=== PATIENT | female | born 1955 | race Caucasian/White ===

== ENCOUNTER 2017-01-12 16:03 | Inpatient (IN) | payer OTHER ==
[~2017-01-12] VITALS: Ht 160 cm; Wt 51.8 kg
[~2017-01-12 16:03] MED LIST: METO25 PO; OXYC1SOL5 PO
--- NOTE | 2017-01-12 16:23 | PD ---
HPI Time Seen by Provider: 16:23 PFSH Past Medical History Asthma: Yes Cancer: Yes (RIGHT BREAST) Cardiovascular Problems: Yes (PALPITATIONS) Chemotherapy: No Diminished Hearing: No Endocrine: No Genitourinary: No Hypertension: Yes Musculoskeletal: No Neurologic: No Psychiatric: No Reproductive: Yes Respiratory: Yes (asthma ) Radiation Therapy: No Menopausal: Yes Miscarriage: 1 Ectopic : Yes (x2) Past Surgical History Gynecologic Surgery: Yes Mastectomy: Yes (RIGHT 1998) Pacemaker: No Thoracic Surgery: Yes (R MASTECTOMY) Other Surgery: Yes (RIGHT MASTECTOMY) Social History Alcohol Use: Yes (OCCASIONALLY) Tobacco Use: Yes (PPD) Substance Use: No Allergies-Medications (Allergen,Severity, Reaction): Coded Allergies: No Known Allergies (Unverified , 07/31/16) Reported Meds & Prescriptions Reported Meds & Active Scripts Active Oxycodone/Acetaminophen 5 mg/325 mg 5 mg/325 mg Tab 1 Tab PO Q8HR PRN Metoprolol Tartrate 25 mg (Metoprolol Tartrate) 25 Mg Tab 12.5 Mg PO BID 30 Days Kalli Owens Jan 12, 2017 16:23
[2017-01-12 16:24] VITALS: BP 136/79; PULSE 113; RESP 16; TEMP 98.3; O2SAT 97
[2017-01-12] MEDS ORDERED: SODIUM CHLOR 0.9% 1000 ML INJ 1,000 ML IV ONE ×2 (16:45→18:15)
[2017-01-12 16:51] LABS: AUTOMATED NEUTROPHIL # 4.3 TH/MM3 (1.8-7.7); BASOPHIL % 0.2 % (0.0-2.0); EOSINOPHIL % 0.5 % (0.0-4.0); HEMATOCRIT 32.8 % (35.0-46.0); LYMPH % 9.5 % (9.0-44.0); LYMPHOCYTE # 0.5 TH/MM3 (1.0-4.8); MEAN CORPUSCULAR HEMOGLOBIN 31.5 PG (27.0-34.0); MEAN CORPUSCULAR HGB CONC 32.8 % (32.0-36.0); MONO % 6.5 % (0.0-8.0); NEUT % 83.3 % (16.0-70.0); PLATELET COUNT 82 TH/MM3 (150-450); RED BLOOD COUNT 3.41 MIL/MM3 (4.00-5.30); WHITE BLOOD COUNT 5.2 TH/MM3 (4.0-11.0)
[2017-01-12 16:55] LABS: HEMO FLAGS AUTO DIFF
[2017-01-12 16:59] LABS: INTERNATIONAL NORMALIZED RATIO 1.4 RATIO; PROTHROMBIN TIME - PATIENT 15.8 SEC (9.8-11.6)
[2017-01-12 17:29] LABS: ALKALINE PHOSPHATASE 231 U/L (45-117); ALT (GPT) 49 U/L (10-53); ANION GAP 21 MEQ/L (5-15); AST (GOT) 246 U/L (15-37); BICARBONATE 19.6 MEQ/L (21.0-32.0); BLOOD UREA NITROGEN 12 MG/DL (7-18); CHLORIDE 98 MEQ/L (98-107); CREATINE KINASE 478 U/L (26-192); GLOMERULAR FILTRATION RATE 61 ML/MIN (>89); SODIUM (NA) 139 MEQ/L (136-145); TOTAL BILIRUBIN ADULT 3.7 MG/DL (0.2-1.0)
[2017-01-12 17:32] LABS: PLATELET ESTIMATE SMEAR LOW (NORMAL); PLATELET MORPHOLOGY NORMAL (NORMAL); SCAN/DIFF AUTO DIFF CONFIRMED
[2017-01-12 17:48] LABS: AMPHETAMINE, URINE NEG (NEG); BARBITURATES, URINE NEG (NEG); COCAINE, URINE NEG (NEG)
[2017-01-12 17:50] LABS: CKMB 4.8 NG/ML (0.5-3.6)
--- NOTE | 2017-01-12 18:18 | PD ---
HPI Chief Complaint: Psychiatric Symptoms Time Seen by Provider: 16:22 Travel History International Travel<30 days: No Contact w/Intl Traveler<30days: No Traveled to known affect area: No History of Present Illness HPI This 61-year-old woman who presents to the emergency department via EMS under a roger act after she reportedly was found down on the ground for 4 days. She lives by herself. She apparently somewhat who calls and checks on her. She states she's on before for the past for 5 days. She can't really recall. States she's been scooting around on her butt. She denies pain anywhere except her butt. EMS reports a heart rate in the 140s initially, improved after IV fluids. She was placed under Roger act. No other complaints. History Past Medical History Narrative Medical Asthma Hypertension MGUS Chronic pancreatitis Menopausal: Yes Social History Alcohol Use: Yes (OCCASIONALLY) Tobacco Use: Yes (2 CIGS/DAILY) Allergies-Medications (Allergen,Severity, Reaction): Coded Allergies: No Known Allergies (Unverified , 01/12/17) Reported Meds & Prescriptions Reported Meds & Active Scripts Active No Active Prescriptions or Reported Medications Review of Systems ROS Limitations: Clinical Condition Physical Exam Narrative GENERAL: Frail 61-year-old woman, covered in feces, slow to respond to questions. SKIN: Decreased skin turgor. HEAD: Atraumatic. Normocephalic. EYES: Pupils equal and round. No scleral icterus. No injection or drainage. ENT: No nasal bleeding or discharge. Mucous membranes pink and moist. NECK: Trachea midline. No JVD. CARDIOVASCULAR: Heart rate regular but rapid. No murmurs. RESPIRATORY: No accessory muscle use. Clear to auscultation. Breath sounds equal bilaterally. GASTROINTESTINAL: Abdomen soft, non-tender, nondistended. Hepatic and splenic margins not palpable. MUSCULOSKELETAL: No obvious deformities. Decreased muscle bulk. No edema. NEUROLOGICAL: Awake and alert. No obvious cranial nerve deficits. Motor grossly within normal limits. Normal speech. Data Data Last Documented VS Vital Signs Date Time Temp Pulse Resp B/P Pulse Ox O2 Delivery O2 Flow Rate FiO2 01/12/17 16:24 98.3 113 16 136/79 97 Orders Iv Access Insert/Monitor (01/12/17 16:33) Complete Blood Count With Diff (01/12/17 16:33) Comprehensive Metabolic Panel (01/12/17 16:33) Act Partial Throm Time (Ptt) (01/12/17 16:33) Prothrombin Time / Inr (Pt) (01/12/17 16:33) Lipase (01/12/17 16:33) Creatine Kinase (Cpk) (01/12/17 16:33) Troponin I (01/12/17 16:33) Thyroid Stimulating Hormone (01/12/17 16:33) Alcohol (Ethanol) (01/12/17 16:33) Drug Screen, Random Urine (01/12/17 16:33) Sodium Chlor 0.9% 1000 Ml Inj (Ns 1000 M (01/12/17 16:45) CKMB (01/12/17 16:40) CKMB% (01/12/17 16:40) Sodium Chlor 0.9% 1000 Ml Inj (Ns 1000 M (01/12/17 18:15) Diet Regular Basic (01/12/17 Dinner) Urinalysis - C+S If Indicated (01/12/17 18:02) Admit Order (Ed Use Only) (01/12/17 ) Labs Laboratory Tests Test 01/12/17 01/12/17 16:40 17:25 White Blood Count 5.2 TH/MM3 Red Blood Count 3.41 MIL/MM3 Hemoglobin 10.8 GM/DL Hematocrit 32.8 % Mean Corpuscular Volume 96.0 FL Mean Corpuscular Hemoglobin 31.5 PG Mean Corpuscular Hemoglobin 32.8 % Concent Red Cell Distribution Width 18.0 % Platelet Count 82 TH/MM3 Mean Platelet Volume 9.3 FL Neutrophils (%) (Auto) 83.3 % Lymphocytes (%) (Auto) 9.5 % Monocytes (%) (Auto) 6.5 % Eosinophils (%) (Auto) 0.5 % Basophils (%) (Auto) 0.2 % Neutrophils # (Auto) 4.3 TH/MM3 Lymphocytes # (Auto) 0.5 TH/MM3 Monocytes # (Auto) 0.3 TH/MM3 Eosinophils # (Auto) 0.0 TH/MM3 Basophils # (Auto) 0.0 TH/MM3 CBC Comment AUTO DIFF Differential Comment AUTO DIFF CONFIRMED Platelet Estimate LOW Platelet Morphology Comment NORMAL Prothrombin Time 15.8 SEC Prothromb Time International 1.4 RATIO Ratio Activated Partial 28.0 SEC Thromboplast Time Sodium Level 139 MEQ/L Potassium Level 3.0 MEQ/L Chloride Level 98 MEQ/L Carbon Dioxide Level 19.6 MEQ/L Anion Gap 21 MEQ/L Blood Urea Nitrogen 12 MG/DL Creatinine 0.93 MG/DL Estimat Glomerular Filtration 61 ML/MIN Rate Random Glucose 35 MG/DL Calcium Level 8.4 MG/DL Total Bilirubin 3.7 MG/DL Aspartate Amino Transf 246 U/L (AST/SGOT) Alanine Aminotransferase 49 U/L (ALT/SGPT) Alkaline Phosphatase 231 U/L Total Creatine Kinase 478 U/L Creatine Kinase MB 4.8 NG/ML Creatine Kinase MB % 1.0 % Troponin I LESS THAN 0.02 NG/ML Total Protein 6.8 GM/DL Albumin 2.6 GM/DL Lipase 141 U/L Thyroid Stimulating Hormone 2.050 uIU/ML 3rd Gen Ethyl Alcohol Level LESS THAN 3 MG/DL Urine Color DARK-BROWN Urine Turbidity HAZY Urine pH 6.5 Urine Specific [place] 1.018 Urine Protein 30 mg/dL Urine Glucose (UA) NEG mg/dL Urine Ketones 40 mg/dL Urine Occult Blood MOD Urine Nitrite NEG Urine Bilirubin MOD Urine Urobilinogen GREATER THAN 12.0 MG/DL Urine Leukocyte Esterase MOD Urine RBC 1 /hpf Urine WBC 7 /hpf Urine Squamous Epithelial 4 /hpf Cells Urine Hyaline Casts 5 /lpf Urine Mucus FEW /lpf Microscopic Urinalysis Comment CULT NOT INDICATED Urine Opiates Screen NEG Urine Barbiturates Screen NEG Urine Amphetamines Screen NEG Urine Benzodiazepines Screen NEG Urine Cocaine Screen NEG Urine Cannabinoids Screen NEG MDM Medical Decision Making Medical Screen Exam Complete: Yes Emergency Medical Condition: Yes Interpretation(s) LABS: CBC remarkable for mild anemia. CMP remarkable for low glucose, 35, AST is elevated to 46, total CK is elevated at 478, alkaline phosphatase 231 Troponin negative TSH normal Lipase is normal Coags elevated 1.4 INR UA with increased urobilinogen, only minimal pyuria. Alcohol negative Drug screen negative Differential Diagnosis Depression, liver disease, cirrhosis, a lecture light abnormality, rhabdo, other Narrative Course 61-year-old woman, under a Roger crack for failure to take care of herself for high risk due to inadequate self care. She is on the floor covered in feces. She was tachycardic stress of dehydration. Liver enzymes are worsening. She recently had her gallbladder taken out. She had fatty liver that time. Emphatically denies alcohol use. All her alcohol tests have been negative. Etiology is unclear. We'll recommend admission, IV fluid hydration, repeat assessment. Diagnosis Primary Impression: Weakness Additional Impression: Liver disease Scripts No Active Prescriptions or Reported Meds Alex Blanc MD Jan 12, 2017 18:18
[2017-01-12 18:34] LABS: BLOOD, URINE MOD (NEG); COMMENT (UR) CULT NOT INDICATED; CULTURE IF INDICATED CULT NOT INDICATED; GLUCOSE,URINE NEG (NEG); HYALINE CAST, URINE 5 /lpf (RARE); KETONE, URINE 40 mg/dL (NEG); MUCUS URINE FEW /lpf (OCC); NITRITE,URINE NEG (NEG); PH, URINE 6.5 (5.0-8.5); SQUAMOUS EPITHELIAL CELL URINE 4 /hpf (0-5); URINE COLOR DARK-BROWN (YELLW/STRAW)
[2017-01-12 19:45] VITALS: BP 95/56; PULSE 99; RESP 18; O2SAT 95
[2017-01-12] MEDS ORDERED: NALOXONE HCL 0.4 MG/ML AMP IV PRN (19:45)
[2017-01-12] MEDS ORDERED: POTASSIUM CHLORIDE 10 MEQ CONTROLLED RELEASE TAB PO ONE (21:00)
[2017-01-12] MEDS: SODIUM CHLORIDE 0.9% FLUSH 5 ML FLUSH FLUSH SCH (22:06)
[2017-01-13] VITALS (7 sets, daily range): BP systolic 126–160; BP diastolic 67–76; PULSE 18–98; RESP 18–20; TEMP 96.9–98.9; O2SAT 91–97
--- NOTE | 2017-01-13 00:20 | HHI.HP ---
HPI Service [facility] Primary Care Physician No Primary Care Physician Admission Diagnosis AMS, Weakness, Liver DIsease Diagnoses: Chief Complaint: abd pain, nausea, vomiting, weakness Travel History International Travel<30 Days: No Contact w/Intl Traveler <30 Da: No Traveled to Known Affected Are: No History of Present Illness History taken from patient and ED physician. 61-year-old female with a history of asthma, hypertension (not on any medication ) and chronic pancreatitis presented to ED after being found at home on the ground by a police lieutenant precinct. Her brother from out of state was unable to reach her so he called the police. She states for the last 5 days she has been feeling week and unable to walk or eat. She has been scooting around on her butt the past 5 days because she has been unable to move her legs. She complains of weakness, abdominal pain,nausea and vomiting for the last 5 days, 5x a day, denies and red or black color to her vomit. She also is having loose stools 1-2 times a day. She denies any fever or chills. She feels her abdominal pain is the same feeling she gets when she has had pancreatitis in the past. She is also complaining of tenderness to bilateral lower extremities and pain to her mid back. Upon assessment patient has a congested cough and she states she has had this cough for the past 5 days. She states she only smokes 1-2 cigarettes a day. Review of Systems Constitutional: DENIES: Fever, Chills Respiratory: COMPLAINS OF: Cough Cardiovascular: DENIES: Chest pain, Lower Extremity Edema Gastrointestinal: COMPLAINS OF: Diarrhea, Nausea, Vomiting Musculoskeletal: DENIES: Back pain, Neck pain Integumentary: DENIES: Rash Past Family Social History Past Medical History Asthma Hypertension MGUS Chronic pancreatitis Right breast cancer Past Surgical History Cholecystectomy 2016 Mastectomy Reported Medications Reported Meds & Active Scripts Active No Active Prescriptions or Reported Medications Allergies: Coded Allergies: No Known Allergies (Unverified , 01/12/17) Active Ordered Medications Current Medications Medications (Trade) Dose Ordered Sig/Garett Route Start Time Stop Time Status Last Admin (NS Flush) 2 ml UNSCH PRN FLUSH 01/12/17 19:45 (NS Flush) 2 ml BID FLUSH 01/12/17 21:00 01/12/17 22:06 (Narcan Inj) 0.4 mg UNSCH PRN IV 01/12/17 19:45 Family History Mom: Brain cancer, [place] Dad: CAD Social History Tobacco use: 1-2 cigarettes a day Alcohol use: denies Illicit drug use: denies Patient lives alone and still drives. Physical Exam Vital Signs Vital Signs Date Time Temp Pulse Resp B/P Pulse Ox O2 Delivery O2 Flow Rate FiO2 01/12/17 19:45 99 18 95/56 95 Room Air 01/12/17 16:24 98.3 113 16 136/79 97 Physical Exam GENERAL: This is a thin frail patient, that is very weak. SKIN: No rashes, ecchymoses or lesions. Cool and dry. HEAD: Atraumatic. Normocephalic. EYES: Pupils equal round and reactive. Extraocular motions intact. ENT: Nose without bleeding, purulent drainage or septal hematoma. Airway patent. NECK: Trachea midline. No JVD CARDIOVASCULAR: Regular rate and rhythm without murmurs, gallops, or rubs. RESPIRATORY: Congested cough. Breath sounds equal bilaterally. No wheezes, rales , or rhonchi. GASTROINTESTINAL: Abdomen soft, non-tender, nondistended. No guarding. MUSCULOSKELETAL: Extremities without clubbing, cyanosis, or edema. No joint tenderness, effusion, or edema noted. No calf tenderness. NEUROLOGICAL: Awake and alert. Motor and sensory grossly within normal limits. Normal speech. Laboratory Laboratory Tests Test 01/12/17 01/12/17 16:40 17:25 White Blood Count 5.2 Red Blood Count 3.41 Hemoglobin 10.8 Hematocrit 32.8 Mean Corpuscular Volume 96.0 Mean Corpuscular Hemoglobin 31.5 Mean Corpuscular Hemoglobin 32.8 Concent Red Cell Distribution Width 18.0 Platelet Count 82 Mean Platelet Volume 9.3 Neutrophils (%) (Auto) 83.3 Lymphocytes (%) (Auto) 9.5 Monocytes (%) (Auto) 6.5 Eosinophils (%) (Auto) 0.5 Basophils (%) (Auto) 0.2 Neutrophils # (Auto) 4.3 Lymphocytes # (Auto) 0.5 Monocytes # (Auto) 0.3 Eosinophils # (Auto) 0.0 Basophils # (Auto) 0.0 CBC Comment AUTO DIFF Differential Comment AUTO DIFF CONFIRMED Platelet Estimate LOW Platelet Morphology Comment NORMAL Prothrombin Time 15.8 Prothromb Time International 1.4 Ratio Activated Partial 28.0 Thromboplast Time Sodium Level 139 Potassium Level 3.0 Chloride Level 98 Carbon Dioxide Level 19.6 Anion Gap 21 Blood Urea Nitrogen 12 Creatinine 0.93 Estimat Glomerular Filtration 61 Rate Random Glucose 35 Calcium Level 8.4 Total Bilirubin 3.7 Aspartate Amino Transf 246 (AST/SGOT) Alanine Aminotransferase 49 (ALT/SGPT) Alkaline Phosphatase 231 Total Creatine Kinase 478 Creatine Kinase MB 4.8 Creatine Kinase MB % 1.0 Troponin I LESS THAN 0.02 Total Protein 6.8 Albumin 2.6 Lipase 141 Thyroid Stimulating Hormone 2.050 3rd Gen Ethyl Alcohol Level LESS THAN 3 Urine Color DARK-BROWN Urine Turbidity HAZY Urine pH 6.5 Urine Specific [place] 1.018 Urine Protein 30 Urine Glucose (UA) NEG Urine Ketones 40 Urine Occult Blood MOD Urine Nitrite NEG Urine Bilirubin MOD Urine Urobilinogen GREATER THAN 12.0 Urine Leukocyte Esterase MOD Urine RBC 1 Urine WBC 7 Urine Squamous Epithelial 4 Cells Urine Hyaline Casts 5 Urine Mucus FEW Microscopic Urinalysis Comment CULT NOT INDICATED Urine Opiates Screen NEG Urine Barbiturates Screen NEG Urine Amphetamines Screen NEG Urine Benzodiazepines Screen NEG Urine Cocaine Screen NEG Urine Cannabinoids Screen NEG Result Diagram: 01/12/17 1640 01/12/17 1640 Imaging Assessment and Plan Problem List: (1) Weakness ICD Code: R53.1 Status: Acute (2) Rhabdomyolysis ICD Code: M62.82 Status: Acute (3) UTI (urinary tract infection) ICD Code: N39.0 Status: Acute (4) Hypokalemia ICD Code: E87.6 Status: Acute (5) Hypoglycemia ICD Code: E16.2 Status: Acute (6) Cough ICD Code: R05 Status: Acute Assessment and Plan 61-year-old female with a history of asthma, hypertension, MGUS, chronic pancreatitis presented with: Weakness/back pain Images: CT lumbar spine showed L4 to L5 focal severe canal stenosis and mild canal stenosis at L3 to 4, thoracic spine unremarkable -PT eval and treat Mild Rhabdomyolysis Labs: CPK 495, increased to extremity to -Bolus given in ED -Supportive IVF increased to 125ml/hr -Monitor telemetry Hypokalemia Labs: Potassium 3.0, increased to 3.2 -Supplement given in the ED and in a.m. -Trend BMP UTI Labs: UA moderate amount of leukocyte esterase, high WBC, high ketones and moderate acute blood -Cipro IV q12h Hypoglycemia Labs: glucose 35, resolved to 116 with orange juice and food -Accu checks -regular diet Cough Images: Chest xray unremarkable -Mucinex twice a day DVT prophylaxis: Scds Written by Elinor TURK, acting as scribe for Dr. Elliott on 01/13/17 at 0245. The documentation accurately reflects the work performed [id number] and decisions made by me and the physician Dr Elliott on 01/13/17. The documentation accurately reflects the work performed [id number] by me on at 0245 Discussed Condition With Patient and the ED physician Physician Certification 2 Midnight Certification Type: Admission for Inpatient Services Order for Inpatient Services The services are ordered in accordance with Medicare regulations or non- Medicare payer requirements, as applicable. In the case of services not specified as inpatient-only, they are appropriately provided as inpatient services in accordance with the 2-midnight benchmark. Estimated LOS (days): 3 days is the estimated time the patient will need to remain in the hospital, assuming treatment plan goals are met and no additional complications. Post-Hospital Plan: Not yet determined Elinor Massey Jan 13, 2017 00:20 Hunter Elliott MD Jan 14, 2017 08:26
[2017-01-13] MEDS: SODIUM CHLOR 0.9% 1000 ML INJ 1,000 ML IV SCH ×3 (04:13→20:31)
--- NOTE | 2017-01-13 04:13 | RADRPT ---
EXAM DATE/TIME: 01/13/2017 03:28 [facility] COMPARISON: No previous studies available for comparison. INDICATIONS : Weakness for 5 days RADIATION DOSE: 56.35 CTDIvol (mGy) MEDICAL HISTORY : Cardiovascular disease. Hypertension. Pancreatitis.Breast cancer. SURGICAL HISTORY : Mastectomy, right. Cholecystectomy. ENCOUNTER: Initial ACUITY: 4 - 6 days PAIN SCALE: 0/10 LOCATION: Bilateral cranial TECHNIQUE: Multiple contiguous axial images were obtained of the head. Using automated exposure control and adj ustment of the mA and/or kV according to patient size, radiation dose was kept as low as reasonably a chievable to obtain optimal diagnostic quality images. FINDINGS: CEREBRUM: The ventricles are normal for age. No evidence of midline shift, mass lesion, hemorrhage or acute in farction. No extra-axial fluid collections are seen. POSTERIOR FOSSA: The cerebellum and brainstem are intact. The 4th ventricle is midline. The cerebellopontine angle i s unremarkable. EXTRACRANIAL: The visualized portion of the orbits is intact. SKULL: The calvaria is intact. No evidence of skull fracture. CONCLUSION: 1. No acute intracranial abnormalities. Cortical atrophy. Dylon St MD on January 13, 2017 at 4:09 Board Certified Radiologist. This report was verified electronically.
--- NOTE | 2017-01-13 04:15 | RADRPT ---
EXAM DATE/TIME: 01/13/2017 03:32 [facility] COMPARISON: No previous studies available for comparison. INDICATIONS : Weakness for five days RADIATION DOSE: 12.64 CTDIvol (mGy) ; Combined studies - Thoracic Spine/Lumbar Spine MEDICAL HISTORY : Hypertension. Cardiovascular disease Pancreatitis.Breast cancer. SURGICAL HISTORY : Cholecystectomy. Mastectomy, right. ENCOUNTER: Initial ACUITY: 4 - 6 days PAIN SCALE: 0/10 LOCATION: Back TECHNIQUE: Volumetric scanning of the thoracic spine was performed. Multiplanar reconstructions in the sagittal , coronal and oblique axial planes were performed. Using automated exposure control and adjustment o f the mA and/or kV according to patient size, radiation dose was kept as low as reasonably achievable to obtain optimal diagnostic quality images. FINDINGS: The vertebral bodies of the thoracic spine are in normal alignment without evidence of subluxation. Vertebral body height is maintained. No fractures are seen. T1-T2: Normal. T2-T3: The thecal sac has a normal diameter. No evidence of disc bulge or protrusion. T3-T4: The thecal sac has a normal diameter. No evidence of disc bulge or protrusion. T4-T5: The thecal sac has a normal diameter. No evidence of disc bulge or protrusion. T5-T6: The thecal sac has a normal diameter. No evidence of disc bulge or protrusion. T6-T7: The thecal sac has a normal diameter. No evidence of disc bulge or protrusion. T7-T8: The thecal sac has a normal diameter. No evidence of disc bulge or protrusion. T8-T9: The thecal sac has a normal diameter. No evidence of disc bulge or protrusion. T9-T10: The thecal sac has a normal diameter. No evidence of disc bulge or protrusion. T10-T11: The thecal sac has a normal diameter. No evidence of disc bulge or protrusion. T11-T12: The thecal sac has a normal diameter. No evidence of disc bulge or protrusion. T12-L1: The thecal sac has a normal diameter. No evidence of disc bulge or protrusion. CONCLUSION: 1. No acute findings. Mild degenerative disc disease. No canal stenosis. Dylon St MD on January 13, 2017 at 4:12 Board Certified Radiologist. This report was verified electronically.
--- NOTE | 2017-01-13 04:18 | RADRPT ---
EXAM DATE/TIME: 01/13/2017 03:34 [facility] COMPARISON: No previous studies available for comparison. INDICATIONS : Weakness for five days RADIATION DOSE: 12.64 CTDIvol (mGy) ; Combined studies - Thoracic Spine/Lumbar Spine MEDICAL HISTORY : Cardiovascular disease. Hypertension. Pancreatitis.Breast cancer. SURGICAL HISTORY : Cholecystectomy. Mastectomy, right. ENCOUNTER: Initial ACUITY: 4 - 6 days PAIN SCALE: 0/10 LOCATION: Back TECHNIQUE: Volumetric scanning of the lumbar spine was performed. Multiplanar reconstructions in the sagittal, coronal and oblique axial planes were performed. Using automated exposure control and adjustment of the mA and/or kV according to patient size, radiation dose was kept as low as reasonably achievable t o obtain optimal diagnostic quality images. FINDINGS: No acute fracture. There is a grade 1 anterolisthesis of L4 and L5-1 broad-based disc protrusion and advanced facet arthropathy resulting in focal severe canal stenosis at this level. There is a mild central canal stenosis at L3-4 secondary to mild disc bulge or protrusion and facet a rthropathy. No other significant stenosis. CONCLUSION: 1. No acute fracture. 2. At L4-5 there is focal severe canal stenosis secondary to grade 1 anterolisthesis and advanced fac et arthropathy. 3. Mild canal stenosis at L3-4. Dylon St MD on January 13, 2017 at 4:14 Board Certified Radiologist. This report was verified electronically.
--- NOTE | 2017-01-13 04:28 | RADRPT ---
EXAM DATE/TIME: 01/13/2017 03:40 [facility] COMPARISON: CHEST SINGLE AP, July 31, 2016, 4:45. INDICATIONS : Pneumonia. MEDICAL HISTORY : None. SURGICAL HISTORY : None. ENCOUNTER: Initial ACUITY: 1 day PAIN SCORE: 7/10 LOCATION: Bilateral chest FINDINGS: A single view of the chest demonstrates the lungs to be symmetrically aerated without evidence of mas s, infiltrate or effusion. The cardiomediastinal contours are unremarkable. Osseous structures are intact. CONCLUSION: 1. No acute findings. Atherosclerotic aorta. Dylon St MD on January 13, 2017 at 4:26 Board Certified Radiologist. This report was verified electronically.
[2017-01-13 04:38] LABS: AUTOMATED NEUTROPHIL # 4.3 TH/MM3 (1.8-7.7); BASOPHIL % 0.5 % (0.0-2.0); EOSINOPHIL # 0.1 TH/MM3 (0-0.4); HEMATOCRIT 31.5 % (35.0-46.0); LYMPH % 20.3 % (9.0-44.0); LYMPHOCYTE # 1.2 TH/MM3 (1.0-4.8); MEAN CELL VOLUME 94.7 FL (80.0-100.0); MEAN CORPUSCULAR HEMOGLOBIN 31.9 PG (27.0-34.0); MEAN CORPUSCULAR HGB CONC 33.6 % (32.0-36.0); MONO % 5.8 % (0.0-8.0); NEUT % 72.4 % (16.0-70.0); PLATELET COUNT 79 TH/MM3 (150-450); RED BLOOD COUNT 3.33 MIL/MM3 (4.00-5.30); RED CELL DISTRIBUTION WIDTH 18.2 % (11.6-17.2); WHITE BLOOD COUNT 5.9 TH/MM3 (4.0-11.0)
[2017-01-13 04:47] LABS: HEMO FLAGS AUTO DIFF
[2017-01-13 05:14] LABS: ALKALINE PHOSPHATASE 242 U/L (45-117); ALT (GPT) 44 U/L (10-53); ANION GAP 11 MEQ/L (5-15); AST (GOT) 217 U/L (15-37); BICARBONATE 27.8 MEQ/L (21.0-32.0); BLOOD UREA NITROGEN 8 MG/DL (7-18); CHLORIDE 99 MEQ/L (98-107); CREATINE KINASE 622 U/L (26-192); GLOMERULAR FILTRATION RATE 70 ML/MIN (>89); POTASSIUM 3.2 MEQ/L (3.5-5.1); SODIUM (NA) 138 MEQ/L (136-145)
[2017-01-13 05:15] LABS: TOTAL BILIRUBIN ADULT 3.4 MG/DL (0.2-1.0)
[2017-01-13 05:32] LABS: CKMB 5.1 NG/ML (0.5-3.6)
[2017-01-13] MEDS ORDERED: POTASSIUM CHLORIDE 20 MEQ CONTROLLED RELEASE TAB PO ONE (06:45)
[2017-01-13 07:05] LABS: PLATELET ESTIMATE SMEAR LOW (NORMAL); PLATELET MORPHOLOGY NORMAL (NORMAL); SCAN/DIFF AUTO DIFF CONFIRMED
[2017-01-13] MEDS: SODIUM CHLORIDE 0.9% FLUSH 5 ML FLUSH FLUSH SCH ×2 (09:00→21:00)
[2017-01-13] MEDS ORDERED: LORazepam 2 MG/ML VIAL IM PRN ×2 (09:05→10:15)
--- NOTE | 2017-01-13 09:37 | PD.CONS ---
(Sung Winston MD) HPI Consult Requested By Primary Care Physician No Primary Care Physician (Sung Winston MD) Service Neurosurgery Consult Requested By Dr. Ramirez Reason for Consult Lower extremity weakness with loss of bowel control History of Present Illness Ms. Sigala is a 61 year old female who presents to [facility] after she was found home on the floor by law-enforcement. She reports she has been getting progressively weaker and has had progressive difficulty walking. She complain of generalized weakness all over her body. She denies paresthesias in her arms or legs. She reports of mild lumbar pain and pain in the anterior thighs. She also reports the past several weeks she has had bowel incontinence. She denies fevers or chills. A CT of the lumbar spine showed degenerative changes with focal stenosis at L4 5. Neurosurgical evaluation was requested. (Shelia Russell) Review of Systems Constitutional: COMPLAINS OF: Fatigue, DENIES: Fever, Chills Eyes: DENIES: Diplopia Ears, nose, mouth, throat: COMPLAINS OF: Hearing loss Respiratory: DENIES: Apneas, Shortness of breath Cardiovascular: DENIES: Chest pain Gastrointestinal: DENIES: Nausea, Vomiting Musculoskeletal: COMPLAINS OF: Stiffness, Back pain Neurologic: COMPLAINS OF: Abnormal gait, Localized weakness, DENIES: Paresthesias, Seizures, Speech Problems Psychiatric: DENIES: Hallucinations (Shelia Russell) Past Family Social History Allergies: Coded Allergies: No Known Allergies (Unverified , 01/12/17) Past Medical History Hypertension MGUS Asthma Chronic pancreatitis Breast cancer Past Surgical History Cholecystectomy Mastectomy Reported Medications Reviewed in EMR Active Ordered Medications Current Medications Medications (Trade) Dose Ordered Sig/Garett Route PRN Reason Start Time Stop Time Status Last Admin Dose Admin IV Flush (NS Flush) 2 ml UNSCH PRN FLUSH FLUSH AFTER USING IV ACCESS 01/12/17 19:45 IV Flush (NS Flush) 2 ml BID FLUSH 01/12/17 21:00 01/13/17 09:00 Naloxone HCl 0.4 mg 0.4 mg UNSCH PRN IV SEE LABEL COMMENTS 01/12/17 19:45 Sodium Chloride (NS 1000 ml Inj) 1,000 ml @ 125 mls/hr Q8H IV 01/13/17 03:30 01/13/17 04:13 Guaifenesin 600 mg 600 mg BID PO 01/13/17 09:00 01/13/17 10:17 Ciprofloxacin/ Dextrose (Cipro 400 Mg Premix) 200 ml @ 200 mls/hr Q12H IV 01/13/17 08:00 01/13/17 10:18 Oxycodone/ Acetaminophen (Percocet 5-325 Mg) 1 tab Q6H PRN PO PAIN SCALE 5 TO 10 01/13/17 12:00 01/13/17 14:07 Acetaminophen (Tylenol) 500 mg Q6H PRN PO PAIN 1-4, HEADACHE, FEVER 01/13/17 12:00 Family History Mother: Brain cancer, Heart Attack Father: Heart Disease Social History Tobacco use: 1-2 cigarettes a day, denies etoh or illicit drug abuse (Shelia Russell) Physical Exam Vital Signs Vital Signs Date Time Temp Pulse Resp B/P Pulse Ox O2 Delivery O2 Flow Rate FiO2 01/13/17 08:00 98.9 97 20 130/76 97 01/13/17 05:57 96.9 97 18 158/70 91 01/13/17 05:34 93 19 130/72 93 Room Air 01/13/17 01:04 95 18 126/67 96 Room Air 01/12/17 19:45 99 18 95/56 95 Room Air 01/12/17 16:24 98.3 113 16 136/79 97 Laboratory Laboratory Tests Test 01/12/17 01/12/17 01/13/17 16:40 17:25 04:03 White Blood Count 5.2 5.9 Red Blood Count 3.41 3.33 Hemoglobin 10.8 10.6 Hematocrit 32.8 31.5 Mean Corpuscular Volume 96.0 94.7 Mean Corpuscular Hemoglobin 31.5 31.9 Mean Corpuscular Hemoglobin 32.8 33.6 Concent Red Cell Distribution Width 18.0 18.2 Platelet Count 82 79 Mean Platelet Volume 9.3 9.5 Neutrophils (%) (Auto) 83.3 72.4 Lymphocytes (%) (Auto) 9.5 20.3 Monocytes (%) (Auto) 6.5 5.8 Eosinophils (%) (Auto) 0.5 1.0 Basophils (%) (Auto) 0.2 0.5 Neutrophils # (Auto) 4.3 4.3 Lymphocytes # (Auto) 0.5 1.2 Monocytes # (Auto) 0.3 0.3 Eosinophils # (Auto) 0.0 0.1 Basophils # (Auto) 0.0 0.0 CBC Comment AUTO DIFF AUTO DIFF Differential Comment AUTO DIFF AUTO DIFF CONFIRMED CONFIRMED Platelet Estimate LOW LOW Platelet Morphology Comment NORMAL NORMAL Prothrombin Time 15.8 Prothromb Time International 1.4 Ratio Activated Partial 28.0 Thromboplast Time Sodium Level 139 138 Potassium Level 3.0 3.2 Chloride Level 98 99 Carbon Dioxide Level 19.6 27.8 Anion Gap 21 11 Blood Urea Nitrogen 12 8 Creatinine 0.93 0.83 Estimat Glomerular Filtration 61 70 Rate Random Glucose 35 89 Calcium Level 8.4 7.7 Total Bilirubin 3.7 3.4 Aspartate Amino Transf 246 217 (AST/SGOT) Alanine Aminotransferase 49 44 (ALT/SGPT) Alkaline Phosphatase 231 242 Total Creatine Kinase 478 622 Creatine Kinase MB 4.8 5.1 Creatine Kinase MB % 1.0 0.8 Troponin I LESS THAN 0.02 Total Protein 6.8 6.6 Albumin 2.6 2.4 Lipase 141 Thyroid Stimulating Hormone 2.050 3rd Gen Ethyl Alcohol Level LESS THAN 3 Urine Color DARK-BROWN Urine Turbidity HAZY Urine pH 6.5 Urine Specific [place] 1.018 Urine Protein 30 Urine Glucose (UA) NEG Urine Ketones 40 Urine Occult Blood MOD Urine Nitrite NEG Urine Bilirubin MOD Urine Urobilinogen GREATER THAN 12.0 Urine Leukocyte Esterase MOD Urine RBC 1 Urine WBC 7 Urine Squamous Epithelial 4 Cells Urine Hyaline Casts 5 Urine Mucus FEW Microscopic Urinalysis Comment CULT NOT INDICATED Urine Opiates Screen NEG Urine Barbiturates Screen NEG Urine Amphetamines Screen NEG Urine Benzodiazepines Screen NEG Urine Cocaine Screen NEG Urine Cannabinoids Screen NEG (Sung Winston MD) Physical Exam Ms. Sigala is alert, awake and oriented to time, place and person. Speech is appropriate. Cranial nerve examination: pupils to be equal, round, and reactive to light. Extra-ocular movements are intact. Facial motor and sensory function are normal and symmetrical. Mild decreased hearing b/l. The uvula is midline and elevates symmetrically with the soft palate. Sternocleidomastoid and trapezius muscles have normal and symmetrical strength. Other cranial nerves are intact. Cervical spine has mild decreased range of motion with mild discomfort. Muscle testing reveals normal bulk and tone. She reports of generalized weakness. Muscle strength is 4/5 in all muscle groups of both upper extremities including deltoid, biceps, triceps, brachioradialis, wrist extension and books salesperson. In the lower extremities, strength is 3/5 in both iliopsoas , quadriceps, hamstrings, 4/5 plantar flexion, dorsiflexion, and extensor hallicus longus. Sensory examination reports intact to light touch in both the upper and lower extremities. Deep tendon reflexes are 1+ and symmetrical in the biceps, triceps, and brachioradialis, bilaterally, in the upper extremities. In the lower extremities , the patellar and Achilles are 2+, bilaterally. There is a bilateral plantar flexion response. Hoffmanns sign is negative. There is no clonus or other abnormal reflexes noted. Cerebellar examination is intact to [id number] test. (Shelia Russell) Result Diagram: 01/13/1740201/13/17402 Imaging Last Impressions Thoracic Spine CT 01/13/17 0000 Signed Impressions: Service Date/Time: Friday, January 13, 2017 03:32 - CONCLUSION: 1. No acute findings. Mild degenerative disc disease. No canal stenosis. Dylon St MD Lumbar Spine CT 01/13/17 0000 Signed Impressions: Service Date/Time: Friday, January 13, 2017 03:34 - CONCLUSION: 1. No acute fracture. 2. At L4-5 there is focal severe canal stenosis secondary to grade 1 anterolisthesis and advanced facet arthropathy. 3. Mild canal stenosis at L3- 4. Dylon St MD Head CT 01/13/17 0000 Signed Impressions: Service Date/Time: Friday, January 13, 2017 03:28 - CONCLUSION: 1. No acute intracranial abnormalities. Cortical atrophy. Dylon St MD Chest X-Ray 01/13/17 0000 Signed Impressions: Service Date/Time: Friday, January 13, 2017 03:40 - CONCLUSION: 1. No acute findings. Atherosclerotic aorta. Dylon St MD (Shelia Russell) Attending Statement Neuro. I have reviewed her clinical and radiological findings. Start neuro checks in a serial fashion. SHe has weakness of both upper and lower extremities. Her weakness does not correlate with her lumbar spinal stenosis. Recommend MRI of the cervical thoracic and lumbar spine. Recommend a neurology consultation to rule out other etiologies. We will defer further recommendations to upon completion of the workup Respiratory. pulmonary toilette, nasotracheal suction, and breathing treatments with nebulizers. PT and OT Nutrition. NPO Renal. monitor closely urine output, BUN and creatinine Endocrine. Monitor serial Acu checks and SSI as needed in detail ID monitor for signs of infection Protonix for stress ulcer prophylaxis Jose De Jesus hose and SCD's for DVT prophylaxis (Sung Winston MD) Sung Winston MD Jan 13, 2017 09:37 Shelia Russell Jan 13, 2017 14:33
[2017-01-13] MEDS: guaiFENesin E.R. 600 MG TAB PO SCH ×2 (10:17→20:27)
[2017-01-13] MEDS: CIPROFLOXACIN 400 MG PREMIX 200 ML IV SCH ×2 (10:18→20:27)
--- NOTE | 2017-01-13 11:25 | HHI.PR ---
Subjective Remarks Follow up for lower extremity weakness, L4-L5 focal severe canal stenosis. Patient was admitted overnight. Patient reports no fever or chills. She has not been able to walk in the last 2 weeks. She also reports loss of bowel control at home. Objective Vitals Vital Signs Date Time Temp Pulse Resp B/P Pulse Ox O2 Delivery O2 Flow Rate FiO2 01/13/17 08:00 98.9 97 20 130/76 97 01/13/17 05:57 96.9 97 18 158/70 91 01/13/17 05:34 93 19 130/72 93 Room Air 01/13/17 01:04 95 18 126/67 96 Room Air 01/12/17 19:45 99 18 95/56 95 Room Air 01/12/17 16:24 98.3 113 16 136/79 97 I/O 01/12/17 01/12/17 01/12/17 01/13/17 01/13/17 01/13/17 07:00 15:00 23:00 07:00 15:00 23:00 Intake Total 240 ml Balance 240 ml Intake Oral 240 ml Result Diagram: 01/13/17 0403 01/13/17 0403 Imaging Last Impressions Thoracic Spine CT 01/13/17 0000 Signed Impressions: Service Date/Time: Friday, January 13, 2017 03:32 - CONCLUSION: 1. No acute findings. Mild degenerative disc disease. No canal stenosis. Dylon St MD Lumbar Spine CT 01/13/17 0000 Signed Impressions: Service Date/Time: Friday, January 13, 2017 03:34 - CONCLUSION: 1. No acute fracture. 2. At L4-5 there is focal severe canal stenosis secondary to grade 1 anterolisthesis and advanced facet arthropathy. 3. Mild canal stenosis at L3- 4. Dylon St MD Head CT 01/13/17 0000 Signed Impressions: Service Date/Time: Friday, January 13, 2017 03:28 - CONCLUSION: 1. No acute intracranial abnormalities. Cortical atrophy. Dylon St MD Chest X-Ray 01/13/17 0000 Signed Impressions: Service Date/Time: Friday, January 13, 2017 03:40 - CONCLUSION: 1. No acute findings. Atherosclerotic aorta. Dylon St MD Objective Remarks GENERAL: Alert, NAD. SKIN: Warm and dry. HEAD: Normocephalic. EYES: No scleral icterus. No injection or drainage. NECK: Supple, trachea midline. No JVD or lymphadenopathy. CARDIOVASCULAR: Regular rate and rhythm without murmurs, gallops, or rubs. RESPIRATORY: Breath sounds equal bilaterally. No accessory muscle use. GASTROINTESTINAL: Abdomen soft, non-tender, nondistended. MUSCULOSKELETAL: No cyanosis, or edema. Symmetrically weak lower extremity strength 3+ out of 5. BACK: Nontender without obvious deformity. No CVA tenderness. Procedures None A/P Problem List: (1) Weakness ICD Code: R53.1 Status: Acute (2) Rhabdomyolysis ICD Code: M62.82 Status: Acute (3) UTI (urinary tract infection) ICD Code: N39.0 Status: Acute (4) Hypokalemia ICD Code: E87.6 Status: Acute (5) Hypoglycemia ICD Code: E16.2 Status: Acute (6) Cough ICD Code: R05 Status: Acute Assessment and Plan 61-year-old female with a history of asthma, hypertension, MGUS, chronic pancreatitis presented lower extremity weakness. She has not been able to walk for the last two weeks. No fever, chills. - L4-L5 focal severe canal stenosis - Discussed with Dr. Winston who will evaluate patient. - Will consult Neurology as well and obtain MRI studies of C, T and L spine. - Percocet for pain PRN - Urinary tract infection - Continue Cipro for now. We can likely switch to PO tomorrow. - Mild rhabdomyolysis - Hypokalemia - CPK 622 today. - Continue IV fluid. - K+ improved 3.0 --> 3.2. Full code. SCDs. Shelley Ramirez DO Jan 13, 2017 11:24 am
[2017-01-13] MEDS ORDERED: GADODIAMIDE PF 287 MG/ML 10 ML VIAL (for RAD MRI) IV ONE (13:01)
--- NOTE | 2017-01-13 13:56 | RADRPT ---
EXAM DATE/TIME: 01/13/2017 11:59 [facility] COMPARISON: No previous studies available for comparison. INDICATIONS : Back pain. CONTRAST: 9 cc Omniscan (gadodiamide) IV MEDICAL HISTORY : Carcinoma, breast. SURGICAL HISTORY : Mastectomy, bilateral. Cholecystectomy. ENCOUNTER: Initial ACUITY: 1 day PAIN SCORE: 3/10 LOCATION: Back TECHNIQUE: Multiplanar multisequence MRI of the thoracic spine was performed. FINDINGS: By MRI the marrow signal in the thoracic spine appears homogeneous and normal. Signal intensity in t he thoracic cord is normal. There is good preservation of vertebral body and disc space heights. There is no perivertebral mass identified. CONCLUSION: Negative MRI of the thoracic spine. There is no evidence for metastatic disease. Mauro Joel MD FACR on January 13, 2017 at 13:48 Board Certified Radiologist. This report was verified electronically.
[2017-01-13] MEDS: oxyCODONE/ACETAMINOPHEN 5 MG/325 MG TAB PO PRN (14:07)
--- NOTE | 2017-01-13 14:37 | RADRPT ---
EXAM DATE/TIME: 01/13/2017 11:59 [facility] COMPARISON: No previous studies available for comparison. INDICATIONS : Neck pain. CONTRAST: 9 cc Omniscan (gadodiamide) IV MEDICAL HISTORY : Carcinoma, breast. SURGICAL HISTORY : Mastectomy, bilateral. Cholecystectomy. ENCOUNTER: Initial ACUITY: 1 day PAIN SCORE: 4/10 LOCATION: Neck TECHNIQUE: Multiplanar, multisequence MRI examination of the cervical spine was performed. FINDINGS: By MRI the marrow signal in the cervical vertebral body appear homogeneous and normal. Signal intens ity in the cervical cord is normal. There is mild cervical atrophy. C2-C3: There is minimal central disc bulging present. Neural foramina are adequate. C3-C4: The thecal sac has a normal configuration. There is no evidence of disc herniation or spinal canal s tenosis. The neural foramina are patent bilaterally. C4-C5: There is mild uncinate ridging present with minimal right-sided neural foraminal encroachment. C5-C6: The thecal sac has a normal configuration. There is no evidence of disc herniation or spinal canal s tenosis. The neural foramina are patent bilaterally. C6-C7: There is mild uncinate ridging is present. Neural foramina are adequate. C7-T1: The thecal sac has a normal configuration. There is no evidence of disc herniation or spinal canal s tenosis. The neural foramina are patent bilaterally. CONCLUSION: Degenerative changes as described above. There is no abnormal contrast enhancement identified. Mauro Joel MD FACR on January 13, 2017 at 13:49 Board Certified Radiologist. This report was verified electronically.
--- NOTE | 2017-01-13 16:06 | RADRPT ---
EXAM DATE/TIME: 01/13/2017 11:59 [facility] COMPARISON: No previous studies available for comparison. INDICATIONS : Back pain. CONTRAST: 9 cc Omniscan (gadodiamide) IV MEDICAL HISTORY : Carcinoma, breast. SURGICAL HISTORY : Mastectomy, bilateral. Cholecystectomy. ENCOUNTER: Initial ACUITY: 1 day PAIN SCORE: 3/10 LOCATION: Back TECHNIQUE: Multiplanar multisequence MRI of the lumbar spine was performed with and without contrast. FINDINGS: By MRI the marrow signal in the lumbar vertebral body appears homogeneous and normal. Signal intensi ty in the conus is normal. T12-L1: The thecal sac has a normal diameter. No evidence of disc bulge or protrusion. The neural foramina are patent bilaterally. L1-L2: The thecal sac has a normal diameter. No evidence of disc bulge or protrusion. The neural foramina are patent bilaterally. L2-L3: There is very mild disc bulging present with mild facet changes. Minimal bilateral neural foraminal encroachment is evident. L3-L4: There is minimal eccentric bulging at L3-4 causing minimal encroachment on the right L3 nerve root. There are mild degenerative changes in the facets. L4-L5: There is a moderately severe spinal stenosis from ligamentous hypertrophy, degenerative changes and f acet hypertrophy. L5-S1: There is minimal eccentric bulging to the right. Neural foramina are adequate. Mild degenerative ch anges are present in the facets. SI joints are normal. There is no contrast enhancement. CONCLUSION: 1. Radiographically significant spinal stenosis at L4-L5. 2. Minimal disc bulging to the right at L3-4. Mauro Joel MD FACR on January 13, 2017 at 13:50 Board Certified Radiologist. This report was verified electronically.
--- NOTE | 2017-01-13 18:13 | PD.CONS ---
History of Present Illness Service Neurology Consult Requested By medical Reason for Consult weakness Primary Care Physician No Primary Care Physician History of Present Illness 61-year-old female with a history of asthma, hypertension (not on any medication ) and chronic pancreatitis presented to ED after being found at home on the ground by a chief of police. Her brother from [place] was unable to reach her so he called the police. she states she has been getting weak for the past 6 months. states she lives alone. denies any headache. states her legs will tremor sometimes and low back pain but denies true radicular symptoms. not the best historian. inattentive and slow to speak/answer. states she does not require any assistive device to walk with. she was found to have a glucose of 35, elevated ast, alk phos, low plt count and raised ck level. albumin 2.6. denies etoh use. had mri's of her entire spine performed and no spinal cord lesion found. she has been seen by neurosurgery. denies any fever/sick contacts. was seen by heme in the past for low plts and also has MGUS. Review of Systems as above and admit hp Past Family Social History Past Medical History Asthma Hypertension MGUS Chronic pancreatitis Right breast cancer Past Surgical History Cholecystectomy 2016 Mastectomy Reported Medications Reported Meds & Active Scripts Active No Active Prescriptions or Reported Medications Allergies: Coded Allergies: No Known Allergies (Unverified , 01/12/17) Family History Mom: Brain cancer, [place] Dad: CAD Social History Tobacco use: 1-2 cigarettes a day Alcohol use: denies Illicit drug use: denies Patient lives alone and still drives. Review of Systems All other ROS: ROS reviewed as documented in chart Past Family Social History Allergies: Coded Allergies: No Known Allergies (Unverified , 01/12/17) Active Ordered Medications Current Medications Medications (Trade) Dose Ordered Sig/Garett Route Start Time Stop Time Status Last Admin (NS Flush) 2 ml UNSCH PRN FLUSH 01/12/17 19:45 (NS Flush) 2 ml BID FLUSH 01/12/17 21:00 01/13/17 09:00 Naloxone HCl 0.4 mg 0.4 mg UNSCH PRN IV 01/12/17 19:45 (NS 1000 ml Inj) 1,000 ml @ 125 mls/hr Q8H IV 01/13/17 03:30 01/13/17 04:13 Guaifenesin 600 mg 600 mg BID PO 01/13/17 09:00 01/13/17 10:17 (Cipro 400 Mg Premix) 200 ml @ 200 mls/hr Q12H IV 01/13/17 08:00 01/13/17 10:18 (Percocet 5-325 Mg) 1 tab Q6H PRN PO 01/13/17 12:00 01/13/17 14:07 (Tylenol) 500 mg Q6H PRN PO 01/13/17 12:00 Exam I&O / VS 01/12/17 01/12/17 01/13/17 15:00 23:00 07:00 Intake Total 240 ml Balance 240 ml Intake Oral 240 ml Vital Signs Date Time Temp Pulse Resp B/P Pulse Ox O2 Delivery O2 Flow Rate FiO2 01/13/17 11:30 98.8 98 20 129/70 93 01/13/17 08:00 98.9 97 20 130/76 97 01/13/17 05:57 96.9 97 18 158/70 91 01/13/17 05:34 93 19 130/72 93 Room Air 01/13/17 01:04 95 18 126/67 96 Room Air 01/12/17 19:45 99 18 95/56 95 Room Air Exam Comments somewhat disheveled appearance, alert, ox 3. slow speech, follows, slow to respond. eomi but slow saccades. no ptosis. face sym, ou 3-2mm, generalized weakness le>ue. able to raise arms off bed, legs are difficult with strength of 2-3/5 proximally, distal feet 4/5, nicolas le atrophy, no fasciculations, slight increased tone in rt ue; msr 1+, no clonus, planterflexor, bruises on knees, and elbows Review/Management Diagnosis/Plan: (1) Weakness Plan: appears chronic (several months?) based on exam. has atrophy in le and multiple healed bruises. may be related to poor nutritional status. other causes would include spray technician lesions/ MGUS causing lymphoma? and axonal neuropathy i don't think the lumbar stenosis accounts for all her physical and lab findings recs nutritional support heme-onc eval mri brain check csf follow exam probably needs long-term placement d/w pt (2) MGUS (monoclonal gammopathy of unknown significance) (3) Thrombocytopenia Garewal,Jeremy MD Jan 13, 2017 18:13
[2017-01-14 04:03] VITALS: BP 168/88; PULSE 106; RESP 18; TEMP 99.2; O2SAT 92
[2017-01-14] MEDS: oxyCODONE/ACETAMINOPHEN 5 MG/325 MG TAB PO PRN ×2 (05:40→18:44)
[2017-01-14] MEDS: SODIUM CHLOR 0.9% 1000 ML INJ 1,000 ML IV SCH ×3 (05:41→20:31)
[2017-01-14 07:17] VITALS: BP 172/105; PULSE 97; RESP 18; TEMP 98.7; O2SAT 92
[2017-01-14] MEDS: guaiFENesin E.R. 600 MG TAB PO SCH ×2 (09:00→20:50)
[2017-01-14] MEDS: SODIUM CHLORIDE 0.9% FLUSH 5 ML FLUSH FLUSH SCH ×2 (09:00→20:50)
[2017-01-14] MEDS ORDERED: LORazepam 2 MG/ML VIAL ONE (09:19)
--- NOTE | 2017-01-14 09:47 | PD.RAD ---
Post Procedure Progress Note Pre Procedure Diagnosis: (1) MGUS (monoclonal gammopathy of unknown significance) Post Procedure Diagnosis: (1) MGUS (monoclonal gammopathy of unknown significance) Procedure Date: Jan 14, 2017 Supervising Radiologist: Louis Metz Proceduralist/Assist: Teresa Sandra, RT(R)(CV), Kenia Young RT(R) Anesthesia: Local Plan of Activity Patient to Unit: Nursing Unit Patient Condition: Fair See PACS Report for procedural detail/treatment Spinal Procedure Lumbar Puncture L3-L4 Fluid Removal (CCs): 6 Fluid Description: Louis Hardin MD Jan 14, 2017 09:47
[2017-01-14] MEDS ORDERED: GADODIAMIDE PF 287 MG/ML 10 ML VIAL (for RAD MRI) IV ONE (10:23)
[2017-01-14] MEDS ORDERED: LORazepam 2 MG/ML VIAL IV PUSH ONE (11:00)
--- NOTE | 2017-01-14 11:02 | RADRPT ---
EXAM DATE/TIME: 01/14/2017 10:04 [facility] COMPARISON: CT BRAIN W/O CONTRAST, January 13, 2017, 3:28. INDICATIONS : Metastatic disease. CONTRAST: 10 cc Omniscan (gadodiamide) IV MEDICAL HISTORY : Carcinoma, breast. SURGICAL HISTORY : Cholecystectomy. Mastectomy, bilateral. ENCOUNTER: Subsequent ACUITY: 2 day PAIN SCORE: 0/10 LOCATION: cranial TECHNIQUE: Multiplanar, multisequence MRI of the brain was performed both prior to and following the administrat ion of paramagnetic contrast. FINDINGS: CEREBRUM: The ventricles are normal for age. No evidence of midline shift, mass lesion, hemorrhage or acute in farction. No extraaxial fluid collections are seen. The pituitary gland and suprasellar cistern are normal in configuration. WHITE MATTER: Scattered T2 bright signal abnormalities are seen in the white matter. POSTERIOR FOSSA: The cerebellum is intact. Prominent chronic ischemic changes involving the brainstem. The 4th ventric le is midline. The cerebellopontine angle is unremarkable. The cerebellar tonsils are normal in posi tion. DIFFUSION IMAGING: No focal areas of restricted diffusion are seen. No evidence of acute infarction. EXTRACRANIAL: The visualized portions of the orbits and paranasal sinuses are unremarkable. POST-CONTRAST: No abnormal areas of parenchymal or dural enhancement. No evidence of blood-brain barrier breakdown. CONCLUSION: 1. Chronic ischemic small vessel vasculopathy. 2. No acute infarction. 3. No enhancing metastatic lesions are seen. Frank Johnson MD on January 14, 2017 at 10:54 Board Certified Radiologist. This report was verified electronically.
[2017-01-14] MEDS: CIPROFLOXACIN 400 MG PREMIX 200 ML IV SCH (11:05)
[2017-01-14 11:18] LABS: GROSS BLOOD TUBE #1 1+ (0); SUPERNATE COLOR TUBE #1 CLEAR (CLEAR); VOLUME TUBE # 1 1.6 ML
[2017-01-14 11:21] LABS: GROSS BLOOD TUBE #2 1+ (0); SUPERNATE COLOR TUBE #2 CLEAR (CLEAR); VOLUME TUBE # 2 1.9 ML; VOLUME TUBE # 3 2.1 ML
[2017-01-14 11:36] LABS: WBC TUBE #3 25 /MM3 (0-10)
[2017-01-14 11:40] LABS: CSF LYMPHOCYTES 33 %; CSF NEUTROPHILS 67 %
--- NOTE | 2017-01-14 11:41 | RADRPT ---
EXAM DATE/TIME: 01/14/2017 09:33 [facility] COMPARISON: No previous studies available for comparison. INDICATIONS : Patient with neuritis in need of lumbar puncture. MEDICAL HISTORY : HTN, Asthma, MGUS, Chronic pancreatitis, Right breast cancer SURGICAL HISTORY : Cholecystectomy, Mastectomy ENCOUNTER: Initial ACUITY: 4 -6 days PAIN SCORE: 0/10 LUMBAR PUNCTURE TIME: 0950 hours FLUORO TIME: 1.4 minutes IMAGE SERIES: 0 SEDATION TIME: 15 minutes ACCESS LEVEL: L2-3 FLUID: 6 cc of clear CSF was collected and sent to the laboratory for analysis. SEDATION: 1.) 2 mg lorazepam (Ativan) IV PROCEDURE : 1. Fluoroscopic guided lumbar puncture. The risks, benefits and alternatives to the procedure were explained and verbal and written consent w as obtained. The site was prepped in sterile fashion. Full sterile technique was used, including ca p, mask, sterile gloves and gown and a large sterile sheet. Hand hygiene and 2% chlorhexidine and/or betadine/alcohol prep was utilized per protocol for cutaneous antisepsis. The skin and subcutaneous tissues were infiltrated with local anesthetic solution. With fluoroscopic guidance the lumbar thecal sac was punctured at the level above. The fluid describ ed above was removed without difficulty. The patient tolerated the procedure well and there were no complications. CONCLUSION: Uncomplicated fluoroscopically guided lumbar puncture. Louis Metz MD on January 14, 2017 at 11:39 Board Certified Radiologist. This report was verified electronically.
[2017-01-14 12:39] LABS: GROSS BLOOD TUBE #3 1+ (0); SUPERNATE COLOR TUBE #3 CLEAR (CLEAR)
[2017-01-14 12:57] VITALS: BP 109/69; PULSE 84; RESP 18; O2SAT 93
--- NOTE | 2017-01-14 13:11 | HHI.NSPN ---
(Shelia Russell) Note Status Status: Progress Note (Shelia Russell) Interval History Interval History Ms. Sigala is a 61 year old female who presents to [place] after she was found home on the floor by law-enforcement. She reports she has been getting progressively weaker and has had progressive difficulty walking. She complain of generalized weakness all over her body. She denies paresthesias in her arms or legs. She reports of mild lumbar pain and pain in the anterior thighs. She also reports the past several weeks she has had bowel incontinence. She denies fevers or chills. A CT of the lumbar spine showed degenerative changes with focal stenosis at L4 5. Neurosurgical evaluation was requested. 01/14: MRI C, T, L spine completed, showed focal stenosis at L4-5 otherwise negative. returned from , [place], reports she still feels weak all over. ( Shelia Russell) Labs, Micro, & Vital Signs Results Date Time Temp Pulse Resp B/P Pulse Ox O2 Delivery O2 Flow Rate FiO2 01/14/17 12:57 84 18 109/69 93 01/14/17 07:17 98.7 97 18 172/105 92 01/14/17 04:03 99.2 106 18 168/88 92 01/13/17 23:54 98.3 93 18 160/74 94 01/13/17 20:45 98.2 18 18 140/76 93 01/13/17 15:07 20 Last Impressions Lumbar Puncture Fluoroscopy 01/14/17 0000 Signed Impressions: Service Date/Time: January 09:33 - CONCLUSION: Uncomplicated fluoroscopically guided lumbar puncture. Louis Metz MD Brain MRI 01/14/17 0000 Signed Impressions: Service Date/Time: January 10:04 - CONCLUSION: 1. Chronic ischemic small vessel vasculopathy. 2. No acute infarction. 3. No enhancing metastatic lesions are seen. Frank Johnson MD Thoracic Spine MRI 01/13/17 0000 Signed Impressions: Service Date/Time: Friday, January 13, 2017 11:59 - CONCLUSION: Negative MRI of the thoracic spine. There is no evidence for metastatic disease. Mauro Joel MD FACR Thoracic Spine CT 01/13/17 0000 Signed Impressions: Service Date/Time: Friday, January 13, 2017 03:32 - CONCLUSION: 1. No acute findings. Mild degenerative disc disease. No canal stenosis. Dylon St MD Lumbar Spine MRI 01/13/17 0000 Signed Impressions: Service Date/Time: Friday, January 13, 2017 11:59 - CONCLUSION: 1. Radiographically significant spinal stenosis at L4-L5. 2. Minimal disc bulging to the right at L3-4. Mauro Joel MD FACR Lumbar Spine CT 01/13/17 0000 Signed Impressions: Service Date/Time: Friday, January 13, 2017 03:34 - CONCLUSION: 1. No acute fracture. 2. At L4-5 there is focal severe canal stenosis secondary to grade 1 anterolisthesis and advanced facet arthropathy. 3. Mild canal stenosis at L3- 4. Dylon St MD Head CT 01/13/17 0000 Signed Impressions: Service Date/Time: Friday, January 13, 2017 03:28 - CONCLUSION: 1. No acute intracranial abnormalities. Cortical atrophy. Dylon St MD Chest X-Ray 01/13/17 0000 Signed Impressions: Service Date/Time: Friday, January 13, 2017 03:40 - CONCLUSION: 1. No acute findings. Atherosclerotic aorta. Dylon St MD Cervical Spine MRI 01/13/17 0000 Signed Impressions: Service Date/Time: Friday, January 13, 2017 11:59 - CONCLUSION: Degenerative changes as described above. There is no abnormal contrast enhancement identified. Mauro Joel MD FACR Constitutional Vital Signs Date Time Temp Pulse Resp B/P Pulse Ox O2 Delivery O2 Flow Rate FiO2 01/14/17 12:57 84 18 109/69 93 01/14/17 07:17 98.7 97 18 172/105 92 01/14/17 04:03 99.2 106 18 168/88 92 01/13/17 23:54 98.3 93 18 160/74 94 01/13/17 20:45 98.2 18 18 140/76 93 01/13/17 15:07 20 (Shelia Russell) Review of Systems/Exam Exam Ms. Sigala is groggy following sedation for LP, oriented name and place. Cranial nerve examination: pupils equal, round, and reactive to light. Facial motor are symmetrical. Cervical spine has mild decreased range of motion with mild discomfort. Motor: exam limited due to sedation, moved all four extremities against gravity , weaker in lower extremities Sensory examination reports intact to light touch in both the upper and lower extremities. There is a bilateral plantar flexion response. Hoffmanns sign is negative. Cerebellar: exam limited today due to sedation (Shelia Russell) Medications Current Medications Current Medications Medications (Trade) Dose Ordered Sig/Garett Route PRN Reason Start Time Stop Time Status Last Admin Dose Admin IV Flush (NS Flush) 2 ml UNSCH PRN FLUSH FLUSH AFTER USING IV ACCESS 01/12/17 19:45 IV Flush (NS Flush) 2 ml BID FLUSH 01/12/17 21:00 01/14/17 09:00 Naloxone HCl 0.4 mg 0.4 mg UNSCH PRN IV SEE LABEL COMMENTS 01/12/17 19:45 Sodium Chloride (NS 1000 ml Inj) 1,000 ml @ 125 mls/hr Q8H IV 01/13/17 03:30 01/14/17 05:41 Guaifenesin 600 mg 600 mg BID PO 01/13/17 09:00 01/13/17 20:27 Ciprofloxacin/ Dextrose (Cipro 400 Mg Premix) 200 ml @ 200 mls/hr Q12H IV 01/13/17 08:00 01/14/17 11:05 Oxycodone/ Acetaminophen (Percocet 5-325 Mg) 1 tab Q6H PRN PO PAIN SCALE 5 TO 10 01/13/17 12:00 01/14/17 05:40 Acetaminophen (Tylenol) 500 mg Q6H PRN PO PAIN 1-4, HEADACHE, FEVER 01/13/17 12:00 (Shelia Russell) Medical Decision Making MDM Remarks 61 y/o female complains of progressive generalized weakness and difficulty ambulating, fecal incontinence MRI L spine shows degenerative changes causing focal stenosis at L4-5, MRI C spine shows degenerative changes without significant stenosis, MRI T spine negative (Shelia Russell) Plan Plan Remarks dw pt regarding MRI spine findings, focal stenosis at L4-5 does not explain all her symptoms, recommend nonsurgical management at this time, Neurology following, CSF studies pending will defer further management to Neurology, recommend physical, occupational therapy (Shelia Russell) Attending Statement The exam, history, and the medical decision-making described in the above note were completed with the assistance of the mid-level provider. I reviewed and agree with the findings presented. I attest that I had a [id number] encounter with the patient on the same day, and personally performed and documented my assessment and findings in the medical record. (Sung Winston MD) Shelia Russell Jan 14, 2017 13:11 Sung Winston MD Jan 15, 2017 08:45
--- NOTE | 2017-01-14 16:07 | HHI.PR ---
Subjective Remarks Follow up for lower extremity weakness, L4-L5 focal severe canal stenosis. Patient is lying in bed resting well. Denies any acute concerns. She still cannot get up and walk. She likely needs long-term care. Objective Vitals Vital Signs Date Time Temp Pulse Resp B/P Pulse Ox O2 Delivery O2 Flow Rate FiO2 01/14/17 12:57 84 18 109/69 93 01/14/17 07:17 98.7 97 18 172/105 92 01/14/17 04:03 99.2 106 18 168/88 92 01/13/17 23:54 98.3 93 18 160/74 94 01/13/17 20:45 98.2 18 18 140/76 93 Result Diagram: 01/13/17 0403 01/13/17402 Imaging Last Impressions Lumbar Puncture Fluoroscopy 01/14/17 0000 Signed Impressions: Service Date/Time: January 09:33 - CONCLUSION: Uncomplicated fluoroscopically guided lumbar puncture. Louis Metz MD Brain MRI 01/14/17 0000 Signed Impressions: Service Date/Time: January 10:04 - CONCLUSION: 1. Chronic ischemic small vessel vasculopathy. 2. No acute infarction. 3. No enhancing metastatic lesions are seen. Frank Johnson MD Thoracic Spine MRI 01/13/17 0000 Signed Impressions: Service Date/Time: Friday, January 13, 2017 11:59 - CONCLUSION: Negative MRI of the thoracic spine. There is no evidence for metastatic disease. Mauro Joel MD FACR Thoracic Spine CT 01/13/17 0000 Signed Impressions: Service Date/Time: Friday, January 13, 2017 03:32 - CONCLUSION: 1. No acute findings. Mild degenerative disc disease. No canal stenosis. Dylon St MD Lumbar Spine MRI 01/13/17 0000 Signed Impressions: Service Date/Time: Friday, January 13, 2017 11:59 - CONCLUSION: 1. Radiographically significant spinal stenosis at L4-L5. 2. Minimal disc bulging to the right at L3-4. Mauro Joel MD FACR Lumbar Spine CT 01/13/17 0000 Signed Impressions: Service Date/Time: Friday, January 13, 2017 03:34 - CONCLUSION: 1. No acute fracture. 2. At L4-5 there is focal severe canal stenosis secondary to grade 1 anterolisthesis and advanced facet arthropathy. 3. Mild canal stenosis at L3- 4. Dylon St MD Head CT 01/13/17 0000 Signed Impressions: Service Date/Time: Friday, January 13, 2017 03:28 - CONCLUSION: 1. No acute intracranial abnormalities. Cortical atrophy. Dylon St MD Chest X-Ray 01/13/17 Signed Impressions: Service Date/Time: Friday, January 13, 2017 03:40 - CONCLUSION: 1. No acute findings. Atherosclerotic aorta. Dylon St MD Cervical Spine MRI 01/13/17 Signed Impressions: Service Date/Time: Friday, January 13, 2017 11:59 - CONCLUSION: Degenerative changes as described above. There is no abnormal contrast enhancement identified. Mauro Joel MD FACR Objective Remarks GENERAL: Alert, NAD. SKIN: Warm and dry. HEAD: Normocephalic. EYES: No scleral icterus. No injection or drainage. NECK: Supple, trachea midline. No JVD or lymphadenopathy. CARDIOVASCULAR: Regular rate and rhythm without murmurs, gallops, or rubs. RESPIRATORY: Breath sounds equal bilaterally. No accessory muscle use. GASTROINTESTINAL: Abdomen soft, non-tender, nondistended. MUSCULOSKELETAL: No cyanosis, or edema. Symmetrically weak lower extremity strength 3+ out of 5. BACK: Nontender without obvious deformity. No CVA tenderness. Procedures Lumbar puncture 01/14/2017 A/P Problem List: (1) Weakness ICD Code: R53.1 Status: Acute (2) Rhabdomyolysis ICD Code: M62.82 Status: Acute (3) UTI (urinary tract infection) ICD Code: N39.0 Status: Acute (4) Hypokalemia ICD Code: E87.6 Status: Acute (5) Hypoglycemia ICD Code: E16.2 Status: Acute (6) Cough ICD Code: R05 Status: Acute Assessment and Plan 61-year-old female with a history of asthma, hypertension, MGUS, chronic pancreatitis presented lower extremity weakness. She has not been able to walk for the last two weeks. No fever, chills. - Generalized lower extremity weakness - L4-L5 focal severe canal stenosis - Appreciate Neurology and Neurosurgery input. - No immediate surgical intervention anticipated. - Continue PT. Discussed with CM - Patient does not have any insurance. - Urinary tract infection - Continue Cipro 250mg PO Q12hrs X 3 days. - Mild rhabdomyolysis - Hypokalemia - CPK 622 - Continue IV fluid. - K+ improved 3.0 --> 3.2. - BMP, CBC in the AM. - Hyperammonemia - ammonia level 76. - Will start on Lactulose. Full code. SCDs. Shelley Ramirez DO Jan 14, 2017 4:07 pm
[2017-01-14 16:35] VITALS: BP 128/77; PULSE 104; RESP 17; O2SAT 95
[2017-01-14] MEDS: LACTULOSE SYRUP 20 GM/30 ML CUP PO SCH ×2 (18:48→20:50)
[2017-01-14 19:31] VITALS: BP 148/89; PULSE 98; RESP 18; O2SAT 97
[2017-01-14] MEDS: CIPROFLOXACIN 250 MG TAB PO SCH (21:38)
[2017-01-15 03:42] VITALS: BP 119/86; PULSE 78; RESP 18; O2SAT 97
[2017-01-15] MEDS: SODIUM CHLOR 0.9% 1000 ML INJ 1,000 ML IV SCH ×3 (04:31→20:13)
[2017-01-15 07:44] LABS: AUTOMATED NEUTROPHIL # 3.1 TH/MM3 (1.8-7.7); BASOPHIL % 0.6 % (0.0-2.0); EOSINOPHIL # 0.1 TH/MM3 (0-0.4); EOSINOPHIL % 2.3 % (0.0-4.0); HEMATOCRIT 34.3 % (35.0-46.0); LYMPH % 20.1 % (9.0-44.0); LYMPHOCYTE # 0.9 TH/MM3 (1.0-4.8); MEAN CORPUSCULAR HEMOGLOBIN 31.8 PG (27.0-34.0); MEAN CORPUSCULAR HGB CONC 32.8 % (32.0-36.0); PLATELET COUNT 78 TH/MM3 (150-450); RED BLOOD COUNT 3.54 MIL/MM3 (4.00-5.30); RED CELL DISTRIBUTION WIDTH 18.9 % (11.6-17.2); WHITE BLOOD COUNT 4.7 TH/MM3 (4.0-11.0)
[2017-01-15 07:46] VITALS: BP 156/98; PULSE 97; RESP 17; O2SAT 95
[2017-01-15 07:51] LABS: HEMO FLAGS AUTO DIFF
[2017-01-15 08:15] LABS: BICARBONATE 25.1 MEQ/L (21.0-32.0)
--- NOTE | 2017-01-15 08:20 | HHI.PR ---
Review/Management Diagnosis/Plan: (1) Weakness Plan: appears chronic (several months?) based on exam. has atrophy in le and multiple healed bruises. may be related to poor nutritional status. 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 and axonal neuropathy i don't think the lumbar stenosis accounts for all her physical and lab findings csf- nml protein; mild elevation of wbc but rbc also elevated; cx'd negative mild parkinsonism on exam recs trial of sinemet; s/b d/w pt probably needs long-term placement rehab-pending heme eval-pending d/w pt will her back on wednesday; call me if ? (2) MGUS (monoclonal gammopathy of unknown significance) (3) Thrombocytopenia Subjective Subjective Comments No acute events reported +tremors and stiffness on awakening No headache No chest pain No dyspnea Active Medications Current Medications Medications (Trade) Dose Ordered Sig/Garett Route Start Time Stop Time Status Last Admin (NS Flush) 2 ml UNSCH PRN FLUSH 01/12/17 19:45 (NS Flush) 2 ml BID FLUSH 01/12/17 21:00 01/14/17 09:00 Naloxone HCl 0.4 mg 0.4 mg UNSCH PRN IV 01/12/17 19:45 (NS 1000 ml Inj) 1,000 ml @ 125 mls/hr Q8H IV 01/13/17 03:30 01/14/17 18:49 (Mucinex Er) 600 mg BID PO 01/13/17 09:00 01/14/17 20:50 (Percocet 5-325 Mg) 1 tab Q6H PRN PO 01/13/17 12:00 01/14/17 18:44 (Tylenol) 500 mg Q6H PRN PO 01/13/17 12:00 (Cipro) 250 mg Q12HR PO 01/14/17 21:00 01/17/17 20:59 01/14/17 21:38 (Lactulose Liq) 30 ml QID PO 01/14/17 18:00 01/14/17 20:50 Allergies Allergies Coded Allergies No Known Allergies (Unverified01/12/17) Review of Systems All other ROS: ROS reviewed as documented in chart Exam I&O / VS 01/14/17 01/14/17 01/15/17 15:00 23:00 07:00 Intake Total 1100 ml Balance 1100 ml Intake Oral 600 ml IV Total 500 ml # Voids 4 # Bowel Movements 0 Vital Signs Date Time Temp Pulse Resp B/P Pulse Ox O2 Delivery O2 Flow Rate FiO2 01/15/17 07:46 97 17 156/98 95 01/15/17 03:42 78 18 119/86 97 01/14/17 19:44 12 01/14/17 19:31 98 18 148/89 97 01/14/17 16:35 104 17 128/77 95 01/14/17 12:57 84 18 109/69 93 Exam Comments alert, ox 3. slow speech, follows, slow to respond. facial hypomimia, eomi but slow saccades. no ptosis. face sym, ou 3-2mm, generalized weakness le>ue. able to raise arms off bed, legs are difficult with strength of 3+/5 proximally, distal feet 4/5, nicolas le atrophy, no fasciculations, slight increased tone in rt ue; msr 1+, no clonus, planterflexor, bruises on knees, and elbows Objective Micro and Labs Laboratory Tests Test 01/14/17 01/15/17 09:40 06:32 CSF Volume (Tube 1) 1.6 CSF Supernatant Color (tube 1) CLEAR CSF Gross Blood (Tube 1) 1+ CSF Volume (Tube 2) 1.9 CSF Supernatant Color (tube 2) CLEAR CSF Gross Blood (Tube 2) 1+ CSF Volume (Tube 3) 2.1 CSF Supernatant Color (tube 3) CLEAR CSF Gross Blood (Tube 3) 1+ CSF WBC (Tube 3) 25 CSF RBC (Tube 3) 1036 CSF Neutrophils 67 CSF Lymphocytes 33 CSF Glucose 50 CSF Total Protein 40.5 White Blood Count 4.7 Red Blood Count 3.54 Hemoglobin 11.2 Hematocrit 34.3 Mean Corpuscular Volume 97.0 Mean Corpuscular Hemoglobin 31.8 Mean Corpuscular Hemoglobin 32.8 Concent Red Cell Distribution Width 18.9 Platelet Count 78 Mean Platelet Volume 10.1 Neutrophils (%) (Auto) 67.0 Lymphocytes (%) (Auto) 20.1 Monocytes (%) (Auto) 10.0 Eosinophils (%) (Auto) 2.3 Basophils (%) (Auto) 0.6 Neutrophils # (Auto) 3.1 Lymphocytes # (Auto) 0.9 Monocytes # (Auto) 0.5 Eosinophils # (Auto) 0.1 Basophils # (Auto) 0.0 CBC Comment AUTO DIFF Date/Time Procedure Status Source Growth 01/14/17 09:40 Gram Stain - Final Resulted Cerebral Spinal Fluid Lumbar Puncture 01/14/17 09:40 CSF Culture Resulted Cerebral Spinal Fluid Lumbar Puncture Pending Jeremy Holliday MD Jan 15, 2017 08:20
[2017-01-15 08:36] LABS: PLATELET ESTIMATE SMEAR LOW (NORMAL); PLATELET MORPHOLOGY NORMAL (NORMAL); SCAN/DIFF AUTO DIFF CONFIRMED
[2017-01-15] MEDS: SODIUM CHLORIDE 0.9% FLUSH 5 ML FLUSH FLUSH SCH ×2 (09:00→20:14)
[2017-01-15] MEDS: CIPROFLOXACIN 250 MG TAB PO SCH ×2 (09:36→20:27)
[2017-01-15] MEDS: CARBIDOPA/LEVODOPA 10 MG/100 MG TAB PO SCH ×2 (09:36→17:42)
[2017-01-15] MEDS: guaiFENesin E.R. 600 MG TAB PO SCH ×2 (09:37→20:14)
[2017-01-15] MEDS: LACTULOSE SYRUP 20 GM/30 ML CUP PO SCH ×4 (09:37→20:14)
--- NOTE | 2017-01-15 10:09 | HHI.PR ---
Subjective Remarks Follow up for lower extremity weakness, L4-L5 focal severe canal stenosis. Mr. Sigala is currently doing little bit better. She reports eating better. Still feels very weak. Denies any fever or chills. Objective Vitals Vital Signs Date Time Temp Pulse Resp B/P Pulse Ox O2 Delivery O2 Flow Rate FiO2 01/15/17 07:46 97 17 156/98 95 01/15/17 03:42 78 18 119/86 97 01/14/17 19:44 12 01/14/17 19:31 98 18 148/89 97 01/14/17 16:35 104 17 128/77 95 01/14/17 12:57 84 18 109/69 93 I/O 01/14/17 01/14/17 01/14/17 01/15/17 01/15/17 01/15/17 07:00 15:00 23:00 07:00 15:00 23:00 Intake Total 1100 ml Balance 1100 ml Intake Oral 600 ml IV Total 500 ml # Voids 4 # Bowel Movements 0 Result Diagram: 01/15/17 0632 01/15/17 0632 Imaging Last Impressions Lumbar Puncture Fluoroscopy 01/14/17 0000 Signed Impressions: Service Date/Time: January 09:33 - CONCLUSION: Uncomplicated fluoroscopically guided lumbar puncture. Louis Metz MD Brain MRI 01/14/17 0000 Signed Impressions: Service Date/Time: January 10:04 - CONCLUSION: 1. Chronic ischemic small vessel vasculopathy. 2. No acute infarction. 3. No enhancing metastatic lesions are seen. Frank Johnson MD Thoracic Spine MRI 01/13/17 0000 Signed Impressions: Service Date/Time: Friday, January 13, 2017 11:59 - CONCLUSION: Negative MRI of the thoracic spine. There is no evidence for metastatic disease. Mauro Joel MD FACR Thoracic Spine CT 01/13/17 0000 Signed Impressions: Service Date/Time: Friday, January 13, 2017 03:32 - CONCLUSION: 1. No acute findings. Mild degenerative disc disease. No canal stenosis. Dylon St MD Lumbar Spine MRI 01/13/17 0000 Signed Impressions: Service Date/Time: Friday, January 13, 2017 11:59 - CONCLUSION: 1. Radiographically significant spinal stenosis at L4-L5. 2. Minimal disc bulging to the right at L3-4. Mauro Joel MD FACR Lumbar Spine CT 01/13/17 0000 Signed Impressions: Service Date/Time: Friday, January 13, 2017 03:34 - CONCLUSION: 1. No acute fracture. 2. At L4-5 there is focal severe canal stenosis secondary to grade 1 anterolisthesis and advanced facet arthropathy. 3. Mild canal stenosis at L3- 4. Dylon St MD Head CT 01/13/17 0000 Signed Impressions: Service Date/Time: Friday, January 13, 2017 03:28 - CONCLUSION: 1. No acute intracranial abnormalities. Cortical atrophy. Dylon St MD Chest X-Ray 01/13/17 0000 Signed Impressions: Service Date/Time: Friday, January 13, 2017 03:40 - CONCLUSION: 1. No acute findings. Atherosclerotic aorta. Dylon St MD Cervical Spine MRI 01/13/17 0000 Signed Impressions: Service Date/Time: Friday, January 13, 2017 11:59 - CONCLUSION: Degenerative changes as described above. There is no abnormal contrast enhancement identified. Mauro Joel MD FACR Objective Remarks GENERAL: Alert, NAD. SKIN: Warm and dry. HEAD: Normocephalic. EYES: No scleral icterus. No injection or drainage. NECK: Supple, trachea midline. No JVD or lymphadenopathy. CARDIOVASCULAR: Regular rate and rhythm without murmurs, gallops, or rubs. RESPIRATORY: Breath sounds equal bilaterally. No accessory muscle use. GASTROINTESTINAL: Abdomen soft, non-tender, nondistended. MUSCULOSKELETAL: No cyanosis, or edema. Symmetrically weak lower extremity strength 3+ out of 5. BACK: Nontender without obvious deformity. No CVA tenderness. Procedures Lumbar puncture 01/14/2017 A/P Problem List: (1) Weakness ICD Code: R53.1 Status: Acute (2) Rhabdomyolysis ICD Code: M62.82 Status: Acute (3) UTI (urinary tract infection) ICD Code: N39.0 Status: Acute (4) Hypokalemia ICD Code: E87.6 Status: Acute (5) Hypoglycemia ICD Code: E16.2 Status: Acute (6) Cough ICD Code: R05 Status: Acute Assessment and Plan 61-year-old female with a history of asthma, hypertension, MGUS, chronic pancreatitis presented lower extremity weakness. She has not been able to walk for the last two weeks. No fever, chills. - Generalized lower extremity weakness - L4-L5 focal severe canal stenosis - Appreciate Neurology and Neurosurgery input. - No immediate surgical intervention anticipated. - Continue PT. Discussed with CM - Patient does not have any insurance. - Thrombocytopenia - platelet 78K. - MGUS - Hematology was consulted by neurology. Discussed with test engine mechanic Dr. Suero who recommended outpatient follow-up. - Urinary tract infection - Continue Cipro 250mg PO Q12hrs X 3 days. - Mild rhabdomyolysis - Hypokalemia - Severe hypomagnesemia magnesium 0.7. - We'll aggressively replace magnesium intravenously. Replace with 6 g of magnesium sulfate divided in 3 doses. - CPK 622 on admission - Continue IV fluid. - K+ 3.0 today. Continue by mouth potassium supplement. Patient received 40 mEq of potassium chloride intravenously this morning. - BMP in the AM. - Hyperammonemia - ammonia level 76. - Continue Lactulose. Full code. SCDs. Shelley Ramirez DO Jan 15, 2017 10:09 am
[2017-01-15] MEDS: oxyCODONE/ACETAMINOPHEN 5 MG/325 MG TAB PO PRN (10:19)
[2017-01-15] MEDS: POTASSIUM CHLOR 20 MEQ PREMIX 100 ML IV SCH ×2 (11:48→13:56)
[2017-01-15 11:49] VITALS: BP 125/66; PULSE 99; RESP 18; O2SAT 95
[2017-01-15 16:32] VITALS: BP 128/75; PULSE 91; RESP 17; O2SAT 94
[2017-01-15] MEDS ORDERED: POTASSIUM CHLOR 20 MEQ PREMIX 100 ML IV SCH (16:45)
[2017-01-15] MEDS: MAGNESIUM SULFATE 1 GM PREMIX 100 ML IV SCH ×4 (17:42→23:15)
[2017-01-15] MEDS: POTASSIUM CHLORIDE 20 MEQ CONTROLLED RELEASE TAB PO SCH (20:14)
[2017-01-15 20:30] VITALS: BP 139/83; PULSE 88; RESP 17; TEMP 97.8; O2SAT 97
--- NOTE | 2017-01-16 00:16 | PD.ONC.PN ---
Subjective Subjective Remarks 61-year-old female with a past medical history of hypertension, Liver disease, chronic thrombocytopenia and MGUS. Patient known to me from previous admission. From hematological standpoint no intervention at this time. Discussed with Dr. Ramirez. Patient needs to have outpatient f/u with Hematology. Objective Data Date Time Temp Pulse Resp B/P Pulse Ox O2 Delivery O2 Flow Rate FiO2 01/15/17 20:30 97.8 88 17 139/83 97 01/15/17 16:32 91 17 128/75 94 01/15/17 11:49 99 18 125/66 95 01/15/17 07:46 97 17 156/98 95 01/15/17 03:42 78 18 119/86 97 Result Diagram: 01/15/17 0632 01/15/17 0632 Laboratory Results Laboratory Tests Test 01/15/17 06:32 White Blood Count 4.7 TH/MM3 Red Blood Count 3.54 MIL/MM3 Hemoglobin 11.2 GM/DL Hematocrit 34.3 % Mean Corpuscular Volume 97.0 FL Mean Corpuscular Hemoglobin 31.8 PG Mean Corpuscular Hemoglobin 32.8 % Concent Red Cell Distribution Width 18.9 % Platelet Count 78 TH/MM3 Mean Platelet Volume 10.1 FL Neutrophils (%) (Auto) 67.0 % Lymphocytes (%) (Auto) 20.1 % Monocytes (%) (Auto) 10.0 % Eosinophils (%) (Auto) 2.3 % Basophils (%) (Auto) 0.6 % Neutrophils # (Auto) 3.1 TH/MM3 Lymphocytes # (Auto) 0.9 TH/MM3 Monocytes # (Auto) 0.5 TH/MM3 Eosinophils # (Auto) 0.1 TH/MM3 Basophils # (Auto) 0.0 TH/MM3 CBC Comment AUTO DIFF Differential Comment AUTO DIFF CONFIRMED Platelet Estimate LOW Platelet Morphology Comment NORMAL Sodium Level 137 MEQ/L Potassium Level 3.0 MEQ/L Chloride Level 100 MEQ/L Carbon Dioxide Level 25.1 MEQ/L Anion Gap 12 MEQ/L Blood Urea Nitrogen 4 MG/DL Creatinine 0.51 MG/DL Estimat Glomerular Filtration 123 ML/MIN Rate Random Glucose 74 MG/DL Calcium Level 7.8 MG/DL Magnesium Level 0.7 MG/DL Culture Results Microbiology Date/Time Procedure Status Source Growth 01/14/17 09:40 Gram Stain - Final Resulted Cerebral Spinal Fluid Lumbar Puncture 01/14/17 09:40 CSF Culture - Preliminary Resulted Cerebral Spinal Fluid Lumbar Puncture NO GROWTH IN 24 HOURS. Administered Medications Medications (Trade) Dose Ordered Sig/Garett Route PRN Reason Start Time Stop Time Status Last Admin Dose Admin IV Flush 2 ml 2 ml BID FLUSH 01/12/17 21:00 01/15/17 20:14 Sodium Chloride (NS 1000 ml Inj) 1,000 ml @ 125 mls/hr Q8H IV 01/13/17 03:30 01/15/17 20:13 Guaifenesin (Mucinex Er) 600 mg BID PO 01/13/17 09:00 01/15/17 20:14 Oxycodone/ Acetaminophen (Percocet 5-325 Mg) 1 tab Q6H PRN PO PAIN SCALE 5 TO 10 01/13/17 12:00 01/15/17 10:19 Ciprofloxacin (Cipro) 250 mg Q12HR PO 01/14/17 21:00 01/17/17 20:59 01/15/17 20:27 Lactulose (Lactulose Liq) 30 ml QID PO 01/14/17 18:00 01/15/17 20:14 Carbidopa/Levodopa (Sinemet 10-100 Mg) 1 tab Q8H PO 01/15/17 09:00 01/15/17 17:42 Potassium Chloride (KCl) 20 meq Q12HR PO 01/15/17 21:00 01/20/17 20:59 01/15/17 20:14 Objective Remarks GENERAL: drowsy SKIN: Warm and dry. NECK: Supple, trachea midline. No JVD or lymphadenopathy. LYMPHATIC: No adenopathy. CARDIOVASCULAR: Regular rate and rhythm without murmurs. RESPIRATORY: Breath sounds equal bilaterally. No accessory muscle use. GASTROINTESTINAL: Abdomen soft, non-tender, nondistended. EXTREMITIES: No cyanosis, or edema. Assessment/Plan Problem List: (1) Leukopenia Status: Acute (2) Normocytic anemia Status: Acute (3) Liver disease Status: Chronic (4) Thrombocytopenia Status: Acute (5) MGUS (monoclonal gammopathy of unknown significance) Status: Acute Shai Suero MD Jan 16, 2017 00:16
[2017-01-16 00:24] VITALS: BP 118/67; PULSE 85; RESP 17; TEMP 98.6; O2SAT 97
[2017-01-16] MEDS: CARBIDOPA/LEVODOPA 10 MG/100 MG TAB PO SCH ×3 (02:08→17:50)
[2017-01-16] MEDS: SODIUM CHLOR 0.9% 1000 ML INJ 1,000 ML IV SCH ×3 (02:10→19:55)
[2017-01-16] MEDS: oxyCODONE/ACETAMINOPHEN 5 MG/325 MG TAB PO PRN ×2 (05:15→12:45)
[2017-01-16 08:00] VITALS: BP 114/77; PULSE 87; RESP 18; TEMP 99; O2SAT 95
[2017-01-16] MEDS: CIPROFLOXACIN 250 MG TAB PO SCH ×2 (09:37→19:55)
[2017-01-16] MEDS: guaiFENesin E.R. 600 MG TAB PO SCH ×2 (09:37→19:55)
[2017-01-16] MEDS: POTASSIUM CHLORIDE 20 MEQ CONTROLLED RELEASE TAB PO SCH (09:37)
[2017-01-16] MEDS: LACTULOSE SYRUP 20 GM/30 ML CUP PO SCH ×4 (09:38→19:55)
[2017-01-16] MEDS: MAGNESIUM SULFATE 1 GM PREMIX 100 ML IV SCH ×2 (09:39→10:31)
[2017-01-16] MEDS: SODIUM CHLORIDE 0.9% FLUSH 5 ML FLUSH FLUSH SCH ×2 (09:39→19:55)
--- NOTE | 2017-01-16 10:25 | HHI.PR ---
Subjective Remarks Follow up for lower extremity weakness, electrolyte abnormalities. Patient is doing well. Eating breakfast. Later in the day, she had nausea, vomiting. No fever, chills. Still feels very weak. Objective Vitals Vital Signs Date Time Temp Pulse Resp B/P Pulse Ox O2 Delivery O2 Flow Rate FiO2 01/16/17 08:00 99.0 87 18 114/77 95 01/16/17 00:24 98.6 85 17 118/67 97 01/15/17 20:30 97.8 88 17 139/83 97 01/15/17 16:32 91 17 128/75 94 01/15/17 11:49 99 18 125/66 95 I/O 01/15/17 01/15/17 01/15/17 01/16/17 01/16/17 01/16/17 07:00 15:00 23:00 07:00 15:00 23:00 Intake Total 1477 ml 1305 ml Output Total 50 ml Balance 1427 ml 1305 ml Intake Oral 360 ml 240 ml IV Total 1117 ml 1065 ml Output Emesis 50 ml # Voids 5 2 # Bowel Movements 0 0 Result Diagram: 01/15/17 0632 01/15/17 0632 Imaging Last Impressions Lumbar Puncture Fluoroscopy 01/14/17 0000 Signed Impressions: Service Date/Time: January 09:33 - CONCLUSION: Uncomplicated fluoroscopically guided lumbar puncture. oLuis Metz MD Brain MRI 01/14/17 0000 Signed Impressions: Service Date/Time: January 10:04 - CONCLUSION: 1. Chronic ischemic small vessel vasculopathy. 2. No acute infarction. 3. No enhancing metastatic lesions are seen. Frank Johnson MD Thoracic Spine MRI 01/13/17 0000 Signed Impressions: Service Date/Time: Friday, January 13, 2017 11:59 - CONCLUSION: Negative MRI of the thoracic spine. There is no evidence for metastatic disease. Mauro Joel MD FACR Thoracic Spine CT 01/13/17 0000 Signed Impressions: Service Date/Time: Friday, January 13, 2017 03:32 - CONCLUSION: 1. No acute findings. Mild degenerative disc disease. No canal stenosis. Dylon St MD Lumbar Spine MRI 01/13/17 Signed Impressions: Service Date/Time: Friday, January 13, 2017 11:59 - CONCLUSION: 1. Radiographically significant spinal stenosis at L4-L5. 2. Minimal disc bulging to the right at L3-4. Mauro Joel MD FACR Lumbar Spine CT 01/13/17 0000 Signed Impressions: Service Date/Time: Friday, January 13, 2017 03:34 - CONCLUSION: 1. No acute fracture. 2. At L4-5 there is focal severe canal stenosis secondary to grade 1 anterolisthesis and advanced facet arthropathy. 3. Mild canal stenosis at L3- 4. Dylon St MD Head CT 01/13/17 0000 Signed Impressions: Service Date/Time: Friday, January 13, 2017 03:28 - CONCLUSION: 1. No acute intracranial abnormalities. Cortical atrophy. Dylon St MD Chest X-Ray 01/13/17 0000 Signed Impressions: Service Date/Time: Friday, January 13, 2017 03:40 - CONCLUSION: 1. No acute findings. Atherosclerotic aorta. Dylon St MD Cervical Spine MRI 01/13/17 0000 Signed Impressions: Service Date/Time: Friday, January 13, 2017 11:59 - CONCLUSION: Degenerative changes as described above. There is no abnormal contrast enhancement identified. Mauro Joel MD FACR Objective Remarks GENERAL: Alert, NAD. SKIN: Warm and dry. HEAD: Normocephalic. EYES: No scleral icterus. No injection or drainage. NECK: Supple, trachea midline. No JVD or lymphadenopathy. CARDIOVASCULAR: Regular rate and rhythm without murmurs, gallops, or rubs. RESPIRATORY: Breath sounds equal bilaterally. No accessory muscle use. GASTROINTESTINAL: Abdomen soft, non-tender, nondistended. MUSCULOSKELETAL: No cyanosis, or edema. Symmetrically weak lower extremity strength 3+ out of 5. BACK: Nontender without obvious deformity. No CVA tenderness. Procedures Lumbar puncture 01/14/2017 A/P Problem List: (1) Weakness ICD Code: R53.1 Status: Acute (2) Rhabdomyolysis ICD Code: M62.82 Status: Acute (3) UTI (urinary tract infection) ICD Code: N39.0 Status: Acute (4) Hypokalemia ICD Code: E87.6 Status: Acute Assessment and Plan 61-year-old female with a history of asthma, hypertension, MGUS, chronic pancreatitis presented lower extremity weakness. She has not been able to walk for the last two weeks. No fever, chills. - Generalized lower extremity weakness - L4-L5 focal severe canal stenosis - Appreciate Neurology and Neurosurgery input. - No immediate surgical intervention anticipated. - Continue PT. Discussed with CM - Patient does not have any insurance. Will continue placement efforts. - Thrombocytopenia - platelet 78K. - MGUS - Hematology was consulted by neurology. Discussed with bridge ironworker helper Dr. Suero who recommended outpatient follow-up. - Urinary tract infection - Cipro 250mg PO Q12hrs X 3 days. - Mild rhabdomyolysis - Hypokalemia - Severe hypomagnesemia magnesium 0.7. - Replaced with 6 g of magnesium sulfate divided in 3 doses. Mg today 2.2. - CPK 622 on admission - Continue IV fluid. - K+ 3.0 today again. Continue by mouth potassium supplement. Will give IV and PO KCL. - BMP in the AM. - Hyperammonemia - ammonia level 76. - Continue Lactulose to achieve 2-3 loose BM. - Nausea/vomiting - Zofran, Compazine PRN. Full code. Lovenox. Shelley Ramirez DO Jan 16, 2017 10:25 Full code. Lovenox. Shelley aRmirez DO Jan 16, 2017 10:25
[2017-01-16 11:31] LABS: BICARBONATE 26.4 MEQ/L (21.0-32.0); MAGNESIUM 2.2 MG/DL (1.5-2.5)
[2017-01-16 12:00] VITALS: BP 115/69; PULSE 85; RESP 18; TEMP 99.4; O2SAT 98
[2017-01-16] MEDS: POTASSIUM CHLOR 20 MEQ PREMIX 100 ML IV SCH ×2 (14:26→17:51)
[2017-01-16] MEDS ORDERED: MAGNESIUM HYDROXIDE SUSP 30 ML CUP PO PRN (15:00)
[2017-01-16] MEDS ORDERED: BISACODYL 10 MG SUPP PR PRN (15:00)
[2017-01-16] MEDS ORDERED: ENOXAPARIN SODIUM 40 MG/0.4 ML SYRINGE SQ SCH (15:15)
[2017-01-16 16:08] VITALS: BP 143/79; PULSE 84; RESP 18; TEMP 98.5; O2SAT 96
[2017-01-16] MEDS: ONDANSETRON HCL 4 MG/2 ML VIAL IVP PRN (17:56)
[2017-01-16] MEDS: PROCHLORPERAZINE 25 MG SUPP PR PRN (19:55)
[2017-01-16 20:00] VITALS: BP 125/67; PULSE 81; RESP 18; TEMP 98.9; O2SAT 96
[2017-01-16] MEDS: POTASSIUM CHLORIDE 10 MEQ CONTROLLED RELEASE TAB PO SCH (20:48)
[2017-01-17] VITALS: BP 139/69; PULSE 93; RESP 16; TEMP 98.7; O2SAT 93
[2017-01-17] MEDS: CARBIDOPA/LEVODOPA 10 MG/100 MG TAB PO SCH ×4 (00:03→23:51)
[2017-01-17] MEDS: ONDANSETRON HCL 4 MG/2 ML VIAL IVP PRN ×2 (00:03→05:55)
[2017-01-17] MEDS: oxyCODONE/ACETAMINOPHEN 5 MG/325 MG TAB PO PRN ×4 (00:03→20:25)
[2017-01-17] MEDS: SODIUM CHLOR 0.9% 1000 ML INJ 1,000 ML IV SCH ×3 (05:56→20:18)
[2017-01-17] MEDS: POTASSIUM CHLORIDE 10 MEQ CONTROLLED RELEASE TAB PO SCH (05:56)
[2017-01-17 07:27] LABS: BICARBONATE 22.7 MEQ/L (21.0-32.0); POTASSIUM 3.8 MEQ/L (3.5-5.1)
[2017-01-17 08:00] VITALS: BP 111/63; PULSE 82; RESP 16; TEMP 99.3; O2SAT 94
[2017-01-17] MEDS: SODIUM CHLORIDE 0.9% FLUSH 5 ML FLUSH FLUSH SCH ×2 (09:00→20:18)
[2017-01-17 10:09] LABS: CSF CRYPTOCOCCUS AG CONF ND (NOT DETECTD)
[2017-01-17] MEDS: guaiFENesin E.R. 600 MG TAB PO SCH ×2 (10:10→20:19)
[2017-01-17] MEDS: CIPROFLOXACIN 250 MG TAB PO SCH (10:10)
[2017-01-17] MEDS: LACTULOSE SYRUP 20 GM/30 ML CUP PO SCH ×4 (10:11→20:18)
[2017-01-17 12:00] VITALS: BP 125/73; PULSE 89; RESP 17; TEMP 89.9; O2SAT 94
--- NOTE | 2017-01-17 12:59 | HHI.PR ---
Subjective Remarks No acute events overnight. AVSS. Patient's nausea is well controlled with IV medications. She reports a mild increase in appetite although is still only eating 12 meals per day. Stooling well. Objective Vitals Vital Signs Date Time Temp Pulse Resp B/P Pulse Ox O2 Delivery O2 Flow Rate FiO2 01/17/17 12:00 89.9 89 17 125/73 94 01/17/17 08:00 99.3 82 16 111/63 94 01/17/17 00:00 98.7 93 16 139/69 93 01/16/17 20:00 98.9 81 18 125/67 96 01/16/17 16:08 98.5 84 18 143/79 96 I/O 01/16/17 01/16/17 01/16/17 01/17/17 01/17/17 01/17/17 07:00 15:00 23:00 07:00 15:00 23:00 Intake Total 1305 ml 1535 ml 595 ml 1095 ml Balance 1305 ml 1535 ml 595 ml 1095 ml Intake Oral 240 ml 480 ml 120 ml 120 ml IV Total 1065 ml 1055 ml 475 ml 975 ml # Voids 2 3 2 5 # Bowel Movements 0 0 2 3 Result Diagram: 01/15/17 0632 01/17/17 0625 Objective Remarks Gen.: No acute distress Head: Normocephalic. Atraumatic. EENT: Pupils equal round and reactive to light. Nose without drainage. Airway intact. Throat without injection. Cardiovascular: Regular rate and rhythm. No murmurs, rubs or gallops. Respiratory: Lungs clear to auscultation bilaterally. No wheezes or rhonchi. Abdomen: Soft, nontender, nondistended. No peritoneal signs. Musculoskeletal: No gross deformities. No edema. Skin: No obvious rashes or erythema. Neuro: Sensory and motor grossly intact. Cranial nerves II through XII grossly intact. Procedures Lumbar puncture 01/14/2017 A/P Problem List: (1) Weakness ICD Code: R53.1 Status: Acute (2) Rhabdomyolysis ICD Code: M62.82 Status: Acute (3) UTI (urinary tract infection) ICD Code: N39.0 Status: Acute (4) Hypokalemia ICD Code: E87.6 Status: Acute Assessment and Plan 61-year-old female with a history of asthma, hypertension, MGUS, chronic pancreatitis presented lower extremity weakness. She has not been able to walk for the last two weeks. No fever, chills. - Generalized lower extremity weakness - L4-L5 focal severe canal stenosis - Appreciate Neurology and Neurosurgery input, patient's symptoms not secondary to her spinal stenosis. - No immediate surgical intervention anticipated. - Continue PT. Discussed with CM - Patient does not have any insurance. Will continue placement efforts. - Thrombocytopenia - platelet 78K. - MGUS - Hematology was consulted by neurology. Discussed with commercial real estate associate Dr. Suero who recommended outpatient follow-up. - Urinary tract infection - Cipro 250mg PO Q12hrs X 3 days. - Mild rhabdomyolysis - Hypokalemia - Severe hypomagnesemia magnesium 0.7. Continue by mouth supplementation of magnesium and potassium - Hyperammonemia - ammonia level 76. - Continue Lactulose to achieve 2-3 loose BM. - Recheck ammonia - Nausea/vomiting - Zofran, Compazine PRN. Full code. SCDs, no pharmacologic anticoagulation given thrombocytopenia. Laurie Arizmendi MD R3 Jan 17, 2017 12:59
[2017-01-17 16:00] VITALS: BP 138/72; PULSE 80; RESP 16; TEMP 98.6; O2SAT 95
[2017-01-17 20:00] VITALS: BP 161/82; PULSE 94; RESP 16; TEMP 96.7; O2SAT 96
[2017-01-18] VITALS: BP 117/69; PULSE 83; RESP 16; TEMP 99.5; O2SAT 96
[2017-01-18] MEDS: SODIUM CHLOR 0.9% 1000 ML INJ 1,000 ML IV SCH ×3 (02:43→20:37)
[2017-01-18] MEDS: oxyCODONE/ACETAMINOPHEN 5 MG/325 MG TAB PO PRN ×4 (02:43→20:37)
[2017-01-18 05:33] LABS: AUTOMATED NEUTROPHIL # 2.2 TH/MM3 (1.8-7.7); BASOPHIL % 1.1 % (0.0-2.0); EOSINOPHIL # 0.1 TH/MM3 (0-0.4); EOSINOPHIL % 3.8 % (0.0-4.0); HEMATOCRIT 32.1 % (35.0-46.0); HEMO FLAGS DIFF FINAL; LYMPH % 18.5 % (9.0-44.0); LYMPHOCYTE # 0.7 TH/MM3 (1.0-4.8); MEAN CELL VOLUME 96.2 FL (80.0-100.0); MEAN CORPUSCULAR HEMOGLOBIN 32.2 PG (27.0-34.0); MEAN CORPUSCULAR HGB CONC 33.4 % (32.0-36.0); MONO % 16.9 % (0.0-8.0); NEUT % 59.7 % (16.0-70.0); PLATELET COUNT 112 TH/MM3 (150-450); RED BLOOD COUNT 3.34 MIL/MM3 (4.00-5.30); RED CELL DISTRIBUTION WIDTH 19.1 % (11.6-17.2); WHITE BLOOD COUNT 3.6 TH/MM3 (4.0-11.0)
[2017-01-18 06:11] LABS: BICARBONATE 23.6 MEQ/L (21.0-32.0); MAGNESIUM 0.9 MG/DL (1.5-2.5); POTASSIUM 3.1 MEQ/L (3.5-5.1)
--- NOTE | 2017-01-18 08:11 | HHI.PR ---
Review/Management Diagnosis/Plan: (1) Weakness Plan: appears chronic (several months?) based on exam. has atrophy in le and multiple healed bruises. may be related to poor nutritional status. other causes would include metalizing supervisor lesions/ MGUS causing lymphoma? and axonal neuropathy i don't think the lumbar stenosis accounts for all her physical and lab findings csf- nml protein; mild elevation of wbc but rbc also elevated; cx'd negative mild parkinsonism on exam recs improved; on sinemet rehab-pending sign off; outpatient f/u (2) Parkinsonism Plan: neuro exam improved; no tremors, less rigidity continue sinemet outpatient f/u in 2-3 weeks (3) MGUS (monoclonal gammopathy of unknown significance) (4) Thrombocytopenia Subjective Subjective Comments No acute events reported; tremors improved, feels stronger No headache No chest pain No dyspnea Active Medications Current Medications Medications (Trade) Dose Ordered Sig/Garett Route Start Time Stop Time Status Last Admin (NS Flush) 2 ml UNSCH PRN FLUSH 01/12/17 19:45 (NS Flush) 2 ml BID FLUSH 01/12/17 21:00 01/17/17 20:18 Naloxone HCl 0.4 mg 0.4 mg UNSCH PRN IV 01/12/17 19:45 (NS 1000 ml Inj) 1,000 ml @ 125 mls/hr Q8H IV 01/13/17 03:30 01/18/17 02:43 (Mucinex Er) 600 mg BID PO 01/13/17 09:00 01/17/17 20:19 (Percocet 5-325 Mg) 1 tab Q6H PRN PO 01/13/17 12:00 01/18/17 02:43 (Tylenol) 500 mg Q6H PRN PO 01/13/17 12:00 (Lactulose Liq) 30 ml QID PO 01/14/17 18:00 01/17/17 13:01 (Sinemet 10-100 Mg) 1 tab Q8H PO 01/15/17 09:00 01/17/17 23:51 (Zofran Inj) 4 mg Q6H PRN IVP 01/16/17 15:00 01/17/17 05:55 (Compazine Supp) 25 mg Q12H PRN NE 01/16/17 15:00 01/16/17 19:55 (Dulcolax Supp) 10 mg DAILY PRN NE 01/16/17 15:00 (Milk Of Magnesia Liq) 30 ml Q12H PRN PO 01/16/17 15:00 (KCl 40 Meq/30 ml Liq) 40 meq DAILY NG 01/18/17 09:00 Allergies Allergies Coded Allergies No Known Allergies (Unverified01/12/17) Review of Systems All other ROS: ROS reviewed as documented in chart Exam I&O / VS 01/17/17 01/17/17 01/18/17 15:00 23:00 07:00 Intake Total 1524 ml 965 ml 1377 ml Output Total 900 ml Balance 1524 ml 965 ml 477 ml Intake Oral 480 ml 240 ml 240 ml IV Total 1044 ml 725 ml 1137 ml Output Urine Total 900 ml # Voids 6 2 # Bowel Movements 3 1 1 Vital Signs Date Time Temp Pulse Resp B/P Pulse Ox O2 Delivery O2 Flow Rate FiO2 01/18/17 00:00 99.5 83 16 117/69 96 01/17/17 20:00 96.7 94 16 161/82 96 01/17/17 16:00 98.6 80 16 138/72 95 01/17/17 12:00 89.9 89 17 125/73 94 Exam Comments alert, ox 3. more interactive and better fluency, improved facial hypomimia, eomi but slow saccades. no ptosis. face sym, ou 3-2mm, generalized weakness le> ue. able to raise arms off bed, legs with strength of 3-4/5 proximally, distal feet 4/5, nicolas le atrophy, no fasciculations, slight increased tone in rt ue; msr 1+, no clonus, planterflexor, Objective Micro and Labs Laboratory Tests Test 01/18/17 05:14 White Blood Count 3.6 Red Blood Count 3.34 Hemoglobin 10.7 Hematocrit 32.1 Mean Corpuscular Volume 96.2 Mean Corpuscular Hemoglobin 32.2 Mean Corpuscular Hemoglobin 33.4 Concent Red Cell Distribution Width 19.1 Platelet Count 112 Mean Platelet Volume 9.1 Neutrophils (%) (Auto) 59.7 Lymphocytes (%) (Auto) 18.5 Monocytes (%) (Auto) 16.9 Eosinophils (%) (Auto) 3.8 Basophils (%) (Auto) 1.1 Neutrophils # (Auto) 2.2 Lymphocytes # (Auto) 0.7 Monocytes # (Auto) 0.6 Eosinophils # (Auto) 0.1 Basophils # (Auto) 0.0 CBC Comment DIFF FINAL Differential Comment Sodium Level 137 Potassium Level 3.1 Chloride Level 104 Carbon Dioxide Level 23.6 Anion Gap 9 Blood Urea Nitrogen 2 Creatinine 0.50 Estimat Glomerular Filtration 125 Rate Random Glucose 79 Calcium Level 7.8 Magnesium Level 0.9 Ammonia 16 Total Creatine Kinase 119 Date/Time Procedure Status Source Growth 01/14/17 09:40 Gram Stain - Final Complete Cerebral Spinal Fluid Lumbar Puncture 01/14/17 09:40 CSF Culture - Final Complete Cerebral Spinal Fluid Lumbar Puncture NO GROWTH IN 72 HOURS Problem Qualifiers (1) Parkinsonism: Qualified Code: G20 - Parkinsonism, unspecified Parkinsonism type Jeremy Holliday MD Jan 18, 2017 08:11
[2017-01-18 08:22] VITALS: BP 177/86; PULSE 70; RESP 16; TEMP 99.2; O2SAT 94
[2017-01-18] MEDS: guaiFENesin E.R. 600 MG TAB PO SCH ×2 (08:33→20:37)
[2017-01-18] MEDS: POTASSIUM CL 40 MEQ/30 ML LIQ UDC NG SCH (08:34)
[2017-01-18] MEDS: CARBIDOPA/LEVODOPA 10 MG/100 MG TAB PO SCH ×3 (08:34→23:40)
[2017-01-18] MEDS: LACTULOSE SYRUP 20 GM/30 ML CUP PO SCH ×5 (08:34→20:37)
[2017-01-18] MEDS: SODIUM CHLORIDE 0.9% FLUSH 5 ML FLUSH FLUSH SCH ×2 (08:36→20:37)
[2017-01-18 12:04] VITALS: BP 169/82; PULSE 91; RESP 17; TEMP 98.8; O2SAT 96
[2017-01-18] MEDS ORDERED: POTASSIUM CHLORIDE 10 MEQ CONTROLLED RELEASE TAB PO ONE (13:15)
[2017-01-18] MEDS: MAGNESIUM SULFATE 1 GM PREMIX 100 ML IV SCH ×2 (13:19→14:48)
[2017-01-18] MEDS: ONDANSETRON HCL 4 MG/2 ML VIAL IVP PRN ×2 (13:30→20:37)
--- NOTE | 2017-01-18 13:57 | PD.ONC.PN ---
Subjective Subjective Remarks drowsy and somewhat confused LE weakness no fevers/no n/v no bleeding Objective Data Date Time Temp Pulse Resp B/P Pulse Ox O2 Delivery O2 Flow Rate FiO2 01/18/17 12:04 98.8 91 17 169/82 96 01/18/17 09:34 18 01/18/17 08:22 99.2 70 16 177/86 94 01/18/17 00:00 99.5 83 16 117/69 96 01/17/17 20:00 96.7 94 16 161/82 96 01/17/17 16:00 98.6 80 16 138/72 95 01/18/17 01/18/17 01/18/17 07:00 15:00 23:00 Intake Total 1377 ml Output Total 900 ml Balance 477 ml Result Diagram: 01/18/17 0514 01/18/17 0514 Laboratory Results Laboratory Tests Test 01/18/17 05:14 White Blood Count 3.6 TH/MM3 Red Blood Count 3.34 MIL/MM3 Hemoglobin 10.7 GM/DL Hematocrit 32.1 % Mean Corpuscular Volume 96.2 FL Mean Corpuscular Hemoglobin 32.2 PG Mean Corpuscular Hemoglobin 33.4 % Concent Red Cell Distribution Width 19.1 % Platelet Count 112 TH/MM3 Mean Platelet Volume 9.1 FL Neutrophils (%) (Auto) 59.7 % Lymphocytes (%) (Auto) 18.5 % Monocytes (%) (Auto) 16.9 % Eosinophils (%) (Auto) 3.8 % Basophils (%) (Auto) 1.1 % Neutrophils # (Auto) 2.2 TH/MM3 Lymphocytes # (Auto) 0.7 TH/MM3 Monocytes # (Auto) 0.6 TH/MM3 Eosinophils # (Auto) 0.1 TH/MM3 Basophils # (Auto) 0.0 TH/MM3 CBC Comment DIFF FINAL Differential Comment Sodium Level 137 MEQ/L Potassium Level 3.1 MEQ/L Chloride Level 104 MEQ/L Carbon Dioxide Level 23.6 MEQ/L Anion Gap 9 MEQ/L Blood Urea Nitrogen 2 MG/DL Creatinine 0.50 MG/DL Estimat Glomerular Filtration 125 ML/MIN Rate Random Glucose 79 MG/DL Calcium Level 7.8 MG/DL Phosphorus Level 2.8 MG/DL Magnesium Level 0.9 MG/DL Ammonia 16 MCMOL/L Total Creatine Kinase 119 U/L Administered Medications Medications (Trade) Dose Ordered Sig/Garett Route PRN Reason Start Time Stop Time Status Last Admin Dose Admin IV Flush 2 ml 2 ml BID FLUSH 01/12/17 21:00 01/17/17 20:18 Sodium Chloride (NS 1000 ml Inj) 1,000 ml @ 125 mls/hr Q8H IV 01/13/17 03:30 01/18/17 12:31 Guaifenesin (Mucinex Er) 600 mg BID PO 01/13/17 09:00 01/18/17 08:33 Oxycodone/ Acetaminophen (Percocet 5-325 Mg) 1 tab Q6H PRN PO PAIN SCALE 5 TO 10 01/13/17 12:00 01/18/17 08:34 Lactulose (Lactulose Liq) 30 ml QID PO 01/14/17 18:00 01/18/17 13:18 Carbidopa/Levodopa (Sinemet 10-100 Mg) 1 tab Q8H PO 01/15/17 09:00 01/18/17 08:34 Ondansetron HCl (Zofran Inj) 4 mg Q6H PRN IVP NAUSEA OR VOMITING 01/16/17 15:00 01/17/17 05:55 Prochlorperazine (Compazine Supp) 25 mg Q12H PRN MD NAUSEA OR VOMITING 01/16/17 15:00 01/16/17 19:55 Potassium Chloride 40 meq 40 meq DAILY NG 01/18/17 09:00 01/18/17 08:34 Magnesium Sulfate/ Dextrose (Magnesium Sulfate 1 Gm Premix) 100 ml @ 100 mls/hr Q1H IV 01/18/17 14:00 01/18/17 15:59 01/18/17 13:19 Objective Remarks GENERAL: nad SKIN: Warm and dry. NECK: Supple, trachea midline. No JVD or lymphadenopathy. LYMPHATIC: No adenopathy. CARDIOVASCULAR: Regular rate and rhythm without murmurs. RESPIRATORY: Breath sounds equal bilaterally. No accessory muscle use. GASTROINTESTINAL: Abdomen soft, non-tender, nondistended. EXTREMITIES: No cyanosis, or edema. Assessment/Plan Problem List: (1) Leukopenia Status: Chronic (2) Normocytic anemia Status: Chronic (3) Liver disease Status: Chronic (4) Thrombocytopenia Status: Chronic (5) MGUS (monoclonal gammopathy of unknown significance) Status: Acute Assessment 1. MGUS - complete paraproteinemia w/u ordered - Will plan for bone marrow biopsy to r/o plasma cell dyscrasia based on the results above 2. Anemia - anemia studies - hemolysis labs 3. Thrombocytopenia: - as above - check Hepatitis panel and HIV panel 4. Weakness: - Being seen by neurology Shai Suero MD Jan 18, 2017 13:57
[2017-01-18 14:24] LABS: ANA SCREEN POS (NEG)
[2017-01-18 15:30] LABS: TOTAL PROTEIN SPE 6.7 GM/DL (6.0-7.6)
[2017-01-18] MEDS: PROCHLORPERAZINE 25 MG SUPP PR PRN (16:20)
[2017-01-18 16:22] VITALS: BP 169/82; PULSE 91; RESP 17; TEMP 98.8; O2SAT 96
[2017-01-18 20:00] VITALS: BP 133/79; PULSE 83; RESP 18; TEMP 98.6; O2SAT 95
[2017-01-18] MEDS: SODIUM CHLORIDE 0.9% FLUSH 5 ML FLUSH FLUSH PRN (20:37)
[2017-01-18 22:34] LABS: ALBUMIN SPE 3.04 GM/DL (3.50-5.00); ALPHA 1 GLOBULIN 0.31 GM/DL (0.11-0.29); ALPHA 2 GLOBULIN 0.53 GM/DL (0.22-1.00)
--- NOTE | 2017-01-18 23:47 | HHI.PR ---
Subjective Remarks Patient seen this morning. Says she is feeling well. She says she is not eating much. Nursing reports she is eating about 2 meals a day. Will add Ensure. Objective Vital Signs Date Time Temp Pulse Resp B/P Pulse Ox O2 Delivery O2 Flow Rate FiO2 01/18/17 21:52 16 01/18/17 20:00 98.6 83 18 133/79 95 01/18/17 16:22 98.8 91 17 169/82 96 01/18/17 12:04 98.8 91 17 169/82 96 01/18/17 08:22 99.2 70 16 177/86 94 01/18/17 00:00 99.5 83 16 117/69 96 I/O 01/17/17 01/17/17 01/17/17 01/18/17 01/18/17 01/18/17 07:00 15:00 23:00 07:00 15:00 23:00 Intake Total 1095 ml 1524 ml 965 ml 1377 ml 1458 ml 240 ml Output Total 900 ml 850 ml 300 ml Balance 1095 ml 1524 ml 965 ml 477 ml 608 ml -60 ml Intake Oral 120 ml 480 ml 240 ml 240 ml 360 ml 240 ml IV Total 975 ml 1044 ml 725 ml 1137 ml 1098 ml Output Urine Total 900 ml 850 ml 300 ml # Voids 5 6 2 # Bowel Movements 3 3 1 1 0 1 Result Diagram: 01/18/17 0514 01/18/17 0514 A/P Assessment and Plan 61-year-old female with a history of asthma, hypertension, MGUS, chronic pancreatitis presented lower extremity weakness. She has not been able to walk for the last two weeks. No fever, chills. //Generalized lower extremity weakness //L4-L5 focal severe canal stenosis - Appreciate Neurology and Neurosurgery input. - No immediate surgical intervention anticipated. - Continue PT. - Patient does not have any insurance. Will continue placement efforts. //MGUS - Hematology was consulted by neurology. -Immunologic workup pending -SPEP pending. -Hematology plans for bone marrow biopsy depending on results from SPEP. //Mild rhabdomyolysis . CK in the 600s on admission. //Hypokalemia. Worsened by hypomagnesemia. Replace as necessary. //Severe hypomagnesemia. Replace as necessary. //Hyperammonemia //Possible hepatic encephalopathy. - ammonia level 76==> 16. - Continue Lactulose to achieve 2-3 loose BM. //Nausea/vomiting - Zofran, Compazine PRN. -Continue IV fluids. //Thrombocytopenia - platelet low of 78K. secondary to chronic liver disease. -Continues improving. No bleeding. Continue to Monitor. //Urinary tract infection. Resolved. - Ua 01/12 7 WBCs - s/p Cipro 01/14-01/17 Full code. Lovenox. Aleksey Guadalupe MD Jan 18, 2017 23:47
[2017-01-19 00:28] VITALS: BP 142/62; PULSE 79; RESP 16; TEMP 98.5; O2SAT 96
[2017-01-19] MEDS: SODIUM CHLOR 0.9% 1000 ML INJ 1,000 ML IV SCH ×3 (04:20→20:53)
[2017-01-19] MEDS: SODIUM CHLORIDE 0.9% FLUSH 5 ML FLUSH FLUSH PRN ×2 (04:20→17:18)
[2017-01-19] MEDS: oxyCODONE/ACETAMINOPHEN 5 MG/325 MG TAB PO PRN ×4 (04:21→23:30)
[2017-01-19 04:29] VITALS: BP 135/64; PULSE 68; RESP 16; TEMP 98.8; O2SAT 96
[2017-01-19 06:11] LABS: AUTOMATED NEUTROPHIL # 2.3 TH/MM3 (1.8-7.7); BASOPHIL % 1.2 % (0.0-2.0); EOSINOPHIL # 0.1 TH/MM3 (0-0.4); EOSINOPHIL % 2.9 % (0.0-4.0); HEMATOCRIT 32.2 % (35.0-46.0); HEMO FLAGS DIFF FINAL; LYMPH % 17.4 % (9.0-44.0); LYMPHOCYTE # 0.6 TH/MM3 (1.0-4.8); MEAN CELL VOLUME 97.1 FL (80.0-100.0); MEAN CORPUSCULAR HEMOGLOBIN 32.4 PG (27.0-34.0); MEAN CORPUSCULAR HGB CONC 33.3 % (32.0-36.0); MONO % 17.5 % (0.0-8.0); PLATELET COUNT 132 TH/MM3 (150-450); RED BLOOD COUNT 3.32 MIL/MM3 (4.00-5.30); RED CELL DISTRIBUTION WIDTH 19.6 % (11.6-17.2); WHITE BLOOD COUNT 3.7 TH/MM3 (4.0-11.0)
[2017-01-19 06:52] LABS: BICARBONATE 24.4 MEQ/L (21.0-32.0); MAGNESIUM 1.1 MG/DL (1.5-2.5); POTASSIUM 3.9 MEQ/L (3.5-5.1)
[2017-01-19 08:00] VITALS: BP 162/76; PULSE 92; RESP 18; TEMP 98.6; O2SAT 95
[2017-01-19] MEDS: CARBIDOPA/LEVODOPA 10 MG/100 MG TAB PO SCH ×3 (08:56→23:30)
[2017-01-19] MEDS: SODIUM CHLORIDE 0.9% FLUSH 5 ML FLUSH FLUSH SCH ×2 (08:56→20:56)
[2017-01-19] MEDS: guaiFENesin E.R. 600 MG TAB PO SCH ×2 (08:56→20:53)
[2017-01-19] MEDS: POTASSIUM CL 40 MEQ/30 ML LIQ UDC NG SCH (08:57)
[2017-01-19] MEDS: LACTULOSE SYRUP 20 GM/30 ML CUP PO SCH ×5 (08:57→20:59)
[2017-01-19] MEDS: MAGNESIUM SULFATE 1 GM PREMIX 100 ML IV SCH ×2 (11:31→13:32)
[2017-01-19 12:00] VITALS: BP 154/76; PULSE 88; RESP 17; TEMP 96; O2SAT 98
[2017-01-19 16:00] VITALS: BP 154/81; PULSE 84; RESP 17; TEMP 98.8; O2SAT 98
[2017-01-19 16:01] LABS: TOTAL PROTEIN 24 HOUR URINE 120 MG/24HR (0-150); URINE TOTAL PROTEIN TIMED LESS THAN 5.0 MG/DL
[2017-01-19] MEDS: ONDANSETRON HCL 4 MG/2 ML VIAL IVP PRN (17:17)
[2017-01-19] MEDS ORDERED: PANTOPRAZOLE SOD 40 MG DELAYED RELEASE TAB PO ONE (19:45)
[2017-01-19 20:00] VITALS: BP 139/72; PULSE 79; RESP 18; TEMP 99.1; O2SAT 96
--- NOTE | 2017-01-19 22:51 | HHI.PR ---
Subjective Remarks patient seen this afternoon around 2 PM.denies any chest pain or shortness of breath. Has had some nausea since waking up from a nap today. Discussed with nurse. Had some nausea yesterday after waking up from nap. Denies any abdominal pain. Recent bowel movement. Objective Vital Signs Date Time Temp Pulse Resp B/P Pulse Ox O2 Delivery O2 Flow Rate FiO2 01/19/17 20:00 99.1 79 18 139/72 96 01/19/17 18:22 18 01/19/17 16:00 98.8 84 17 154/81 98 01/19/17 12:00 96.0 88 17 154/76 98 01/19/17 08:00 98.6 92 18 162/76 95 01/19/17 04:29 98.8 68 16 135/64 96 01/19/17 00:28 98.5 79 16 142/62 96 I/O 01/18/17 01/18/17 01/18/17 01/19/17 01/19/17 01/19/17 07:00 15:00 23:00 07:00 15:00 23:00 Intake Total 1377 ml 1458 ml 240 ml 360 ml 4065 ml 480 ml Output Total 900 ml 850 ml 300 ml 500 ml 1000 ml 1200 ml Balance 477 ml 608 ml -60 ml -140 ml 3065 ml -720 ml Intake Oral 240 ml 360 ml 240 ml 360 ml 1200 ml 480 ml IV Total 1137 ml 1098 ml 2865 ml Output Urine Total 900 ml 850 ml 300 ml 500 ml 1000 ml 1200 ml # Bowel Movements 1 0 1 3 0 2 Result Diagram: 01/19/17 0530 01/19/17 0530 Objective Remarks GENERAL: patient sitting up in bed. Appears comfortable. Alert. SKIN: Warm and dry. HEAD: Normocephalic. EYES: No scleral icterus. No injection or drainage. NECK: Supple, trachea midline. No JVD. CARDIOVASCULAR: Regular rate and rhythm without murmurs, gallops, or rubs. RESPIRATORY: Breath sounds equal bilaterally. No accessory muscle use. GASTROINTESTINAL: Abdomen soft, non-tender, nondistended. MUSCULOSKELETAL: No cyanosis, or edema. BACK: Nontender without obvious deformity. No CVA tenderness. A/P Assessment and Plan 01/19/17. Nausea. Improved with antiemetic. Will add PPI 61-year-old female with a history of asthma, hypertension, MGUS, chronic pancreatitis presented lower extremity weakness. She has not been able to walk for the last two weeks. No fever, chills. //Generalized lower extremity weakness //L4-L5 focal severe canal stenosis - Appreciate Neurology and Neurosurgery input. - No immediate surgical intervention anticipated. - Continue PT. - Patient does not have any insurance. Will continue placement efforts. //MGUS - Hematology was consulted by neurology. -Immunologic workup pending -SPEP pending. -Hematology plans for bone marrow biopsy depending on results from SPEP. //Mild rhabdomyolysis . CK in the 600s on admission. //Hypokalemia. Worsened by hypomagnesemia. Replace as necessary. //Severe hypomagnesemia. Replace as necessary. //Hyperammonemia //Possible hepatic encephalopathy. - ammonia level 76==> 16. - Continue Lactulose to achieve 2-3 loose BM. //Nausea/vomiting - Zofran, Compazine PRN. -Continue IV fluids. -Added PPI daily 01/19. //Thrombocytopenia - platelet low of 78K. secondary to chronic liver disease. -Continues improving. No bleeding. Continue to Monitor. //Urinary tract infection. Resolved. - Ua 01/12 7 WBCs - s/p Cipro 01/14-01/17 Full code. Lovenox. Aleksey Guadalupe MD Jan 19, 2017 22:51
[2017-01-20] VITALS: BP 144/73; PULSE 79; RESP 18; TEMP 97.8; O2SAT 96
[2017-01-20] MEDS: SODIUM CHLOR 0.9% 1000 ML INJ 1,000 ML IV SCH ×3 (04:28→21:20)
[2017-01-20] MEDS: oxyCODONE/ACETAMINOPHEN 5 MG/325 MG TAB PO PRN ×4 (05:54→23:49)
[2017-01-20 06:25] LABS: ANION GAP 12 MEQ/L (5-15); BICARBONATE 22.2 MEQ/L (21.0-32.0); BLOOD UREA NITROGEN LESS THAN 1 MG/DL (7-18); CHLORIDE 105 MEQ/L (98-107); GLOMERULAR FILTRATION RATE 117 ML/MIN (>89); MAGNESIUM 1.1 MG/DL (1.5-2.5); POTASSIUM 3.6 MEQ/L (3.5-5.1); SODIUM (NA) 139 MEQ/L (136-145)
[2017-01-20] MEDS: LACTULOSE SYRUP 20 GM/30 ML CUP PO SCH ×4 (07:28→21:20)
[2017-01-20] MEDS: POTASSIUM CL 40 MEQ/30 ML LIQ UDC NG SCH ×2 (07:28→07:32)
[2017-01-20] MEDS: guaiFENesin E.R. 600 MG TAB PO SCH ×2 (07:28→21:20)
[2017-01-20] MEDS: PANTOPRAZOLE SOD 40 MG DELAYED RELEASE TAB PO SCH (07:29)
[2017-01-20] MEDS: CARBIDOPA/LEVODOPA 10 MG/100 MG TAB PO SCH ×3 (07:29→23:49)
[2017-01-20] MEDS: SODIUM CHLORIDE 0.9% FLUSH 5 ML FLUSH FLUSH SCH ×2 (07:31→21:00)
[2017-01-20 08:00] VITALS: BP 157/73; PULSE 78; RESP 17; TEMP 98.9; O2SAT 96
[2017-01-20 09:08] LABS: AUTOMATED NEUTROPHIL # 2.7 TH/MM3 (1.8-7.7); BASOPHIL # 0.1 TH/MM3 (0-0.2); BASOPHIL % 1.3 % (0.0-2.0); EOSINOPHIL # 0.1 TH/MM3 (0-0.4); EOSINOPHIL % 2.5 % (0.0-4.0); HEMO FLAGS DIFF FINAL; LYMPH % 17.3 % (9.0-44.0); LYMPHOCYTE # 0.7 TH/MM3 (1.0-4.8); MEAN CELL VOLUME 96.2 FL (80.0-100.0); MEAN CORPUSCULAR HEMOGLOBIN 31.9 PG (27.0-34.0); MEAN CORPUSCULAR HGB CONC 33.2 % (32.0-36.0); MONO % 13.9 % (0.0-8.0); PLATELET COUNT 157 TH/MM3 (150-450); RED BLOOD COUNT 3.33 MIL/MM3 (4.00-5.30); RED CELL DISTRIBUTION WIDTH 19.4 % (11.6-17.2); WHITE BLOOD COUNT 4.1 TH/MM3 (4.0-11.0)
[2017-01-20 11:39] VITALS: BP 143/80; PULSE 88; RESP 17; TEMP 99.1; O2SAT 97
[2017-01-20] MEDS: ONDANSETRON HCL 4 MG/2 ML VIAL IVP PRN (11:44)
[2017-01-20 17:38] LABS: ANA TITER QUANT 1:40 (NEG)
[2017-01-20 20:00] VITALS: BP 166/81; PULSE 82; RESP 17; TEMP 99; O2SAT 95
[2017-01-20 23:53] LABS: KAPPA/LAMBDA FREE 0.66 (0.26-1.65)
[2017-01-21] VITALS (7 sets, daily range): BP systolic 120–174; BP diastolic 58–79; PULSE 77–88; RESP 17–18; TEMP 97.2–99; O2SAT 95–97
--- NOTE | 2017-01-21 00:07 | HHI.PR ---
Subjective Remarks late entry. Patient seen 01/20 around 1 PM. She says she is feeling all right. Denies any chest pain or shortness of breath. Denies any abdominal pain. Objective Vital Signs Date Time Temp Pulse Resp B/P Pulse Ox O2 Delivery O2 Flow Rate FiO2 01/20/17 20:00 99.0 82 17 166/81 95 01/20/17 12:48 18 01/20/17 11:39 99.1 88 17 143/80 97 01/20/17 08:00 98.9 78 17 157/73 96 I/O 01/20/17 01/20/17 01/20/17 01/21/17 01/21/17 01/21/17 07:00 15:00 23:00 07:00 15:00 23:00 Intake Total 2280 ml 1224 ml Output Total 1650 ml 650 ml Balance 630 ml 574 ml Intake Oral 480 ml 80 ml IV Total 1800 ml 1144 ml Output Urine Total 1650 ml 650 ml # Bowel Movements 1 0 Result Diagram: 01/20/17 0808 01/20/17 0545 Objective Remarks GENERAL: patient sitting up in bed. Appears comfortable. Alert.no acute changes. SKIN: Warm and dry. HEAD: Normocephalic. EYES: No scleral icterus. No injection or drainage. NECK: Supple, trachea midline. No JVD. CARDIOVASCULAR: Regular rate and rhythm without murmurs, gallops, or rubs. RESPIRATORY: Breath sounds equal bilaterally. No accessory muscle use. GASTROINTESTINAL: Abdomen soft, non-tender, nondistended. MUSCULOSKELETAL: No cyanosis, or edema. BACK: Nontender without obvious deformity. No CVA tenderness. A/P Assessment and Plan 01/20/17. Nausea improved. continue PPI. 61-year-old female with a history of asthma, hypertension, MGUS, chronic pancreatitis presented lower extremity weakness. She has not been able to walk for the last two weeks. No fever, chills. //Generalized lower extremity weakness //L4-L5 focal severe canal stenosis - Appreciate Neurology and Neurosurgery input. - No immediate surgical intervention anticipated. - Continue PT. - Patient does not have any insurance. Will continue placement efforts. //MGUS - Hematology was consulted by neurology. -Immunologic workup pending -SPEP pending. -Hematology plans for bone marrow biopsy depending on results from SPEP. //Mild rhabdomyolysis . CK in the 600s on admission. //Hypokalemia. Worsened by hypomagnesemia. Replace as necessary. //Severe hypomagnesemia. Replace as necessary. -01/21. Add magnesium oxide 400 mg daily. Continue to monitor and replace as necessary. //Hyperammonemia //Possible hepatic encephalopathy. - ammonia level 76==> 16. - Continue Lactulose to achieve 2-3 loose BM. //Nausea/vomiting - Zofran, Compazine PRN. -Continue IV fluids. -Added PPI daily 01/19. //Thrombocytopenia - platelet low of 78K. secondary to chronic liver disease. -Continues improving. No bleeding. Continue to Monitor. //Urinary tract infection. Resolved. - Ua 01/12 7 WBCs - s/p Cipro 01/14-01/17 Full code. Lovenox. Hold as needed for procedures. Aleksey Guadalupe MD Jan 21, 2017 00:07
[2017-01-21] MEDS: MAGNESIUM SULFATE 1 GM PREMIX 100 ML IV SCH ×2 (02:33→02:35)
[2017-01-21] MEDS: SODIUM CHLOR 0.9% 1000 ML INJ 1,000 ML IV SCH ×3 (04:44→21:01)
[2017-01-21 05:52] LABS: ALT (GPT) 19 U/L (10-53); ANION GAP 12 MEQ/L (5-15); AST (GOT) 86 U/L (15-37); BICARBONATE 25.5 MEQ/L (21.0-32.0); BLOOD UREA NITROGEN LESS THAN 1 MG/DL (7-18); CHLORIDE 100 MEQ/L (98-107); GLOMERULAR FILTRATION RATE 106 ML/MIN (>89); SODIUM (NA) 137 MEQ/L (136-145)
[2017-01-21 05:55] LABS: ALKALINE PHOSPHATASE 205 U/L (45-117); TOTAL BILIRUBIN ADULT 1.8 MG/DL (0.2-1.0)
[2017-01-21] MEDS: oxyCODONE/ACETAMINOPHEN 5 MG/325 MG TAB PO PRN ×4 (06:04→23:49)
[2017-01-21 08:33] LABS: AUTOMATED NEUTROPHIL # 3.3 TH/MM3 (1.8-7.7); BASOPHIL # 0.1 TH/MM3 (0-0.2); BASOPHIL % 1.5 % (0.0-2.0); EOSINOPHIL # 0.1 TH/MM3 (0-0.4); EOSINOPHIL % 1.8 % (0.0-4.0); HEMATOCRIT 30.4 % (35.0-46.0); HEMO FLAGS DIFF FINAL; LYMPH % 15.8 % (9.0-44.0); LYMPHOCYTE # 0.8 TH/MM3 (1.0-4.8); MEAN CELL VOLUME 95.6 FL (80.0-100.0); MEAN CORPUSCULAR HEMOGLOBIN 31.9 PG (27.0-34.0); MEAN CORPUSCULAR HGB CONC 33.4 % (32.0-36.0); NEUT % 67.9 % (16.0-70.0); PLATELET COUNT 168 TH/MM3 (150-450); RED BLOOD COUNT 3.18 MIL/MM3 (4.00-5.30); RED CELL DISTRIBUTION WIDTH 19.6 % (11.6-17.2); WHITE BLOOD COUNT 4.8 TH/MM3 (4.0-11.0)
[2017-01-21] MEDS ORDERED: POTASSIUM CHLORIDE 20 MEQ CONTROLLED RELEASE TAB PO ONE (09:30)
[2017-01-21] MEDS: guaiFENesin E.R. 600 MG TAB PO SCH ×2 (10:59→21:01)
[2017-01-21] MEDS: PANTOPRAZOLE SOD 40 MG DELAYED RELEASE TAB PO SCH (10:59)
[2017-01-21] MEDS: MAGNESIUM OXIDE 400 MG TAB PO SCH (11:00)
[2017-01-21] MEDS: CARBIDOPA/LEVODOPA 10 MG/100 MG TAB PO SCH ×3 (11:00→23:48)
[2017-01-21] MEDS: LACTULOSE SYRUP 20 GM/30 ML CUP PO SCH ×4 (11:00→21:01)
[2017-01-21] MEDS: ONDANSETRON HCL 4 MG/2 ML VIAL IVP PRN (11:19)
[2017-01-21] MEDS: SODIUM CHLORIDE 0.9% FLUSH 5 ML FLUSH FLUSH SCH ×2 (13:14→21:00)
--- NOTE | 2017-01-21 22:44 | HHI.PR ---
Subjective Remarks patient seen today around noon. Patient says she is feeling well. Denies any chest pain or shortness of breath. Eating lunch. Discussed with Dr. Suero with hematology. Hematology will plan for bone marrow biopsy within the next few days. Objective Vital Signs Date Time Temp Pulse Resp B/P Pulse Ox O2 Delivery O2 Flow Rate FiO2 01/21/17 20:00 98.3 88 17 132/71 96 01/21/17 16:00 97.7 88 18 135/68 97 01/21/17 12:00 99.0 84 17 130/58 97 01/21/17 08:00 98.1 84 17 137/71 95 01/21/17 04:00 98.6 77 18 133/71 95 01/21/17 01:58 18 01/21/17 00:00 98.0 79 17 174/79 96 I/O 01/20/17 01/20/17 01/20/17 01/21/17 01/21/17 01/21/17 07:00 15:00 23:00 07:00 15:00 23:00 Intake Total 2280 ml 1224 ml 1169 ml 1269 ml 240 ml Output Total 1650 ml 650 ml 1800 ml 600 ml 700 ml Balance 630 ml 574 ml -631 ml 669 ml -460 ml Intake Oral 480 ml 80 ml 240 ml 240 ml 240 ml IV Total 1800 ml 1144 ml 929 ml 1029 ml Output Urine Total 1650 ml 650 ml 1800 ml 600 ml 700 ml # Bowel Movements 1 0 0 Result Diagram: 01/21/17 0816 01/21/17 0510 Objective Remarks GENERAL: patient sitting up in bed. Appears comfortable. Alert.no changes on exam. SKIN: Warm and dry. HEAD: Normocephalic. EYES: No scleral icterus. No injection or drainage. NECK: Supple, trachea midline. No JVD. CARDIOVASCULAR: Regular rate and rhythm without murmurs, gallops, or rubs. RESPIRATORY: Breath sounds equal bilaterally. No accessory muscle use. GASTROINTESTINAL: Abdomen soft, non-tender, nondistended. MUSCULOSKELETAL: No cyanosis, or edema. BACK: Nontender without obvious deformity. No CVA tenderness. A/P Assessment and Plan 01/21/17. patient feeling well. Vital stable.Discussed with Dr. Suero with hematology. Hematology will plan for bone marrow biopsy within the next few days. 61-year-old female with a history of asthma, hypertension, MGUS, chronic pancreatitis presented lower extremity weakness. She has not been able to walk for the last two weeks. No fever, chills. //Generalized lower extremity weakness //L4-L5 focal severe canal stenosis - Appreciate Neurology and Neurosurgery input. - No immediate surgical intervention anticipated. - Continue PT. - Patient does not have any insurance. Will continue placement efforts. //MGUS - Hematology was consulted by neurology. -Immunologic workup pending -SPEP resulted and reviewed. -Hematology plans for bone marrow biopsy. //Hypokalemia. Worsened by hypomagnesemia. Replace as necessary. //Severe hypomagnesemia. Replace as necessary. -01/21. Add magnesium oxide 400 mg daily. Continue to monitor and replace as necessary. //Hyperammonemia //Possible hepatic encephalopathy. - ammonia level 76==> 16. - Continue Lactulose to achieve 2-3 loose BM. //Nausea/vomiting - Zofran, Compazine PRN. -Continue IV fluids. -Added PPI daily 01/19. //Mild rhabdomyolysis . CK in the 600s on admission. -Resolved. Down to 100s subsequently. //Thrombocytopenia - platelet low of 78K. secondary to chronic liver disease. -Continues improving. No bleeding. Continue to Monitor. //Urinary tract infection. Resolved. - Ua 01/12 7 WBCs - s/p Cipro 01/14-01/17 Full code. Lovenox. Hold as needed for procedures. Discharge Planning -Will need SNF. -Will need follow-up with oncology as outpatient. -difficult discharge. Patient without insurance and is out of [facility]. Aleksey Guadalupe MD Jan 21, 2017 22:44
--- NOTE | 2017-01-21 23:34 | PD.ONC.PN ---
Subjective Subjective Remarks awake and alert f/u for MGUS remains weak. anticipating d/c to SNF d/w Dr. Guadalupe Objective Data Date Time Temp Pulse Resp B/P Pulse Ox O2 Delivery O2 Flow Rate FiO2 01/21/17 20:00 98.3 88 17 132/71 96 01/21/17 16:00 97.7 88 18 135/68 97 01/21/17 12:00 99.0 84 17 130/58 97 01/21/17 08:00 98.1 84 17 137/71 95 01/21/17 04:00 98.6 77 18 133/71 95 01/21/17 01:58 18 01/21/17 00:00 98.0 79 17 174/79 96 01/21/17 01/21/17 01/21/17 07:00 15:00 23:00 Intake Total 1269 ml 240 ml 240 ml Output Total 600 ml 700 ml 900 ml Balance 669 ml -460 ml -660 ml Result Diagram: 01/21/17 0816 01/21/17 0510 Laboratory Results Laboratory Tests Test 01/21/17 01/21/17 05:10 08:16 Sodium Level 137 MEQ/L Potassium Level 3.0 MEQ/L Chloride Level 100 MEQ/L Carbon Dioxide Level 25.5 MEQ/L Anion Gap 12 MEQ/L Blood Urea Nitrogen LESS THAN 1 MG/DL Creatinine 0.58 MG/DL Estimat Glomerular Filtration 106 ML/MIN Rate Random Glucose 131 MG/DL Calcium Level 7.9 MG/DL Total Bilirubin 1.8 MG/DL Aspartate Amino Transf 86 U/L (AST/SGOT) Alanine Aminotransferase 19 U/L (ALT/SGPT) Alkaline Phosphatase 205 U/L Ammonia 35 MCMOL/L Total Protein 6.2 GM/DL Albumin 2.2 GM/DL White Blood Count 4.8 TH/MM3 Red Blood Count 3.18 MIL/MM3 Hemoglobin 10.2 GM/DL Hematocrit 30.4 % Mean Corpuscular Volume 95.6 FL Mean Corpuscular Hemoglobin 31.9 PG Mean Corpuscular Hemoglobin 33.4 % Concent Red Cell Distribution Width 19.6 % Platelet Count 168 TH/MM3 Mean Platelet Volume 8.9 FL Neutrophils (%) (Auto) 67.9 % Lymphocytes (%) (Auto) 15.8 % Monocytes (%) (Auto) 13.0 % Eosinophils (%) (Auto) 1.8 % Basophils (%) (Auto) 1.5 % Neutrophils # (Auto) 3.3 TH/MM3 Lymphocytes # (Auto) 0.8 TH/MM3 Monocytes # (Auto) 0.6 TH/MM3 Eosinophils # (Auto) 0.1 TH/MM3 Basophils # (Auto) 0.1 TH/MM3 CBC Comment DIFF FINAL Differential Comment Administered Medications Medications (Trade) Dose Ordered Sig/Garett Route PRN Reason Start Time Stop Time Status Last Admin Dose Admin IV Flush (NS Flush) 2 ml UNSCH PRN FLUSH FLUSH AFTER USING IV ACCESS 01/12/17 19:45 01/19/17 17:18 IV Flush 2 ml 2 ml BID FLUSH 01/12/17 21:00 01/21/17 13:14 Sodium Chloride (NS 1000 ml Inj) 1,000 ml @ 125 mls/hr Q8H IV 01/13/17 03:30 01/21/17 21:01 Guaifenesin (Mucinex Er) 600 mg BID PO 01/13/17 09:00 01/21/17 21:01 Oxycodone/ Acetaminophen (Percocet 5-325 Mg) 1 tab Q6H PRN PO PAIN SCALE 5 TO 10 01/13/17 12:00 01/21/17 17:49 Lactulose (Lactulose Liq) 30 ml QID PO 01/14/17 18:00 01/21/17 21:01 Carbidopa/Levodopa (Sinemet 10-100 Mg) 1 tab Q8H PO 01/15/17 09:00 01/21/17 17:49 Ondansetron HCl (Zofran Inj) 4 mg Q6H PRN IVP NAUSEA OR VOMITING 01/16/17 15:00 01/21/17 11:19 Prochlorperazine (Compazine Supp) 25 mg Q12H PRN MI NAUSEA OR VOMITING 01/16/17 15:00 01/18/17 16:20 Pantoprazole Sodium (Protonix) 40 mg DAILY PO 01/20/17 09:00 01/21/17 10:59 Magnesium Oxide (Mag-Ox) 400 mg DAILY PO 01/21/17 09:00 01/21/17 11:00 Objective Remarks GENERAL: nad SKIN: Warm and dry. NECK: Supple, trachea midline. No JVD or lymphadenopathy. LYMPHATIC: No adenopathy. CARDIOVASCULAR: Regular rate and rhythm without murmurs. RESPIRATORY: Breath sounds equal bilaterally. No accessory muscle use. GASTROINTESTINAL: Abdomen soft, non-tender, nondistended. EXTREMITIES: No cyanosis, or edema. Assessment/Plan Problem List: (1) Leukopenia Status: Chronic (2) Normocytic anemia Status: Chronic (3) Liver disease Status: Chronic (4) Thrombocytopenia Status: Chronic (5) MGUS (monoclonal gammopathy of unknown significance) Status: Acute Assessment 1. MGUS-- with weakness - very minute monoclonal bands. Beta 2 microglobulin normal. serum kappa/lambda ratio is normal. No abnormal proteins in Urine. IgM and IgA levels abnormal - no hypercalcemia/no renal dysfunction - bone marrow biopsy to r/o plasma cell dyscrasia. 2. Anemia - anemia studies pending 3. Thrombocytopenia: resolved - no bleeding - as above - check Hepatitis panel and HIV panel 4. Weakness: - Being seen by neurology Shai Suero MD Jan 21, 2017 23:34
[2017-01-22] VITALS (8 sets, daily range): BP systolic 116–153; BP diastolic 57–80; PULSE 73–94; RESP 16–20; TEMP 96.5–99.7; O2SAT 95–98
[2017-01-22] MEDS: oxyCODONE/ACETAMINOPHEN 5 MG/325 MG TAB PO PRN ×4 (05:10→20:56)
[2017-01-22] MEDS: SODIUM CHLOR 0.9% 1000 ML INJ 1,000 ML IV SCH ×3 (05:11→21:00)
[2017-01-22 05:46] LABS: AUTOMATED NEUTROPHIL # 4.4 TH/MM3 (1.8-7.7); BASOPHIL # 0.1 TH/MM3 (0-0.2); BASOPHIL % 1.1 % (0.0-2.0); EOSINOPHIL # 0.2 TH/MM3 (0-0.4); EOSINOPHIL % 2.5 % (0.0-4.0); HEMATOCRIT 35.1 % (35.0-46.0); HEMO FLAGS DIFF FINAL; LYMPH % 17.9 % (9.0-44.0); LYMPHOCYTE # 1.1 TH/MM3 (1.0-4.8); MEAN CELL VOLUME 96.9 FL (80.0-100.0); MEAN CORPUSCULAR HEMOGLOBIN 32.4 PG (27.0-34.0); MEAN CORPUSCULAR HGB CONC 33.4 % (32.0-36.0); MONO % 8.7 % (0.0-8.0); NEUT % 69.8 % (16.0-70.0); PLATELET COUNT 203 TH/MM3 (150-450); RED BLOOD COUNT 3.62 MIL/MM3 (4.00-5.30); RED CELL DISTRIBUTION WIDTH 19.4 % (11.6-17.2); WHITE BLOOD COUNT 6.3 TH/MM3 (4.0-11.0)
[2017-01-22 06:03] LABS: TRANSFERRIN IRON PROFILE 186 MG/DL (200-360)
[2017-01-22] MEDS: SODIUM CHLORIDE 0.9% FLUSH 5 ML FLUSH FLUSH SCH ×2 (08:35→21:00)
[2017-01-22] MEDS: LACTULOSE SYRUP 20 GM/30 ML CUP PO SCH ×4 (08:36→21:00)
[2017-01-22] MEDS: PANTOPRAZOLE SOD 40 MG DELAYED RELEASE TAB PO SCH (08:36)
[2017-01-22] MEDS: MAGNESIUM OXIDE 400 MG TAB PO SCH (08:37)
[2017-01-22] MEDS: POTASSIUM CHLORIDE 20 MEQ CONTROLLED RELEASE TAB PO SCH (08:37)
[2017-01-22] MEDS: CARBIDOPA/LEVODOPA 10 MG/100 MG TAB PO SCH ×2 (08:37→15:57)
[2017-01-22] MEDS: guaiFENesin E.R. 600 MG TAB PO SCH ×2 (08:44→20:56)
[2017-01-22] MEDS ORDERED: LIDOCAINE 1%/EPINEPHrine 1:100,000 SOLN 20 ML VIAL ONE (09:36)
[2017-01-22] MEDS ORDERED: MIDAZOLAM HCL 5 MG/5 ML VIAL ONE (10:00)
[2017-01-22] MEDS ORDERED: fentaNYL CITRATE 250 MCG/5 ML AMP ONE (10:00)
[2017-01-22 11:28] LABS: BONE MARROW PROCESSING COMPLETE; IRON STAIN DONE; JENNER GIEMSA STAIN DONE
[2017-01-22 14:50] LABS: BICARBONATE 22.9 MEQ/L (21.0-32.0); MAGNESIUM 1.2 MG/DL (1.5-2.5); POTASSIUM 3.7 MEQ/L (3.5-5.1)
--- NOTE | 2017-01-22 15:30 | RADRPT ---
EXAM DATE/TIME: 01/22/2017 10:16 [place] COMPARISON: No previous studies available for comparison. INDICATIONS : Evaluate for plasma cell dyscrasia. SEDATION TIME: 30 minutes BIOPSY SITE: Left iliac MEDICATION(S): 1.) 2 mg midazolam (Versed) IV 2.) 150 mcg fentanyl (Sublimaze) IV DEVICE(S): 1.) 11 gauge Bone marrow biopsy needle MEDICAL HISTORY : Pancreatitis. Hypertension. Carcinoma, breast. Anemia SURGICAL HISTORY : Mastectomy, right. ENCOUNTER: Initial ACUITY: 1 day PAIN SCORE: 0/10 LOCATION: Left pelvis A total of one core specimen(s) were obtained and sent to the laboratory for pathologic evaluation. PROCEDURE: 1. CT guided bone marrow biopsy. 2. Conscious sedation with continuous EKG and oximetry monitoring. Prior to the procedure informed consent was obtained. Any appropriate prior imaging studies were rev iewed. Using automated exposure control and adjustment of the mA and/or kV according to patient size , radiation dose was kept as low as reasonably achievable to obtain optimal diagnostic quality images . The site was prepped in a sterile fashion. Full sterile technique was used, including cap, mask, aleena rile gloves and gown and a large sterile sheet. Hand hygiene and 2% chlorhexidine and/or betadine/al cohol prep was utilized per protocol for cutaneous antisepsis. The skin and subcutaneous tissues wer e infiltrated with local anesthetic solution. With CT guidance the previously identified target was localized. Biopsy was performed using the presc ribed needle as above. Following biopsy marrow aspiration was performed with repeat puncture. Adequa te hemostasis was obtained with compression at the puncture site. Conscious sedation was performed with the prescribed dosages and duration as above in the presence of an independent trained radiology nurse to assist in the monitoring of the patient. EKG and oximetry remained stable throughout the procedure. The patient tolerated the procedure well and there were no complications. The patient was sent to Radiology Outpatient Unit in stable condition. CONCLUSION: 1. Uncomplicated CT guided bone marrow aspirate. 2. Uncomplicated CT guided bone marrow biopsy. Trae Dorantes MD on January 22, 2017 at 15:26 Board Certified Radiologist. This report was verified electronically.
[2017-01-22] MEDS ORDERED: diphenhydrAMINE HCL 50 MG CAP PO ONE (23:30)
--- NOTE | 2017-01-22 23:39 | HHI.PR ---
Subjective Remarks patient seen today after bone marrow biopsy. Says she feels well. Denies any chest pain or shortness of breath. Objective Vital Signs Date Time Temp Pulse Resp B/P Pulse Ox O2 Delivery O2 Flow Rate FiO2 01/22/17 20:00 99.7 82 20 129/76 95 01/22/17 16:00 99.4 94 20 116/57 97 01/22/17 12:53 98.6 80 18 128/64 97 01/22/17 11:40 81 18 134/75 96 01/22/17 11:10 81 16 134/80 95 01/22/17 10:55 98.3 92 18 129/64 97 01/22/17 08:00 98.5 73 16 138/71 96 01/22/17 06:11 18 01/22/17 04:00 96.5 92 18 153/76 98 01/21/17 23:55 97.2 79 17 120/67 96 I/O 01/21/17 01/21/17 01/21/17 01/22/17 01/22/17 01/22/17 07:00 15:00 23:00 07:00 15:00 23:00 Intake Total 1269 ml 240 ml 2072 ml 1010 ml 480 ml 240 ml Output Total 600 ml 700 ml 900 ml 650 ml 1050 ml 550 ml Balance 669 ml -460 ml 1172 ml 360 ml -570 ml -310 ml Intake Oral 240 ml 240 ml 240 ml 240 ml 480 ml 240 ml IV Total 1029 ml 1832 ml 770 ml Output Urine Total 600 ml 700 ml 900 ml 650 ml 1050 ml 550 ml # Voids 1 # Bowel Movements 0 3 1 0 0 Result Diagram: 01/22/1742101/22/172 Objective Remarks GENERAL: patient sitting up in bed. Appears comfortable. Alert.patient observed transferring from stretcher to bed. SKIN: Warm and dry. HEAD: Normocephalic. EYES: No scleral icterus. No injection or drainage. NECK: Supple, trachea midline. No JVD. CARDIOVASCULAR: Regular rate and rhythm without murmurs, gallops, or rubs. RESPIRATORY: Breath sounds equal bilaterally. No accessory muscle use. GASTROINTESTINAL: Abdomen soft, non-tender, nondistended. MUSCULOSKELETAL: No cyanosis, or edema. BACK: Nontender without obvious deformity. No CVA tenderness. A/P Assessment and Plan 01/22/17. patient feeling well. status post bone marrow biopsy. 61-year-old female with a history of asthma, hypertension, MGUS, chronic pancreatitis presented lower extremity weakness. She has not been able to walk for the last two weeks. No fever, chills. //Generalized lower extremity weakness //L4-L5 focal severe canal stenosis - Appreciate Neurology and Neurosurgery input. - No immediate surgical intervention anticipated. - Continue PT. - Patient does not have any insurance. Will continue placement efforts. //MGUS - Hematology was consulted by neurology. -Immunologic workup pending -SPEP resulted and reviewed. -Bone marrow biopsy by hematology 01/22. Results pending. //Hypokalemia. Worsened by hypomagnesemia. Replace as necessary. //Severe hypomagnesemia. Replace as necessary. -01/21. Add magnesium oxide 400 mg daily. -01/22. Magnesium low 1.2 but relatively stable. Continue magnesium oxide daily and monitor. Continue to monitor and replace as necessary. //Hyperammonemia //Possible hepatic encephalopathy. - ammonia level 76==> 16==>35. - Continue Lactulose to achieve 2-3 loose BM. //Nausea/vomiting - Zofran, Compazine PRN. -Continue IV fluids. -Added PPI daily 01/19. //Mild rhabdomyolysis . CK in the 600s on admission. -Resolved. Down to 100s subsequently. //Thrombocytopenia - platelet low of 78K. secondary to chronic liver disease. -Continues improving. No bleeding. Continue to Monitor. //Urinary tract infection. Resolved. - Ua 01/12 7 WBCs - s/p Cipro 01/14-01/17 Full code. Lovenox. Hold as needed for procedures. Discharge Planning -Will need SNF. -Will need follow-up with oncology as outpatient. -difficult discharge. Patient without insurance and is out of [facility]. Aleksey Guadalupe MD Jan 22, 2017 23:39
[2017-01-23] VITALS: BP 141/70; PULSE 79; RESP 20; TEMP 97.3; O2SAT 95
[2017-01-23] MEDS: CARBIDOPA/LEVODOPA 10 MG/100 MG TAB PO SCH ×3 (00:24→16:01)
[2017-01-23] MEDS: SODIUM CHLOR 0.9% 1000 ML INJ 1,000 ML IV SCH ×3 (05:27→21:14)
[2017-01-23 06:45] LABS: AUTOMATED NEUTROPHIL # 3.6 TH/MM3 (1.8-7.7); BASOPHIL # 0.1 TH/MM3 (0-0.2); BASOPHIL % 1.8 % (0.0-2.0); EOSINOPHIL # 0.1 TH/MM3 (0-0.4); EOSINOPHIL % 2.4 % (0.0-4.0); HEMATOCRIT 29.9 % (35.0-46.0); HEMO FLAGS DIFF FINAL; LYMPH % 19.8 % (9.0-44.0); LYMPHOCYTE # 1.1 TH/MM3 (1.0-4.8); MEAN CORPUSCULAR HEMOGLOBIN 31.7 PG (27.0-34.0); MEAN CORPUSCULAR HGB CONC 33.1 % (32.0-36.0); MONO % 10.1 % (0.0-8.0); NEUT % 65.9 % (16.0-70.0); PLATELET COUNT 163 TH/MM3 (150-450); RED BLOOD COUNT 3.11 MIL/MM3 (4.00-5.30); RED CELL DISTRIBUTION WIDTH 19.2 % (11.6-17.2); WHITE BLOOD COUNT 5.5 TH/MM3 (4.0-11.0)
[2017-01-23 07:01] LABS: MAGNESIUM 0.9 MG/DL (1.5-2.5)
[2017-01-23 08:00] VITALS: BP 131/80; PULSE 86; RESP 20; TEMP 97.2; O2SAT 95
[2017-01-23] MEDS: POTASSIUM CHLORIDE 20 MEQ CONTROLLED RELEASE TAB PO SCH (08:29)
[2017-01-23] MEDS: SODIUM CHLORIDE 0.9% FLUSH 5 ML FLUSH FLUSH SCH ×2 (08:29→21:15)
[2017-01-23] MEDS: guaiFENesin E.R. 600 MG TAB PO SCH ×2 (08:29→21:13)
[2017-01-23] MEDS: LACTULOSE SYRUP 20 GM/30 ML CUP PO SCH ×5 (08:29→21:15)
[2017-01-23] MEDS: MAGNESIUM OXIDE 400 MG TAB PO SCH (08:29)
[2017-01-23] MEDS: PANTOPRAZOLE SOD 40 MG DELAYED RELEASE TAB PO SCH (08:29)
--- NOTE | 2017-01-23 08:46 | HHI.PR ---
Subjective Remarks Patient seen and examined this morning. She is afebrile, there were no overnight events. Patient reports some itching overnight. She state it was after her test yesterday. State she had some benadryl last night and this helped. She would like some more. She states she is ambulatory to bedside commode. She worked with PT yesterday with her walker. She states she was able to walk down the entire hallway. She feels her appetite is good. PT continues to recommend SNF. Patient refuses to go to a SNF. (Debby Tyson MD R3) Objective Vital Signs Date Time Temp Pulse Resp B/P Pulse Ox O2 Delivery O2 Flow Rate FiO2 01/23/17 00:21 18 01/23/17 00:00 97.3 79 20 141/70 95 01/22/17 20:00 99.7 82 20 129/76 95 01/22/17 16:00 99.4 94 20 116/57 97 01/22/17 12:53 98.6 80 18 128/64 97 01/22/17 11:40 81 18 134/75 96 01/22/17 11:10 81 16 134/80 95 01/22/17 10:55 98.3 92 18 129/64 97 I/O 01/22/17 01/22/17 01/22/17 01/23/17 01/23/17 01/23/17 07:00 15:00 23:00 07:00 15:00 23:00 Intake Total 1010 ml 480 ml 240 ml 1186 ml Output Total 650 ml 1050 ml 550 ml 1600 ml Balance 360 ml -570 ml -310 ml -414 ml Intake Oral 240 ml 480 ml 240 ml 480 ml IV Total 770 ml 0 ml 706 ml Output Urine Total 650 ml 1050 ml 550 ml 1600 ml # Voids 1 # Bowel Movements 1 0 0 0 (Debby Tyson MD R3) Result Diagram: 01/23/17 0608 01/23/17 0608 Imaging Last Impressions Bone Biopsy CT 01/22/17 0600 Signed Impressions: Service Date/Time: Sunday, January 22, 2017 10:16 - CONCLUSION: 1. Uncomplicated CT guided bone marrow aspirate. 2. Uncomplicated CT guided bone marrow biopsy. Trae Dorantes MD Lumbar Puncture Fluoroscopy 01/14/17 0000 Signed Impressions: Service Date/Time: January 09:33 - CONCLUSION: Uncomplicated fluoroscopically guided lumbar puncture. Louis Metz MD Brain MRI 01/14/17 Signed Impressions: Service Date/Time: January 10:04 - CONCLUSION: 1. Chronic ischemic small vessel vasculopathy. 2. No acute infarction. 3. No enhancing metastatic lesions are seen. Frank Johnson MD Thoracic Spine MRI 01/13/17 Signed Impressions: Service Date/Time: Friday, January 13, 2017 11:59 - CONCLUSION: Negative MRI of the thoracic spine. There is no evidence for metastatic disease. Mauro Joel MD FACR Thoracic Spine CT 01/13/17 Signed Impressions: Service Date/Time: Friday, January 13, 2017 03:32 - CONCLUSION: 1. No acute findings. Mild degenerative disc disease. No canal stenosis. Dylon St MD Lumbar Spine MRI 01/13/17 Signed Impressions: Service Date/Time: Friday, January 13, 2017 11:59 - CONCLUSION: 1. Radiographically significant spinal stenosis at L4-L5. 2. Minimal disc bulging to the right at L3-4. Mauro Joel MD FACR Lumbar Spine CT 01/13/17 Signed Impressions: Service Date/Time: Friday, January 13, 2017 03:34 - CONCLUSION: 1. No acute fracture. 2. At L4-5 there is focal severe canal stenosis secondary to grade 1 anterolisthesis and advanced facet arthropathy. 3. Mild canal stenosis at L3- 4. Dylon St MD Head CT 01/13/17 Signed Impressions: Service Date/Time: Friday, January 13, 2017 03:28 - CONCLUSION: 1. No acute intracranial abnormalities. Cortical atrophy. Dylon St MD Chest X-Ray 01/13/17 Signed Impressions: Service Date/Time: Friday, January 13, 2017 03:40 - CONCLUSION: 1. No acute findings. Atherosclerotic aorta. Dylon St MD Cervical Spine MRI 01/13/17 Signed Impressions: Service Date/Time: Friday, January 13, 2017 11:59 - CONCLUSION: Degenerative changes as described above. There is no abnormal contrast enhancement identified. Mauro Joel MD FACR Other Results GENERAL: patient sitting up in bed. Appears comfortable. SKIN: Warm and dry. Multiple abrasions of difference stages of healing HEAD: Normocephalic. EYES: No scleral icterus. No injection or drainage. NECK: Supple, trachea midline. No JVD. CARDIOVASCULAR: Regular rate and rhythm without murmurs, gallops, or rubs. RESPIRATORY: Breath sounds equal bilaterally. No accessory muscle use. GASTROINTESTINAL: Abdomen soft, non-tender, nondistended. MUSCULOSKELETAL: No cyanosis, or edema. BACK: Nontender without obvious deformity. (Debby Tyson MD R3) A/P Problem List: (1) MGUS (monoclonal gammopathy of unknown significance) ICD Code: D47.2 (2) Parkinsonism ICD Code: G20 (3) Weakness ICD Code: R53.1 (4) Thrombocytopenia ICD Code: D69.6 (5) UTI (urinary tract infection) ICD Code: N39.0 (6) Rhabdomyolysis ICD Code: M62.82 (7) HTN (hypertension) ICD Code: I10 (8) Hypokalemia ICD Code: E87.6 Assessment and Plan 61-year-old female with a medical history significant for asthma, hypertension, MGUS, chronic pancreatitis presented to [place] with progressive lower extremity weakness. Plan as below: 1. Generalized weakness: See imaging above, L4 to L5 focal severe canal stenosis. Per neuro, appears to be chronic, has atrophy lower extremity and multiple healed bruises. Could be related to poor nutritional status. Other differentials include SHELLFISH GROWER lesion, MGUS causing lymphoma, and axonal neuropathy. Mild parkinsonism was noted on exam. Neuro has signed off and and states that they will follow-up in 2-3 weeks as an outpatient. No surgical intervention at this time. PT recommends SNF. Neuro started the patient on Sinemet. 2. MGUS: Being followed by hematology. Bone marrow biopsy performed 01/22, results pending. 3. Hypokalemia: Resolved. We'll decrease potassium replacement to 20 ME daily. 4. Hypo-magnesium: Mag-Ox 400 milligrams daily. 5. Hyper ammonium: Lactulose 6. Nausea vomiting: Controlled with Zofran 7. Rhabdomyolysis: Resolved 8. Thrombocytopenia and anemia. Stable. Likely secondary to chronic liver disease. No signs of bleeding. Hepatitis panel negative. Has continued to improve since admission. 9. UTI: Resolved, Cipro 3/2-3/5 FEN Fluids: Normal saline 125 cc/h--> she is tolerating PO. will HLIV Electrolytes: Currently within normal limits Nutrition: Regular diet DVT prophylaxis: Lovenox Discharge planning. Patient likely would benefit from SNF, but due to lack of insurance and financial status and patient refusing this may not be an option. Patient wishes to be discharged home once. So D/C plan at this time is for PT to work with the patient as an inpatient and to optimize her medical management , once clear to go home per PT recommendations will proceed with this. Will see if home health is an option for the patient. (Debby Tyson MD R3) Problem Qualifiers (1) Parkinsonism: Qualified Code: G20 - Parkinsonism, unspecified Parkinsonism type Debby Tyson MD R3 Jan 23, 2017 08:46 Yumi Dowling MD Jan 23, 2017 15:55
[2017-01-23] MEDS: oxyCODONE/ACETAMINOPHEN 5 MG/325 MG TAB PO PRN ×4 (09:16→21:13)
[2017-01-23] MEDS: diphenhydrAMINE HCL 25 MG CAP PO PRN ×3 (10:30→21:13)
[2017-01-23 12:00] VITALS: BP 132/68; PULSE 93; RESP 20; TEMP 97.5; O2SAT 95
--- NOTE | 2017-01-23 14:31 | MB ---
cc: CHEPE ROSADO DATE OF CONSULTATION: 01/23/2017 REASON FOR CONSULTATION: Psychiatric consultation because the patient was admitted under Roger act. HISTORY OF PRESENT ILLNESS: This is a 61-year-old white female with a history of asthma, hypertension, not on any medication, chronic pancreatitis present to do the emergency room after [place] The patient's brother or Aunt was trying to reach the patient and unable to reach on the phone so they called the police. The patient claimed that he she has been feeling weak and unable to walk on her feet and she was scooting on her butt for the last five days prior to coming to the hospital with complaints of feeling weak, some abdominal pain, nausea, vomiting and now she feels sad and depressed because they cannot find anything wrong with her and that bothers her. But other than that she claimed that she has been doing okay. She denied any suicidal ideation, intentions or plan. Denied any auditory or visual hallucinations. She has never seen any psychiatrist nor has she taken any antidepressant or nerve medication. She denies any alcohol or drug use and/or abuse. BACKGROUND HISTORY: The patient was born in [place]. She has one brother. The patient is the youngest in the family. She was close to both of her parents who . The patient denied any physical, verbal or sexual abuse growing up. She finished high school and college for 2 years and started to work in the [employer] company she was at the age of 19 that marriage lasted for 8 years. No children. The patient denied any alcohol or drug abuse. Denied any legal difficulty. The patient denied any inpatient psychiatric hospitalization Family history is negative for any emotional difficulty nervous breakdown or suicide attempt. MENTAL STATUS EXAM This is a 61-year-old white female who looks about the same as her stated age. He was alert, oriented x3, cooperative, casually dressed. Her speech was clear, spontaneous without any evidence of loose associations or flight of ideas or pressured speech. Her mood was described as feeling somewhat concerned and sad because they do not know what she wrong with her but she could be reassured. She denied any suicidal ideation, intentions or plans. Denied any auditory or visual hallucinations. There was no evidence of any formed paranoid delusion. She seems to be of average intelligence with fairly good memory. Her insight is fair and her judgment seems to be okay on hypothetical situation. IMPRESSION Adjustment disorder with depressed mood, at the present time the patient does not meet the Roger ACT criteria in my opinion so I will lift the Roger act. She can be followed up as an outpatient if she has problem with her depression, but at the present time I would not recommend anything other than medically what ever you think it is appropriate to make her feel better so she can walk and I thank you very much for allowing me to participate in the care of this patient. Chepe Walter /12:25 PM /2:27 PM
[2017-01-23 16:00] VITALS: BP 145/70; PULSE 79; RESP 18; TEMP 95.7; O2SAT 98
[2017-01-23 20:00] VITALS: BP 141/76; PULSE 91; RESP 21; TEMP 96.8; O2SAT 94
[2017-01-23] MEDS: ENOXAPARIN SODIUM 40 MG/0.4 ML SYRINGE SQ SCH (21:15)
[2017-01-24 00:03] VITALS: BP 129/69; PULSE 96; RESP 20; TEMP 97.3; O2SAT 98
[2017-01-24] MEDS: diphenhydrAMINE HCL 25 MG CAP PO PRN ×5 (01:04→21:13)
[2017-01-24] MEDS: CARBIDOPA/LEVODOPA 10 MG/100 MG TAB PO SCH ×3 (01:05→16:56)
[2017-01-24] MEDS: oxyCODONE/ACETAMINOPHEN 5 MG/325 MG TAB PO PRN ×5 (01:05→21:13)
--- NOTE | 2017-01-24 07:12 | HHI.PR ---
Subjective Remarks Patient seen and examined this morning. She is afebrile, there were no overnight events. She was seated evaluated by psych yesterday because of being admitted under Roger act. Roger acted since been lifted. She feels well this am. She is tolerating her diet. Wants to work with PT. (Debby Tyson MD R3) Objective Vital Signs Date Time Temp Pulse Resp B/P Pulse Ox O2 Delivery O2 Flow Rate FiO2 01/24/17 00:03 97.3 96 20 129/69 98 01/23/17 20:00 96.8 91 21 141/76 94 01/23/17 16:00 95.7 79 18 145/70 98 01/23/17 12:00 97.5 93 20 132/68 95 01/23/17 08:00 97.2 86 20 131/80 95 I/O 01/23/17 01/23/17 01/23/17 01/24/17 01/24/17 01/24/17 07:00 15:00 23:00 07:00 15:00 23:00 Intake Total 1186 ml 1838 ml 1440 ml 240 ml Output Total 1600 ml 1000 ml 1100 ml 1200 ml Balance -414 ml 838 ml 340 ml -960 ml Intake Oral 480 ml 800 ml 240 ml 240 ml IV Total 706 ml 1038 ml 1200 ml Output Urine Total 1600 ml 1000 ml 1100 ml 1200 ml # Bowel Movements 0 0 0 0 (Debby Tyson MD R3) Result Diagram: 01/23/17 0608 01/23/17 0608 Objective Remarks GENERAL: patient sitting up in bed. Appears comfortable. Scratching throughout exam. SKIN: Warm and dry. Multiple abrasions of difference stages of healing of her upper extremities. HEAD: Normocephalic. EYES: No scleral icterus. No injection or drainage. NECK: Supple, trachea midline. No JVD. CARDIOVASCULAR: Regular rate and rhythm without murmurs, gallops, or rubs. RESPIRATORY: Breath sounds equal bilaterally. No accessory muscle use. GASTROINTESTINAL: Abdomen soft, non-tender, nondistended. MUSCULOSKELETAL: No cyanosis, or edema. BACK: Nontender without obvious deformity. (Debby Tyson MD R3) A/P Problem List: (1) MGUS (monoclonal gammopathy of unknown significance) ICD Code: D47.2 (2) Parkinsonism ICD Code: G20 (3) Weakness ICD Code: R53.1 (4) Thrombocytopenia ICD Code: D69.6 (5) UTI (urinary tract infection) ICD Code: N39.0 (6) Rhabdomyolysis ICD Code: M62.82 (7) HTN (hypertension) ICD Code: I10 (8) Hypokalemia ICD Code: E87.6 Assessment and Plan 61-year-old female with a medical history significant for asthma, hypertension, MGUS, chronic pancreatitis presented to [facility] with progressive lower extremity weakness. Plan as below: 1. Generalized weakness: See imaging above, L4 to L5 focal severe canal stenosis. Spinal tap was traumatic, negative for cryptococcus. Per neuro, appears to be chronic, has atrophy lower extremity and multiple healed bruises. Could be related to poor nutritional status. Other differentials include HYDRAULIC STRAINER OPERATOR lesion, MGUS causing lymphoma, and axonal neuropathy. Mild parkinsonism was noted on exam, the patient was started on Sinemet. Neuro has signed off and and states that they will follow-up in 2-3 weeks as an outpatient. Neurosurgery has evaluated the patient, no surgical intervention at this time. PT recommends SNF. 2. MGUS: Being followed by hematology. Bone marrow biopsy performed 01/22, results pending. 3. Hypokalemia: Resolved. potassium replacement to 20 ME daily. 4. Hypo-magnesium: Mag-Ox 400 milligrams daily. 5. Hyper ammonium: Lactulose 6. Nausea vomiting: Controlled with Zofran 7. Rhabdomyolysis: Resolved 8. Thrombocytopenia and anemia. Stable. Likely secondary to chronic liver disease. No signs of bleeding. Hepatitis panel negative. Has continued to improve since admission. 9. UTI: Resolved, Cipro 3/2-3/5 FEN Fluids: Tolerating by mouth, HLIV Electrolytes: Currently within normal limits Nutrition: Regular diet DVT prophylaxis: Lovenox Discharge planning. Patient likely would benefit from SNF, but due to lack of insurance and financial status and patient refusing, this may not be an option. Patient wishes to be discharged home once medically cleared. So D/C plan at this time is for PT to work with the patient as an inpatient and to optimize her medical management, once clear to go home per PT recommendations will proceed with this. Will see if home health is an option for the patient. Discharge Planning Patient does not seem agreeable to status. Desires to go home. PT continues to recommend SNIF placement. Anticipate challenging discharge. discussed with patient nurse. (Debby Tyson MD R3) Problem Qualifiers (1) Parkinsonism: Qualified Code: G20 - Parkinsonism, unspecified Parkinsonism type Debby Tyson MD R3 Jan 24, 2017 07:12 Yumi Dowling MD Jan 24, 2017 15:55
[2017-01-24] MEDS: guaiFENesin E.R. 600 MG TAB PO SCH ×2 (07:41→21:13)
[2017-01-24] MEDS: POTASSIUM CHLORIDE 20 MEQ CONTROLLED RELEASE TAB PO SCH (07:41)
[2017-01-24] MEDS: PANTOPRAZOLE SOD 40 MG DELAYED RELEASE TAB PO SCH (07:41)
[2017-01-24] MEDS: MAGNESIUM OXIDE 400 MG TAB PO SCH (07:41)
[2017-01-24] MEDS: LACTULOSE SYRUP 20 GM/30 ML CUP PO SCH ×4 (07:42→21:13)
[2017-01-24] MEDS: SODIUM CHLORIDE 0.9% FLUSH 5 ML FLUSH FLUSH SCH ×2 (07:42→21:13)
[2017-01-24 08:00] VITALS: BP 136/68; PULSE 86; RESP 18; TEMP 97; O2SAT 96
[2017-01-24] MEDS: ONDANSETRON HCL 4 MG/2 ML VIAL IVP PRN (10:11)
[2017-01-24 12:00] VITALS: BP 152/80; PULSE 95; RESP 20; TEMP 98.1; O2SAT 95
[2017-01-24 16:00] VITALS: BP 148/70; PULSE 82; RESP 18; TEMP 98.8; O2SAT 95
[2017-01-24 20:00] VITALS: BP 143/72; PULSE 93; RESP 20; TEMP 99.3; O2SAT 95
[2017-01-24] MEDS: ENOXAPARIN SODIUM 40 MG/0.4 ML SYRINGE SQ SCH (21:13)
[2017-01-24 23:33] VITALS: BP 126/64; PULSE 89; RESP 21; TEMP 99.2; O2SAT 95
[2017-01-25] MEDS: CARBIDOPA/LEVODOPA 10 MG/100 MG TAB PO SCH ×4 (01:22→23:42)
[2017-01-25] MEDS: oxyCODONE/ACETAMINOPHEN 5 MG/325 MG TAB PO PRN ×4 (05:18→22:16)
[2017-01-25] MEDS: diphenhydrAMINE HCL 25 MG CAP PO PRN ×3 (05:18→22:16)
[2017-01-25 08:00] VITALS: BP 156/74; PULSE 87; RESP 16; TEMP 96.3; O2SAT 95
[2017-01-25] MEDS: SODIUM CHLORIDE 0.9% FLUSH 5 ML FLUSH FLUSH SCH ×2 (09:00→22:17)
[2017-01-25] MEDS: POTASSIUM CHLORIDE 20 MEQ CONTROLLED RELEASE TAB PO SCH (09:20)
[2017-01-25] MEDS: MAGNESIUM OXIDE 400 MG TAB PO SCH (09:20)
[2017-01-25] MEDS: LACTULOSE SYRUP 20 GM/30 ML CUP PO SCH ×4 (09:20→22:16)
[2017-01-25] MEDS: guaiFENesin E.R. 600 MG TAB PO SCH ×2 (09:20→22:16)
[2017-01-25] MEDS: PANTOPRAZOLE SOD 40 MG DELAYED RELEASE TAB PO SCH (09:21)
[2017-01-25 12:00] VITALS: BP 119/64; PULSE 92; RESP 16; TEMP 98.9; O2SAT 95
--- NOTE | 2017-01-25 15:11 | HHI.PR ---
Subjective Remarks Patient reports that she feels better. She is working with physical therapy. Still mild confusion regarding her current medical situation. Objective Vitals Vital Signs Date Time Temp Pulse Resp B/P Pulse Ox O2 Delivery O2 Flow Rate FiO2 01/25/17 08:00 96.3 87 16 156/74 95 01/24/17 23:33 99.2 89 21 126/64 95 01/24/17 20:00 99.3 93 20 143/72 95 01/24/17 16:00 98.8 82 18 148/70 95 I/O 01/24/17 01/24/17 01/24/17 01/25/17 01/25/17 01/25/17 07:00 15:00 23:00 07:00 15:00 23:00 Intake Total 240 ml 800 ml 240 ml 240 ml Output Total 1200 ml 1200 ml 1100 ml 700 ml Balance -960 ml -400 ml -860 ml -460 ml Intake Oral 240 ml 800 ml 240 ml 240 ml IV Total 0 ml Output Urine Total 1200 ml 1200 ml 1100 ml 700 ml # Voids 1 1 # Bowel Movements 0 1 1 0 Result Diagram: 01/23/17 0608 01/23/17 0608 Objective Remarks GENERAL: Frail-appearing female. Appears older than stated age CARDIOVASCULAR: Normal rate and regular rhythm without murmurs, gallops, or rubs. RESPIRATORY: Good respiratory efforts. Breath sounds equal and clear to auscultation bilaterally. GASTROINTESTINAL: Abdomen soft, non-tender, non-distended. Normal active bowel sounds MUSCULOSKELETAL: Extremities without cyanosis, or edema. NEURO: Alert & Oriented x4 to person, place, time, situation. Moves all ext x4 but generally weak. PSYCH: Appropriate mood and affect. Procedures Lumbar puncture 01/14/2017 A/P Problem List: (1) Weakness ICD Code: R53.1 Status: Acute (2) Rhabdomyolysis ICD Code: M62.82 Status: Acute (3) UTI (urinary tract infection) ICD Code: N39.0 Status: Acute (4) Hypokalemia ICD Code: E87.6 Status: Acute Assessment and Plan 61-year-old female with a medical history significant for asthma, hypertension, MGUS, chronic pancreatitis presented to [facility] with progressive lower extremity weakness. Plan as below: 1. Generalized weakness: Likely secondary to L4 to L5 focal severe canal stenosis. Spinal tap was traumatic, negative for cryptococcus. Per neuro, appears to be chronic, has atrophy lower extremity and multiple healed bruises. Could be related to poor nutritional status. Other differentials include ASSISTANT TEACHING PROFESSOR lesion, MGUS causing lymphoma, and axonal neuropathy. Mild parkinsonism was noted on exam, the patient was started on Sinemet. Neuro has signed off and and states that they will follow-up in 2-3 weeks as an outpatient. Neurosurgery has evaluated the patient, no surgical intervention at this time. PT recommends SNF however the patient does not have SNF benefits. 2. MGUS: Being followed by hematology. Bone marrow biopsy performed 01/22, results pending. 3. Hypokalemia: Resolved. potassium replacement to 20 ME daily. 4. Hypo-magnesium: Mag-Ox 400 milligrams daily. 5. Hyper ammonium: Lactulose 6. Nausea vomiting: Controlled with Zofran 7. Rhabdomyolysis: Resolved 8. Thrombocytopenia and anemia. Stable. Likely secondary to chronic liver disease. No signs of bleeding. Hepatitis panel negative. Has continued to improve since admission. 9. UTI: Resolved, Cipro 3/-01/17 DVT prophylaxis: Lovenox Discharge planning. Patient needs SNF but she has no benefit. Continue physical therapy in-house until she is strong enough to go home. Lizbet Woods MD Jan 25, 2017 15:11
[2017-01-25 16:00] VITALS: BP 131/81; PULSE 100; RESP 18; TEMP 98.1; O2SAT 97
[2017-01-25 20:00] VITALS: BP 126/78; PULSE 92; RESP 20; TEMP 98; O2SAT 97
[2017-01-25] MEDS: ENOXAPARIN SODIUM 40 MG/0.4 ML SYRINGE SQ SCH (22:16)
[2017-01-26] VITALS: BP 130/74; PULSE 90; RESP 20; TEMP 97.6; O2SAT 98
[2017-01-26] MEDS: oxyCODONE/ACETAMINOPHEN 5 MG/325 MG TAB PO PRN ×4 (05:05→21:16)
[2017-01-26] MEDS: diphenhydrAMINE HCL 25 MG CAP PO PRN ×4 (05:09→21:15)
[2017-01-26 08:00] VITALS: BP 117/64; PULSE 86; RESP 17; TEMP 98.6; O2SAT 93
[2017-01-26] MEDS: guaiFENesin E.R. 600 MG TAB PO SCH ×2 (09:09→21:10)
[2017-01-26] MEDS: CARBIDOPA/LEVODOPA 10 MG/100 MG TAB PO SCH ×2 (09:09→17:04)
[2017-01-26] MEDS: LACTULOSE SYRUP 20 GM/30 ML CUP PO SCH ×4 (09:09→21:10)
[2017-01-26] MEDS: POTASSIUM CHLORIDE 20 MEQ CONTROLLED RELEASE TAB PO SCH (09:10)
[2017-01-26] MEDS: PANTOPRAZOLE SOD 40 MG DELAYED RELEASE TAB PO SCH (09:10)
[2017-01-26] MEDS: MAGNESIUM OXIDE 400 MG TAB PO SCH (09:10)
[2017-01-26] MEDS: SODIUM CHLORIDE 0.9% FLUSH 5 ML FLUSH FLUSH SCH ×2 (09:11→21:10)
[2017-01-26 10:58] VITALS: O2SAT 99
[2017-01-26 12:00] VITALS: BP 133/64; PULSE 104; RESP 18; TEMP 97.9; O2SAT 98
--- NOTE | 2017-01-26 13:04 | HHI.PR ---
Subjective Remarks Patient fell this morning when she attempted to walk without assistance. She states she is trying to get stronger. She denies any significant injuries. Small abrasion on the right forearm. Objective Vitals Vital Signs Date Time Temp Pulse Resp B/P Pulse Ox O2 Delivery O2 Flow Rate FiO2 01/26/17 12:00 97.9 104 18 133/64 98 01/26/17 10:58 99 21 01/26/17 08:00 98.6 86 17 117/64 93 01/26/17 00:00 97.6 90 20 130/74 98 01/25/17 23:16 18 01/25/17 20:00 98.0 92 20 126/78 97 01/25/17 16:00 98.1 100 18 131/81 97 I/O 01/25/17 01/25/17 01/25/17 01/26/17 01/26/17 01/26/17 07:00 15:00 23:00 07:00 15:00 23:00 Intake Total 240 ml 600 ml 320 ml 720 ml Output Total 700 ml 600 ml 700 ml Balance -460 ml 600 ml -280 ml 20 ml Intake Oral 240 ml 600 ml 320 ml 720 ml Output Urine Total 700 ml 600 ml 700 ml # Voids 1 6 # Bowel Movements 0 3 0 0 Result Diagram: 01/23/17 0608 01/23/17 0608 Objective Remarks GENERAL: Frail-appearing female. Appears older than stated age SKIN: 1 cm abrasion on the right forearm. CARDIOVASCULAR: Normal rate and regular rhythm without murmurs, gallops, or rubs. RESPIRATORY: Good respiratory efforts. Breath sounds equal and clear to auscultation bilaterally. GASTROINTESTINAL: Abdomen soft, non-tender, non-distended. Normal active bowel sounds MUSCULOSKELETAL: Extremities without cyanosis, or edema. NEURO: Alert & Oriented x4 to person, place, time, situation. Moves all ext x4 but generally weak. PSYCH: Appropriate mood and affect. Procedures Lumbar puncture 01/14/2017 A/P Problem List: (1) Weakness ICD Code: R53.1 Status: Acute (2) Rhabdomyolysis ICD Code: M62.82 Status: Acute (3) UTI (urinary tract infection) ICD Code: N39.0 Status: Acute (4) Hypokalemia ICD Code: E87.6 Status: Acute Assessment and Plan 61-year-old female with a medical history significant for asthma, hypertension, MGUS, chronic pancreatitis presented to [facility] with progressive lower extremity weakness. Plan as below: 1. Generalized weakness: Likely secondary to L4 to L5 focal severe canal stenosis. Spinal tap was traumatic, negative for cryptococcus. Per neuro, appears to be chronic, has atrophy lower extremity and multiple healed bruises. Could be related to poor nutritional status. Other differentials include CORE COMPOSER FEEDER lesion, MGUS causing lymphoma, and axonal neuropathy. Mild parkinsonism was noted on exam, the patient was started on Sinemet. Neuro has signed off and and states that they will follow-up in 2-3 weeks as an outpatient. Neurosurgery has evaluated the patient, no surgical intervention at this time. PT recommends SNF however the patient does not have SNF benefits. - Patient is a fall risk. She was counseled extensively on the need to use assistance. 2. MGUS: Being followed by hematology. Bone marrow biopsy performed 01/22, results pending. 3. Hypokalemia: Resolved. potassium replacement to 20 ME daily. 4. Hypo-magnesium: Mag-Ox 400 milligrams daily. 5. Hyper ammonium: Lactulose 6. Nausea vomiting: Controlled with Zofran 7. Rhabdomyolysis: Resolved 8. Thrombocytopenia and anemia. Stable. Likely secondary to chronic liver disease. No signs of bleeding. Hepatitis panel negative. Has continued to improve since admission. 9. UTI: Resolved, Cipro 3/2-3/5 DVT prophylaxis: Lovenox Discharge planning. Patient needs SNF but she has no benefit. Continue physical therapy in-house until she is strong enough to go home. Lizbet Woods MD Jan 26, 2017 13:04
[2017-01-26 20:00] VITALS: BP 124/82; PULSE 90; RESP 20; TEMP 98.4; O2SAT 96
[2017-01-26] MEDS: ENOXAPARIN SODIUM 40 MG/0.4 ML SYRINGE SQ SCH (21:10)
[2017-01-27] VITALS: BP 118/96; PULSE 80; RESP 20; TEMP 97.8; O2SAT 94
[2017-01-27] MEDS: CARBIDOPA/LEVODOPA 10 MG/100 MG TAB PO SCH ×3 (00:21→17:02)
[2017-01-27] MEDS: diphenhydrAMINE HCL 25 MG CAP PO PRN ×4 (02:01→21:36)
[2017-01-27] MEDS: oxyCODONE/ACETAMINOPHEN 5 MG/325 MG TAB PO PRN ×5 (02:01→21:37)
[2017-01-27 04:00] VITALS: BP 120/78; PULSE 78; RESP 20; TEMP 97.4; O2SAT 96
[2017-01-27 08:00] VITALS: BP 130/71; PULSE 84; RESP 16; TEMP 97.9; O2SAT 96
[2017-01-27] MEDS: LACTULOSE SYRUP 20 GM/30 ML CUP PO SCH ×4 (08:17→20:58)
[2017-01-27] MEDS: guaiFENesin E.R. 600 MG TAB PO SCH ×2 (08:18→20:58)
[2017-01-27] MEDS: PANTOPRAZOLE SOD 40 MG DELAYED RELEASE TAB PO SCH (08:18)
[2017-01-27] MEDS: MAGNESIUM OXIDE 400 MG TAB PO SCH (08:18)
[2017-01-27] MEDS: POTASSIUM CHLORIDE 20 MEQ CONTROLLED RELEASE TAB PO SCH (08:18)
[2017-01-27] MEDS: SODIUM CHLORIDE 0.9% FLUSH 5 ML FLUSH FLUSH SCH ×2 (08:19→21:10)
--- NOTE | 2017-01-27 11:19 | HHI.PR ---
Subjective Remarks Patient reports that she is feeling okay. She denies any pain. We had a long discussion about her fall risk. Unfortunately she does not have insight into her condition. She even indicated she was fine at home until a family member called the police. Objective Vitals Vital Signs Date Time Temp Pulse Resp B/P Pulse Ox O2 Delivery O2 Flow Rate FiO2 01/27/17 08:00 97.9 84 16 130/71 96 01/27/17 07:22 18 01/27/17 04:00 97.4 78 20 120/78 96 01/27/17 00:00 97.8 80 20 118/96 94 01/26/17 20:00 98.4 90 20 124/82 96 01/26/17 12:00 97.9 104 18 133/64 98 I/O 01/26/17 01/26/17 01/26/17 01/27/17 01/27/17 01/27/17 07:00 15:00 23:00 07:00 15:00 23:00 Intake Total 720 ml 240 ml 480 ml 480 ml Output Total 700 ml 900 ml 600 ml 600 ml 450 ml Balance 20 ml -660 ml -120 ml -120 ml -450 ml Intake Oral 720 ml 240 ml 480 ml 480 ml IV Total 0 ml Output Urine Total 700 ml 900 ml 600 ml 600 ml 300 ml Stool Total 150 ml # Voids 2 # Bowel Movements 0 0 1 1 2 Result Diagram: 01/23/17 0608 01/23/17 0608 Objective Remarks GENERAL: Frail-appearing female. Appears older than stated age SKIN: 1 cm abrasion on the right forearm. CARDIOVASCULAR: Normal rate and regular rhythm without murmurs, gallops, or rubs. RESPIRATORY: Good respiratory efforts. Breath sounds equal and clear to auscultation bilaterally. GASTROINTESTINAL: Abdomen soft, non-tender, non-distended. Normal active bowel sounds MUSCULOSKELETAL: Extremities without cyanosis, or edema. NEURO: Alert & Oriented x4 to person, place, time, situation. Moves all ext x4 but generally weak. PSYCH: Poor insight Procedures Lumbar puncture 01/14/2017 A/P Problem List: (1) Weakness ICD Code: R53.1 Status: Acute (2) Rhabdomyolysis ICD Code: M62.82 Status: Acute (3) UTI (urinary tract infection) ICD Code: N39.0 Status: Acute (4) Hypokalemia ICD Code: E87.6 Status: Acute Assessment and Plan 61-year-old female with a medical history significant for asthma, hypertension, MGUS, chronic pancreatitis presented to [place] with progressive lower extremity weakness. Plan as below: 1. Generalized weakness: Likely secondary to L4 to L5 focal severe canal stenosis. Spinal tap was traumatic, negative for cryptococcus. Per neuro, appears to be chronic, has atrophy lower extremity and multiple healed bruises. Could be related to poor nutritional status. Other differentials include METEOROLOGICAL OBSERVER lesion, MGUS causing lymphoma, and axonal neuropathy. Mild parkinsonism was noted on exam, the patient was started on Sinemet. Neuro has signed off and and states that they will follow-up in 2-3 weeks as an outpatient. Neurosurgery has evaluated the patient, no surgical intervention at this time. PT recommends SNF however the patient does not have SNF benefits. - Patient is a high fall risk. She has poor insight into her condition. Her goal is to just returned home and go back to living in her previous condition. She said she has a rolling chair at home she can use. The patient is definitely not a safe discharge home. Continue physical therapy daily. 2. MGUS: Being followed by hematology. Bone marrow biopsy performed 01/22, results pending. 3. Hypokalemia: Resolved. potassium replacement to 20 ME daily. 4. Hypo-magnesium: Mag-Ox 400 milligrams daily. 5. Hyper ammonium: Lactulose 6. Nausea vomiting: Controlled with Zofran 7. Rhabdomyolysis: Resolved 8. Thrombocytopenia and anemia. Stable. Likely secondary to chronic liver disease. No signs of bleeding. Hepatitis panel negative. Has continued to improve since admission. 9. UTI: Resolved, Cipro 3/2-3/5 DVT prophylaxis: Lovenox Discharge planning. Patient needs SNF but she has no benefit. Continue physical therapy in-house until she is strong enough to go home. Lizbet Woods MD Jan 27, 2017 11:19
[2017-01-27 12:00] VITALS: BP 113/63; PULSE 97; RESP 16; TEMP 97; O2SAT 98
[2017-01-27 16:00] VITALS: BP 113/63; PULSE 84; RESP 20; TEMP 99.5; O2SAT 96
[2017-01-27 20:00] VITALS: BP 150/78; PULSE 101; RESP 19; TEMP 98.1; O2SAT 96
[2017-01-27] MEDS: ENOXAPARIN SODIUM 40 MG/0.4 ML SYRINGE SQ SCH (20:58)
[2017-01-28] VITALS: BP_SYST 103; BP_SYST 114; BP_DIAS 59; BP_DIAS 60; PULSE 71; PULSE 94; RESP 19; RESP 20; TEMP 96; TEMP 98.4; O2SAT 95; O2SAT 97
[2017-01-28] MEDS: CARBIDOPA/LEVODOPA 10 MG/100 MG TAB PO SCH ×3 (00:01→16:42)
[2017-01-28] MEDS: diphenhydrAMINE HCL 25 MG CAP PO PRN ×5 (03:48→22:08)
[2017-01-28] MEDS: oxyCODONE/ACETAMINOPHEN 5 MG/325 MG TAB PO PRN ×5 (03:48→22:08)
[2017-01-28 08:00] VITALS: BP 103/62; PULSE 89; RESP 17; TEMP 98.1; O2SAT 96
[2017-01-28] MEDS: LACTULOSE SYRUP 20 GM/30 ML CUP PO SCH ×4 (08:44→20:47)
[2017-01-28] MEDS: SODIUM CHLORIDE 0.9% FLUSH 5 ML FLUSH FLUSH SCH ×2 (08:44→20:47)
[2017-01-28] MEDS: guaiFENesin E.R. 600 MG TAB PO SCH ×2 (08:44→20:47)
[2017-01-28] MEDS: PANTOPRAZOLE SOD 40 MG DELAYED RELEASE TAB PO SCH (08:44)
[2017-01-28] MEDS: POTASSIUM CHLORIDE 20 MEQ CONTROLLED RELEASE TAB PO SCH (08:44)
[2017-01-28] MEDS: MAGNESIUM OXIDE 400 MG TAB PO SCH (08:44)
[2017-01-28 12:00] VITALS: BP 106/62; PULSE 91; RESP 19; TEMP 97.9; O2SAT 94
--- NOTE | 2017-01-28 15:03 | HHI.PR ---
Subjective Remarks Patient reports feeling somewhat tired today. She did work with physical therapy today. Still having some issues with balance. Objective Vitals Vital Signs Date Time Temp Pulse Resp B/P Pulse Ox O2 Delivery O2 Flow Rate FiO2 01/28/17 12:00 97.9 91 19 106/62 94 01/28/17 08:00 98.1 89 17 103/62 96 01/28/17 00:00 98.4 94 20 103/60 95 01/27/17 20:00 98.1 101 19 150/78 96 01/27/17 17:57 18 01/27/17 16:00 99.5 84 20 113/63 96 I/O 01/27/17 01/27/17 01/27/17 01/28/17 01/28/17 01/28/17 07:00 15:00 23:00 07:00 15:00 23:00 Intake Total 480 ml 500 ml 600 ml 640 ml Output Total 600 ml 450 ml 700 ml Balance -120 ml 50 ml -100 ml 640 ml Intake Oral 480 ml 500 ml 600 ml 640 ml Output Urine Total 600 ml 300 ml 700 ml Stool Total 150 ml # Voids 5 2 4 # Bowel Movements 1 4 0 0 Objective Remarks GENERAL: Frail-appearing female. Appears older than stated age SKIN: 1 cm abrasion on the right forearm. CARDIOVASCULAR: Normal rate and regular rhythm without murmurs, gallops, or rubs. RESPIRATORY: Good respiratory efforts. Breath sounds equal and clear to auscultation bilaterally. GASTROINTESTINAL: Abdomen soft, non-tender, non-distended. Normal active bowel sounds MUSCULOSKELETAL: Extremities without cyanosis, or edema. NEURO: Alert & Oriented x4 to person, place, time, situation. Moves all ext x4 but generally weak. PSYCH: Poor insight Procedures Lumbar puncture 01/14/2017 A/P Problem List: (1) Weakness ICD Code: R53.1 Status: Acute (2) Rhabdomyolysis ICD Code: M62.82 Status: Acute (3) UTI (urinary tract infection) ICD Code: N39.0 Status: Acute (4) Hypokalemia ICD Code: E87.6 Status: Acute Assessment and Plan 61-year-old female with a medical history significant for asthma, hypertension, MGUS, chronic pancreatitis presented to [facility] with progressive lower extremity weakness. Plan as below: 1. Generalized weakness: Likely secondary to L4 to L5 focal severe canal stenosis. Spinal tap was traumatic, negative for cryptococcus. Per neuro, appears to be chronic, has atrophy lower extremity and multiple healed bruises. Could be related to poor nutritional status. Other differentials include WET COTTON FEEDER lesion, MGUS causing lymphoma, and axonal neuropathy. Mild parkinsonism was noted on exam, the patient was started on Sinemet. Neuro has signed off and and states that they will follow-up in 2-3 weeks as an outpatient. Neurosurgery has evaluated the patient, no surgical intervention at this time. PT recommends SNF however the patient does not have SNF benefits. - Patient is a high fall risk. She has poor insight into her condition. Her goal is to just returned home and go back to living in her previous condition. She needs [facility] but has no insurance benefit. Continue daily PT. 2. MGUS: Being followed by hematology. Bone marrow biopsy performed 01/22, results pending. 3. Hypokalemia: Resolved. potassium replacement to 20 ME daily. 4. Hypo-magnesium: Mag-Ox 400 milligrams daily. 5. Hyper ammonium: Lactulose 6. Nausea vomiting: Controlled with Zofran 7. Rhabdomyolysis: Resolved 8. Thrombocytopenia and anemia. Stable. Likely secondary to chronic liver disease. No signs of bleeding. Hepatitis panel negative. Has continued to improve since admission. 9. UTI: Resolved, Cipro 3/2-3/5 DVT prophylaxis: Lovenox Discharge planning. Patient needs SNF but she has no benefit. Continue physical therapy in-house until she is strong enough to go home. Lizbet Woods MD Jan 28, 2017 15:03
[2017-01-28 16:00] VITALS: BP 122/66; PULSE 87; RESP 18; TEMP 98.2; O2SAT 96
[2017-01-28 20:00] VITALS: BP 125/70; PULSE 80; RESP 21; TEMP 98.3; O2SAT 95
[2017-01-28] MEDS: ENOXAPARIN SODIUM 40 MG/0.4 ML SYRINGE SQ SCH (20:47)
[2017-01-28 23:31] VITALS: BP 101/56; PULSE 88; RESP 20; TEMP 98.1; O2SAT 96
[2017-01-29] MEDS: CARBIDOPA/LEVODOPA 10 MG/100 MG TAB PO SCH ×3 (00:13→16:51)
[2017-01-29] MEDS: diphenhydrAMINE HCL 25 MG CAP PO PRN ×5 (02:27→21:23)
[2017-01-29] MEDS: oxyCODONE/ACETAMINOPHEN 5 MG/325 MG TAB PO PRN ×5 (02:27→21:24)
[2017-01-29 04:00] VITALS: BP 107/60; PULSE 89; RESP 20; TEMP 98.4; O2SAT 96
[2017-01-29] MEDS: LACTULOSE SYRUP 20 GM/30 ML CUP PO SCH ×4 (07:14→21:24)
[2017-01-29] MEDS: guaiFENesin E.R. 600 MG TAB PO SCH ×2 (07:14→21:23)
[2017-01-29] MEDS: POTASSIUM CHLORIDE 20 MEQ CONTROLLED RELEASE TAB PO SCH (07:14)
[2017-01-29] MEDS: MAGNESIUM OXIDE 400 MG TAB PO SCH (07:14)
[2017-01-29] MEDS: PANTOPRAZOLE SOD 40 MG DELAYED RELEASE TAB PO SCH (07:14)
[2017-01-29] MEDS: SODIUM CHLORIDE 0.9% FLUSH 5 ML FLUSH FLUSH SCH ×2 (07:14→21:24)
[2017-01-29 08:00] VITALS: BP 90/59; PULSE 114; RESP 14; TEMP 99.1; O2SAT 94
[2017-01-29] MEDS: ONDANSETRON HCL 4 MG/2 ML VIAL IVP PRN (09:12)
[2017-01-29 12:00] VITALS: BP 113/63; PULSE 110; RESP 14; TEMP 98.5; O2SAT 96
--- NOTE | 2017-01-29 13:31 | HHI.PR ---
Subjective Remarks Still having some periods of confusion. She requested to go home. Objective Vitals Vital Signs Date Time Temp Pulse Resp B/P Pulse Ox O2 Delivery O2 Flow Rate FiO2 01/29/17 08:00 99.1 114 14 90/59 94 01/29/17 04:00 98.4 89 20 107/60 96 01/29/17 03:06 14 01/28/17 23:31 98.1 88 20 101/56 96 01/28/17 20:00 98.3 80 21 125/70 95 01/28/17 16:00 98.2 87 18 122/66 96 I/O 01/28/17 01/28/17 01/28/17 01/29/17 01/29/17 01/29/17 07:00 15:00 23:00 07:00 15:00 23:00 Intake Total 600 ml 640 ml 240 ml 480 ml Output Total 700 ml 300 ml Balance -100 ml 640 ml -60 ml 480 ml Intake Oral 600 ml 640 ml 240 ml 480 ml Output Urine Total 700 ml 300 ml # Voids 2 4 1 2 # Bowel Movements 0 0 0 0 Objective Remarks GENERAL: Frail-appearing female. Appears older than stated age SKIN: 1 cm abrasion on the right forearm. CARDIOVASCULAR: Normal rate and regular rhythm without murmurs, gallops, or rubs. RESPIRATORY: Good respiratory efforts. Breath sounds equal and clear to auscultation bilaterally. GASTROINTESTINAL: Abdomen soft, non-tender, non-distended. Normal active bowel sounds MUSCULOSKELETAL: Extremities without cyanosis, or edema. NEURO: Alert & Oriented x4 to person, place, time, situation. Moves all ext x4 but generally weak. PSYCH: Poor insight Procedures Lumbar puncture 01/14/2017 A/P Problem List: (1) Weakness ICD Code: R53.1 Status: Acute (2) Rhabdomyolysis ICD Code: M62.82 Status: Acute (3) UTI (urinary tract infection) ICD Code: N39.0 Status: Acute (4) Hypokalemia ICD Code: E87.6 Status: Acute Assessment and Plan 61-year-old female with a medical history significant for asthma, hypertension, MGUS, chronic pancreatitis presented to [place] with progressive lower extremity weakness. Plan as below: 1. Generalized weakness: Likely secondary to L4 to L5 focal severe canal stenosis. Spinal tap was traumatic, negative for cryptococcus. Per neuro, appears to be chronic, has atrophy lower extremity and multiple healed bruises. Could be related to poor nutritional status. Other differentials include SQUARING SHEAR OPERATOR lesion, MGUS causing lymphoma, and axonal neuropathy. Mild parkinsonism was noted on exam, the patient was started on Sinemet. Neuro has signed off and and states that they will follow-up in 2-3 weeks as an outpatient. Neurosurgery has evaluated the patient, no surgical intervention at this time. PT recommends SNF however the patient does not have SNF benefits. - Patient is a high fall risk. She has poor insight into her condition. She is still requesting to go home not understanding that it is not safe for her. She is agreeable to continue to work with physical therapy. Her goal is to just returned home and go back to living in her previous condition. She needs senior care facility but has no insurance benefit. Continue daily PT. 2. MGUS: Being followed by hematology. Bone marrow biopsy performed 01/22, results pending. 3. Hypokalemia: Resolved. potassium replacement to 20 ME daily. 4. Hypo-magnesium: Mag-Ox 400 milligrams daily. 5. Hyper ammonium: Lactulose 6. Nausea vomiting: Controlled with Zofran 7. Rhabdomyolysis: Resolved 8. Thrombocytopenia and anemia. Stable. Likely secondary to chronic liver disease. No signs of bleeding. Hepatitis panel negative. Has continued to improve since admission. 9. UTI: Resolved, Cipro 3/2-3/5 DVT prophylaxis: Lovenox Discharge planning. Patient needs SNF but she has no benefit. Continue physical therapy in-house until she is strong enough to go home. Lizbet Woods MD Jan 29, 2017 13:31
[2017-01-29 16:00] VITALS: BP 110/68; PULSE 104; RESP 16; TEMP 99.4; O2SAT 96
[2017-01-29 20:00] VITALS: BP 122/78; PULSE 80; RESP 20; TEMP 97.6; O2SAT 97
[2017-01-29] MEDS: ENOXAPARIN SODIUM 40 MG/0.4 ML SYRINGE SQ SCH (21:24)
[2017-01-30] VITALS: BP 126/74; PULSE 76; RESP 22; TEMP 98; O2SAT 99
[2017-01-30] MEDS: CARBIDOPA/LEVODOPA 10 MG/100 MG TAB PO SCH ×3 (01:25→17:42)
[2017-01-30] MEDS: oxyCODONE/ACETAMINOPHEN 5 MG/325 MG TAB PO PRN ×2 (01:26→12:34)
[2017-01-30 08:00] VITALS: BP 103/58; PULSE 106; RESP 16; TEMP 97.3; O2SAT 93
[2017-01-30] MEDS: POTASSIUM CHLORIDE 20 MEQ CONTROLLED RELEASE TAB PO SCH (08:47)
[2017-01-30] MEDS: PANTOPRAZOLE SOD 40 MG DELAYED RELEASE TAB PO SCH (08:47)
[2017-01-30] MEDS: SODIUM CHLORIDE 0.9% FLUSH 5 ML FLUSH FLUSH SCH (08:47)
[2017-01-30] MEDS: MAGNESIUM OXIDE 400 MG TAB PO SCH (08:47)
[2017-01-30] MEDS: LACTULOSE SYRUP 20 GM/30 ML CUP PO SCH ×3 (08:47→17:42)
[2017-01-30] MEDS: guaiFENesin E.R. 600 MG TAB PO SCH (08:47)
--- NOTE | 2017-01-30 11:03 | HHI.PR ---
Subjective Remarks Patient is hallucinating. She reports there was a dog under her bed this morning crying. She again requested to go home not understanding her physical limitations. Objective Vitals Vital Signs Date Time Temp Pulse Resp B/P Pulse Ox O2 Delivery O2 Flow Rate FiO2 01/30/17 08:00 97.3 106 16 103/58 93 01/30/17 00:00 98.0 76 22 126/74 99 01/29/17 20:00 97.6 80 20 122/78 97 01/29/17 17:51 17 01/29/17 16:00 99.4 104 16 110/68 96 01/29/17 12:00 98.5 110 14 113/63 96 I/O 01/29/17 01/29/17 01/29/17 01/30/17 01/30/17 01/30/17 07:00 15:00 23:00 07:00 15:00 23:00 Intake Total 480 ml 300 ml 720 ml 720 ml Output Total 600 ml 1200 ml Balance 480 ml 300 ml 120 ml -480 ml Intake Oral 480 ml 300 ml 720 ml 720 ml IV Total 0 ml Output Urine Total 600 ml 1200 ml # Voids 2 3 # Bowel Movements 0 1 1 3 Objective Remarks GENERAL: Frail-appearing female. Appears older than stated age SKIN: 1 cm abrasion on the right forearm. CARDIOVASCULAR: Normal rate and regular rhythm without murmurs, gallops, or rubs. RESPIRATORY: Good respiratory efforts. Breath sounds equal and clear to auscultation bilaterally. GASTROINTESTINAL: Abdomen soft, non-tender, non-distended. Normal active bowel sounds MUSCULOSKELETAL: Extremities without cyanosis, or edema. NEURO: Alert & Oriented x4 to person, place, time, situation. Moves all ext x4 but generally weak. PSYCH: Poor insight Procedures Lumbar puncture 01/14/2017 A/P Problem List: (1) Weakness ICD Code: R53.1 Status: Acute (2) Rhabdomyolysis ICD Code: M62.82 Status: Acute (3) UTI (urinary tract infection) ICD Code: N39.0 Status: Acute (4) Hypokalemia ICD Code: E87.6 Status: Acute Assessment and Plan 61-year-old female with a medical history significant for asthma, hypertension, MGUS, chronic pancreatitis presented to [place] with progressive lower extremity weakness. Plan as below: 1. Generalized weakness: Patient was seen by neurology. L4 to L5 focal severe canal stenosis. Spinal tap was traumatic, negative for cryptococcus. Per neuro , appears to be chronic, has atrophy lower extremity and multiple healed bruises. Could be related to poor nutritional status. Other differentials include FILLING HAND lesion, MGUS causing lymphoma, and axonal neuropathy. Mild parkinsonism was noted on exam, the patient was started on Sinemet. Neurosurgery has evaluated the patient, no surgical intervention at this time. PT recommends SNF however the patient does not have SNF benefits. - Patient is a high fall risk. She has poor insight into her condition. She is still requesting to go home not understanding that it is not safe for her. She is agreeable to continue to work with physical therapy. Her goal is to just returned home and go back to living in her previous condition. She needs detention facility but has no insurance benefit. Continue daily PT. - Patient is also hallucinating and at times confused. Will reconsult psychiatry. Apparently the patient was brought in as a Roger act. She is still insisting there was no reason for her to come to the hospital. 2. MGUS: Being followed by hematology. Bone marrow biopsy performed 01/22, results pending. 3. Hypokalemia: Resolved. potassium replacement to 20 ME daily. 4. Hypo-magnesium: Mag-Ox 400 milligrams daily. 5. Hyper ammonium: Lactulose 6. Nausea vomiting: Controlled with Zofran 7. Rhabdomyolysis: Resolved 8. Thrombocytopenia and anemia. Stable. Likely secondary to chronic liver disease. No signs of bleeding. Hepatitis panel negative. Has continued to improve since admission. 9. UTI: Resolved, Cipro 3/2-3/5 DVT prophylaxis: Lovenox Discharge planning. Patient needs SNF but she has no benefit. Continue physical therapy in-house until she is strong enough to go home. Lizbet Woods MD Jan 30, 2017 11:03
[2017-01-30 12:00] VITALS: BP 107/63; PULSE 99; RESP 17; TEMP 96.8; O2SAT 94
[2017-01-30] MEDS: diphenhydrAMINE HCL 25 MG CAP PO PRN ×2 (12:36→18:29)
[2017-01-30 20:00] VITALS: BP 107/71; PULSE 91; RESP 16; TEMP 98.6; O2SAT 94
[2017-01-31] VITALS: BP 112/59; PULSE 59; RESP 16; TEMP 98.6; O2SAT 95
[2017-01-31] MEDS: guaiFENesin E.R. 600 MG TAB PO SCH ×3 (00:12→21:32)
[2017-01-31] MEDS: ENOXAPARIN SODIUM 40 MG/0.4 ML SYRINGE SQ SCH ×2 (00:12→21:31)
[2017-01-31] MEDS: SODIUM CHLORIDE 0.9% FLUSH 5 ML FLUSH FLUSH SCH ×3 (00:13→21:32)
[2017-01-31] MEDS: oxyCODONE/ACETAMINOPHEN 5 MG/325 MG TAB PO PRN ×5 (00:17→21:32)
[2017-01-31] MEDS: LACTULOSE SYRUP 20 GM/30 ML CUP PO SCH ×5 (00:18→21:32)
[2017-01-31] MEDS: CARBIDOPA/LEVODOPA 10 MG/100 MG TAB PO SCH ×3 (00:22→16:00)
[2017-01-31] MEDS: diphenhydrAMINE HCL 25 MG CAP PO PRN ×4 (03:15→21:32)
[2017-01-31 05:33] LABS: BLOOD, URINE NEG (NEG); COMMENT (UR) CULT NOT INDICATED; CULTURE IF INDICATED CULT NOT INDICATED; GLUCOSE,URINE NEG (NEG); KETONE, URINE NEG (NEG); MUCUS URINE FEW /lpf (OCC); NITRITE,URINE NEG (NEG); PH, URINE 7.5 (5.0-8.5); SQUAMOUS EPITHELIAL CELL URINE 8 /hpf (0-5); URINE COLOR YELLOW (YELLW/STRAW)
[2017-01-31 08:00] VITALS: BP 112/61; PULSE 84; RESP 17; TEMP 97.9; O2SAT 95
--- NOTE | 2017-01-31 08:51 | HHI.PR ---
Subjective Remarks No hallucinations this morning. Patient still requesting to go home. Still very weak and impulsive. Objective Vitals Vital Signs Date Time Temp Pulse Resp B/P Pulse Ox O2 Delivery O2 Flow Rate FiO2 01/31/17 08:00 97.9 84 17 112/61 95 01/31/17 06:22 18 01/31/17 00:00 98.6 59 16 112/59 95 01/30/17 20:00 98.6 91 16 107/71 94 01/30/17 12:00 96.8 99 17 107/63 94 I/O 01/30/17 01/30/17 01/30/17 01/31/17 01/31/17 01/31/17 07:00 15:00 23:00 07:00 15:00 23:00 Intake Total 720 ml 360 ml 240 ml Output Total 1200 ml 550 ml 300 ml Balance -480 ml -190 ml -60 ml Intake Oral 720 ml 360 ml 240 ml Output Urine Total 1200 ml 550 ml 300 ml # Bowel Movements 3 0 0 Imaging Last Impressions Bone Biopsy CT 01/22/17 0600 Signed Impressions: Service Date/Time: Sunday, January 22, 2017 10:16 - CONCLUSION: 1. Uncomplicated CT guided bone marrow aspirate. 2. Uncomplicated CT guided bone marrow biopsy. Trae Dorantes MD Lumbar Puncture Fluoroscopy 01/14/17 0000 Signed Impressions: Service Date/Time: January 09:33 - CONCLUSION: Uncomplicated fluoroscopically guided lumbar puncture. Louis Metz MD Brain MRI 01/14/17 0000 Signed Impressions: Service Date/Time: January 10:04 - CONCLUSION: 1. Chronic ischemic small vessel vasculopathy. 2. No acute infarction. 3. No enhancing metastatic lesions are seen. Frank Johnson MD Thoracic Spine MRI 01/13/17 0000 Signed Impressions: Service Date/Time: Friday, January 13, 2017 11:59 - CONCLUSION: Negative MRI of the thoracic spine. There is no evidence for metastatic disease. Mauro Joel MD FACR Thoracic Spine CT 01/13/17 0000 Signed Impressions: Service Date/Time: Friday, January 13, 2017 03:32 - CONCLUSION: 1. No acute findings. Mild degenerative disc disease. No canal stenosis. Dylon St MD Lumbar Spine MRI 01/13/17 0000 Signed Impressions: Service Date/Time: Friday, January 13, 2017 11:59 - CONCLUSION: 1. Radiographically significant spinal stenosis at L4-L5. 2. Minimal disc bulging to the right at L3-4. Mauro Joel MD FACR Lumbar Spine CT 01/13/17 0000 Signed Impressions: Service Date/Time: Friday, January 13, 2017 03:34 - CONCLUSION: 1. No acute fracture. 2. At L4-5 there is focal severe canal stenosis secondary to grade 1 anterolisthesis and advanced facet arthropathy. 3. Mild canal stenosis at L3- 4. Dylon St MD Head CT 01/13/17 0000 Signed Impressions: Service Date/Time: Friday, January 13, 2017 03:28 - CONCLUSION: 1. No acute intracranial abnormalities. Cortical atrophy. Dylon St MD Chest X-Ray 01/13/17 0000 Signed Impressions: Service Date/Time: Friday, January 13, 2017 03:40 - CONCLUSION: 1. No acute findings. Atherosclerotic aorta. Dylon St MD Cervical Spine MRI 01/13/17 0000 Signed Impressions: Service Date/Time: Friday, January 13, 2017 11:59 - CONCLUSION: Degenerative changes as described above. There is no abnormal contrast enhancement identified. Mauro Joel MD FACR Objective Remarks GENERAL: Frail-appearing female. Appears older than stated age SKIN: 1 cm abrasion on the right forearm. CARDIOVASCULAR: Normal rate and regular rhythm without murmurs, gallops, or rubs. RESPIRATORY: Good respiratory efforts. Breath sounds equal and clear to auscultation bilaterally. GASTROINTESTINAL: Abdomen soft, non-tender, non-distended. Normal active bowel sounds MUSCULOSKELETAL: Extremities without cyanosis, or edema. NEURO: Alert & Oriented x4 to person, place, time, situation. Moves all ext x4 but generally weak. PSYCH: Poor insight, impulsive Procedures Lumbar puncture 01/14/2017 A/P Problem List: (1) Weakness ICD Code: R53.1 Status: Acute (2) Rhabdomyolysis ICD Code: M62.82 Status: Acute (3) UTI (urinary tract infection) ICD Code: N39.0 Status: Acute (4) Hypokalemia ICD Code: E87.6 Status: Acute Assessment and Plan 61-year-old female with a medical history significant for asthma, hypertension, MGUS, chronic pancreatitis presented to [place] with progressive lower extremity weakness. Plan as below: 1. Generalized weakness: Patient was seen by neurology. L4 to L5 focal severe canal stenosis. Spinal tap was traumatic, negative for cryptococcus. Per neuro , appears to be chronic, has atrophy lower extremity and multiple healed bruises. Could be related to poor nutritional status. Other differentials include RADIOLOGIST CHIEF OF BREAST IMAGING lesion, MGUS causing lymphoma, and axonal neuropathy. Mild parkinsonism was noted on exam, the patient was started on Sinemet. Neurosurgery has evaluated the patient, no surgical intervention at this time. PT recommends SNF however the patient does not have SNF benefits. Rehab medicine consulted for EMG/NCV. Neurology following. - Patient is a high fall risk. She has poor insight into her condition. She is still requesting to go home not understanding that it is not safe for her. She is agreeable to continue to work with physical therapy. Her goal is to just returned home and go back to living in her previous condition. She has had issues with hallucinating and at times confused. Psychiatry reconsulted. I do not believe she has capacity to make decisions regarding discharge.. Apparently the patient was brought in as a Roger act. She is still insisting there was no reason for her to come to the hospital. 2. MGUS: Followed by hematology. Bone marrow biopsy performed 01/22. 3. Hypokalemia: Resolved. potassium replacement to 20 ME daily. 4. Hypo-magnesium: Mag-Ox 400 milligrams daily. 5. Hyperammonemia: Resolved with Lactulose 6. Nausea vomiting: Controlled with Zofran 7. Rhabdomyolysis: Resolved 8. Thrombocytopenia and anemia. Stable. Likely secondary to chronic liver disease. No signs of bleeding. Hepatitis panel negative. Has continued to improve since admission. 9. UTI: Resolved, Cipro /-01/17 DVT prophylaxis: Lovenox Discharge planning. Patient needs SNF but she has no benefit. Continue physical therapy in-house until she is strong enough to go home. Psych and Neuro to follow. Lizbet Woods MD Jan 31, 2017 08:51
[2017-01-31] MEDS: PANTOPRAZOLE SOD 40 MG DELAYED RELEASE TAB PO SCH (09:27)
[2017-01-31] MEDS: MAGNESIUM OXIDE 400 MG TAB PO SCH (09:28)
[2017-01-31] MEDS: POTASSIUM CHLORIDE 20 MEQ CONTROLLED RELEASE TAB PO SCH (09:28)
[2017-01-31 12:00] VITALS: BP 117/60; PULSE 94; RESP 16; TEMP 97.9; O2SAT 94
--- NOTE | 2017-01-31 14:43 | HHI.PYPN ---
Subjective Remarks Initial consult by Dr. Mcintosh approximately one week ago. This physician saw patient in follow up and determined patient does have delusional thinking. She reportedly saw a dog under the bed in the past and is currently stating there was a cat under her bed this morning. No amount of discussion, argument or reasoning can check patient's belief that she is not crazy and there was a cat under the bed this morning. Therefore, this physician does not feel the patient is competent to make decisions regarding leaving the hospital AGAINST MEDICAL ADVICE. Review of Systems ROS Limitations: Clinical Condition Except as stated in HPI: all other systems reviewed are Neg Objective Alert: Yes [place]: Person, Place, Date, Situation Mood: Anxious Affect: Euthymic Memory Intact: Immediate, Recent, Remote Hallucinations: Auditory, Visual Delusions: Yes Delusion Type: Other Suicidal: Ideation Homicidal: Ideation Insight/Judgement Impaired. Labs Test 01/31/17 04:42 Urine Color YELLOW Urine Turbidity HAZY Urine pH 7.5 Urine Specific [place] 1.020 Urine Protein NEG mg/dL Urine Glucose (UA) NEG mg/dL Urine Ketones NEG mg/dL Urine Occult Blood NEG Urine Nitrite NEG Urine Bilirubin NEG Urine Urobilinogen 4.0 MG/DL Urine Leukocyte Esterase TRACE Urine RBC 5 /hpf Urine WBC 4 /hpf Urine Squamous Epithelial 8 /hpf Cells Urine Mucus FEW /lpf Urine Yeast (Budding) RARE Microscopic Urinalysis Comment CULT NOT INDICATED Vitals/IOs Vital Signs Date Time Temp Pulse Resp B/P Pulse Ox O2 Delivery O2 Flow Rate FiO2 01/31/17 12:00 97.9 94 16 117/60 94 Intake and Output 01/30/17 01/30/17 01/31/17 08:00 16:00 00:00 Intake Total 720 ml 360 ml Output Total 1200 ml 550 ml Balance -480 ml -190 ml Assessment & Plan Problem List: (1) Psychotic disorder ICD Code: F29 Assessment & Plan Estimated LOS: days this physician does not feel the patient is competent to leave the hospital AGAINST MEDICAL ADVICE. Justification for Cont. Inpt. Unable to care for herself. Aries Winters MD Jan 31, 2017 14:43
[2017-01-31 16:00] VITALS: BP 116/64; PULSE 82; RESP 17; TEMP 98.1; O2SAT 95
[2017-01-31 20:00] VITALS: BP 119/68; PULSE 110; RESP 16; TEMP 96.9; O2SAT 95
[2017-02-01] VITALS: BP 115/70; PULSE 110; RESP 18; TEMP 98.4; O2SAT 97
[2017-02-01] MEDS: CARBIDOPA/LEVODOPA 10 MG/100 MG TAB PO SCH ×4 (01:20→23:37)
[2017-02-01] MEDS: diphenhydrAMINE HCL 25 MG CAP PO PRN ×5 (02:17→22:19)
[2017-02-01] MEDS: oxyCODONE/ACETAMINOPHEN 5 MG/325 MG TAB PO PRN ×5 (02:17→22:19)
[2017-02-01] MEDS: POTASSIUM CHLORIDE 20 MEQ CONTROLLED RELEASE TAB PO SCH (07:46)
[2017-02-01] MEDS: LACTULOSE SYRUP 20 GM/30 ML CUP PO SCH ×4 (07:46→22:20)
[2017-02-01] MEDS: guaiFENesin E.R. 600 MG TAB PO SCH ×2 (07:46→22:19)
[2017-02-01] MEDS: MAGNESIUM OXIDE 400 MG TAB PO SCH (07:46)
[2017-02-01] MEDS: PANTOPRAZOLE SOD 40 MG DELAYED RELEASE TAB PO SCH (07:46)
[2017-02-01] MEDS: SODIUM CHLORIDE 0.9% FLUSH 5 ML FLUSH FLUSH SCH ×2 (07:47→22:20)
[2017-02-01 08:00] VITALS: BP 112/73; PULSE 108; RESP 18; TEMP 97.6; O2SAT 97
--- NOTE | 2017-02-01 09:59 | HHI.PR ---
Subjective Remarks patient awake and alert denies any pain but irritable, states she slept good she hears cats critters under her bed she is sitting on the chair- po 100%, her legs crossed Objective Vitals Vital Signs Date Time Temp Pulse Resp B/P Pulse Ox O2 Delivery O2 Flow Rate FiO2 02/01/17 08:46 16 02/01/17 08:00 97.6 108 18 112/73 97 02/01/17 00:00 98.4 110 18 115/70 97 01/31/17 20:00 96.9 110 16 119/68 95 01/31/17 16:00 98.1 82 17 116/64 95 01/31/17 12:00 97.9 94 16 117/60 94 I/O 01/31/17 01/31/17 01/31/17 02/01/17 02/01/17 02/01/17 07:00 15:00 23:00 07:00 15:00 23:00 Intake Total 240 ml 240 ml 240 ml 242 ml Output Total 300 ml 550 ml 350 ml Balance -60 ml -310 ml -110 ml 242 ml Intake Oral 240 ml 240 ml 240 ml 242 ml Output Urine Total 300 ml 550 ml 350 ml # Voids 4 # Bowel Movements 0 0 0 0 Imaging Last Impressions Bone Biopsy CT 01/22/17 0600 Signed Impressions: Service Date/Time: Sunday, January 22, 2017 10:16 - CONCLUSION: 1. Uncomplicated CT guided bone marrow aspirate. 2. Uncomplicated CT guided bone marrow biopsy. Trae Dorantes MD Lumbar Puncture Fluoroscopy 01/14/17 0000 Signed Impressions: Service Date/Time: January 09:33 - CONCLUSION: Uncomplicated fluoroscopically guided lumbar puncture. Louis Metz MD Brain MRI 01/14/17 0000 Signed Impressions: Service Date/Time: January 10:04 - CONCLUSION: 1. Chronic ischemic small vessel vasculopathy. 2. No acute infarction. 3. No enhancing metastatic lesions are seen. Frank Johnson MD Thoracic Spine MRI 01/13/17 0000 Signed Impressions: Service Date/Time: Friday, January 13, 2017 11:59 - CONCLUSION: Negative MRI of the thoracic spine. There is no evidence for metastatic disease. Mauro Joel MD FACR Thoracic Spine CT 01/13/17 0000 Signed Impressions: Service Date/Time: Friday, January 13, 2017 03:32 - CONCLUSION: 1. No acute findings. Mild degenerative disc disease. No canal stenosis. Dylon St MD Lumbar Spine MRI 01/13/17 0000 Signed Impressions: Service Date/Time: Friday, January 13, 2017 11:59 - CONCLUSION: 1. Radiographically significant spinal stenosis at L4-L5. 2. Minimal disc bulging to the right at L3-4. Mauro Joel MD FACR Lumbar Spine CT 01/13/17 0000 Signed Impressions: Service Date/Time: Friday, January 13, 2017 03:34 - CONCLUSION: 1. No acute fracture. 2. At L4-5 there is focal severe canal stenosis secondary to grade 1 anterolisthesis and advanced facet arthropathy. 3. Mild canal stenosis at L3- 4. Dylon St MD Head CT 01/13/17 0000 Signed Impressions: Service Date/Time: Friday, January 13, 2017 03:28 - CONCLUSION: 1. No acute intracranial abnormalities. Cortical atrophy. Dylon St MD Chest X-Ray 01/13/17 0000 Signed Impressions: Service Date/Time: Friday, January 13, 2017 03:40 - CONCLUSION: 1. No acute findings. Atherosclerotic aorta. Dylon St MD Cervical Spine MRI 01/13/17 0000 Signed Impressions: Service Date/Time: Friday, January 13, 2017 11:59 - CONCLUSION: Degenerative changes as described above. There is no abnormal contrast enhancement identified. Mauro Joel MD FACR Objective Remarks awake and alert, oriented to person and place, irritable anicteric lungs no rales or wheezes regular rhythm abdomen soft, moves all extremiteis spontaenously, no leg swelling or calf tenderness Procedures Lumbar puncture 01/14/2017 A/P Problem List: (1) Weakness ICD Code: R53.1 Status: Acute (2) Rhabdomyolysis ICD Code: M62.82 Status: Acute (3) UTI (urinary tract infection) ICD Code: N39.0 Status: Acute (4) Hypokalemia ICD Code: E87.6 Status: Acute Assessment and Plan 61-year-old female with a medical history significant for asthma, hypertension, MGUS, chronic pancreatitis presented to [place] with progressive lower extremity weakness. Plan as below: 1. Generalized weakness: Patient was seen by neurology. L4 to L5 focal severe canal stenosis. Spinal tap was traumatic, negative for cryptococcus. Per neuro , appears to be chronic, has atrophy lower extremity and multiple healed bruises. Could be related to poor nutritional status. Other differentials include LONG WINDER TENDER lesion, MGUS causing lymphoma, and axonal neuropathy. Mild parkinsonism was noted on exam, the patient was started on Sinemet. Neurosurgery has evaluated the patient, no surgical intervention at this time. PT recommends SNF however the patient does not have SNF benefits. Rehab medicine consulted for EMG/NCV. Neurology following. Patient is a high fall risk. She has poor insight into her condition. She is still requesting to go home not understanding that it is not safe for her. She is agreeable to continue to work with physical therapy. Her goal is to just returned home and go back to living in her previous condition. She has had issues with hallucinating and at times confused. Psychiatry reconsulted.- evaluation- does not have capacity 2. MGUS: Followed by hematology. Bone marrow biopsy performed 01/22. 3. Hypokalemia: Resolved. potassium replacement to 20 ME daily. 4. Hypo-magnesium: Mag-Ox 400 milligrams daily. 5. Hyperammonemia: Resolved with Lactulose 6. Nausea vomiting: Controlled with Zofran 7. Rhabdomyolysis: Resolved 8. Thrombocytopenia and anemia. Stable. Likely secondary to chronic liver disease. No signs of bleeding. Hepatitis panel negative. Has continued to improve since admission. 9. UTI: Resolved, Cipro 3/2-3/5 DVT prophylaxis: Lovenox Discharge planning. Patient needs SNF but she has no benefit. Continue physical therapy in-house . Psychiatry evaluated patient- no capacity for decision making Marifer Carreon MD Feb 01, 2017 09:59
[2017-02-01 12:00] VITALS: BP 90/50; PULSE 105; RESP 17; TEMP 97.4; O2SAT 95
[2017-02-01 16:00] VITALS: BP 102/64; PULSE 115; RESP 18; TEMP 97; O2SAT 97
[2017-02-01 20:00] VITALS: BP 104/67; PULSE 104; RESP 20; TEMP 97.6; O2SAT 97
[2017-02-01] MEDS: ENOXAPARIN SODIUM 40 MG/0.4 ML SYRINGE SQ SCH (22:19)
[2017-02-02] VITALS: BP 137/78; PULSE 101; RESP 19; TEMP 99.1; O2SAT 95
[2017-02-02] MEDS: oxyCODONE/ACETAMINOPHEN 5 MG/325 MG TAB PO PRN ×5 (04:13→20:38)
[2017-02-02] MEDS: diphenhydrAMINE HCL 25 MG CAP PO PRN ×4 (04:13→20:34)
[2017-02-02 08:00] VITALS: BP 124/69; PULSE 95; RESP 18; TEMP 98.3; O2SAT 96
[2017-02-02] MEDS: POTASSIUM CHLORIDE 20 MEQ CONTROLLED RELEASE TAB PO SCH (08:10)
[2017-02-02] MEDS: PANTOPRAZOLE SOD 40 MG DELAYED RELEASE TAB PO SCH (08:10)
[2017-02-02] MEDS: guaiFENesin E.R. 600 MG TAB PO SCH ×2 (08:10→20:34)
[2017-02-02] MEDS: CARBIDOPA/LEVODOPA 10 MG/100 MG TAB PO SCH ×2 (08:10→16:26)
[2017-02-02] MEDS: LACTULOSE SYRUP 20 GM/30 ML CUP PO SCH ×4 (08:10→20:34)
[2017-02-02] MEDS: MAGNESIUM OXIDE 400 MG TAB PO SCH (08:10)
[2017-02-02] MEDS: SODIUM CHLORIDE 0.9% FLUSH 5 ML FLUSH FLUSH SCH ×2 (08:11→20:39)
--- NOTE | 2017-02-02 09:42 | HHI.PR ---
Subjective Remarks patient is very pleasant and interactive this am no complains- ate 100%- asking for extra Chinese Muffin ambulated slow pace yesterday- wiling to do more today Objective Vitals Vital Signs Date Time Temp Pulse Resp B/P Pulse Ox O2 Delivery O2 Flow Rate FiO2 02/02/17 09:11 19 02/02/17 08:00 98.3 95 18 124/69 96 02/02/17 00:00 99.1 101 19 137/78 95 02/01/17 20:00 97.6 104 20 104/67 97 02/01/17 16:00 97.0 115 18 102/64 97 02/01/17 12:00 97.4 105 17 90/50 95 I/O 02/01/17 02/01/17 02/01/17 02/02/17 02/02/17 02/02/17 06:59 14:59 22:59 06:59 14:59 22:59 Intake Total 242 ml 575 ml 240 ml 360 ml Balance 242 ml 575 ml 240 ml 360 ml Intake Oral 242 ml 575 ml 240 ml 360 ml IV Total 0 ml 0 ml 0 ml # Voids 4 3 2 3 # Bowel Movements 0 1 0 2 Imaging Last Impressions Bone Biopsy CT 01/22/17 0600 Signed Impressions: Service Date/Time: Sunday, January 22, 2017 10:16 - CONCLUSION: 1. Uncomplicated CT guided bone marrow aspirate. 2. Uncomplicated CT guided bone marrow biopsy. Trae Dorantes MD Lumbar Puncture Fluoroscopy 01/14/17 0000 Signed Impressions: Service Date/Time: January 09:33 - CONCLUSION: Uncomplicated fluoroscopically guided lumbar puncture. Louis Metz MD Brain MRI 01/14/17 0000 Signed Impressions: Service Date/Time: January 10:04 - CONCLUSION: 1. Chronic ischemic small vessel vasculopathy. 2. No acute infarction. 3. No enhancing metastatic lesions are seen. Frank Johnson MD Thoracic Spine MRI 01/13/17 0000 Signed Impressions: Service Date/Time: Friday, January 13, 2017 11:59 - CONCLUSION: Negative MRI of the thoracic spine. There is no evidence for metastatic disease. Mauro Joel MD FACR Thoracic Spine CT 01/13/17 0000 Signed Impressions: Service Date/Time: Friday, January 13, 2017 03:32 - CONCLUSION: 1. No acute findings. Mild degenerative disc disease. No canal stenosis. Dylon St MD Lumbar Spine MRI 01/13/17 0000 Signed Impressions: Service Date/Time: Friday, January 13, 2017 11:59 - CONCLUSION: 1. Radiographically significant spinal stenosis at L4-L5. 2. Minimal disc bulging to the right at L3-4. Mauro Joel MD FACR Lumbar Spine CT 01/13/17 0000 Signed Impressions: Service Date/Time: Friday, January 13, 2017 03:34 - CONCLUSION: 1. No acute fracture. 2. At L4-5 there is focal severe canal stenosis secondary to grade 1 anterolisthesis and advanced facet arthropathy. 3. Mild canal stenosis at L3- 4. Dylon St MD Head CT 01/13/17 0000 Signed Impressions: Service Date/Time: Friday, January 13, 2017 03:28 - CONCLUSION: 1. No acute intracranial abnormalities. Cortical atrophy. Dylon St MD Chest X-Ray 01/13/17 0000 Signed Impressions: Service Date/Time: Friday, January 13, 2017 03:40 - CONCLUSION: 1. No acute findings. Atherosclerotic aorta. Dylon St MD Cervical Spine MRI 01/13/17 0000 Signed Impressions: Service Date/Time: Friday, January 13, 2017 11:59 - CONCLUSION: Degenerative changes as described above. There is no abnormal contrast enhancement identified. Mauro Joel MD FACR Objective Remarks awake and alert, oriented to person and place, pleasna t and cooperative lungs no rales or wheezes regular rhythm abdomen soft moves all extremities spontaneously Procedures Lumbar puncture 01/14/2017 A/P Problem List: (1) Weakness ICD Code: R53.1 Status: Acute (2) Rhabdomyolysis ICD Code: M62.82 Status: Acute (3) UTI (urinary tract infection) ICD Code: N39.0 Status: Acute (4) Hypokalemia ICD Code: E87.6 Status: Acute Assessment and Plan 61-year-old female with a medical history significant for asthma, hypertension, MGUS, chronic pancreatitis presented to [place] with progressive lower extremity weakness. Plan as below: 1. Generalized weakness: Patient was seen by neurology. L4 to L5 focal severe canal stenosis. Spinal tap was traumatic, negative for cryptococcus. Per neuro , appears to be chronic, has atrophy lower extremity and multiple healed bruises. Could be related to poor nutritional status. Other differentials include BALL ASSEMBLER lesion, MGUS causing lymphoma, and axonal neuropathy. Mild parkinsonism was noted on exam, the patient was started on Sinemet. Neurosurgery has evaluated the patient, no surgical intervention at this time. PT recommends SNF however the patient does not have SNF benefits. Rehab medicine consulted for EMG/NCV. Neurology following. Patient is a high fall risk. She has poor insight into her condition. She is still requesting to go home not understanding that it is not safe for her. Continue PT efforts Her goal is to just returned home and go back to living in her previous condition. - poor insight Psychiatry reconsulted.- evaluation- does not have capacity We will get a cognitive evaluation 2. MGUS: Followed by hematology. Bone marrow biopsy performed 01/22. 3. Hypokalemia: Resolved. potassium replacement to 20 ME daily. 4. Hypo-magnesium: Mag-Ox 400 milligrams daily. 5. Hyperammonemia: Resolved with Lactulose 6. Nausea vomiting: Controlled with Zofran 7. Rhabdomyolysis: Resolved 8. Thrombocytopenia and anemia. Stable. Likely secondary to chronic liver disease. No signs of bleeding. Hepatitis panel negative. Has continued to improve since admission. 9. UTI: Resolved, Cipro 3/-01/17 DVT prophylaxis: Lovenox Psychiatry evaluated patient- no capacity for decision making CM ff- needs financial disclosure- Patient unable to care for self and needs full supervision and placement for custodial.for more than a year Marifer Lynn MD Feb 02, 2017 09:42
[2017-02-02 12:00] VITALS: BP 100/63; PULSE 81; RESP 16; TEMP 97.7; O2SAT 97
[2017-02-02 16:00] VITALS: BP 117/72; PULSE 106; RESP 17; TEMP 96.1; O2SAT 100
[2017-02-02] MEDS: hydrOXYzine HCL 25 MG TAB PO PRN (16:25)
[2017-02-02 20:00] VITALS: BP 123/75; PULSE 84; RESP 20; TEMP 98; O2SAT 97
[2017-02-02] MEDS: ENOXAPARIN SODIUM 40 MG/0.4 ML SYRINGE SQ SCH (20:34)
[2017-02-03] VITALS: BP 113/70; PULSE 107; RESP 19; TEMP 99.1; O2SAT 94
[2017-02-03] MEDS: hydrOXYzine HCL 25 MG TAB PO PRN ×2 (00:32→17:23)
[2017-02-03] MEDS: oxyCODONE/ACETAMINOPHEN 5 MG/325 MG TAB PO PRN ×4 (00:32→21:13)
[2017-02-03] MEDS: CARBIDOPA/LEVODOPA 10 MG/100 MG TAB PO SCH ×3 (00:32→17:19)
[2017-02-03] MEDS: diphenhydrAMINE HCL 25 MG CAP PO PRN (06:12)
[2017-02-03 08:00] VITALS: BP 110/61; PULSE 99; RESP 16; TEMP 97.9; O2SAT 95
[2017-02-03] MEDS: SODIUM CHLORIDE 0.9% FLUSH 5 ML FLUSH FLUSH SCH ×2 (09:01→21:17)
[2017-02-03] MEDS: POTASSIUM CHLORIDE 20 MEQ CONTROLLED RELEASE TAB PO SCH (09:01)
[2017-02-03] MEDS: PANTOPRAZOLE SOD 40 MG DELAYED RELEASE TAB PO SCH (09:01)
[2017-02-03] MEDS: MAGNESIUM OXIDE 400 MG TAB PO SCH (09:02)
[2017-02-03] MEDS: guaiFENesin E.R. 600 MG TAB PO SCH ×2 (09:02→21:12)
[2017-02-03] MEDS: LACTULOSE SYRUP 20 GM/30 ML CUP PO SCH ×4 (09:12→21:12)
[2017-02-03 12:00] VITALS: BP 104/62; PULSE 90; RESP 10; TEMP 98.5; O2SAT 96
--- NOTE | 2017-02-03 14:17 | HHI.PR ---
Subjective Remarks continues to improve- very interactive and pleasant, oriented x 3 continent of urine Objective Vitals Vital Signs Date Time Temp Pulse Resp B/P Pulse Ox O2 Delivery O2 Flow Rate FiO2 02/03/17 12:00 98.5 90 10 104/62 96 02/03/17 08:00 97.9 99 16 110/61 95 02/03/17 00:00 99.1 107 19 113/70 94 02/02/17 20:00 98.0 84 20 123/75 97 02/02/17 17:25 18 02/02/17 16:00 96.1 106 17 117/72 100 I/O 02/02/17 02/02/17 02/02/17 02/03/17 02/03/17 02/03/17 07:00 15:00 23:00 07:00 15:00 23:00 Intake Total 360 ml 400 ml 360 ml 360 ml Balance 360 ml 400 ml 360 ml 360 ml Intake Oral 360 ml 400 ml 360 ml 360 ml IV Total 0 ml 0 ml 0 ml 0 ml # Voids 3 3 1 3 # Bowel Movements 2 1 0 1 Imaging Last Impressions Bone Biopsy CT 01/22/17 0600 Signed Impressions: Service Date/Time: Sunday, January 22, 2017 10:16 - CONCLUSION: 1. Uncomplicated CT guided bone marrow aspirate. 2. Uncomplicated CT guided bone marrow biopsy. Trae Dorantes MD Lumbar Puncture Fluoroscopy 01/14/17 0000 Signed Impressions: Service Date/Time: January 09:33 - CONCLUSION: Uncomplicated fluoroscopically guided lumbar puncture. Louis Metz MD Brain MRI 01/14/17 0000 Signed Impressions: Service Date/Time: January 10:04 - CONCLUSION: 1. Chronic ischemic small vessel vasculopathy. 2. No acute infarction. 3. No enhancing metastatic lesions are seen. Frank Johnson MD Thoracic Spine MRI 01/13/17 0000 Signed Impressions: Service Date/Time: Friday, January 13, 2017 11:59 - CONCLUSION: Negative MRI of the thoracic spine. There is no evidence for metastatic disease. Mauro Joel MD FACR Thoracic Spine CT 01/13/17 0000 Signed Impressions: Service Date/Time: Friday, January 13, 2017 03:32 - CONCLUSION: 1. No acute findings. Mild degenerative disc disease. No canal stenosis. Dylon St MD Lumbar Spine MRI 01/13/17 0000 Signed Impressions: Service Date/Time: Friday, January 13, 2017 11:59 - CONCLUSION: 1. Radiographically significant spinal stenosis at L4-L5. 2. Minimal disc bulging to the right at L3-4. Mauro Joel MD FACR Lumbar Spine CT 01/13/17 0000 Signed Impressions: Service Date/Time: Friday, January 13, 2017 03:34 - CONCLUSION: 1. No acute fracture. 2. At L4-5 there is focal severe canal stenosis secondary to grade 1 anterolisthesis and advanced facet arthropathy. 3. Mild canal stenosis at L3- 4. Dylon St MD Head CT 01/13/17 0000 Signed Impressions: Service Date/Time: Friday, January 13, 2017 03:28 - CONCLUSION: 1. No acute intracranial abnormalities. Cortical atrophy. Dylon St MD Chest X-Ray 01/13/17 0000 Signed Impressions: Service Date/Time: Friday, January 13, 2017 03:40 - CONCLUSION: 1. No acute findings. Atherosclerotic aorta. Dylon St MD Cervical Spine MRI 01/13/17 0000 Signed Impressions: Service Date/Time: Friday, January 13, 2017 11:59 - CONCLUSION: Degenerative changes as described above. There is no abnormal contrast enhancement identified. Mauro Joel MD FACR Objective Remarks awake and alert, oriented to person and place and cooperative lungs no rales or wheezes regular rhythm abdomen soft moves all extremities spontaneously, no edema strength 5/5 Procedures Lumbar puncture 01/14/2017 A/P Problem List: (1) Weakness ICD Code: R53.1 Status: Acute (2) Rhabdomyolysis ICD Code: M62.82 Status: Acute (3) UTI (urinary tract infection) ICD Code: N39.0 Status: Acute (4) Hypokalemia ICD Code: E87.6 Status: Acute Assessment and Plan 61-year-old female with a medical history significant for asthma, hypertension, MGUS, chronic pancreatitis presented to [place] with progressive lower extremity weakness. Plan as below: 1. Generalized weakness: Patient was seen by neurology. L4 to L5 focal severe canal stenosis. Spinal tap was traumatic, negative for cryptococcus. Per neuro , appears to be chronic, has atrophy lower extremity and multiple healed bruises. Could be related to poor nutritional status. Other differentials include SOLDERING INSPECTOR lesion, MGUS causing lymphoma, and axonal neuropathy. Mild parkinsonism was noted on exam, the patient was started on Sinemet. Neurosurgery has evaluated the patient, no surgical intervention at this time. PT recommends SNF however the patient does not have SNF benefits. Rehab medicine consulted for EMG/NCV- done today 02/03. . Neurology following. Patient is a high fall risk. She has poor insight into her condition. Continue PT efforts Her goal is to just returned home and go back to living in her previous condition. - poor insight Psychiatry .- evaluation- does not have capacity We will get a cognitive evaluation 2. MGUS: Followed by hematology. Bone marrow biopsy performed 01/22. 3. Hypokalemia: Resolved. potassium replacement to 20 ME daily. 4. Hypo-magnesium: Mag-Ox 400 milligrams daily. 5. Hyperammonemia: Resolved with Lactulose 6. Nausea vomiting: Controlled with Zofran 7. Rhabdomyolysis: Resolved 8. Thrombocytopenia and anemia. Stable. Likely secondary to chronic liver disease. No signs of bleeding. Hepatitis panel negative. Has continued to improve since admission. 9. UTI: Resolved, Cipro 01/14-01/17 DVT prophylaxis: Lovenox Psychiatry evaluated patient- no capacity for decision making CM ff- needs financial disclosure- Patient unable to care for self and needs full supervision and placement for longterm.for more than a year Marifer Lynn MD Feb 03, 2017 14:17
[2017-02-03 16:00] VITALS: BP 99/66; PULSE 106; RESP 16; TEMP 99.1; O2SAT 96
[2017-02-03 20:00] VITALS: BP 114/71; PULSE 113; RESP 18; TEMP 98.4; O2SAT 97
[2017-02-03] MEDS: ENOXAPARIN SODIUM 40 MG/0.4 ML SYRINGE SQ SCH (21:12)
[2017-02-04] VITALS: BP 108/64; PULSE 85; RESP 16; TEMP 98; O2SAT 94
[2017-02-04] MEDS: CARBIDOPA/LEVODOPA 10 MG/100 MG TAB PO SCH ×4 (00:52→23:28)
[2017-02-04] MEDS: oxyCODONE/ACETAMINOPHEN 5 MG/325 MG TAB PO PRN ×4 (00:52→20:39)
[2017-02-04] MEDS: hydrOXYzine HCL 25 MG TAB PO PRN ×2 (00:52→20:39)
[2017-02-04 08:00] VITALS: BP 107/67; PULSE 110; RESP 19; TEMP 99; O2SAT 94
[2017-02-04] MEDS: PANTOPRAZOLE SOD 40 MG DELAYED RELEASE TAB PO SCH (08:15)
[2017-02-04] MEDS: POTASSIUM CHLORIDE 20 MEQ CONTROLLED RELEASE TAB PO SCH (08:15)
[2017-02-04] MEDS: LACTULOSE SYRUP 20 GM/30 ML CUP PO SCH ×4 (08:15→20:39)
[2017-02-04] MEDS: guaiFENesin E.R. 600 MG TAB PO SCH ×2 (08:15→20:39)
[2017-02-04] MEDS: MAGNESIUM OXIDE 400 MG TAB PO SCH (08:15)
[2017-02-04] MEDS: SODIUM CHLORIDE 0.9% FLUSH 5 ML FLUSH FLUSH SCH ×2 (08:15→20:39)
[2017-02-04 12:00] VITALS: BP 111/72; PULSE 110; RESP 19; TEMP 98; O2SAT 95
--- NOTE | 2017-02-04 13:27 | HHI.PR ---
Subjective Remarks getting stronger, mentally alert and appropriate just gets a little impatient easily Objective Vitals Vital Signs Date Time Temp Pulse Resp B/P Pulse Ox O2 Delivery O2 Flow Rate FiO2 02/04/17 08:00 99.0 110 19 107/67 94 02/04/17 00:00 98.0 85 16 108/64 94 02/03/17 20:00 98.4 113 18 114/71 97 02/03/17 16:00 99.1 106 16 99/66 96 I/O 02/03/17 02/03/17 02/03/17 02/04/17 02/04/17 02/04/17 07:00 15:00 23:00 07:00 15:00 23:00 Intake Total 360 ml 560 ml 3600 ml 120 ml Balance 360 ml 560 ml 3600 ml 120 ml Intake Oral 360 ml 560 ml 3600 ml 120 ml IV Total 0 ml # Voids 3 5 2 3 # Bowel Movements 1 0 0 0 Imaging Last Impressions Bone Biopsy CT 01/22/17 0600 Signed Impressions: Service Date/Time: Sunday, January 22, 2017 10:16 - CONCLUSION: 1. Uncomplicated CT guided bone marrow aspirate. 2. Uncomplicated CT guided bone marrow biopsy. Trae Dorantes MD Lumbar Puncture Fluoroscopy 01/14/17 0000 Signed Impressions: Service Date/Time: January 09:33 - CONCLUSION: Uncomplicated fluoroscopically guided lumbar puncture. Louis Metz MD Brain MRI 01/14/17 0000 Signed Impressions: Service Date/Time: January 10:04 - CONCLUSION: 1. Chronic ischemic small vessel vasculopathy. 2. No acute infarction. 3. No enhancing metastatic lesions are seen. Frank Johnson MD Thoracic Spine MRI 01/13/17 0000 Signed Impressions: Service Date/Time: Friday, January 13, 2017 11:59 - CONCLUSION: Negative MRI of the thoracic spine. There is no evidence for metastatic disease. Mauro Joel MD FACR Thoracic Spine CT 01/13/17 0000 Signed Impressions: Service Date/Time: Friday, January 13, 2017 03:32 - CONCLUSION: 1. No acute findings. Mild degenerative disc disease. No canal stenosis. Dylon St MD Lumbar Spine MRI 01/13/17 0000 Signed Impressions: Service Date/Time: Friday, January 13, 2017 11:59 - CONCLUSION: 1. Radiographically significant spinal stenosis at L4-L5. 2. Minimal disc bulging to the right at L3-4. Mauro Joel MD FACR Lumbar Spine CT 01/13/17 0000 Signed Impressions: Service Date/Time: Friday, January 13, 2017 03:34 - CONCLUSION: 1. No acute fracture. 2. At L4-5 there is focal severe canal stenosis secondary to grade 1 anterolisthesis and advanced facet arthropathy. 3. Mild canal stenosis at L3- 4. Dylon St MD Head CT 01/13/17 0000 Signed Impressions: Service Date/Time: Friday, January 13, 2017 03:28 - CONCLUSION: 1. No acute intracranial abnormalities. Cortical atrophy. Dylon St MD Chest X-Ray 01/13/17 0000 Signed Impressions: Service Date/Time: Friday, January 13, 2017 03:40 - CONCLUSION: 1. No acute findings. Atherosclerotic aorta. Dylon St MD Cervical Spine MRI 01/13/17 0000 Signed Impressions: Service Date/Time: Friday, January 13, 2017 11:59 - CONCLUSION: Degenerative changes as described above. There is no abnormal contrast enhancement identified. Mauro Joel MD FACR Objective Remarks awake and alert, oriented to person and place and cooperative lungs no rales or wheezes regular rhythm abdomen soft moves all extremities spontaneously, no edema strength 5/5 Procedures Lumbar puncture 01/14/2017 A/P Problem List: (1) Weakness ICD Code: R53.1 Status: Acute (2) Rhabdomyolysis ICD Code: M62.82 Status: Acute (3) UTI (urinary tract infection) ICD Code: N39.0 Status: Acute (4) Hypokalemia ICD Code: E87.6 Status: Acute Assessment and Plan 61-year-old female with a medical history significant for asthma, hypertension, MGUS, chronic pancreatitis presented to [place] with progressive lower extremity weakness. Plan as below: 1. Generalized weakness: Patient was seen by neurology. L4 to L5 focal severe canal stenosis. Spinal tap was traumatic, negative for cryptococcus. Per neuro , appears to be chronic, has atrophy lower extremity and multiple healed bruises. Could be related to poor nutritional status. Other differentials include PHOTOGRAPHIC EQUIPMENT TECHNICIAN lesion, MGUS causing lymphoma, and axonal neuropathy. Mild parkinsonism was noted on exam, the patient was started on Sinemet. Neurosurgery has evaluated the patient, no surgical intervention at this time. PT recommends SNF however the patient does not have SNF benefits. Rehab medicine consulted for EMG/NCV- done today 02/03. . Neurology following. Patient is a high fall risk. She has poor insight into her condition. Continue PT efforts Her goal is to just returned home and go back to living in her previous condition. - poor insight S/P Psychiatry .- evaluation- does not have capacity get a cognitive evaluation 2. MGUS: Followed by hematology. Bone marrow biopsy performed 01/22. 3. Hypokalemia: Resolved. potassium replacement to 20 ME daily. 4. Hypo-magnesium: Mag-Ox 400 milligrams daily. 5. Hyperammonemia: Resolved with Lactulose 6. Nausea vomiting: Improved. Controlled with Zofran 7. Rhabdomyolysis: Resolved 8. Thrombocytopenia and anemia. Stable. Likely secondary to chronic liver disease. No signs of bleeding. Hepatitis panel negative. Has continued to improve since admission. 9. UTI: Resolved, Cipro 3/-01/17 DVT prophylaxis: Lovenox Psychiatry evaluated patient- no capacity for decision making CM ff- needs financial disclosure- Patient unable to care for self and needs full supervision and placement for nursing home.for more than a year Marifer Lynn MD Feb 04, 2017 13:27
[2017-02-04 16:00] VITALS: BP 104/62; PULSE 91; RESP 18; TEMP 98.4; O2SAT 97
[2017-02-04 20:00] VITALS: BP 108/61; PULSE 102; RESP 16; TEMP 98.1; O2SAT 96
[2017-02-04] MEDS: ENOXAPARIN SODIUM 40 MG/0.4 ML SYRINGE SQ SCH (20:39)
[2017-02-05] VITALS: BP 107/67; PULSE 92; RESP 18; TEMP 98.5; O2SAT 98
[2017-02-05] MEDS: oxyCODONE/ACETAMINOPHEN 5 MG/325 MG TAB PO PRN ×4 (01:55→20:24)
[2017-02-05 08:00] VITALS: BP 101/61; PULSE 95; RESP 14; TEMP 98; O2SAT 92
[2017-02-05] MEDS: SODIUM CHLORIDE 0.9% FLUSH 5 ML FLUSH FLUSH SCH ×2 (08:03→20:29)
[2017-02-05] MEDS: PANTOPRAZOLE SOD 40 MG DELAYED RELEASE TAB PO SCH (08:04)
[2017-02-05] MEDS: POTASSIUM CHLORIDE 20 MEQ CONTROLLED RELEASE TAB PO SCH (08:04)
[2017-02-05] MEDS: CARBIDOPA/LEVODOPA 10 MG/100 MG TAB PO SCH ×3 (08:04→23:56)
[2017-02-05] MEDS: MAGNESIUM OXIDE 400 MG TAB PO SCH (08:04)
[2017-02-05] MEDS: LACTULOSE SYRUP 20 GM/30 ML CUP PO SCH ×3 (08:04→20:27)
[2017-02-05] MEDS: guaiFENesin E.R. 600 MG TAB PO SCH ×2 (08:04→20:24)
[2017-02-05] MEDS: hydrOXYzine HCL 25 MG TAB PO PRN ×2 (11:52→20:24)
--- NOTE | 2017-02-05 13:51 | HHI.PR ---
Subjective Remarks patientis very pleasant and cooperative good po denies any nausea or vomiting Objective Vitals Vital Signs Date Time Temp Pulse Resp B/P Pulse Ox O2 Delivery O2 Flow Rate FiO2 02/05/17 08:00 98.0 95 14 101/61 92 02/05/17 02:55 18 02/05/17 00:00 98.5 92 18 107/67 98 02/04/17 20:00 98.1 102 16 108/61 96 02/04/17 16:00 98.4 91 18 104/62 97 I/O 02/04/17 02/04/17 02/04/17 02/05/17 02/05/17 02/05/17 07:00 15:00 23:00 07:00 15:00 23:00 Intake Total 120 ml 500 ml 240 ml 240 ml Balance 120 ml 500 ml 240 ml 240 ml Intake Oral 120 ml 500 ml 240 ml 240 ml # Voids 3 3 2 2 # Bowel Movements 0 2 2 0 Imaging Last Impressions Bone Biopsy CT 01/22/17 0600 Signed Impressions: Service Date/Time: Sunday, January 22, 2017 10:16 - CONCLUSION: 1. Uncomplicated CT guided bone marrow aspirate. 2. Uncomplicated CT guided bone marrow biopsy. Trae Dorantes MD Lumbar Puncture Fluoroscopy 01/14/17 0000 Signed Impressions: Service Date/Time: January 09:33 - CONCLUSION: Uncomplicated fluoroscopically guided lumbar puncture. Louis Metz MD Brain MRI 01/14/17 0000 Signed Impressions: Service Date/Time: January 10:04 - CONCLUSION: 1. Chronic ischemic small vessel vasculopathy. 2. No acute infarction. 3. No enhancing metastatic lesions are seen. Frank Johnson MD Thoracic Spine MRI 01/13/17 0000 Signed Impressions: Service Date/Time: Friday, January 13, 2017 11:59 - CONCLUSION: Negative MRI of the thoracic spine. There is no evidence for metastatic disease. Mauro Joel MD FACR Thoracic Spine CT 01/13/17 0000 Signed Impressions: Service Date/Time: Friday, January 13, 2017 03:32 - CONCLUSION: 1. No acute findings. Mild degenerative disc disease. No canal stenosis. Dylon St MD Lumbar Spine MRI 01/13/17 0000 Signed Impressions: Service Date/Time: Friday, January 13, 2017 11:59 - CONCLUSION: 1. Radiographically significant spinal stenosis at L4-L5. 2. Minimal disc bulging to the right at L3-4. Mauro Joel MD FACR Lumbar Spine CT 01/13/17 0000 Signed Impressions: Service Date/Time: Friday, January 13, 2017 03:34 - CONCLUSION: 1. No acute fracture. 2. At L4-5 there is focal severe canal stenosis secondary to grade 1 anterolisthesis and advanced facet arthropathy. 3. Mild canal stenosis at L3- 4. Dylon St MD Head CT 01/13/17 0000 Signed Impressions: Service Date/Time: Friday, January 13, 2017 03:28 - CONCLUSION: 1. No acute intracranial abnormalities. Cortical atrophy. Dylon St MD Chest X-Ray 01/13/17 0000 Signed Impressions: Service Date/Time: Friday, January 13, 2017 03:40 - CONCLUSION: 1. No acute findings. Atherosclerotic aorta. Dylon St MD Cervical Spine MRI 01/13/17 0000 Signed Impressions: Service Date/Time: Friday, January 13, 2017 11:59 - CONCLUSION: Degenerative changes as described above. There is no abnormal contrast enhancement identified. Mauro Joel MD FACR Objective Remarks awake and alert, oriented to person and place and cooperative and year lungs no rales or wheezes regular rhythm abdomen soft moves all extremities spontaneously, no edema strength 5/5 Procedures Lumbar puncture 01/14/2017 A/P Problem List: (1) Weakness ICD Code: R53.1 Status: Acute (2) Rhabdomyolysis ICD Code: M62.82 Status: Acute (3) UTI (urinary tract infection) ICD Code: N39.0 Status: Acute (4) Hypokalemia ICD Code: E87.6 Status: Acute Assessment and Plan 61-year-old female with a medical history significant for asthma, hypertension, MGUS, chronic pancreatitis presented to [place] with progressive lower extremity weakness. Plan as below: Generalized weakness: Patient was seen by neurology. L4 to L5 focal severe canal stenosis. Spinal tap was traumatic, negative for cryptococcus. Per neuro , appears to be chronic, has atrophy lower extremity and multiple healed bruises. Could be related to poor nutritional status. Other differentials include FRAME CHANGER lesion, MGUS causing lymphoma, and axonal neuropathy. Mild parkinsonism was noted on exam, the patient was started on Sinemet. Neurosurgery has evaluated the patient, no surgical intervention at this time. PT recommends SNF however the patient does not have SNF benefits. Rehab medicine consulted for EMG/NCV- done 02/03. . Neurology following. Patient is a high fall risk. She has poor insight into her condition. Continue PT efforts Her goal is to just returned home and go back to living in her previous condition. 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 Bone marrow biopsy performed 01/22. Hypokalemia: Resolved. potassium replacement to 20 ME daily. FF BMP Hypo-magnesium: Mag-Ox 400 milligrams daily.. check Mg in am Nausea vomiting: Resolved. Controlled with Zofran Rhabdomyolysis: Resolved Thrombocytopenia and anemia. Stable. Likely secondary to chronic liver disease. No signs of bleeding. Hepatitis panel negative. Has continued to improve since admission. UTI: Resolved, Cipro 01/14-01/17 DVT prophylaxis: Lovenox Psychiatry evaluated patient- no capacity for decision making CM ff- needs financial disclosure-- working on SNF- placement- d/w [facility] 02/05 - patient states she has a ? bf- CM in contact with her sister Patient unable to care for self and needs full supervision and [facility] for [facility]for more than a year Marifer Lynn MD Feb 05, 2017 13:51
[2017-02-05] MEDS: ONDANSETRON HCL 4 MG/2 ML VIAL IVP PRN ×2 (15:14→22:31)
[2017-02-05 16:00] VITALS: BP 96/58; PULSE 90; RESP 12; TEMP 99.1; O2SAT 97
[2017-02-05 20:00] VITALS: BP 113/75; PULSE 87; RESP 20; TEMP 98.7; O2SAT 98
[2017-02-05] MEDS: ENOXAPARIN SODIUM 40 MG/0.4 ML SYRINGE SQ SCH (20:24)
[2017-02-06] VITALS: BP 101/67; PULSE 107; RESP 20; TEMP 98.4; O2SAT 96
[2017-02-06] MEDS: hydrOXYzine HCL 25 MG TAB PO PRN (00:23)
[2017-02-06] MEDS: oxyCODONE/ACETAMINOPHEN 5 MG/325 MG TAB PO PRN ×3 (00:23→20:27)
[2017-02-06 05:12] LABS: BICARBONATE 27.6 MEQ/L (21.0-32.0); MAGNESIUM 1.4 MG/DL (1.5-2.5)
[2017-02-06 08:00] VITALS: BP 16/95; PULSE 96; RESP 16; TEMP 97.4; O2SAT 95
[2017-02-06] MEDS: PANTOPRAZOLE SOD 40 MG DELAYED RELEASE TAB PO SCH (08:03)
[2017-02-06] MEDS: SODIUM CHLORIDE 0.9% FLUSH 5 ML FLUSH FLUSH SCH ×2 (08:03→20:27)
[2017-02-06] MEDS: guaiFENesin E.R. 600 MG TAB PO SCH ×2 (08:03→20:26)
[2017-02-06] MEDS: MAGNESIUM OXIDE 400 MG TAB PO SCH (08:03)
[2017-02-06] MEDS: CARBIDOPA/LEVODOPA 10 MG/100 MG TAB PO SCH ×2 (08:03→16:28)
[2017-02-06] MEDS: LACTULOSE SYRUP 20 GM/30 ML CUP PO SCH ×2 (08:03→20:26)
[2017-02-06] MEDS: POTASSIUM CHLORIDE 20 MEQ CONTROLLED RELEASE TAB PO SCH (08:03)
--- NOTE | 2017-02-06 09:01 | HHI.PR ---
Subjective Remarks f/u; generalized weakness resting comfortably with no distress. denies pain. d/w the RN and no acute issues over night. Objective Vitals Vital Signs Date Time Temp Pulse Resp B/P Pulse Ox O2 Delivery O2 Flow Rate FiO2 02/06/17 01:23 18 02/06/17 00:00 98.4 107 20 101/67 96 02/05/17 20:00 98.7 87 20 113/75 98 02/05/17 16:00 99.1 90 12 96/58 97 I/O 02/05/17 02/05/17 02/05/17 02/06/17 02/06/17 02/06/17 07:00 15:00 23:00 07:00 15:00 23:00 Intake Total 240 ml 350 ml 240 ml 0 ml Balance 240 ml 350 ml 240 ml 0 ml Intake Oral 240 ml 350 ml 240 ml 0 ml # Voids 2 6 1 3 # Bowel Movements 0 1 1 Result Diagram: 02/06/17 0311 Imaging Last Impressions Bone Biopsy CT 01/22/17 0600 Signed Impressions: Service Date/Time: Sunday, January 22, 2017 10:16 - CONCLUSION: 1. Uncomplicated CT guided bone marrow aspirate. 2. Uncomplicated CT guided bone marrow biopsy. Trae Dorantes MD Lumbar Puncture Fluoroscopy 01/14/17 0000 Signed Impressions: Service Date/Time: January 09:33 - CONCLUSION: Uncomplicated fluoroscopically guided lumbar puncture. Louis Metz MD Brain MRI 01/14/17 0000 Signed Impressions: Service Date/Time: January 10:04 - CONCLUSION: 1. Chronic ischemic small vessel vasculopathy. 2. No acute infarction. 3. No enhancing metastatic lesions are seen. Frank Johnson MD Thoracic Spine MRI 01/13/17 0000 Signed Impressions: Service Date/Time: Friday, January 13, 2017 11:59 - CONCLUSION: Negative MRI of the thoracic spine. There is no evidence for metastatic disease. Mauro Joel MD FACR Thoracic Spine CT 01/13/17 0000 Signed Impressions: Service Date/Time: Friday, January 13, 2017 03:32 - CONCLUSION: 1. No acute findings. Mild degenerative disc disease. No canal stenosis. Dylon St MD Lumbar Spine MRI 01/13/17 0000 Signed Impressions: Service Date/Time: Friday, January 13, 2017 11:59 - CONCLUSION: 1. Radiographically significant spinal stenosis at L4-L5. 2. Minimal disc bulging to the right at L3-4. Mauro Joel MD FACR Lumbar Spine CT 01/13/17 0000 Signed Impressions: Service Date/Time: Friday, January 13, 2017 03:34 - CONCLUSION: 1. No acute fracture. 2. At L4-5 there is focal severe canal stenosis secondary to grade 1 anterolisthesis and advanced facet arthropathy. 3. Mild canal stenosis at L3- 4. Dylon St MD Head CT 01/13/17 0000 Signed Impressions: Service Date/Time: Friday, January 13, 2017 03:28 - CONCLUSION: 1. No acute intracranial abnormalities. Cortical atrophy. Dylon St MD Chest X-Ray 01/13/17 0000 Signed Impressions: Service Date/Time: Friday, January 13, 2017 03:40 - CONCLUSION: 1. No acute findings. Atherosclerotic aorta. Dylon St MD Cervical Spine MRI 01/13/17 0000 Signed Impressions: Service Date/Time: Friday, January 13, 2017 11:59 - CONCLUSION: Degenerative changes as described above. There is no abnormal contrast enhancement identified. Mauro Joel MD FACR Objective Remarks GENERAL: This is a well-nourished, well-developed patient, in no apparent distress. CARDIOVASCULAR: Regular rate and regular rhythm without murmurs, gallops, or rubs. RESPIRATORY: Clear to auscultation. Breath sounds equal bilaterally. No wheezes , rales, or rhonchi. GASTROINTESTINAL: Abdomen soft, non-tender, nondistended. Normal, active bowel sounds MUSCULOSKELETAL: Extremities without clubbing, cyanosis, or edema. NEURO: Alert & Oriented x4 to person, place, time, situation. Moves all ext x4 Procedures Lumbar puncture bone marrow biopsy Medications and IVs Current Medications Sodium Chloride 1,000 ml @ 2,000 mls/hr Q30M ONCE IV Last administered on 01/12t 16:44; Start 01/12/17 at 16:45; Stop 01/12/17 at 17:14; Status DC Sodium Chloride (NS 1000 ml Inj) 1,000 ml @ 2,000 mls/hr Q30M ONCE IV Last administered on 01/12/17 18:43; Start 01/12/17 at 18:15; Stop 01/12/17 at 18:44 ; Status DC IV Flush (NS Flush) 2 ml UNSCH PRN FLUSH FLUSH AFTER USING IV ACCESS Last administered on 01/19/17 17:18; Start 01/12/17 at 19:45 IV Flush (NS Flush) 2 ml BID FLUSH Last administered on 02/06/17 08:03; Start 01/12/17 at 21:00 Naloxone HCl (Narcan Inj) 0.4 mg UNSCH PRN IV SEE LABEL COMMENTS; Start at 19:45 Potassium Chloride 40 meq 40 meq ONCE ONCE PO Last administered on 01/12/17 21:23; Start 01/12/17 at 21:00; Stop 01/12/17 at 21:01; Status DC Sodium Chloride (NS 1000 ml Inj) 1,000 ml @ 125 mls/hr Q8H IV Last administered on 01/23/17 21:14; Start 01/13/17 at 03:30; Stop 01/24/17 at 07:11 ; Status DC Guaifenesin (Mucinex Er) 600 mg BID PO Last administered on 02/06/17 08:03; Start 01/13/17 at 09:00 Potassium Chloride 40 meq 40 meq ONCE ONCE PO Last administered on 01/13/17 10 :18; Start 01/13/17 at 06:45; Stop 01/13/17 at 06:46; Status DC Ciprofloxacin/ Dextrose (Cipro 400 Mg Premix) 200 ml @ 200 mls/hr Q12H IV Last administered on 01/14/17 11:05; Start 01/13/17 at 08:00; Stop 01/14/17 at 16: 05; Status DC Lorazepam (Ativan Inj) 0.5 mg ONCE PRN IM ANXIETY; Start 01/13/17 at 09:05; Stop 01/13/17 at 09:06; Status DC Lorazepam (Ativan Inj) 0.5 mg ONCE PRN IM ANXIETY; Start 01/13/17 at 10:15; Stop 01/13/17 at 12:00; Status DC Oxycodone/ Acetaminophen (Percocet 5-325 Mg) 1 tab Q6H PRN PO PAIN SCALE 5 TO 10 Last administered on 01/22/17 09:02; Start 01/13/17 at 12:00; Stop 01/22/17 at 11:26; Status DC Acetaminophen (Tylenol) 500 mg Q6H PRN PO PAIN 1-4, HEADACHE, FEVER; Start 01/13 at 12:00 Gadodiamide (Omniscan Pf Inj) 9 ml STK-MED ONCE IV Last administered on 13:01; Start 01/13/17 at 13:01; Stop 01/13/17 at 13:02; Status DC Lorazepam (Ativan Inj) 2 mg STK-MED ONCE .ROUTE ; Start 01/14/17 at 09:19; Stop 01/14/17 at 09:20; Status DC Lorazepam (Ativan Inj) 0.5 mg ONCE ONCE IV PUSH ; Start 01/14/17 at 11:00; Stop 01/14/17 at 11:01; Status DC Gadodiamide (Omniscan Pf Inj) 10 ml STK-MED ONCE IV Last administered on 10:23; Start 01/14/17 at 10:23; Stop 01/14/17 at 10:24; Status DC Ciprofloxacin (Cipro) 250 mg Q12HR PO Last administered on 01/17/17 10:10; Start 01/14/17 at 21:00; Stop 01/17/17 at 20:59; Status DC Lactulose (Lactulose Liq) 30 ml QID PO Last administered on 02/05/17 11:52; Start 01/14/17 at 18:00; Stop 02/05/17 at 13:52; Status DC Carbidopa/Levodopa (Sinemet 10-100 Mg) 1 tab Q8H PO Last administered on 08:03; Start 01/15/17 at 09:00 Potassium Chloride 20 meq 20 meq Q12HR PO Last administered on 01/16/17 09:37; Start 01/15/17 at 21:00; Stop 01/16/17 at 15:11; Status DC Potassium Chloride 100 ml @ 50 mls/hr Q2H IV Last administered on 01/15/17 13: 56; Start 01/15/17 at 11:00; Stop 01/15/17 at 15:00; Status DC Magnesium Sulfate/ Dextrose 100 ml @ 100 mls/hr Q1H IV Last administered on 20:13; Start 01/15/17 at 16:45; Stop 01/15/17 at 18:44; Status DC Magnesium Sulfate/ Dextrose 100 ml @ 100 mls/hr Q1H IV Last administered on 23:15; Start 01/15/17 at 21:00; Stop 01/15/17 at 22:59; Status DC Magnesium Sulfate/ Dextrose 100 ml @ 100 mls/hr Q1H IV Last administered on 10:31; Start 01/16/17 at 09:00; Stop 01/16/17 at 10:59; Status DC Potassium Chloride 100 ml @ 50 mls/hr Q2H IV ; Start 01/15/17 at 16:45; Stop 01/15/17 at 16:48; Status DC Potassium Chloride (KCl 20 Meq Premix Inj) 100 ml @ 50 mls/hr Q2H IV Last administered on 01/16/17 17:51; Start 01/16/17 at 14:00; Stop 01/16/17 at 17:59; Status DC Ondansetron HCl (Zofran Inj) 4 mg Q6H PRN IVP NAUSEA OR VOMITING Last administered on 02/05/17 22:31; Start 01/16/17 at 15:00 Prochlorperazine (Compazine Supp) 25 mg Q12H PRN [place] NAUSEA OR VOMITING Last administered on 01/18/17 16:20; Start 01/16/17 at 15:00 Bisacodyl (Dulcolax Supp) 10 mg DAILY PRN [place] CONSTIPATION; Start 01/16/17 at 15: 00 Magnesium Hydroxide (Milk Of Magnesia Liq) 30 ml Q12H PRN PO CONSTIPATION; Start 01/16/17 at 15:00 Potassium Chloride (KCl) 10 meq Q8HR PO Last administered on 01/17/17 05:56; Start 01/16/17 at 22:00; Stop 01/17/17 at 12:58; Status DC Enoxaparin Sodium (Lovenox Inj) 40 mg Q24H SQ ; Start 01/16/17 at 15:15; Stop 01/16/17 at 15:16; Status DC Potassium Chloride (KCl 40 Meq/30 ml Liq) 40 meq DAILY NG Last administered on 01/19/17 08:57; Start 01/18/17 at 09:00; Stop 01/21/17 at 09:12; Status DC Potassium Chloride 30 meq 30 meq ONCE ONCE PO Last administered on 01/18/17 13 :18; Start 01/18/17 at 13:15; Stop 01/18/17 at 13:16; Status DC Magnesium Sulfate/ Dextrose 100 ml @ 100 mls/hr Q1H IV Last administered on 14:48; Start 01/18/17 at 14:00; Stop 01/18/17 at 15:59; Status DC Magnesium Sulfate/ Dextrose (Magnesium Sulfate 1 Gm Premix) 100 ml @ 100 mls/ hr Q1H IV Last administered on 01/19/17 13:32; Start 01/19/17 at 11:15; Stop 01/19/17 at 13:14; Status DC Pantoprazole Sodium (Protonix) 40 mg DAILY PO Last administered on 02/06/17 08 :03; Start 01/20/17 at 09:00 Pantoprazole Sodium 40 mg 40 mg ONCE ONCE PO Last administered on 01/19/17 20: 55; Start 01/19/17 at 19:45; Stop 01/19/17 at 19:46; Status DC Magnesium Sulfate/ Dextrose (Magnesium Sulfate 1 Gm Premix) 100 ml @ 100 mls/ hr Q1H IV Last administered on 01/21/17 02:35; Start 01/21/17 at 00:15; Stop 01/21/17 at 02:14; Status DC Magnesium Oxide (Mag-Ox) 400 mg DAILY PO Last administered on 02/06/17 08:03; Start 01/21/17 at 09:00 Potassium Chloride (KCl) 40 meq DAILY PO Last administered on 01/23/17 08:29; Start 01/22/17 at 09:00; Stop 01/23/17 at 08:45; Status DC Potassium Chloride (KCl) 60 meq ONCE ONCE PO Last administered on 01/21/17 11: 00; Start 01/21/17 at 09:30; Stop 01/21/17 at 09:31; Status DC Lidocaine/ Epinephrine (Xylocaine-Epi 1%-1:100,000 Inj) 20 ml STK-MED ONCE .ROUTE Last administered on 01/22/17 09:36; Start 01/22/17 at 09:36; Stop 08/31 at 09:37; Status DC Midazolam HCl (Versed Inj) 5 mg STK-MED ONCE .ROUTE Last administered on 10:00; Start 01/22/17 at 10:00; Stop 01/22/17 at 10:01; Status DC Fentanyl Citrate (fentaNYL INJ) 250 mcg STK-MED ONCE .ROUTE Last administered on 01/22/17 10:00; Start 01/22/17 at 10:00; Stop 01/22/17 at 10:01; Status DC Oxycodone/ Acetaminophen (Percocet 5-325 Mg) 1 tab Q4H PRN PO PAIN SCALE 1 TO 10 Last administered on 02/06/17 00:23; Start 01/22/17 at 11:30 Diphenhydramine HCl (Benadryl) 50 mg ONCE ONCE PO Last administered on 00:24; Start 01/22/17 at 23:30; Stop 01/22/17 at 23:31; Status DC Enoxaparin Sodium (Lovenox Inj) 40 mg Q24H SQ Last administered on 02/05/17 20 :24; Start 01/23/17 at 21:00 Potassium Chloride (KCl) 20 meq DAILY PO Last administered on 02/06/17 08:03; Start 01/24/17 at 09:00 Diphenhydramine HCl (Benadryl) 25 mg Q4H PRN PO itching Last administered on 06:12; Start 01/23/17 at 10:00; Stop 02/05/17 at 13:52; Status DC Hydroxyzine HCl (Atarax) 25 mg Q8H PRN PO ITCHING Last administered on 00:23; Start 02/02/17 at 12:00 Diphenhydramine HCl (Benadryl) 25 mg Q8HR PRN PO itching; Start 02/05/17 at 14: 00 Lactulose (Lactulose Liq) 30 ml BID PO Last administered on 02/06/17 08:03; Start 02/05/17 at 21:00 A/P Assessment and Plan A/P Generalized weakness: Patient was seen by neurology. L4 to L5 focal severe canal stenosis. Spinal tap was traumatic, negative for cryptococcus. Per neuro , appears to be chronic, has atrophy lower extremity and multiple healed bruises. Mild parkinsonism was noted on exam, the patient was started on Sinemet. Neurosurgery has evaluated the patient, no surgical intervention at this time. PT recommends SNF however the patient does not have SNF benefits. Rehab medicine consulted for EMG/NCV- done 02/03. . neurology signed off. Patient is a high fall risk. She has poor insight into her condition. Continue PT efforts Her goal is to just returned home and go back to living in her previous condition. 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 Bone marrow biopsy performed . pathology with normocellular bone marrow. Hypokalemia: Resolved. potassium replacement to 20 ME daily. Hypo-magnesium: Mag-Ox 400 milligrams daily. Nausea vomiting: Resolved. Controlled with Zofran Rhabdomyolysis: Resolved Thrombocytopenia and anemia. Stable. Likely secondary to chronic liver disease. No signs of bleeding. Hepatitis panel negative. Has continued to improve since admission. UTI: Resolved, Cipro 3/2-3/5 DVT prophylaxis: Lovenox Psychiatry evaluated patient- no capacity for decision making ff- needs financial disclosure-- working on SNF- placement- Discharge Planning needs SNF placement. dc planning in progress. Yosef Ayon MD Feb 06, 2017 09:01
[2017-02-06] MEDS: diphenhydrAMINE HCL 25 MG CAP PO PRN ×2 (09:10→20:27)
[2017-02-06 12:00] VITALS: BP 92/59; PULSE 88; RESP 16; TEMP 98.5; O2SAT 96
[2017-02-06 16:00] VITALS: BP 97/48; PULSE 98; RESP 16; TEMP 97.9; O2SAT 97
[2017-02-06 20:00] VITALS: BP 129/77; PULSE 103; RESP 20; TEMP 98.9; O2SAT 97
[2017-02-06] MEDS: ENOXAPARIN SODIUM 40 MG/0.4 ML SYRINGE SQ SCH (20:26)
[2017-02-07] VITALS: BP 113/74; PULSE 94; RESP 20; TEMP 98.7; O2SAT 96
[2017-02-07] MEDS: CARBIDOPA/LEVODOPA 10 MG/100 MG TAB PO SCH ×3 (00:31→16:37)
[2017-02-07] MEDS: oxyCODONE/ACETAMINOPHEN 5 MG/325 MG TAB PO PRN ×3 (05:31→21:40)
[2017-02-07] MEDS: diphenhydrAMINE HCL 25 MG CAP PO PRN ×2 (05:31→16:44)
[2017-02-07 08:00] VITALS: BP 116/67; PULSE 95; RESP 17; TEMP 98.2; O2SAT 95
[2017-02-07] MEDS: POTASSIUM CHLORIDE 20 MEQ CONTROLLED RELEASE TAB PO SCH (08:02)
[2017-02-07] MEDS: LACTULOSE SYRUP 20 GM/30 ML CUP PO SCH ×2 (08:02→21:32)
[2017-02-07] MEDS: PANTOPRAZOLE SOD 40 MG DELAYED RELEASE TAB PO SCH (08:02)
[2017-02-07] MEDS: SODIUM CHLORIDE 0.9% FLUSH 5 ML FLUSH FLUSH SCH ×2 (08:03→21:32)
[2017-02-07] MEDS: guaiFENesin E.R. 600 MG TAB PO SCH ×2 (08:03→21:32)
[2017-02-07] MEDS: MAGNESIUM OXIDE 400 MG TAB PO SCH (08:03)
--- NOTE | 2017-02-07 10:49 | HHI.PR ---
Subjective Remarks resting comfortably with no distress. denies pain. no new complaints. Objective Vitals Vital Signs Date Time Temp Pulse Resp B/P Pulse Ox O2 Delivery O2 Flow Rate FiO2 02/07/17 08:00 98.2 95 17 116/67 95 02/07/17 00:00 98.7 94 20 113/74 96 02/06/17 20:00 98.9 103 20 129/77 97 02/06/17 16:00 97.9 98 16 97/48 97 02/06/17 12:00 98.5 88 16 92/59 96 I/O 02/06/17 02/06/17 02/06/17 02/07/17 02/07/17 02/07/17 07:00 15:00 23:00 07:00 15:00 23:00 Intake Total 0 ml 240 ml 480 ml 240 ml Balance 0 ml 240 ml 480 ml 240 ml Intake Oral 0 ml 240 ml 480 ml 240 ml IV Total 0 ml 0 ml # Voids 3 2 4 1 # Bowel Movements 1 1 Result Diagram: 02/06/17 0311 Imaging Last Impressions Bone Biopsy CT 01/22/17 0600 Signed Impressions: Service Date/Time: Sunday, January 22, 2017 10:16 - CONCLUSION: 1. Uncomplicated CT guided bone marrow aspirate. 2. Uncomplicated CT guided bone marrow biopsy. Trae Dorantes MD Lumbar Puncture Fluoroscopy 01/14/17 0000 Signed Impressions: Service Date/Time: January 09:33 - CONCLUSION: Uncomplicated fluoroscopically guided lumbar puncture. Louis Metz MD Brain MRI 01/14/17 0000 Signed Impressions: Service Date/Time: January 10:04 - CONCLUSION: 1. Chronic ischemic small vessel vasculopathy. 2. No acute infarction. 3. No enhancing metastatic lesions are seen. Frank Johnson MD Thoracic Spine MRI 01/13/17 0000 Signed Impressions: Service Date/Time: Friday, January 13, 2017 11:59 - CONCLUSION: Negative MRI of the thoracic spine. There is no evidence for metastatic disease. Mauro Joel MD FACR Thoracic Spine CT 01/13/17 0000 Signed Impressions: Service Date/Time: Friday, January 13, 2017 03:32 - CONCLUSION: 1. No acute findings. Mild degenerative disc disease. No canal stenosis. Dylon St MD Lumbar Spine MRI 01/13/17 0000 Signed Impressions: Service Date/Time: Friday, January 13, 2017 11:59 - CONCLUSION: 1. Radiographically significant spinal stenosis at L4-L5. 2. Minimal disc bulging to the right at L3-4. Mauro Joel MD FACR Lumbar Spine CT 01/13/17 0000 Signed Impressions: Service Date/Time: Friday, January 13, 2017 03:34 - CONCLUSION: 1. No acute fracture. 2. At L4-5 there is focal severe canal stenosis secondary to grade 1 anterolisthesis and advanced facet arthropathy. 3. Mild canal stenosis at L3- 4. Dylon St MD Head CT 01/13/17 0000 Signed Impressions: Service Date/Time: Friday, January 13, 2017 03:28 - CONCLUSION: 1. No acute intracranial abnormalities. Cortical atrophy. Dylon St MD Chest X-Ray 01/13/17 0000 Signed Impressions: Service Date/Time: Friday, January 13, 2017 03:40 - CONCLUSION: 1. No acute findings. Atherosclerotic aorta. Dylon St MD Cervical Spine MRI 01/13/17 0000 Signed Impressions: Service Date/Time: Friday, January 13, 2017 11:59 - CONCLUSION: Degenerative changes as described above. There is no abnormal contrast enhancement identified. Mauro Joel MD FACR Objective Remarks GENERAL: This is a well-nourished, well-developed patient, in no apparent distress. CARDIOVASCULAR: Regular rate and regular rhythm without murmurs, gallops, or rubs. RESPIRATORY: Clear to auscultation. Breath sounds equal bilaterally. No wheezes , rales, or rhonchi. GASTROINTESTINAL: Abdomen soft, non-tender, nondistended. Normal, active bowel sounds MUSCULOSKELETAL: Extremities without clubbing, cyanosis, or edema. NEURO: Alert & Oriented x4 to person, place, time, situation. Moves all ext x4 Procedures Lumbar puncture bone marrow biopsy Medications and IVs Current Medications Sodium Chloride 1,000 ml @ 2,000 mls/hr Q30M ONCE IV Last administered on 01/12t 16:44; Start 01/12/17 at 16:45; Stop 01/12/17 at 17:14; Status DC Sodium Chloride (NS 1000 ml Inj) 1,000 ml @ 2,000 mls/hr Q30M ONCE IV Last administered on 01/12/17 18:43; Start 01/12/17 at 18:15; Stop 01/12/17 at 18:44 ; Status DC IV Flush (NS Flush) 2 ml UNSCH PRN FLUSH FLUSH AFTER USING IV ACCESS Last administered on 01/19/17 17:18; Start 01/12/17 at 19:45 IV Flush (NS Flush) 2 ml BID FLUSH Last administered on 02/07/17 08:03; Start 01/12/17 at 21:00 Naloxone HCl (Narcan Inj) 0.4 mg UNSCH PRN IV SEE LABEL COMMENTS; Start at 19:45 Potassium Chloride 40 meq 40 meq ONCE ONCE PO Last administered on 01/12/17 21:23; Start 01/12/17 at 21:00; Stop 01/12/17 at 21:01; Status DC Sodium Chloride (NS 1000 ml Inj) 1,000 ml @ 125 mls/hr Q8H IV Last administered on 01/23/17 21:14; Start 01/13/17 at 03:30; Stop 01/24/17 at 07:11 ; Status DC Guaifenesin (Mucinex Er) 600 mg BID PO Last administered on 02/07/17 08:03; Start 01/13/17 at 09:00 Potassium Chloride 40 meq 40 meq ONCE ONCE PO Last administered on 01/13/17 10 :18; Start 01/13/17 at 06:45; Stop 01/13/17 at 06:46; Status DC Ciprofloxacin/ Dextrose (Cipro 400 Mg Premix) 200 ml @ 200 mls/hr Q12H IV Last administered on 01/14/17 11:05; Start 01/13/17 at 08:00; Stop 01/14/17 at 16: 05; Status DC Lorazepam (Ativan Inj) 0.5 mg ONCE PRN IM ANXIETY; Start 01/13/17 at 09:05; Stop 01/13/17 at 09:06; Status DC Lorazepam (Ativan Inj) 0.5 mg ONCE PRN IM ANXIETY; Start 01/13/17 at 10:15; Stop 01/13/17 at 12:00; Status DC Oxycodone/ Acetaminophen (Percocet 5-325 Mg) 1 tab Q6H PRN PO PAIN SCALE 5 TO 10 Last administered on 01/22/17 09:02; Start 01/13/17 at 12:00; Stop 01/22/17 at 11:26; Status DC Acetaminophen (Tylenol) 500 mg Q6H PRN PO PAIN 1-4, HEADACHE, FEVER; Start 01/13 at 12:00 Gadodiamide (Omniscan Pf Inj) 9 ml STK-MED ONCE IV Last administered on 13:01; Start 01/13/17 at 13:01; Stop 01/13/17 at 13:02; Status DC Lorazepam (Ativan Inj) 2 mg STK-MED ONCE .ROUTE ; Start 01/14/17 at 09:19; Stop 01/14/17 at 09:20; Status DC Lorazepam (Ativan Inj) 0.5 mg ONCE ONCE IV PUSH ; Start 01/14/17 at 11:00; Stop 01/14/17 at 11:01; Status DC Gadodiamide (Omniscan Pf Inj) 10 ml STK-MED ONCE IV Last administered on 10:23; Start 01/14/17 at 10:23; Stop 01/14/17 at 10:24; Status DC Ciprofloxacin (Cipro) 250 mg Q12HR PO Last administered on 01/17/17 10:10; Start 01/14/17 at 21:00; Stop 01/17/17 at 20:59; Status DC Lactulose (Lactulose Liq) 30 ml QID PO Last administered on 02/05/17 11:52; Start 01/14/17 at 18:00; Stop 02/05/17 at 13:52; Status DC Carbidopa/Levodopa (Sinemet 10-100 Mg) 1 tab Q8H PO Last administered on 08:03; Start 01/15/17 at 09:00 Potassium Chloride 20 meq 20 meq Q12HR PO Last administered on 01/16/17 09:37; Start 01/15/17 at 21:00; Stop 01/16/17 at 15:11; Status DC Potassium Chloride 100 ml @ 50 mls/hr Q2H IV Last administered on 01/15/17 13: 56; Start 01/15/17 at 11:00; Stop 01/15/17 at 15:00; Status DC Magnesium Sulfate/ Dextrose 100 ml @ 100 mls/hr Q1H IV Last administered on 20:13; Start 01/15/17 at 16:45; Stop 01/15/17 at 18:44; Status DC Magnesium Sulfate/ Dextrose 100 ml @ 100 mls/hr Q1H IV Last administered on 23:15; Start 01/15/17 at 21:00; Stop 01/15/17 at 22:59; Status DC Magnesium Sulfate/ Dextrose 100 ml @ 100 mls/hr Q1H IV Last administered on 10:31; Start 01/16/17 at 09:00; Stop 01/16/17 at 10:59; Status DC Potassium Chloride 100 ml @ 50 mls/hr Q2H IV ; Start 01/15/17 at 16:45; Stop 01/15/17 at 16:48; Status DC Potassium Chloride (KCl 20 Meq Premix Inj) 100 ml @ 50 mls/hr Q2H IV Last administered on 01/16/17 17:51; Start 01/16/17 at 14:00; Stop 01/16/17 at 17:59; Status DC Ondansetron HCl (Zofran Inj) 4 mg Q6H PRN IVP NAUSEA OR VOMITING Last administered on 02/05/17 22:31; Start 01/16/17 at 15:00 Prochlorperazine (Compazine Supp) 25 mg Q12H PRN AL NAUSEA OR VOMITING Last administered on 01/18/17 16:20; Start 01/16/17 at 15:00 Bisacodyl (Dulcolax Supp) 10 mg DAILY PRN AL CONSTIPATION; Start 01/16/17 at 15: 00 Magnesium Hydroxide (Milk Of Magnesia Liq) 30 ml Q12H PRN PO CONSTIPATION; Start 01/16/17 at 15:00 Potassium Chloride (KCl) 10 meq Q8HR PO Last administered on 01/17/17 05:56; Start 01/16/17 at 22:00; Stop 01/17/17 at 12:58; Status DC Enoxaparin Sodium (Lovenox Inj) 40 mg Q24H SQ ; Start 01/16/17 at 15:15; Stop 01/16/17 at 15:16; Status DC Potassium Chloride (KCl 40 Meq/30 ml Liq) 40 meq DAILY NG Last administered on 01/19/17 08:57; Start 01/18/17 at 09:00; Stop 01/21/17 at 09:12; Status DC Potassium Chloride 30 meq 30 meq ONCE ONCE PO Last administered on 01/18/17 13 :18; Start 01/18/17 at 13:15; Stop 01/18/17 at 13:16; Status DC Magnesium Sulfate/ Dextrose 100 ml @ 100 mls/hr Q1H IV Last administered on 14:48; Start 01/18/17 at 14:00; Stop 01/18/17 at 15:59; Status DC Magnesium Sulfate/ Dextrose (Magnesium Sulfate 1 Gm Premix) 100 ml @ 100 mls/ hr Q1H IV Last administered on 01/19/17 13:32; Start 01/19/17 at 11:15; Stop 01/19/17 at 13:14; Status DC Pantoprazole Sodium (Protonix) 40 mg DAILY PO Last administered on 02/07/17 08 :02; Start 01/20/17 at 09:00 Pantoprazole Sodium 40 mg 40 mg ONCE ONCE PO Last administered on 01/19/17 20: 55; Start 01/19/17 at 19:45; Stop 01/19/17 at 19:46; Status DC Magnesium Sulfate/ Dextrose (Magnesium Sulfate 1 Gm Premix) 100 ml @ 100 mls/ hr Q1H IV Last administered on 01/21/17 02:35; Start 01/21/17 at 00:15; Stop 01/21/17 at 02:14; Status DC Magnesium Oxide (Mag-Ox) 400 mg DAILY PO Last administered on 02/07/17 08:03; Start 01/21/17 at 09:00 Potassium Chloride (KCl) 40 meq DAILY PO Last administered on 01/23/17 08:29; Start 01/22/17 at 09:00; Stop 01/23/17 at 08:45; Status DC Potassium Chloride (KCl) 60 meq ONCE ONCE PO Last administered on 01/21/17 11: 00; Start 01/21/17 at 09:30; Stop 01/21/17 at 09:31; Status DC Lidocaine/ Epinephrine (Xylocaine-Epi 1%-1:100,000 Inj) 20 ml STK-MED ONCE .ROUTE Last administered on 01/22/17 09:36; Start 01/22/17 at 09:36; Stop 08/31 at 09:37; Status DC Midazolam HCl (Versed Inj) 5 mg STK-MED ONCE .ROUTE Last administered on 10:00; Start 01/22/17 at 10:00; Stop 01/22/17 at 10:01; Status DC Fentanyl Citrate (fentaNYL INJ) 250 mcg STK-MED ONCE .ROUTE Last administered on 01/22/17 10:00; Start 01/22/17 at 10:00; Stop 01/22/17 at 10:01; Status DC Oxycodone/ Acetaminophen (Percocet 5-325 Mg) 1 tab Q4H PRN PO PAIN SCALE 1 TO 10 Last administered on 02/07/17 05:31; Start 01/22/17 at 11:30 Diphenhydramine HCl (Benadryl) 50 mg ONCE ONCE PO Last administered on 00:24; Start 01/22/17 at 23:30; Stop 01/22/17 at 23:31; Status DC Enoxaparin Sodium (Lovenox Inj) 40 mg Q24H SQ Last administered on 02/06/17 20 :26; Start 01/23/17 at 21:00 Potassium Chloride (KCl) 20 meq DAILY PO Last administered on 02/07/17 08:02; Start 01/24/17 at 09:00 Diphenhydramine HCl (Benadryl) 25 mg Q4H PRN PO itching Last administered on 06:12; Start 01/23/17 at 10:00; Stop 02/05/17 at 13:52; Status DC Hydroxyzine HCl (Atarax) 25 mg Q8H PRN PO ITCHING Last administered on 00:23; Start 02/02/17 at 12:00; Stop 02/06/17 at 09:05; Status DC Diphenhydramine HCl (Benadryl) 25 mg Q8HR PRN PO itching Last administered on 05:31; Start 02/05/17 at 14:00 Lactulose (Lactulose Liq) 30 ml BID PO Last administered on 02/07/17t 08:02; Start 02/05/17 at 21:00 A/P Assessment and Plan A/P Generalized weakness: Patient was seen by neurology. L4 to L5 focal severe canal stenosis. Spinal tap was traumatic, negative for cryptococcus. Per neuro , appears to be chronic, has atrophy lower extremity and multiple healed bruises. Mild parkinsonism was noted on exam, the patient was started on Sinemet. Neurosurgery has evaluated the patient, no surgical intervention at this time. PT recommends SNF however the patient does not have SNF benefits. Rehab medicine consulted for EMG/NCV- done 02/03. . neurology signed off. Patient is a high fall risk. She has poor insight into her condition. Continue PT efforts Her goal is to just returned home and go back to living in her previous condition. 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 Bone marrow biopsy performed . pathology with normocellular bone marrow. Hypokalemia: Resolved. potassium replacement to 20 ME daily. Hypo-magnesium: Mag-Ox 400 milligrams daily. Nausea vomiting: Resolved. Controlled with Zofran Rhabdomyolysis: Resolved Thrombocytopenia and anemia. Stable. Likely secondary to chronic liver disease. No signs of bleeding. Hepatitis panel negative. Has continued to improve since admission. UTI: Resolved, Cipro 3/2-3/5 DVT prophylaxis: Lovenox Psychiatry evaluated patient- no capacity for decision making ff- needs financial disclosure-- working on SNF- placement- Discharge Planning needs SNF placement. dc planning in progress. Yosef Ayon MD Feb 07, 2017 10:49
[2017-02-07 12:00] VITALS: BP 120/65; PULSE 92; RESP 16; TEMP 97.7; O2SAT 97
[2017-02-07 16:00] VITALS: BP 117/68; PULSE 84; RESP 16; TEMP 97.6; O2SAT 97
[2017-02-07 20:00] VITALS: BP 128/94; PULSE 96; RESP 20; TEMP 97.8; O2SAT 98
[2017-02-07] MEDS: ENOXAPARIN SODIUM 40 MG/0.4 ML SYRINGE SQ SCH (21:32)
[2017-02-08] VITALS: BP 118/88; PULSE 96; RESP 20; TEMP 98; O2SAT 97
[2017-02-08] MEDS: oxyCODONE/ACETAMINOPHEN 5 MG/325 MG TAB PO PRN ×5 (01:57→21:25)
[2017-02-08] MEDS: CARBIDOPA/LEVODOPA 10 MG/100 MG TAB PO SCH ×3 (01:57→15:45)
[2017-02-08] MEDS: diphenhydrAMINE HCL 25 MG CAP PO PRN ×3 (01:57→21:24)
[2017-02-08 08:00] VITALS: BP 113/67; PULSE 88; RESP 16; TEMP 96.6; O2SAT 99
[2017-02-08] MEDS: PANTOPRAZOLE SOD 40 MG DELAYED RELEASE TAB PO SCH (08:37)
[2017-02-08] MEDS: LACTULOSE SYRUP 20 GM/30 ML CUP PO SCH ×2 (08:38→20:42)
[2017-02-08] MEDS: guaiFENesin E.R. 600 MG TAB PO SCH ×2 (08:38→20:42)
[2017-02-08] MEDS: POTASSIUM CHLORIDE 20 MEQ CONTROLLED RELEASE TAB PO SCH (08:38)
[2017-02-08] MEDS: MAGNESIUM OXIDE 400 MG TAB PO SCH (08:38)
[2017-02-08] MEDS: SODIUM CHLORIDE 0.9% FLUSH 5 ML FLUSH FLUSH SCH ×2 (08:39→20:43)
[2017-02-08] MEDS: ONDANSETRON HCL 4 MG/2 ML VIAL IVP PRN (09:31)
--- NOTE | 2017-02-08 11:08 | HHI.PR ---
Subjective Remarks resting comfortably with no distress. no sob or pain. no new complaints. says that had a good sleep last night. Objective Vitals Vital Signs Date Time Temp Pulse Resp B/P Pulse Ox O2 Delivery O2 Flow Rate FiO2 02/08/17 08:00 96.6 88 16 113/67 99 02/08/17 00:00 98.0 96 20 118/88 97 02/07/17 20:00 97.8 96 20 128/94 98 02/07/17 16:00 97.6 84 16 117/68 97 02/07/17 12:00 97.7 92 16 120/65 97 I/O 02/07/17 02/07/17 02/07/17 02/08/17 02/08/17 02/08/17 07:00 15:00 23:00 07:00 15:00 23:00 Intake Total 240 ml 240 ml 480 ml 640 ml Output Total 600 ml 700 ml Balance 240 ml 240 ml -120 ml -60 ml Intake Oral 240 ml 240 ml 480 ml 640 ml IV Total 0 ml 0 ml 0 ml Output Urine Total 600 ml 700 ml # Voids 1 3 # Bowel Movements 0 0 0 Result Diagram: 02/06/17 0311 Imaging Last Impressions Bone Biopsy CT 01/22/17 0600 Signed Impressions: Service Date/Time: Sunday, January 22, 2017 10:16 - CONCLUSION: 1. Uncomplicated CT guided bone marrow aspirate. 2. Uncomplicated CT guided bone marrow biopsy. Trae Dorantes MD Lumbar Puncture Fluoroscopy 01/14/17 0000 Signed Impressions: Service Date/Time: January 09:33 - CONCLUSION: Uncomplicated fluoroscopically guided lumbar puncture. Louis Metz MD Brain MRI 01/14/17 0000 Signed Impressions: Service Date/Time: January 10:04 - CONCLUSION: 1. Chronic ischemic small vessel vasculopathy. 2. No acute infarction. 3. No enhancing metastatic lesions are seen. Frank Johnson MD Thoracic Spine MRI 01/13/17 0000 Signed Impressions: Service Date/Time: Friday, January 13, 2017 11:59 - CONCLUSION: Negative MRI of the thoracic spine. There is no evidence for metastatic disease. Mauro Joel MD FACR Thoracic Spine CT 01/13/17 0000 Signed Impressions: Service Date/Time: Friday, January 13, 2017 03:32 - CONCLUSION: 1. No acute findings. Mild degenerative disc disease. No canal stenosis. Dylon St MD Lumbar Spine MRI 01/13/17 Signed Impressions: Service Date/Time: Friday, January 13, 2017 11:59 - CONCLUSION: 1. Radiographically significant spinal stenosis at L4-L5. 2. Minimal disc bulging to the right at L3-4. Mauro Joel MD FACR Lumbar Spine CT 01/13/17 Signed Impressions: Service Date/Time: Friday, January 13, 2017 03:34 - CONCLUSION: 1. No acute fracture. 2. At L4-5 there is focal severe canal stenosis secondary to grade 1 anterolisthesis and advanced facet arthropathy. 3. Mild canal stenosis at L3- 4. Dylon St MD Head CT 01/13/17 Signed Impressions: Service Date/Time: Friday, January 13, 2017 03:28 - CONCLUSION: 1. No acute intracranial abnormalities. Cortical atrophy. Dylon St MD Chest X-Ray 01/13/17 Signed Impressions: Service Date/Time: Friday, January 13, 2017 03:40 - CONCLUSION: 1. No acute findings. Atherosclerotic aorta. Dylon St MD Cervical Spine MRI 01/13/17 Signed Impressions: Service Date/Time: Friday, January 13, 2017 11:59 - CONCLUSION: Degenerative changes as described above. There is no abnormal contrast enhancement identified. Mauro Joel MD FACR Objective Remarks GENERAL: This is a well-nourished, well-developed patient, in no apparent distress. CARDIOVASCULAR: Regular rate and regular rhythm without murmurs, gallops, or rubs. RESPIRATORY: Clear to auscultation. Breath sounds equal bilaterally. No wheezes , rales, or rhonchi. GASTROINTESTINAL: Abdomen soft, non-tender, nondistended. Normal, active bowel sounds MUSCULOSKELETAL: Extremities without clubbing, cyanosis, or edema. NEURO: Alert & Oriented x4 to person, place, time, situation. Moves all ext x4 Procedures Lumbar puncture bone marrow biopsy Medications and IVs Current Medications Sodium Chloride 1,000 ml @ 2,000 mls/hr Q30M ONCE IV Last administered on 01/12t 16:44; Start 01/12/17 at 16:45; Stop 01/12/17 at 17:14; Status DC Sodium Chloride (NS 1000 ml Inj) 1,000 ml @ 2,000 mls/hr Q30M ONCE IV Last administered on 01/12/17 18:43; Start 01/12/17 at 18:15; Stop 01/12/17 at 18:44 ; Status DC IV Flush (NS Flush) 2 ml UNSCH PRN FLUSH FLUSH AFTER USING IV ACCESS Last administered on 01/19/17 17:18; Start 01/12/17 at 19:45 IV Flush (NS Flush) 2 ml BID FLUSH Last administered on 02/08/17 08:39; Start 01/12/17 at 21:00 Naloxone HCl (Narcan Inj) 0.4 mg UNSCH PRN IV SEE LABEL COMMENTS; Start at 19:45 Potassium Chloride 40 meq 40 meq ONCE ONCE PO Last administered on 01/12/17 21:23; Start 01/12/17 at 21:00; Stop 01/12/17 at 21:01; Status DC Sodium Chloride (NS 1000 ml Inj) 1,000 ml @ 125 mls/hr Q8H IV Last administered on 01/23/17 21:14; Start 01/13/17 at 03:30; Stop 01/24/17 at 07:11 ; Status DC Guaifenesin (Mucinex Er) 600 mg BID PO Last administered on 02/08/17 08:38; Start 01/13/17 at 09:00 Potassium Chloride 40 meq 40 meq ONCE ONCE PO Last administered on 01/13/17 10 :18; Start 01/13/17 at 06:45; Stop 01/13/17 at 06:46; Status DC Ciprofloxacin/ Dextrose (Cipro 400 Mg Premix) 200 ml @ 200 mls/hr Q12H IV Last administered on 01/14/17 11:05; Start 01/13/17 at 08:00; Stop 01/14/17 at 16: 05; Status DC Lorazepam (Ativan Inj) 0.5 mg ONCE PRN IM ANXIETY; Start 01/13/17 at 09:05; Stop 01/13/17 at 09:06; Status DC Lorazepam (Ativan Inj) 0.5 mg ONCE PRN IM ANXIETY; Start 01/13/17 at 10:15; Stop 01/13/17 at 12:00; Status DC Oxycodone/ Acetaminophen (Percocet 5-325 Mg) 1 tab Q6H PRN PO PAIN SCALE 5 TO 10 Last administered on 01/22/17 09:02; Start 01/13/17 at 12:00; Stop 01/22/17 at 11:26; Status DC Acetaminophen (Tylenol) 500 mg Q6H PRN PO PAIN 1-4, HEADACHE, FEVER; Start 01/13 at 12:00 Gadodiamide (Omniscan Pf Inj) 9 ml STK-MED ONCE IV Last administered on 13:01; Start 01/13/17 at 13:01; Stop 01/13/17 at 13:02; Status DC Lorazepam (Ativan Inj) 2 mg STK-MED ONCE .ROUTE ; Start 01/14/17 at 09:19; Stop 01/14/17 at 09:20; Status DC Lorazepam (Ativan Inj) 0.5 mg ONCE ONCE IV PUSH ; Start 01/14/17 at 11:00; Stop 01/14/17 at 11:01; Status DC Gadodiamide (Omniscan Pf Inj) 10 ml STK-MED ONCE IV Last administered on 10:23; Start 01/14/17 at 10:23; Stop 01/14/17 at 10:24; Status DC Ciprofloxacin (Cipro) 250 mg Q12HR PO Last administered on 01/17/17 10:10; Start 01/14/17 at 21:00; Stop 01/17/17 at 20:59; Status DC Lactulose (Lactulose Liq) 30 ml QID PO Last administered on 02/05/17 11:52; Start 01/14/17 at 18:00; Stop 02/05/17 at 13:52; Status DC Carbidopa/Levodopa (Sinemet 10-100 Mg) 1 tab Q8H PO Last administered on 08:38; Start 01/15/17 at 09:00 Potassium Chloride 20 meq 20 meq Q12HR PO Last administered on 01/16/17 09:37; Start 01/15/17 at 21:00; Stop 01/16/17 at 15:11; Status DC Potassium Chloride 100 ml @ 50 mls/hr Q2H IV Last administered on 01/15/17 13: 56; Start 01/15/17 at 11:00; Stop 01/15/17 at 15:00; Status DC Magnesium Sulfate/ Dextrose 100 ml @ 100 mls/hr Q1H IV Last administered on 20:13; Start 01/15/17 at 16:45; Stop 01/15/17 at 18:44; Status DC Magnesium Sulfate/ Dextrose 100 ml @ 100 mls/hr Q1H IV Last administered on 23:15; Start 01/15/17 at 21:00; Stop 01/15/17 at 22:59; Status DC Magnesium Sulfate/ Dextrose 100 ml @ 100 mls/hr Q1H IV Last administered on 10:31; Start 01/16/17 at 09:00; Stop 01/16/17 at 10:59; Status DC Potassium Chloride 100 ml @ 50 mls/hr Q2H IV ; Start 01/15/17 at 16:45; Stop 01/15/17 at 16:48; Status DC Potassium Chloride (KCl 20 Meq Premix Inj) 100 ml @ 50 mls/hr Q2H IV Last administered on 01/16/17 17:51; Start 01/16/17 at 14:00; Stop 01/16/17 at 17:59; Status DC Ondansetron HCl (Zofran Inj) 4 mg Q6H PRN IVP NAUSEA OR VOMITING Last administered on 02/08/17 09:31; Start 01/16/17 at 15:00 Prochlorperazine (Compazine Supp) 25 mg Q12H PRN [place] NAUSEA OR VOMITING Last administered on 01/18/17 16:20; Start 01/16/17 at 15:00 Bisacodyl (Dulcolax Supp) 10 mg DAILY PRN [place] CONSTIPATION; Start 01/16/17 at 15: 00 Magnesium Hydroxide (Milk Of Magnesia Liq) 30 ml Q12H PRN PO CONSTIPATION; Start 01/16/17 at 15:00 Potassium Chloride (KCl) 10 meq Q8HR PO Last administered on 01/17/17 05:56; Start 01/16/17 at 22:00; Stop 01/17/17 at 12:58; Status DC Enoxaparin Sodium (Lovenox Inj) 40 mg Q24H SQ ; Start 01/16/17 at 15:15; Stop 01/16/17 at 15:16; Status DC Potassium Chloride (KCl 40 Meq/30 ml Liq) 40 meq DAILY NG Last administered on 01/19/17 08:57; Start 01/18/17 at 09:00; Stop 01/21/17 at 09:12; Status DC Potassium Chloride 30 meq 30 meq ONCE ONCE PO Last administered on 01/18/17 13 :18; Start 01/18/17 at 13:15; Stop 01/18/17 at 13:16; Status DC Magnesium Sulfate/ Dextrose 100 ml @ 100 mls/hr Q1H IV Last administered on 14:48; Start 01/18/17 at 14:00; Stop 01/18/17 at 15:59; Status DC Magnesium Sulfate/ Dextrose (Magnesium Sulfate 1 Gm Premix) 100 ml @ 100 mls/ hr Q1H IV Last administered on 01/19/17 13:32; Start 01/19/17 at 11:15; Stop 01/19/17 at 13:14; Status DC Pantoprazole Sodium (Protonix) 40 mg DAILY PO Last administered on 02/08/17 08 :37; Start 01/20/17 at 09:00 Pantoprazole Sodium 40 mg 40 mg ONCE ONCE PO Last administered on 01/19/17 20: 55; Start 01/19/17 at 19:45; Stop 01/19/17 at 19:46; Status DC Magnesium Sulfate/ Dextrose (Magnesium Sulfate 1 Gm Premix) 100 ml @ 100 mls/ hr Q1H IV Last administered on 01/21/17 02:35; Start 01/21/17 at 00:15; Stop 01/21/17 at 02:14; Status DC Magnesium Oxide (Mag-Ox) 400 mg DAILY PO Last administered on 02/08/17 08:38; Start 01/21/17 at 09:00 Potassium Chloride (KCl) 40 meq DAILY PO Last administered on 01/23/17 08:29; Start 01/22/17 at 09:00; Stop 01/23/17 at 08:45; Status DC Potassium Chloride (KCl) 60 meq ONCE ONCE PO Last administered on 01/21/17 11: 00; Start 01/21/17 at 09:30; Stop 01/21/17 at 09:31; Status DC Lidocaine/ Epinephrine (Xylocaine-Epi 1%-1:100,000 Inj) 20 ml STK-MED ONCE .ROUTE Last administered on 01/22/17 09:36; Start 01/22/17 at 09:36; Stop 08/31 at 09:37; Status DC Midazolam HCl (Versed Inj) 5 mg STK-MED ONCE .ROUTE Last administered on 10:00; Start 01/22/17 at 10:00; Stop 01/22/17 at 10:01; Status DC Fentanyl Citrate (fentaNYL INJ) 250 mcg STK-MED ONCE .ROUTE Last administered on 01/22/17 10:00; Start 01/22/17 at 10:00; Stop 01/22/17 at 10:01; Status DC Oxycodone/ Acetaminophen (Percocet 5-325 Mg) 1 tab Q4H PRN PO PAIN SCALE 1 TO 10 Last administered on 02/08/17 08:38; Start 01/22/17 at 11:30 Diphenhydramine HCl (Benadryl) 50 mg ONCE ONCE PO Last administered on 00:24; Start 01/22/17 at 23:30; Stop 01/22/17 at 23:31; Status DC Enoxaparin Sodium (Lovenox Inj) 40 mg Q24H SQ Last administered on 02/07/17 21 :32; Start 01/23/17 at 21:00 Potassium Chloride (KCl) 20 meq DAILY PO Last administered on 02/08/17 08:38; Start 01/24/17 at 09:00 Diphenhydramine HCl (Benadryl) 25 mg Q4H PRN PO itching Last administered on 06:12; Start 01/23/17 at 10:00; Stop 02/05/17 at 13:52; Status DC Hydroxyzine HCl (Atarax) 25 mg Q8H PRN PO ITCHING Last administered on 00:23; Start 02/02/17 at 12:00; Stop 02/06/17 at 09:05; Status DC Diphenhydramine HCl (Benadryl) 25 mg Q8HR PRN PO itching Last administered on 01:57; Start 02/05/17 at 14:00 Lactulose (Lactulose Liq) 30 ml BID PO Last administered on 02/08/17 08:38; Start 02/05/17 at 21:00 A/P Assessment and Plan A/P Generalized weakness: Patient was seen by neurology. L4 to L5 focal severe canal stenosis. Spinal tap was traumatic, negative for cryptococcus. Per neuro, appears to be chronic , has atrophy lower extremity and multiple healed bruises. Mild parkinsonism was noted on exam, the patient was started on Sinemet. Neurosurgery has evaluated the patient, no surgical intervention at this time. PT recommends SNF however the patient does not have SNF benefits. Rehab medicine consulted for EMG/NCV- done 02/03. . neurology signed off. Patient is a high fall risk. She has poor insight into her condition. Continue PT efforts Her goal is to just returned home and go back to living in her previous condition. - poor insight Psychotic disorder Encephalopathy- improving Hyperammonemia: Resolved with Lactulose- changed to bid S/P Psychiatry evaluation- does not have capacity ff along with us- working on SNF MGUS: evaluated by hematology. Bone marrow biopsy performed . pathology with normocellular bone marrow. Hypokalemia: Resolved. potassium replacement to 20 ME daily. Hypo-magnesium: Mag-Ox 400 milligrams daily. Nausea vomiting: Resolved. Controlled with Zofran Rhabdomyolysis: Resolved Thrombocytopenia and anemia. Stable. Likely secondary to chronic liver disease. No signs of bleeding. Hepatitis panel negative. Has continued to improve since admission. UTI: Resolved, Cipro 3/2-3/5 DVT prophylaxis: Lovenox Psychiatry evaluated patient- no capacity for decision making ff- needs financial disclosure-- working on SNF- placement- Discharge Planning needs SNF placement. dc planning in progress. Yosef Ayon MD Feb 08, 2017 11:08
[2017-02-08 12:00] VITALS: BP 105/70; PULSE 87; RESP 16; TEMP 97.9; O2SAT 98
[2017-02-08 16:00] VITALS: BP 107/62; PULSE 115; RESP 18; TEMP 98.5; O2SAT 97
[2017-02-08 20:00] VITALS: BP 102/79; PULSE 111; RESP 20; TEMP 98.1; O2SAT 99
[2017-02-08] MEDS: ENOXAPARIN SODIUM 40 MG/0.4 ML SYRINGE SQ SCH (20:42)
[2017-02-09] MEDS: CARBIDOPA/LEVODOPA 10 MG/100 MG TAB PO SCH ×3 (01:56→17:24)
[2017-02-09] MEDS: oxyCODONE/ACETAMINOPHEN 5 MG/325 MG TAB PO PRN ×3 (02:00→14:39)
[2017-02-09 08:00] VITALS: BP 97/67; PULSE 97; RESP 18; TEMP 99.2; O2SAT 96
[2017-02-09] MEDS: LACTULOSE SYRUP 20 GM/30 ML CUP PO SCH ×2 (09:06→20:40)
[2017-02-09] MEDS: MAGNESIUM OXIDE 400 MG TAB PO SCH (09:06)
[2017-02-09] MEDS: PANTOPRAZOLE SOD 40 MG DELAYED RELEASE TAB PO SCH (09:06)
[2017-02-09] MEDS: POTASSIUM CHLORIDE 20 MEQ CONTROLLED RELEASE TAB PO SCH (09:07)
[2017-02-09] MEDS: guaiFENesin E.R. 600 MG TAB PO SCH (09:07)
[2017-02-09] MEDS: SODIUM CHLORIDE 0.9% FLUSH 5 ML FLUSH FLUSH SCH (09:11)
--- NOTE | 2017-02-09 16:37 | HHI.PR ---
Subjective Remarks Patient seen and examined today. Patient denies any new complaints. Patient states that she is getting stronger daily basis and wants to know when she can go home. Objective Vitals Vital Signs Date Time Temp Pulse Resp B/P Pulse Ox O2 Delivery O2 Flow Rate FiO2 02/09/17 15:49 16 02/09/17 08:00 99.2 97 18 97/67 96 02/08/17 20:00 98.1 111 20 102/79 99 I/O 02/08/17 02/08/17 02/08/17 02/09/17 02/09/17 02/09/17 07:00 15:00 23:00 07:00 15:00 23:00 Intake Total 640 ml 600 ml 240 ml 480 ml Output Total 700 ml Balance -60 ml 600 ml 240 ml 480 ml Intake Oral 640 ml 600 ml 240 ml 480 ml IV Total 0 ml Output Urine Total 700 ml # Voids 4 1 1 # Bowel Movements 0 0 0 0 Result Diagram: 02/06/17310 Objective Remarks GENERAL: Well-developed, well-nourished, in no acute distress. alert and orientated HEENT: Head is normocephalic without any lesions or masses noted. Facial features are symmetric. Eyes: Extraocular muscles are intact. Conjunctivae were clear. NECK: Supple without any masses. Trachea midline no deviation. CARDIAC: Regular rhythm, regular rate. S1/S2 are heard. No murmurs gallops or rubs. LUNGS: Clear to auscultation bilaterally. No wheeze, rhonchi or rales. No use of accessory muscles on inspiration or expiration. ABDOMEN: Soft, nontender. Nondistended. Bowel sounds heard in all 4 quadrants. No organomegaly or masses. Negative rebound, negative guarding EXTREMITIES: No edema, pulses are equal bilaterally. No cyanosis or clubbing NEUROLOGY: Mood and affect appear appropriate. Cranial nerves II through XII grossly intact. Moving all extremities, speech is clear Procedures Lumbar puncture bone marrow biopsy Urinary Catheter: No Vascular Central Line Catheter: No A/P Assessment and Plan Generalized weakness: Patient did undergo MRI studies which does show L4 to L5 focal severe canal stenosis. Neurosurgery evaluated patient and indicates no surgical intervention at this time. Spinal tap was traumatic, negative for cryptococcus. Continue PT/OT evaluations. Physical therapy still recommending patient is required to go to [facility] for further management Rehab medicine consulted for EMG/NCV- done 02/03. Patient is a high fall risk. She has poor insight into her condition. Mild parkinsonism was noted on exam, Neurology following the patient Patient continued on Sinemet Psychotic disorder with Encephalopathy- improving Psychiatry has evaluated the patient indicates that she does not have the capacity make her own decisions. Hyperammonemia: Resolved Continue lactulose twice daily. Continue monitor mental status MGUS: evaluated by hematology. Bone marrow biopsy performed . pathology with normocellular bone marrow. Hypokalemia, Hypo-magnesium: Resolved. potassium replacement to 20 ME daily. Continue monitor Mag-Ox 400 milligrams daily. Rhabdomyolysis: Resolved Thrombocytopenia and anemia. Stable. Likely secondary to chronic liver disease. No signs of bleeding. Hepatitis panel negative. DVT prophylaxis: Lovenox Attending Statement Patient seen. Agree with above. Jacek Marquez Feb 09, 2017 16:37 Jacek Curtis MD Feb 09, 2017 18:36
[2017-02-09 20:00] VITALS: BP 101/74; PULSE 96; RESP 16; TEMP 98.2; O2SAT 95
[2017-02-09] MEDS: ENOXAPARIN SODIUM 40 MG/0.4 ML SYRINGE SQ SCH (20:41)
[2017-02-09] MEDS ORDERED: KETOROLAC TROMETHAMINE 30 MG/ML (IVP) VIAL IV PUSH ONE (22:30)
[2017-02-10] MEDS: CARBIDOPA/LEVODOPA 10 MG/100 MG TAB PO SCH ×3 (01:31→16:18)
[2017-02-10 08:00] VITALS: BP 121/85; PULSE 79; RESP 18; TEMP 98; O2SAT 97
[2017-02-10 08:10] VITALS: BP 160/98; PULSE 64; RESP 20; TEMP 97.7; O2SAT 97
[2017-02-10] MEDS: LACTULOSE SYRUP 20 GM/30 ML CUP PO SCH ×2 (08:21→20:39)
[2017-02-10] MEDS: PANTOPRAZOLE SOD 40 MG DELAYED RELEASE TAB PO SCH (08:22)
[2017-02-10] MEDS: POTASSIUM CHLORIDE 20 MEQ CONTROLLED RELEASE TAB PO SCH (08:22)
[2017-02-10] MEDS: MAGNESIUM OXIDE 400 MG TAB PO SCH (08:22)
[2017-02-10 08:38] LABS: AUTOMATED NEUTROPHIL # 3.3 TH/MM3 (1.8-7.7); BASOPHIL % 0.4 % (0.0-2.0); EOSINOPHIL # 0.2 TH/MM3 (0-0.4); EOSINOPHIL % 4.4 % (0.0-4.0); HEMATOCRIT 29.7 % (35.0-46.0); HEMO FLAGS DIFF FINAL; LYMPH % 24.9 % (9.0-44.0); LYMPHOCYTE # 1.3 TH/MM3 (1.0-4.8); MEAN CELL VOLUME 92.1 FL (80.0-100.0); MEAN CORPUSCULAR HEMOGLOBIN 31.4 PG (27.0-34.0); MEAN CORPUSCULAR HGB CONC 34.2 % (32.0-36.0); MONO % 10.3 % (0.0-8.0); PLATELET COUNT 190 TH/MM3 (150-450); RED BLOOD COUNT 3.23 MIL/MM3 (4.00-5.30); WHITE BLOOD COUNT 5.3 TH/MM3 (4.0-11.0)
[2017-02-10 08:51] LABS: POTASSIUM 4.2 MEQ/L (3.5-5.1)
[2017-02-10 08:55] LABS: BICARBONATE 26.4 MEQ/L (21.0-32.0); MAGNESIUM 1.6 MG/DL (1.5-2.5)
[2017-02-10] MEDS ORDERED: traMADol HCL 50 MG TAB PO PRN (09:30)
--- NOTE | 2017-02-10 16:22 | HHI.PR ---
Subjective Remarks Patient seen and examined today. Patient denies any new complaints. Denies any pain. Patient states that she feels as if she is getting stronger. Objective Vitals Vital Signs Date Time Temp Pulse Resp B/P Pulse Ox O2 Delivery O2 Flow Rate FiO2 02/10/17 08:10 97.7 64 20 160/98 97 02/10/17 08:00 98.0 79 18 121/85 97 02/09/17 23:30 16 02/09/17 20:00 98.2 96 16 101/74 95 I/O 02/09/17 02/09/17 02/09/17 02/10/17 02/10/17 02/10/17 07:00 15:00 23:00 07:00 15:00 23:00 Intake Total 1455 ml 480 ml 660 ml Balance 1455 ml 480 ml 660 ml Intake Oral 1455 ml 480 ml 660 ml # Voids 6 2 2 3 # Bowel Movements 2 0 0 Result Diagram: 02/10/17 0800 02/10/17 0800 Objective Remarks GENERAL: Well-developed, well-nourished, in no acute distress. alert and orientated HEENT: Head is normocephalic without any lesions or masses noted. Facial features are symmetric. Eyes: Extraocular muscles are intact. Conjunctivae were clear. NECK: Supple without any masses. Trachea midline no deviation. CARDIAC: Regular rhythm, regular rate. S1/S2 are heard. No murmurs gallops or rubs. LUNGS: Clear to auscultation bilaterally. No wheeze, rhonchi or rales. No use of accessory muscles on inspiration or expiration. ABDOMEN: Soft, nontender. Nondistended. Bowel sounds heard in all 4 quadrants. No organomegaly or masses. Negative rebound, negative guarding EXTREMITIES: No edema, pulses are equal bilaterally. No cyanosis or clubbing NEUROLOGY: Mood and affect appear appropriate. Cranial nerves II through XII grossly intact. Moving all extremities, speech is clear Procedures Lumbar puncture bone marrow biopsy Urinary Catheter: No Vascular Central Line Catheter: No A/P Assessment and Plan Generalized weakness: Patient did undergo MRI studies which does show L4 to L5 focal severe canal stenosis. Neurosurgery evaluated patient and indicates no surgical intervention at this time. Spinal tap was traumatic, negative for cryptococcus. Continue PT/OT evaluations. Physical therapy still recommending patient is required to go to SNF for further management Rehab medicine consulted for EMG/NCV- done 02/03. Patient is a high fall risk. She has poor insight into her condition. Mild parkinsonism was noted on exam, Neurology following the patient Patient continued on Sinemet Psychotic disorder with Encephalopathy- improving Psychiatry has evaluated the patient indicates that she does not have the capacity make her own decisions. Hyperammonemia: Resolved Continue lactulose twice daily. Continue monitor mental status MGUS: evaluated by hematology. Bone marrow biopsy performed . pathology with normocellular bone marrow. Hypokalemia, Hypo-magnesium: Resolved. potassium replacement to 20 ME daily. Continue monitor Mag-Ox 400 milligrams daily. Rhabdomyolysis: Resolved Thrombocytopenia and anemia. Stable. Likely secondary to chronic liver disease. No signs of bleeding. Hepatitis panel negative. DVT prophylaxis: Lovenox Discharge Planning Discharge planning per case management Attending Statement Patient seen. Agree with above. Jacek Marquez Feb 10, 2017 16:22 Jacek Curtis MD Feb 10, 2017 18:04
[2017-02-10 20:00] VITALS: BP 140/83; PULSE 102; RESP 19; TEMP 99; O2SAT 96
[2017-02-10] MEDS: ENOXAPARIN SODIUM 40 MG/0.4 ML SYRINGE SQ SCH (20:39)
[2017-02-11] MEDS: CARBIDOPA/LEVODOPA 10 MG/100 MG TAB PO SCH ×3 (01:04→16:52)
[2017-02-11 08:14] VITALS: BP 128/86; PULSE 101; RESP 18; TEMP 98.7; O2SAT 98
[2017-02-11] MEDS: LACTULOSE SYRUP 20 GM/30 ML CUP PO SCH ×3 (09:00→21:00)
[2017-02-11] MEDS: MAGNESIUM OXIDE 400 MG TAB PO SCH (09:07)
[2017-02-11] MEDS: PANTOPRAZOLE SOD 40 MG DELAYED RELEASE TAB PO SCH (09:08)
[2017-02-11] MEDS: POTASSIUM CHLORIDE 20 MEQ CONTROLLED RELEASE TAB PO SCH (09:08)
--- NOTE | 2017-02-11 10:20 | HHI.PR ---
Subjective Remarks Patient seen and examined today. Patient denies any new complaints. No change in clinical status. Objective Vitals Vital Signs Date Time Temp Pulse Resp B/P Pulse Ox O2 Delivery O2 Flow Rate FiO2 02/11/17 08:14 98.7 101 18 128/86 98 02/10/17 20:00 99.0 102 19 140/83 96 I/O 02/10/17 02/10/17 02/10/17 02/11/17 02/11/17 02/11/17 07:00 15:00 23:00 07:00 15:00 23:00 Intake Total 660 ml 480 ml 600 ml Balance 660 ml 480 ml 600 ml Intake Oral 660 ml 480 ml 600 ml # Voids 2 6 4 # Bowel Movements 0 1 1 Result Diagram: 02/10/17 0800 02/10/17 0800 Objective Remarks GENERAL: Well-developed, well-nourished, in no acute distress. alert and orientated HEENT: Head is normocephalic without any lesions or masses noted. Facial features are symmetric. Eyes: Extraocular muscles are intact. Conjunctivae were clear. NECK: Supple without any masses. Trachea midline no deviation. CARDIAC: Regular rhythm, regular rate. S1/S2 are heard. No murmurs gallops or rubs. LUNGS: Clear to auscultation bilaterally. No wheeze, rhonchi or rales. No use of accessory muscles on inspiration or expiration. ABDOMEN: Soft, nontender. Nondistended. Bowel sounds heard in all 4 quadrants. No organomegaly or masses. Negative rebound, negative guarding EXTREMITIES: No edema, pulses are equal bilaterally. No cyanosis or clubbing NEUROLOGY: Mood and affect appear appropriate. Cranial nerves II through XII grossly intact. Moving all extremities, speech is clear Procedures Lumbar puncture bone marrow biopsy Urinary Catheter: No Vascular Central Line Catheter: No A/P Assessment and Plan Generalized weakness: Patient did undergo MRI studies which does show L4 to L5 focal severe canal stenosis. Neurosurgery evaluated patient and indicates no surgical intervention at this time. Spinal tap was traumatic, negative for cryptococcus. Continue PT/OT evaluations. Physical therapy still recommending patient is required to go to SNF for further management Rehab medicine consulted for EMG/NCV- done 02/03. Patient is a high fall risk. She has poor insight into her condition. Mild parkinsonism was noted on exam, Neurology following the patient Patient continued on Sinemet Psychotic disorder with Encephalopathy- improving Psychiatry has evaluated the patient indicates that she does not have the capacity make her own decisions. Hyperammonemia: Resolved Continue lactulose twice daily. Continue monitor mental status MGUS: evaluated by hematology. Bone marrow biopsy performed . pathology with normocellular bone marrow. Hypokalemia, Hypo-magnesium: Resolved. potassium replacement to 20 ME daily. Continue monitor Mag-Ox 400 milligrams daily. Rhabdomyolysis: Resolved Thrombocytopenia and anemia. Stable. Likely secondary to chronic liver disease. No signs of bleeding. Hepatitis panel negative. DVT prophylaxis: Lovenox Discharge Planning Discharge planning per case management, physical therapy indicating that patient requires PT at rehabilitation. Jacek Marquez Feb 11, 2017 10:20
[2017-02-11 20:00] VITALS: BP 108/70; PULSE 100; RESP 20; TEMP 97.7; O2SAT 98
[2017-02-11] MEDS: ENOXAPARIN SODIUM 40 MG/0.4 ML SYRINGE SQ SCH (21:01)
[2017-02-12] MEDS: CARBIDOPA/LEVODOPA 10 MG/100 MG TAB PO SCH ×3 (01:11→18:19)
[2017-02-12 08:00] VITALS: BP 118/80; PULSE 92; RESP 18; TEMP 97.9; O2SAT 97
[2017-02-12] MEDS: LACTULOSE SYRUP 20 GM/30 ML CUP PO SCH ×2 (09:00→21:31)
[2017-02-12] MEDS: POTASSIUM CHLORIDE 20 MEQ CONTROLLED RELEASE TAB PO SCH (09:15)
[2017-02-12] MEDS: PANTOPRAZOLE SOD 40 MG DELAYED RELEASE TAB PO SCH (09:15)
[2017-02-12] MEDS: MAGNESIUM OXIDE 400 MG TAB PO SCH (09:15)
--- NOTE | 2017-02-12 11:49 | HHI.PR ---
Subjective Remarks Patient seen and examined today. Patient denies any new complaints. No change in clinical status. Objective Vitals Vital Signs Date Time Temp Pulse Resp B/P Pulse Ox O2 Delivery O2 Flow Rate FiO2 02/12/17 08:00 97.9 92 18 118/80 97 02/11/17 20:00 97.7 100 20 108/70 98 I/O 02/11/17 02/11/17 02/11/17 02/12/17 02/12/17 02/12/17 07:00 15:00 23:00 07:00 15:00 23:00 Intake Total 600 ml 720 ml 240 ml Balance 600 ml 720 ml 240 ml Intake Oral 600 ml 720 ml 240 ml # Voids 4 3 4 # Bowel Movements 1 2 Result Diagram: 02/10/17 0800 02/10/17 0800 Objective Remarks GENERAL: Well-developed, well-nourished, in no acute distress. alert and orientated HEENT: Head is normocephalic without any lesions or masses noted. Facial features are symmetric. Eyes: Extraocular muscles are intact. Conjunctivae were clear. NECK: Supple without any masses. Trachea midline no deviation. CARDIAC: Regular rhythm, regular rate. S1/S2 are heard. No murmurs gallops or rubs. LUNGS: Clear to auscultation bilaterally. No wheeze, rhonchi or rales. No use of accessory muscles on inspiration or expiration. ABDOMEN: Soft, nontender. Nondistended. Bowel sounds heard in all 4 quadrants. No organomegaly or masses. Negative rebound, negative guarding EXTREMITIES: No edema, pulses are equal bilaterally. No cyanosis or clubbing NEUROLOGY: Mood and affect appear appropriate. Cranial nerves II through XII grossly intact. Moving all extremities, speech is clear Procedures Lumbar puncture bone marrow biopsy Urinary Catheter: No Vascular Central Line Catheter: No A/P Assessment and Plan Generalized weakness: Patient did undergo MRI studies which does show L4 to L5 focal severe canal stenosis. Neurosurgery evaluated patient and indicates no surgical intervention at this time. Spinal tap was traumatic, negative for cryptococcus. Continue PT/OT evaluations. Physical therapy still recommending patient is required to go to SNF for further management Rehab medicine consulted for EMG/NCV- done 02/03. Patient is a high fall risk. She has poor insight into her condition. Mild parkinsonism was noted on exam, Neurology following the patient Patient continued on Sinemet Psychotic disorder with Encephalopathy- improving Psychiatry has evaluated the patient indicates that she does not have the capacity make her own decisions. Hyperammonemia: Resolved Continue lactulose twice daily. Continue monitor mental status MGUS: evaluated by hematology. Bone marrow biopsy performed . pathology with normocellular bone marrow. Hypokalemia, Hypo-magnesium: Resolved. potassium replacement to 20 ME daily. Continue monitor Mag-Ox 400 milligrams daily. Rhabdomyolysis: Resolved Thrombocytopenia and anemia. Stable. Likely secondary to chronic liver disease. No signs of bleeding. Hepatitis panel negative. DVT prophylaxis: Lovenox Discharge Planning Discharge planning per case management, physical therapy indicating that patient requires PT at rehabilitation or with home health care PT. Jacek Marquez Feb 12, 2017 11:49
[2017-02-12 20:00] VITALS: BP 118/84; PULSE 100; RESP 20; TEMP 98.5; O2SAT 98
[2017-02-12] MEDS: ENOXAPARIN SODIUM 40 MG/0.4 ML SYRINGE SQ SCH (21:32)
[2017-02-13] MEDS: CARBIDOPA/LEVODOPA 10 MG/100 MG TAB PO SCH ×3 (01:12→16:26)
[2017-02-13 08:00] VITALS: BP 112/80; PULSE 108; RESP 16; TEMP 98.9; O2SAT 97
[2017-02-13] MEDS: POTASSIUM CHLORIDE 20 MEQ CONTROLLED RELEASE TAB PO SCH (09:11)
[2017-02-13] MEDS: PANTOPRAZOLE SOD 40 MG DELAYED RELEASE TAB PO SCH (09:11)
[2017-02-13] MEDS: MAGNESIUM OXIDE 400 MG TAB PO SCH (09:11)
[2017-02-13] MEDS: LACTULOSE SYRUP 20 GM/30 ML CUP PO SCH ×2 (09:11→20:23)
--- NOTE | 2017-02-13 11:19 | HHI.PR ---
Subjective Remarks Patient seen and examined today. Patient very eager to go home. Physical therapy indicates patient is go home with rehabilitation versus home with home health care. Objective Vitals Vital Signs Date Time Temp Pulse Resp B/P Pulse Ox O2 Delivery O2 Flow Rate FiO2 02/13/17 08:00 98.9 108 16 112/80 97 02/12/17 20:00 98.5 100 20 118/84 98 I/O 02/12/17 02/12/17 02/12/17 02/13/17 02/13/17 02/13/17 07:00 15:00 23:00 07:00 15:00 23:00 Intake Total 240 ml 0 ml 360 ml 360 ml 100 ml Output Total 0 ml Balance 240 ml 0 ml 360 ml 360 ml 100 ml Intake Oral 240 ml 0 ml 360 ml 360 ml 100 ml Output Urine Total 0 ml # Voids 4 2 3 # Bowel Movements 2 2 Result Diagram: 02/10/17 0800 02/10/17 0800 Objective Remarks GENERAL: Well-developed, well-nourished, in no acute distress. alert and orientated HEENT: Head is normocephalic without any lesions or masses noted. Facial features are symmetric. Eyes: Extraocular muscles are intact. Conjunctivae were clear. NECK: Supple without any masses. Trachea midline no deviation. CARDIAC: Regular rhythm, regular rate. S1/S2 are heard. No murmurs gallops or rubs. LUNGS: Clear to auscultation bilaterally. No wheeze, rhonchi or rales. No use of accessory muscles on inspiration or expiration. ABDOMEN: Soft, nontender. Nondistended. Bowel sounds heard in all 4 quadrants. No organomegaly or masses. Negative rebound, negative guarding EXTREMITIES: No edema, pulses are equal bilaterally. No cyanosis or clubbing NEUROLOGY: Mood and affect appear appropriate. Cranial nerves II through XII grossly intact. Moving all extremities, speech is clear Procedures Lumbar puncture bone marrow biopsy Urinary Catheter: No Vascular Central Line Catheter: No A/P Assessment and Plan Generalized weakness: Patient did undergo MRI studies which does show L4 to L5 focal severe canal stenosis. Neurosurgery evaluated patient and indicates no surgical intervention at this time. Spinal tap was traumatic, negative for cryptococcus. Continue PT/OT evaluations. Physical therapy still recommending patient is required to go to SNF for further management Rehab medicine consulted for EMG/NCV- done 02/03. Patient is a high fall risk. She has poor insight into her condition. Mild parkinsonism was noted on exam, Neurology following the patient Patient continued on Sinemet Psychotic disorder with Encephalopathy- improving Psychiatry has evaluated the patient indicates that she does not have the capacity make her own decisions. Hyperammonemia: Resolved Continue lactulose twice daily. Continue monitor mental status MGUS: evaluated by hematology. Bone marrow biopsy performed . pathology with normocellular bone marrow. Hypokalemia, Hypo-magnesium: Resolved. potassium replacement to 20 ME daily. Continue monitor Mag-Ox 400 milligrams daily. Rhabdomyolysis: Resolved Thrombocytopenia and anemia. Stable. Likely secondary to chronic liver disease. No signs of bleeding. Hepatitis panel negative. DVT prophylaxis: Lovenox Discharge Planning Discharge planning per case management, physical therapy indicating that patient requires PT at rehabilitation or with home health care PT. Jacek Marquez Feb 13, 2017 11:19
[2017-02-13 20:00] VITALS: BP 135/91; PULSE 113; RESP 20; TEMP 97.5; O2SAT 96
[2017-02-13] MEDS: ENOXAPARIN SODIUM 40 MG/0.4 ML SYRINGE SQ SCH (20:24)
[2017-02-14] MEDS: CARBIDOPA/LEVODOPA 10 MG/100 MG TAB PO SCH ×3 (01:18→17:18)
[2017-02-14 08:00] VITALS: BP 115/81; PULSE 92; RESP 17; TEMP 98; O2SAT 95
[2017-02-14] MEDS: POTASSIUM CHLORIDE 20 MEQ CONTROLLED RELEASE TAB PO SCH (08:43)
[2017-02-14] MEDS: PANTOPRAZOLE SOD 40 MG DELAYED RELEASE TAB PO SCH (08:43)
[2017-02-14] MEDS: MAGNESIUM OXIDE 400 MG TAB PO SCH (08:43)
[2017-02-14] MEDS: LACTULOSE SYRUP 20 GM/30 ML CUP PO SCH ×2 (08:43→20:05)
[2017-02-14] MEDS: ACETAMINOPHEN 500 MG CPLT PO PRN (08:44)
--- NOTE | 2017-02-14 10:29 | HHI.PR ---
Subjective Remarks Patient seen and examined today. Patient has new complaints. No change clinical status. Objective Vitals Vital Signs Date Time Temp Pulse Resp B/P Pulse Ox O2 Delivery O2 Flow Rate FiO2 02/14/17 08:00 98.0 92 17 115/81 95 02/13/17 20:00 97.5 113 20 135/91 96 I/O 02/13/17 02/13/17 02/13/17 02/14/17 02/14/17 02/14/17 07:00 15:00 23:00 07:00 15:00 23:00 Intake Total 360 ml 720 ml 480 ml 720 ml Balance 360 ml 720 ml 480 ml 720 ml Intake Oral 360 ml 720 ml 480 ml 720 ml # Voids 3 3 2 8 # Bowel Movements 2 1 0 0 Result Diagram: 02/10/17 0800 02/10/17 0800 Objective Remarks GENERAL: Well-developed, well-nourished, in no acute distress. alert and orientated HEENT: Head is normocephalic without any lesions or masses noted. Facial features are symmetric. Eyes: Extraocular muscles are intact. Conjunctivae were clear. NECK: Supple without any masses. Trachea midline no deviation. CARDIAC: Regular rhythm, regular rate. S1/S2 are heard. No murmurs gallops or rubs. LUNGS: Clear to auscultation bilaterally. No wheeze, rhonchi or rales. No use of accessory muscles on inspiration or expiration. ABDOMEN: Soft, nontender. Nondistended. Bowel sounds heard in all 4 quadrants. No organomegaly or masses. Negative rebound, negative guarding EXTREMITIES: No edema, pulses are equal bilaterally. No cyanosis or clubbing NEUROLOGY: Mood and affect appear appropriate. Cranial nerves II through XII grossly intact. Moving all extremities, speech is clear Procedures Lumbar puncture bone marrow biopsy Urinary Catheter: No Vascular Central Line Catheter: No A/P Assessment and Plan Generalized weakness: Patient did undergo MRI studies which does show L4 to L5 focal severe canal stenosis. Neurosurgery evaluated patient and indicates no surgical intervention at this time. Spinal tap was traumatic, negative for cryptococcus. Continue PT/OT evaluations. Physical therapy still recommending patient to have PT rehabilitation versus home with home health PT and a protected assisted environment Rehab medicine consulted for EMG/NCV- done 02/03. Patient is a high fall risk. She has poor insight into her condition. Mild parkinsonism was noted on exam, Neurology following the patient Patient continued on Sinemet Psychotic disorder with Encephalopathy- improving Psychiatry has evaluated the patient indicates that she does not have the capacity make her own decisions. Hyperammonemia: Resolved Continue lactulose twice daily. Continue monitor mental status MGUS: evaluated by hematology. Bone marrow biopsy performed . pathology with normocellular bone marrow. Hypokalemia, Hypo-magnesium: Resolved. potassium replacement to 20 ME daily. Continue monitor Mag-Ox 400 milligrams daily. Rhabdomyolysis: Resolved Thrombocytopenia and anemia. Stable. Likely secondary to chronic liver disease. No signs of bleeding. Hepatitis panel negative. DVT prophylaxis: Lovenox Discharge Planning Discharge planning per case management, physical therapy indicating that patient requires PT at rehabilitation or with home health care PT. Jacek Marquez Feb 14, 2017 10:29
[2017-02-14 20:00] VITALS: BP 130/62; PULSE 101; RESP 16; TEMP 99.2; O2SAT 98
[2017-02-14] MEDS: ENOXAPARIN SODIUM 40 MG/0.4 ML SYRINGE SQ SCH (20:06)
[2017-02-15] MEDS: CARBIDOPA/LEVODOPA 10 MG/100 MG TAB PO SCH ×4 (00:25→23:45)
[2017-02-15 08:00] VITALS: BP 131/86; PULSE 92; RESP 18; TEMP 98.4; O2SAT 97
[2017-02-15 08:54] LABS: AUTOMATED NEUTROPHIL # 3.3 TH/MM3 (1.8-7.7); BASOPHIL % 0.6 % (0.0-2.0); EOSINOPHIL # 0.1 TH/MM3 (0-0.4); EOSINOPHIL % 2.7 % (0.0-4.0); HEMATOCRIT 31.5 % (35.0-46.0); LYMPHOCYTE # 1.2 TH/MM3 (1.0-4.8); MEAN CELL VOLUME 92.8 FL (80.0-100.0); MEAN CORPUSCULAR HEMOGLOBIN 30.9 PG (27.0-34.0); MEAN CORPUSCULAR HGB CONC 33.3 % (32.0-36.0); MONO % 10.1 % (0.0-8.0); NEUT % 62.6 % (16.0-70.0); PLATELET COUNT 204 TH/MM3 (150-450); RED CELL DISTRIBUTION WIDTH 15.5 % (11.6-17.2); WHITE BLOOD COUNT 5.1 TH/MM3 (4.0-11.0)
[2017-02-15 08:59] LABS: HEMO FLAGS DIFF FINAL
[2017-02-15 09:02] LABS: CHLORIDE 105 MEQ/L (98-107); POTASSIUM 3.6 MEQ/L (3.5-5.1); SODIUM (NA) 141 MEQ/L (136-145)
[2017-02-15 09:05] LABS: ANION GAP 11 MEQ/L (5-15); BICARBONATE 25.1 MEQ/L (21.0-32.0)
[2017-02-15 09:06] LABS: BLOOD UREA NITROGEN 11 MG/DL (7-18)
[2017-02-15 09:08] LABS: ALT (GPT) 20 U/L (10-53)
[2017-02-15 09:09] LABS: AST (GOT) 45 U/L (15-37); GLOMERULAR FILTRATION RATE 102 ML/MIN (>89)
[2017-02-15 09:10] LABS: TOTAL BILIRUBIN ADULT 0.7 MG/DL (0.2-1.0)
[2017-02-15 09:11] LABS: ALKALINE PHOSPHATASE 110 U/L (45-117)
--- NOTE | 2017-02-15 09:40 | HHI.PR ---
Subjective Remarks Patient seen and examined today. Patient sitting up comfortably in bed. She denies any weakness and does say she has been walking to and from the bathroom independently. She is very anxious to go home today and does not understand why she is still here. Objective Vitals Vital Signs Date Time Temp Pulse Resp B/P Pulse Ox O2 Delivery O2 Flow Rate FiO2 02/15/17 08:00 98.4 92 18 131/86 97 02/14/17 20:00 99.2 101 16 130/62 98 I/O 02/14/17 02/14/17 02/14/17 02/15/17 02/15/17 02/15/17 07:00 15:00 23:00 07:00 15:00 23:00 Intake Total 720 ml 600 ml 720 ml 480 ml 100 ml Balance 720 ml 600 ml 720 ml 480 ml 100 ml Intake Oral 720 ml 600 ml 720 ml 480 ml 100 ml # Voids 8 3 4 # Bowel Movements 0 0 3 0 Result Diagram: 02/15/1740 02/15/17 0840 Objective Remarks GENERAL: Well-developed, well-nourished, in no acute distress. alert and orientated HEENT: Head is normocephalic without any lesions or masses noted. Facial features are symmetric. Eyes: Extraocular muscles are intact. Conjunctivae were clear. NECK: Supple without any masses. Trachea midline no deviation. CARDIAC: Regular rhythm, regular rate. S1/S2 are heard. No murmurs gallops or rubs. LUNGS: Clear to auscultation bilaterally. No wheeze, rhonchi or rales. No use of accessory muscles on inspiration or expiration. ABDOMEN: Soft, nontender. Nondistended. Bowel sounds heard in all 4 quadrants. No organomegaly or masses. Negative rebound, negative guarding EXTREMITIES: No edema, pulses are equal bilaterally. No cyanosis or clubbing NEUROLOGY: Mood and affect appear appropriate. Cranial nerves II through XII grossly intact. Moving all extremities, speech is clear Procedures Lumbar puncture bone marrow biopsy Urinary Catheter: No Vascular Central Line Catheter: No A/P Assessment and Plan Generalized weakness: Patient did undergo MRI studies which does show L4 to L5 focal severe canal stenosis. Neurosurgery evaluated patient and indicates no surgical intervention at this time. Spinal tap was traumatic, negative for cryptococcus. Continue PT/OT evaluations. Physical therapy still recommending home with PT if can be arranged Rehab medicine consulted for EMG/NCV- done 02/03. Mild parkinsonism was noted on exam, Neurology following the patient Patient continued on Sinemet Psychotic disorder with Encephalopathy- improving Psychiatry has evaluated the patient indicates that she does not have the capacity make her own decisions. Hyperammonemia: Resolved Continue lactulose twice daily. Continue monitor mental status MGUS: evaluated by hematology. Bone marrow biopsy performed . pathology with normocellular bone marrow. Hypokalemia, Hypo-magnesium: Resolved. potassium replacement to 20 ME daily. Continue monitor Mag-Ox 400 milligrams daily. Rhabdomyolysis: Resolved Thrombocytopenia and anemia. Stable. Likely secondary to chronic liver disease. No signs of bleeding. Hepatitis panel negative. DVT prophylaxis: Lovenox Discharge Planning Discharge planning per case management, physical therapy indicating that patient requires PT at rehabilitation or with home health care PT. Jacek Marquez Feb 15, 2017 09:40 Jacek Marquez Feb 15, 2017 09:40
[2017-02-15] MEDS: LACTULOSE SYRUP 20 GM/30 ML CUP PO SCH ×2 (10:13→21:26)
[2017-02-15] MEDS: PANTOPRAZOLE SOD 40 MG DELAYED RELEASE TAB PO SCH (10:13)
[2017-02-15] MEDS: POTASSIUM CHLORIDE 20 MEQ CONTROLLED RELEASE TAB PO SCH (10:13)
[2017-02-15] MEDS: MAGNESIUM OXIDE 400 MG TAB PO SCH (10:13)
[2017-02-15] MEDS: ACETAMINOPHEN 500 MG CPLT PO PRN (12:52)
[2017-02-15 20:00] VITALS: BP 142/87; PULSE 97; RESP 20; TEMP 99.4; O2SAT 99
[2017-02-15] MEDS: ENOXAPARIN SODIUM 40 MG/0.4 ML SYRINGE SQ SCH (21:26)
[2017-02-16 08:00] VITALS: BP 136/84; PULSE 87; RESP 20; TEMP 99.1; O2SAT 97
[2017-02-16] MEDS: POTASSIUM CHLORIDE 20 MEQ CONTROLLED RELEASE TAB PO SCH (08:18)
[2017-02-16] MEDS: PANTOPRAZOLE SOD 40 MG DELAYED RELEASE TAB PO SCH (08:18)
[2017-02-16] MEDS: LACTULOSE SYRUP 20 GM/30 ML CUP PO SCH ×2 (08:18→20:45)
[2017-02-16] MEDS: CARBIDOPA/LEVODOPA 10 MG/100 MG TAB PO SCH ×2 (08:18→17:36)
[2017-02-16] MEDS: MAGNESIUM OXIDE 400 MG TAB PO SCH (08:18)
--- NOTE | 2017-02-16 08:59 | HHI.PYPN ---
Subjective Remarks Patient seen for psychiatric reevaluation today, previous documentation from Dr. Mcintosh and Dr. Wintesr, was reviewed, patient was found calm, cooperative and pleasant sitting in her room. Patient reports good mood, however "little bit sad because of being here for over a month and I want to go home and back to my life". Patient explains that she understand that she is here because she needs to be here and she will follow-up medical recommendations, but would love to go back home and if possible continuing medical care as an outpatient. Patient denies anhedonia, lack of motivation, hopelessness, helplessness, she denies suicidal and homicidal ideation. She is future oriented, with several identifiable protective factors. She describes herself as a happy person. At this moment patient denies visual and auditory hallucinations, no paranoia, delusions, no internal stimulation, no agitation or aggressive behavior is observed. Patient is fully oriented 3, with conserved recent and immediate recall, language, calculation, recognition, abstraction and executive function, measured by Mini-Mental state. Review of Systems Constitutional: DENIES: Diaphoretic episodes, Fatigue, Fever, Weight gain, Weight loss, Chills, Dizziness, Change in appetite, Night Sweats Endocrine: DENIES: Abnorml menstrual pattern, Heat/cold intolerance, Polydipsia , Polyuria, Polyphagia Eyes: DENIES: Blurred vision, Diplopia, Eye inflammation, Eye pain, Vision loss , Photosensitivity, Double Vision Ears, nose, mouth, throat: DENIES: Tinnitus, Hearing loss, Vertigo, Nasal discharge, Oral lesions, Throat pain, Hoarseness, Ear Pain, Running Nose, Epistaxis, Sinus Pain, Toothache, Odynophagia Respiratory: DENIES: Apneas, Cough, Snoring, Wheezing, Hemoptysis, Sputum production, Shortness of breath Cardiovascular: DENIES: Chest pain, Palpitations, Syncope, Dyspnea on Exertion , PND, Lower Extremity Edema, Orthopnea, Claudication Genitourinary: DENIES: Abnormal vaginal bleeding, Dysmenorrhea, Dyspareunia, Sexual dysfunction, Urinary frequency, Urinary incontinence, Urgency, Hematuria , Dysuria, Nocturia, Vaginal discharge Musculoskeletal: DENIES: Joint pain, Muscle aches, Stiffness, Joint Swelling, Back pain, Neck pain Integumentary: DENIES: Abnormal pigmentation, Pruritus, Rash, Nail changes, Breast masses, Breast skin changes, Nipple discharge Hematologic/lymphatic: DENIES: Bruising, Lymphadenopathy Immunologic/allergic: DENIES: Eczema, Urticaria Neurologic: DENIES: Abnormal gait, Headache, Localized weakness, Paresthesias, Seizures, Speech Problems, Tremor, Poor Balance Objective Alert: Yes [place]: Person, Place, Date, Situation Mood: Calm Affect: Euthymic Memory Intact: Immediate, Recent, Remote Hallucinations: Other (none) Delusions: Yes Delusion Type: Other Suicidal: Ideation (she denies) Homicidal: Ideation (she denies) Insight/Judgement Good Vitals/IOs Vital Signs Date Time Temp Pulse Resp B/P Pulse Ox O2 Delivery O2 Flow Rate FiO2 02/15/17 20:00 99.4 97 20 142/87 99 Intake and Output 02/15/17 02/15/17 02/16/17 08:00 16:00 00:00 Intake Total 580 ml 930 ml 810 ml Balance 580 ml 930 ml 810 ml Assessment & Plan Problem List: (1) Adjustment disorder with depressed mood Assessment & Plan: On psychiatric evaluation today patient is calm, cooperative and pleasant. Patient is logical, coherent, relevant in her conversation, she denies depressive symptoms, she denies anhedonia, she denies hopelessness, she denies helplessness, she denies poor appetite, she denies lack of energy, she denies suicidal or homicidal ideation. Patient denies visual and auditory hallucinations. Patient is fully oriented 3, no gross cognitive impairment observed, no major deficits in attention, recent and immediate recall, calculation, language, abstraction, executive function are present during this evaluation, MMS is 28/30, however further and deeper cognitive assessment would be necessary to rule out dementia. Patient is able to verbalize the reason of her hospitalization, a clear choice of continuing and following medical recommendations in inpatient if necessary, but preferably in outpatient basis. Patient clearly fair expressed understanding and appreciation of medical conditions and consequences of not following the recommendations. Based on this evaluation, there is no contraindication for the patient to make her how medical decision and to participate in discharge planning. Patient keeps her decision-making capacity to refuse treatment or signing AMA at this moment, if she chooses to. No psychiatric admission is necessary. Extensive support, motivation psycho education provided. ICD Code: F43.21 Assessment & Plan Estimated LOS: days Justification for Cont. Inpt. Patient does not meet criteria for psychiatric admission at this moment Hector Rangel MD Feb 16, 2017 08:59
--- NOTE | 2017-02-16 12:43 | HHI.PR ---
Subjective Remarks Follow-up for weakness, altered mental status. Patient denies feeling weak. She denies fevers or chills. She is wondering why she is still hospitalized. Objective Vitals Vital Signs Date Time Temp Pulse Resp B/P Pulse Ox O2 Delivery O2 Flow Rate FiO2 02/16/17 08:00 99.1 87 20 136/84 97 02/15/17 20:00 99.4 97 20 142/87 99 I/O 02/15/17 02/15/17 02/15/17 02/16/17 02/16/17 02/16/17 07:00 15:00 23:00 07:00 15:00 23:00 Intake Total 480 ml 1030 ml 810 ml 120 ml 100 ml Balance 480 ml 1030 ml 810 ml 120 ml 100 ml Intake Oral 480 ml 1030 ml 810 ml 120 ml 100 ml # Voids 3 3 1 # Bowel Movements 0 1 0 Result Diagram: 02/15/17 0840 02/15/17 0840 Objective Remarks GENERAL: Well-nourished, well-developed patient in apparent distress. SKIN: Warm and dry. HEAD: Atraumatic. Normocephalic. CARDIOVASCULAR: Tachycardic rate and regular rhythm. RESPIRATORY: No accessory muscle use. Clear to auscultation. Breath sounds equal bilaterally. GASTROINTESTINAL: Abdomen soft, non-tender, nondistended. NEUROLOGICAL: Awake, alert, and fully oriented. Motor grossly within normal limits. Five out of 5 muscle strength B/L arms and legs. Normal speech. PSYCHIATRIC: Appropriate mood and affect. Procedures Lumbar puncture bone marrow biopsy Urinary Catheter: No Vascular Central Line Catheter: No A/P Problem List: (1) Weakness ICD Code: R53.1 Status: Resolved (2) Rhabdomyolysis ICD Code: M62.82 Status: Resolved (3) UTI (urinary tract infection) ICD Code: N39.0 Status: Resolved (4) Hypokalemia ICD Code: E87.6 Status: Resolved Assessment and Plan Generalized weakness: Patient did undergo MRI studies which does show L4 to L5 focal severe canal stenosis. Neurosurgery evaluated patient and indicates no surgical intervention at this time. Spinal tap was traumatic, negative for cryptococcus. Continue PT/OT Mild parkinsonism: Neurology following the patient Patient continued on Sinemet Psychotic disorder with Encephalopathy/Adjustment d/o with depressed mood- improving Per psychiatry on 02/16 patient is able to make her own medical decisions. Cognitive eval by ST normal Hyperammonemia: Ammonia again elevated at 89 on 02/15. Continue lactulose twice daily. Recheck ammonia level in a few days Continue to monitor mental status MGUS: evaluated by hematology. Bone marrow biopsy performed. Pathology with normocellular bone marrow. Hypokalemia, Hypo-magnesium: Resolved. Potassium replacement 20 mEq daily. Mag-Ox 400 milligrams daily. Continue to monitor Rhabdomyolysis: Resolved Thrombocytopenia and anemia. Stable. Likely secondary to chronic liver disease. No signs of bleeding. Hepatitis panel negative. DVT prophylaxis: Lovenox Discharge Planning Physical therapy still recommending home with PT if can be arranged; patient walking 450 feet with walker, SBA with fair balance; I spoke with PT who still expresses concern about patient returning home and living alone. I spoke with DONAL Atwood who states patient has a home, electricity is on; he has spoken [place] patient[place], but he is not coming down as of now. Need to recheck ammonia level in a few days and will re-discuss with PT regarding discharge home. Torie Jones Feb 16, 2017 12:43 Penny Hylton MD Feb 16, 2017 16:50
[2017-02-16] MEDS: ACETAMINOPHEN 500 MG CPLT PO PRN (18:25)
[2017-02-16 20:00] VITALS: BP 133/86; PULSE 100; RESP 20; TEMP 99.9; O2SAT 100
[2017-02-16] MEDS: ENOXAPARIN SODIUM 40 MG/0.4 ML SYRINGE SQ SCH (20:45)
[2017-02-17] MEDS: CARBIDOPA/LEVODOPA 10 MG/100 MG TAB PO SCH ×3 (00:44→17:58)
[2017-02-17 07:15] VITALS: BP 126/74; PULSE 97; RESP 20; TEMP 98.3; O2SAT 100
[2017-02-17] MEDS: LACTULOSE SYRUP 20 GM/30 ML CUP PO SCH ×2 (09:01→20:44)
[2017-02-17] MEDS: PANTOPRAZOLE SOD 40 MG DELAYED RELEASE TAB PO SCH (09:01)
[2017-02-17] MEDS: MAGNESIUM OXIDE 400 MG TAB PO SCH (09:01)
[2017-02-17] MEDS: POTASSIUM CHLORIDE 20 MEQ CONTROLLED RELEASE TAB PO SCH (09:01)
--- NOTE | 2017-02-17 11:38 | HHI.PR ---
Subjective Remarks Follow-up for weakness, altered mental status. Patient was informed that her ammonia level is still elevated. She is somehow unaware that she has liver disease even though she was evaluated for this even back in 2012. Objective Vitals Vital Signs Date Time Temp Pulse Resp B/P Pulse Ox O2 Delivery O2 Flow Rate FiO2 02/16/17 20:00 99.9 100 20 133/86 100 02/16/17 19:25 16 I/O 02/16/17 02/16/17 02/16/17 02/17/17 02/17/17 02/17/17 07:00 15:00 23:00 07:00 15:00 23:00 Intake Total 120 ml 760 ml 1110 ml 240 ml Balance 120 ml 760 ml 1110 ml 240 ml Intake Oral 120 ml 760 ml 1110 ml 240 ml # Voids 1 3 3 2 # Bowel Movements 0 2 1 Result Diagram: 02/15/17 0840 02/15/17 0840 Objective Remarks GENERAL: Well-nourished, well-developed patient in apparent distress. SKIN: Warm and dry. HEAD: Atraumatic. Normocephalic. CARDIOVASCULAR: Regular rate and rhythm. RESPIRATORY: No accessory muscle use. Clear to auscultation. Breath sounds equal bilaterally. GASTROINTESTINAL: Abdomen soft, non-tender, nondistended. NEUROLOGICAL: Awake, alert, and fully oriented. Motor grossly within normal limits. Normal speech. PSYCHIATRIC: Tearful when talking about wanting to go home. Procedures Lumbar puncture bone marrow biopsy Urinary Catheter: No Vascular Central Line Catheter: No A/P Problem List: (1) Weakness ICD Code: R53.1 Status: Resolved (2) Rhabdomyolysis ICD Code: M62.82 Status: Resolved (3) UTI (urinary tract infection) ICD Code: N39.0 Status: Resolved (4) Hypokalemia ICD Code: E87.6 Status: Resolved Assessment and Plan Generalized weakness: Patient did undergo MRI studies which does show L4 to L5 focal severe canal stenosis. Neurosurgery evaluated patient and indicates no surgical intervention at this time. Spinal tap was traumatic, negative for cryptococcus. Continue PT/OT Mild parkinsonism: Neurology following the patient Patient continued on Sinemet Psychotic disorder with Encephalopathy/Adjustment d/o with depressed mood- improving Per psychiatry on 02/16 patient is able to make her own medical decisions. Cognitive eval by ST normal Hyperammonemia: Ammonia again elevated at 89 on 02/15. Continue lactulose twice daily. Recheck ammonia level tomorrow. Continue to monitor mental status MGUS: evaluated by hematology. Bone marrow biopsy performed. Pathology with normocellular bone marrow. Hypokalemia, Hypo-magnesium: Resolved. Potassium replacement 20 mEq daily. Mag-Ox 400 milligrams daily. Continue to monitor Rhabdomyolysis: Resolved Thrombocytopenia and anemia. Stable. Likely secondary to chronic liver disease. No signs of bleeding. Hepatitis panel negative. DVT prophylaxis: Lovenox Discharge Planning Physical therapy still recommending home with PT if can be arranged; I spoke with PT who still expresses concern about patient returning home and living alone. I spoke with DONAL Atwood who states patient has a home, electricity is on; he has spoken with patient[place], but he is not coming down as of now. Need to recheck ammonia level tomorrow and will re-discuss with PT regarding discharge home. Torie Jones Feb 17, 2017 11:38
[2017-02-17 20:00] VITALS: BP 123/84; PULSE 94; RESP 19; TEMP 97; O2SAT 97
[2017-02-17] MEDS: ENOXAPARIN SODIUM 40 MG/0.4 ML SYRINGE SQ SCH (20:45)
[2017-02-18] MEDS: CARBIDOPA/LEVODOPA 10 MG/100 MG TAB PO SCH ×3 (00:56→17:54)
[2017-02-18 08:00] VITALS: BP 118/84; PULSE 102; RESP 17; TEMP 95.9; O2SAT 98
--- NOTE | 2017-02-18 09:38 | HHI.PR ---
Subjective Remarks Follow-up for weakness, altered mental status. Patient's ammonia level has increased. She has no acute complaints this morning. Objective Vitals Vital Signs Date Time Temp Pulse Resp B/P Pulse Ox O2 Delivery O2 Flow Rate FiO2 02/18/17 08:00 95.9 102 17 118/84 98 02/17/17 20:00 97.0 94 19 123/84 97 I/O 02/17/17 02/17/17 02/17/17 02/18/17 02/18/17 02/18/17 07:00 15:00 23:00 07:00 15:00 23:00 Intake Total 240 ml 900 ml 240 ml 360 ml Balance 240 ml 900 ml 240 ml 360 ml Intake Oral 240 ml 900 ml 240 ml 360 ml # Voids 2 5 2 3 # Bowel Movements 1 1 1 Result Diagram: 02/15/17 0840 02/15/17 0840 Objective Remarks GENERAL: Well-nourished, well-developed patient in apparent distress. SKIN: Warm and dry. HEAD: Atraumatic. Normocephalic. CARDIOVASCULAR: Regular rate and rhythm. RESPIRATORY: No accessory muscle use. Clear to auscultation. Breath sounds equal bilaterally. GASTROINTESTINAL: Abdomen soft, non-tender, nondistended. NEUROLOGICAL: Awake, alert, and fully oriented. Motor grossly within normal limits. Normal speech. PSYCHIATRIC: Appropriate mood and affect. Procedures Lumbar puncture bone marrow biopsy Urinary Catheter: No Vascular Central Line Catheter: No A/P Problem List: (1) Weakness ICD Code: R53.1 Status: Resolved (2) Rhabdomyolysis ICD Code: M62.82 Status: Resolved (3) UTI (urinary tract infection) ICD Code: N39.0 Status: Resolved (4) Hypokalemia ICD Code: E87.6 Status: Resolved Assessment and Plan Generalized weakness: Patient did undergo MRI studies which does show L4 to L5 focal severe canal stenosis. Neurosurgery evaluated patient and indicates no surgical intervention at this time. Spinal tap was traumatic, negative for cryptococcus. Continue PT/OT Mild parkinsonism: Neurology following the patient Patient continued on Sinemet Psychotic disorder with Encephalopathy/Adjustment d/o with depressed mood- improving Per psychiatry on 02/16 patient is able to make her own medical decisions. Cognitive eval by ST normal Hyperammonemia: Ammonia again elevated at 89 on 02/15-->increased to 137 today Increase lactulose to 4 times daily. Continue to monitor mental status. Patient does not appear encephalopathic at this time. Discussed with Dr. Guadalupe, will monitor clinically. MGUS: evaluated by hematology. Bone marrow biopsy performed. Pathology with normocellular bone marrow. Hypokalemia, Hypo-magnesium: Resolved. Potassium replacement 20 mEq daily. Mag-Ox 400 milligrams daily. Continue to monitor Rhabdomyolysis: Resolved Thrombocytopenia and anemia. Stable. Likely secondary to chronic liver disease. No signs of bleeding. Hepatitis panel negative. DVT prophylaxis: Lovenox Discharge Planning Physical therapy still recommending home with PT if can be arranged; I spoke with PT who still expresses concern about patient returning home and living alone. I spoke with DONAL Atwood who states patient has a home, electricity is on; he has spoken [place] patient[place], but he is not coming down as of now. Will need to stabilize ammonia level prior to discharge. Torie Jones Feb 18, 2017 09:38
[2017-02-18] MEDS: PANTOPRAZOLE SOD 40 MG DELAYED RELEASE TAB PO SCH (09:55)
[2017-02-18] MEDS: POTASSIUM CHLORIDE 20 MEQ CONTROLLED RELEASE TAB PO SCH (09:55)
[2017-02-18] MEDS: MAGNESIUM OXIDE 400 MG TAB PO SCH (09:56)
[2017-02-18] MEDS: LACTULOSE SYRUP 20 GM/30 ML CUP PO SCH ×4 (09:56→21:08)
[2017-02-18 20:00] VITALS: BP 123/80; PULSE 102; RESP 16; TEMP 96.5; O2SAT 96
[2017-02-18] MEDS: ENOXAPARIN SODIUM 40 MG/0.4 ML SYRINGE SQ SCH (21:08)
[2017-02-18] MEDS: ACETAMINOPHEN 500 MG CPLT PO PRN (21:13)
[2017-02-19] MEDS: CARBIDOPA/LEVODOPA 10 MG/100 MG TAB PO SCH ×3 (01:16→17:11)
[2017-02-19 08:00] VITALS: BP 134/81; PULSE 97; RESP 18; TEMP 97.9; O2SAT 98
[2017-02-19] MEDS: POTASSIUM CHLORIDE 20 MEQ CONTROLLED RELEASE TAB PO SCH (08:07)
[2017-02-19] MEDS: MAGNESIUM OXIDE 400 MG TAB PO SCH (08:07)
[2017-02-19] MEDS: LACTULOSE SYRUP 20 GM/30 ML CUP PO SCH ×4 (08:07→20:21)
[2017-02-19] MEDS: PANTOPRAZOLE SOD 40 MG DELAYED RELEASE TAB PO SCH (08:07)
--- NOTE | 2017-02-19 10:45 | HHI.PR ---
Subjective Remarks Follow-up for weakness, hyperammonemia. No acute complaints. Objective Vitals Vital Signs Date Time Temp Pulse Resp B/P Pulse Ox O2 Delivery O2 Flow Rate FiO2 02/19/17 08:00 97.9 97 18 134/81 98 02/18/17 20:00 96.5 102 16 123/80 96 I/O 02/18/17 02/18/17 02/18/17 02/19/17 02/19/17 02/19/17 07:00 15:00 23:00 07:00 15:00 23:00 Intake Total 360 ml 240 ml 480 ml 240 ml Balance 360 ml 240 ml 480 ml 240 ml Intake Oral 360 ml 240 ml 480 ml 240 ml # Voids 3 1 3 2 # Bowel Movements 1 0 0 Result Diagram: 02/15/17 0840 02/15/17 0840 Objective Remarks GENERAL: Well-nourished, well-developed patient in apparent distress. SKIN: Warm and dry. HEAD: Atraumatic. Normocephalic. CARDIOVASCULAR: Regular rate and rhythm. RESPIRATORY: No accessory muscle use. Clear to auscultation. Breath sounds equal bilaterally. GASTROINTESTINAL: Abdomen soft, non-tender, nondistended. NEUROLOGICAL: Awake and alert. Motor grossly within normal limits. Normal speech. PSYCHIATRIC: Appropriate mood and affect. Procedures Lumbar puncture bone marrow biopsy Urinary Catheter: No Vascular Central Line Catheter: No A/P Problem List: (1) Weakness ICD Code: R53.1 Status: Resolved (2) Rhabdomyolysis ICD Code: M62.82 Status: Resolved (3) UTI (urinary tract infection) ICD Code: N39.0 Status: Resolved (4) Hypokalemia ICD Code: E87.6 Status: Resolved Assessment and Plan Generalized weakness: Patient did undergo MRI studies which does show L4 to L5 focal severe canal stenosis. Neurosurgery evaluated patient and indicates no surgical intervention at this time. Spinal tap was traumatic, negative for cryptococcus. Continue PT/OT Mild parkinsonism: Neurology following the patient Patient continued on Sinemet Psychotic disorder with Encephalopathy/Adjustment d/o with depressed mood- improving Per psychiatry on 02/16 patient is able to make her own medical decisions. Cognitive eval by ST normal Hyperammonemia: Ammonia again elevated at 89 on 02/15-->increased to 137 on . Continue lactulose to 4 times daily. Continue to monitor mental status. Patient does not appear encephalopathic at this time. Discussed with Dr. Guadalupe, will monitor clinically. Do not repeat ammonia level unless mental status declines. MGUS: evaluated by hematology. Bone marrow biopsy performed. Pathology with normocellular bone marrow. Hypokalemia, Hypo-magnesemia: Resolved. Potassium replacement 20 mEq daily. Mag-Ox 400 milligrams daily. Continue to monitor Rhabdomyolysis: Resolved Thrombocytopenia and anemia. Stable. Likely secondary to chronic liver disease. No signs of bleeding. Hepatitis panel negative. DVT prophylaxis: Lovenox Discharge Planning I spoke with DONAL Atwood who states patient has a home, electricity is on; he has spoken with patient's boyfriend [place], but he is not coming down as of now. Physical therapy recommends rehab vs HHC, wheeled walker; I spoke with PT the other day who still expresses concern about patient returning home and living alone. Will re-discuss with PT and hopefully discharge patient soon. Torie Jones Feb 19, 2017 10:45
[2017-02-19 20:00] VITALS: BP 116/80; PULSE 110; RESP 20; TEMP 99.5; O2SAT 98
[2017-02-19] MEDS: ENOXAPARIN SODIUM 40 MG/0.4 ML SYRINGE SQ SCH (20:22)
[2017-02-20] MEDS: CARBIDOPA/LEVODOPA 10 MG/100 MG TAB PO SCH ×3 (01:34→17:27)
[2017-02-20] MEDS: ACETAMINOPHEN 500 MG CPLT PO PRN (01:37)
[2017-02-20 08:00] VITALS: BP 102/72; PULSE 107; RESP 16; TEMP 98.7; O2SAT 95
[2017-02-20] MEDS: LACTULOSE SYRUP 20 GM/30 ML CUP PO SCH ×4 (08:37→21:40)
[2017-02-20] MEDS: POTASSIUM CHLORIDE 20 MEQ CONTROLLED RELEASE TAB PO SCH (08:37)
[2017-02-20] MEDS: MAGNESIUM OXIDE 400 MG TAB PO SCH (08:37)
[2017-02-20] MEDS: PANTOPRAZOLE SOD 40 MG DELAYED RELEASE TAB PO SCH (08:37)
--- NOTE | 2017-02-20 12:22 | HHI.PR ---
Subjective Remarks Follow-up for weakness, hyperammonemia. No acute complaints. Patient desires to go home. Objective Vitals Vital Signs Date Time Temp Pulse Resp B/P Pulse Ox O2 Delivery O2 Flow Rate FiO2 02/20/17 08:00 98.7 107 16 102/72 95 02/19/17 20:00 99.5 110 20 116/80 98 I/O 02/19/17 02/19/17 02/19/17 02/20/17 02/20/17 02/20/17 07:00 15:00 23:00 07:00 15:00 23:00 Intake Total 240 ml 240 ml 600 ml 480 ml 100 ml Balance 240 ml 240 ml 600 ml 480 ml 100 ml Intake Oral 240 ml 240 ml 600 ml 480 ml 100 ml # Voids 2 3 3 # Bowel Movements 0 0 1 1 Objective Remarks GENERAL: Well-nourished, well-developed patient in apparent distress sleeping when I enter the room. SKIN: Warm and dry. HEAD: Atraumatic. Normocephalic. CARDIOVASCULAR: Regular rate and rhythm. RESPIRATORY: No accessory muscle use. Clear to auscultation. Breath sounds equal bilaterally. GASTROINTESTINAL: Abdomen soft, non-tender, nondistended. NEUROLOGICAL: Awake and alert. Fully oriented. Motor grossly within normal limits. Normal speech. 5/5 strength in bilateral upper and lower extremities. PSYCHIATRIC: Appropriate mood and affect. Procedures Lumbar puncture bone marrow biopsy Urinary Catheter: No Vascular Central Line Catheter: No A/P Problem List: (1) Weakness ICD Code: R53.1 Status: Resolved (2) Rhabdomyolysis ICD Code: M62.82 Status: Resolved (3) UTI (urinary tract infection) ICD Code: N39.0 Status: Resolved (4) Hypokalemia ICD Code: E87.6 Status: Resolved Assessment and Plan Generalized weakness: Patient did undergo MRI studies which does show L4 to L5 focal severe canal stenosis. Neurosurgery evaluated patient and indicates no surgical intervention at this time. Spinal tap was traumatic, negative for cryptococcus. Continue PT/OT; has normal strength on exam. Mild parkinsonism: Neurology following the patient Patient continued on Sinemet Psychotic disorder with Encephalopathy/Adjustment d/o with depressed mood- Improved Per psychiatry on 02/16 patient is able to make her own medical decisions. Cognitive eval by ST normal Hyperammonemia: Ammonia again elevated at 89 on 02/15-->increased to 137 on . Continue lactulose 4 times daily. Continue to monitor mental status. Patient does not appear encephalopathic at this time. Discussed with Dr. Guadalupe, will monitor clinically. Do not repeat ammonia level unless mental status declines. MGUS: evaluated by hematology. Bone marrow biopsy performed. Pathology with normocellular bone marrow. Hypokalemia, Hypo-magnesemia: Resolved. Potassium replacement 20 mEq daily. Mag-Ox 400 milligrams daily. Continue to monitor Rhabdomyolysis: Resolved Thrombocytopenia and anemia. Stable. Likely secondary to chronic liver disease. No signs of bleeding. Hepatitis panel negative. DVT prophylaxis: Lovenox Discharge Planning Physical therapy recommends rehab vs HHC, wheeled walker; I spoke with PT the other day who still expressed concern about patient returning home and living alone. 02/20/17: The patient tells me that she desires to go home. PT documented she is walking 525' with walker and fair balance as of yesterday. I spoke with the field nurse case manager, Gloria, who reviewed the patient's case and tried contacting her mobile home park to see if her mobile home still available, but the office was unavailable as it is the weekend. DONAL Atwood told me previously that the patient has a home and electricity is on; he had spoken with patient's boyfriend who [place], but he is not coming down as of now. Patient also has no insurance and will need primary care follow-up and blue card which cannot be done on the weekend per CM. CM to follow. Hopefully can discharge on Mon; will try to get HHC arranged if possible. Torie Jones Feb 20, 2017 12:22
[2017-02-20 20:00] VITALS: BP 118/82; PULSE 102; RESP 20; TEMP 98.7; O2SAT 98
[2017-02-20] MEDS: ENOXAPARIN SODIUM 40 MG/0.4 ML SYRINGE SQ SCH (21:40)
[2017-02-21] MEDS: CARBIDOPA/LEVODOPA 10 MG/100 MG TAB PO SCH ×3 (01:02→16:44)
[2017-02-21] MEDS: PANTOPRAZOLE SOD 40 MG DELAYED RELEASE TAB PO SCH (07:58)
[2017-02-21] MEDS: POTASSIUM CHLORIDE 20 MEQ CONTROLLED RELEASE TAB PO SCH (07:58)
[2017-02-21] MEDS: LACTULOSE SYRUP 20 GM/30 ML CUP PO SCH ×4 (07:58→21:56)
[2017-02-21] MEDS: MAGNESIUM OXIDE 400 MG TAB PO SCH (07:58)
[2017-02-21 08:00] VITALS: BP 108/71; PULSE 102; RESP 18; TEMP 98.8; O2SAT 97
--- NOTE | 2017-02-21 10:03 | HHI.PR ---
Subjective Remarks Follow-up for weakness, liver disease/hyperammonemia. No acute complaints. Objective Vitals Vital Signs Date Time Temp Pulse Resp B/P Pulse Ox O2 Delivery O2 Flow Rate FiO2 02/21/17 08:00 98.8 102 18 108/71 97 02/20/17 20:00 98.7 102 20 118/82 98 I/O 02/20/17 02/20/17 02/20/17 02/21/17 02/21/17 02/21/17 07:00 15:00 23:00 07:00 15:00 23:00 Intake Total 480 ml 100 ml 480 ml 360 ml 100 ml Balance 480 ml 100 ml 480 ml 360 ml 100 ml Intake Oral 480 ml 100 ml 480 ml 360 ml 100 ml # Voids 3 3 2 # Bowel Movements 1 1 0 Objective Remarks GENERAL: Well-nourished, well-developed patient in apparent distress sleeping when I enter the room. SKIN: Warm and dry. HEAD: Atraumatic. Normocephalic. CARDIOVASCULAR: Regular rate and rhythm. RESPIRATORY: No accessory muscle use. Diminished but clear to auscultation. Breath sounds equal bilaterally. GASTROINTESTINAL: Normoactive bowel sounds. Abdomen soft, non-tender, nondistended. No hepatomegaly. NEUROLOGICAL: Awake and alert. Motor grossly within normal limits. Normal speech. PSYCHIATRIC: Appropriate mood and affect. Procedures Lumbar puncture bone marrow biopsy Urinary Catheter: No Vascular Central Line Catheter: No A/P Problem List: (1) Weakness ICD Code: R53.1 Status: Resolved (2) Rhabdomyolysis ICD Code: M62.82 Status: Resolved (3) UTI (urinary tract infection) ICD Code: N39.0 Status: Resolved (4) Hypokalemia ICD Code: E87.6 Status: Resolved Assessment and Plan Generalized weakness: Patient did undergo MRI studies which does show L4 to L5 focal severe canal stenosis. Neurosurgery evaluated patient and indicates no surgical intervention at this time. Spinal tap was traumatic, negative for cryptococcus. Continue PT/OT; has normal strength on exam. Mild parkinsonism: Neurology following the patient Patient continued on Sinemet Psychotic disorder with Encephalopathy/Adjustment d/o with depressed mood- Improved Per psychiatry on 02/16 patient is able to make her own medical decisions. Cognitive eval by ST normal Hyperammonemia: Ammonia again elevated at 89 on 02/15-->increased to 137 on . Continue lactulose 4 times daily. Continue to monitor mental status. Patient does not appear encephalopathic at this time. Discussed with Dr. Guadalupe, will monitor clinically. Do not repeat ammonia level unless mental status declines. MGUS: evaluated by hematology. Bone marrow biopsy performed. Pathology with normocellular bone marrow. Hypokalemia, Hypo-magnesemia: Resolved. Potassium replacement 20 mEq daily. Mag-Ox 400 milligrams daily. Continue to monitor Rhabdomyolysis: Resolved Thrombocytopenia and anemia. Stable. Likely secondary to chronic liver disease. No signs of bleeding. Hepatitis panel negative. DVT prophylaxis: Lovenox Discharge Planning Physical therapy recommends rehab vs HHC, wheeled walker; I spoke with PT the other day who still expressed concern about patient returning home and living alone. 02/20/17: The patient tells me that she desires to go home. PT documented she is walking 525' with walker and fair balance as of yesterday. I spoke with the case management assistant, Gloria, who reviewed the patient's case and tried contacting her mobile home park to see if her mobile home still available, but the office was unavailable as it is the weekend. DONAL Atwood told me previously that the patient has a home and electricity is on; he had spoken with patient's boyfriend who [place], but he is not coming down as of now. Patient also has no insurance and will need primary care follow-up and blue card which cannot be done on the weekend per CM. CM to follow; will try to get HHC arranged if possible. Hopefully can discharge on Wed. Torie Jones Feb 21, 2017 10:03
[2017-02-21 20:00] VITALS: BP 101/71; PULSE 102; RESP 20; TEMP 98.8; O2SAT 98
[2017-02-21] MEDS: ENOXAPARIN SODIUM 40 MG/0.4 ML SYRINGE SQ SCH (21:56)
[2017-02-22] MEDS: CARBIDOPA/LEVODOPA 10 MG/100 MG TAB PO SCH ×3 (01:08→17:31)
[2017-02-22 08:00] VITALS: BP 107/78; PULSE 106; RESP 17; TEMP 98.7; O2SAT 97
[2017-02-22] MEDS: MAGNESIUM OXIDE 400 MG TAB PO SCH (08:39)
[2017-02-22] MEDS: POTASSIUM CHLORIDE 20 MEQ CONTROLLED RELEASE TAB PO SCH (08:39)
[2017-02-22] MEDS: PANTOPRAZOLE SOD 40 MG DELAYED RELEASE TAB PO SCH (08:39)
[2017-02-22] MEDS: LACTULOSE SYRUP 20 GM/30 ML CUP PO SCH ×2 (08:39→21:36)
--- NOTE | 2017-02-22 11:40 | HHI.PR ---
Subjective Remarks Patient seen and examined today. Patient very eager to go home. However, patient does have metabolic encephalopathy secondary to hyperammonemia. Patient was increased on her lactulose to 4 times daily with significant worsening of diarrhea and bowel movements. Objective Vitals Vital Signs Date Time Temp Pulse Resp B/P Pulse Ox O2 Delivery O2 Flow Rate FiO2 02/22/17 08:00 98.7 106 17 107/78 97 02/21/17 20:00 98.8 102 20 101/71 98 I/O 02/21/17 02/21/17 02/21/17 02/22/17 02/22/17 02/22/17 07:00 15:00 23:00 07:00 15:00 23:00 Intake Total 360 ml 100 ml 480 ml 360 ml Balance 360 ml 100 ml 480 ml 360 ml Intake Oral 360 ml 100 ml 480 ml 360 ml # Voids 2 3 3 # Bowel Movements 4 1 Objective Remarks GENERAL: Well-developed, well-nourished, in no acute distress. alert and orientated HEENT: Head is normocephalic without any lesions or masses noted. Facial features are symmetric. Eyes: Extraocular muscles are intact. Conjunctivae were clear. NECK: Supple without any masses. Trachea midline no deviation. CARDIAC: Regular rhythm, regular rate. S1/S2 are heard. No murmurs gallops or rubs. LUNGS: Clear to auscultation bilaterally. No wheeze, rhonchi or rales. No use of accessory muscles on inspiration or expiration. ABDOMEN: Soft, nontender. Nondistended. Bowel sounds heard in all 4 quadrants. No organomegaly or masses. Negative rebound, negative guarding EXTREMITIES: No edema, pulses are equal bilaterally. No cyanosis or clubbing NEUROLOGY: Mood and affect appear appropriate. Cranial nerves II through XII grossly intact. Moving all extremities, speech is clear Procedures Lumbar puncture bone marrow biopsy Urinary Catheter: No Vascular Central Line Catheter: No A/P Assessment and Plan Generalized weakness: Patient did undergo MRI studies which does show L4 to L5 focal severe canal stenosis. Neurosurgery evaluated patient and indicates no surgical intervention at this time. Spinal tap was traumatic, negative for cryptococcus. Continue PT/OT evaluations. Physical therapy recommending home with PT if can be arranged Rehab medicine consulted for EMG/NCV- done 02/03. Mild parkinsonism was noted on exam, Neurology following the patient Patient continued on Sinemet Psychotic disorder with Encephalopathy- improving Psychiatry has evaluated the patient indicates that she does not have the capacity make her own decisions. Hyperammonemia: Resolved Continue lactulose 4 times daily. However patient has had increase in bowel movements with increase of lactulose, decreased to lactulose twice daily Start rifaximin 550 mg twice daily, Continue monitor mental status MGUS: evaluated by hematology. Bone marrow biopsy performed . pathology with normocellular bone marrow. Hypokalemia, Hypo-magnesium: Resolved. potassium replacement to 20 ME daily. Continue monitor Mag-Ox 400 milligrams daily. Rhabdomyolysis: Resolved Thrombocytopenia and anemia. Stable. Likely secondary to chronic liver disease. No signs of bleeding. Hepatitis panel negative. DVT prophylaxis: Lovenox Discharge Planning Discharge planning per case management, physical therapy indicating that patient requires PT at rehabilitation or with home health care PT. Jacek Marquez Feb 22, 2017 11:40
[2017-02-22] MEDS: RIFAXIMIN 550 MG TAB PO SCH ×2 (13:39→21:36)
[2017-02-22 17:14] LABS: POTASSIUM 4.5 MEQ/L (3.5-5.1)
[2017-02-22 17:17] LABS: BICARBONATE 26.4 MEQ/L (21.0-32.0)
[2017-02-22 20:00] VITALS: BP 115/81; PULSE 101; RESP 20; TEMP 99.2; O2SAT 98
[2017-02-22] MEDS: ENOXAPARIN SODIUM 40 MG/0.4 ML SYRINGE SQ SCH (21:36)
[2017-02-23] MEDS: CARBIDOPA/LEVODOPA 10 MG/100 MG TAB PO SCH ×3 (01:06→17:01)
[2017-02-23 05:22] LABS: POTASSIUM 4.2 MEQ/L (3.5-5.1)
[2017-02-23 05:26] LABS: AUTOMATED NEUTROPHIL # 2.8 TH/MM3 (1.8-7.7); BASOPHIL % 0.4 % (0.0-2.0); EOSINOPHIL # 0.2 TH/MM3 (0-0.4); EOSINOPHIL % 3.8 % (0.0-4.0); HEMATOCRIT 28.3 % (35.0-46.0); HEMO FLAGS DIFF FINAL; LYMPH % 31.7 % (9.0-44.0); LYMPHOCYTE # 1.7 TH/MM3 (1.0-4.8); MEAN CELL VOLUME 90.8 FL (80.0-100.0); MEAN CORPUSCULAR HEMOGLOBIN 30.5 PG (27.0-34.0); MEAN CORPUSCULAR HGB CONC 33.6 % (32.0-36.0); MONO % 12.3 % (0.0-8.0); NEUT % 51.8 % (16.0-70.0); PLATELET COUNT 199 TH/MM3 (150-450); RED BLOOD COUNT 3.12 MIL/MM3 (4.00-5.30); RED CELL DISTRIBUTION WIDTH 14.5 % (11.6-17.2); WHITE BLOOD COUNT 5.3 TH/MM3 (4.0-11.0)
[2017-02-23 05:27] LABS: MAGNESIUM 1.6 MG/DL (1.5-2.5)
[2017-02-23 08:00] VITALS: BP 103/69; PULSE 100; RESP 17; TEMP 97.8; O2SAT 96
[2017-02-23] MEDS: POTASSIUM CHLORIDE 20 MEQ CONTROLLED RELEASE TAB PO SCH (08:16)
[2017-02-23] MEDS: RIFAXIMIN 550 MG TAB PO SCH ×2 (08:16→21:04)
[2017-02-23] MEDS: PANTOPRAZOLE SOD 40 MG DELAYED RELEASE TAB PO SCH (08:16)
[2017-02-23] MEDS: MAGNESIUM OXIDE 400 MG TAB PO SCH (08:16)
[2017-02-23] MEDS: LACTULOSE SYRUP 20 GM/30 ML CUP PO SCH ×2 (08:16→21:05)
--- NOTE | 2017-02-23 09:45 | HHI.PR ---
Subjective Remarks Patient's examined today. Patient states that she is still having increased bowel movements but less quantity since decreasing the lactulose dose. Objective Vitals Vital Signs Date Time Temp Pulse Resp B/P Pulse Ox O2 Delivery O2 Flow Rate FiO2 02/23/17 08:00 97.8 100 17 103/69 96 02/22/17 20:00 99.2 101 20 115/81 98 I/O 02/22/17 02/22/17 02/22/17 02/23/17 02/23/17 02/23/17 07:00 15:00 23:00 07:00 15:00 23:00 Intake Total 360 ml 480 ml 240 ml Balance 360 ml 480 ml 240 ml Intake Oral 360 ml 480 ml 240 ml # Voids 3 1 2 # Bowel Movements 1 0 Result Diagram: 02/23/17 04302/23/17 0430 Objective Remarks GENERAL: Well-developed, well-nourished, in no acute distress. alert and orientated HEENT: Head is normocephalic without any lesions or masses noted. Facial features are symmetric. Eyes: Extraocular muscles are intact. Conjunctivae were clear. NECK: Supple without any masses. Trachea midline no deviation. CARDIAC: Regular rhythm, regular rate. S1/S2 are heard. No murmurs gallops or rubs. LUNGS: Clear to auscultation bilaterally. No wheeze, rhonchi or rales. No use of accessory muscles on inspiration or expiration. ABDOMEN: Soft, nontender. Nondistended. Bowel sounds heard in all 4 quadrants. No organomegaly or masses. Negative rebound, negative guarding EXTREMITIES: No edema, pulses are equal bilaterally. No cyanosis or clubbing NEUROLOGY: Mood and affect appear appropriate. Cranial nerves II through XII grossly intact. Moving all extremities, speech is clear Procedures Lumbar puncture bone marrow biopsy Urinary Catheter: No Vascular Central Line Catheter: No A/P Assessment and Plan Generalized weakness: Patient did undergo MRI studies which does show L4 to L5 focal severe canal stenosis. Neurosurgery evaluated patient and indicates no surgical intervention at this time. Spinal tap was traumatic, negative for cryptococcus. Continue PT/OT evaluations. Physical therapy recommending home with PT if can be arranged Rehab medicine consulted for EMG/NCV- done 02/03. Mild parkinsonism was noted on exam, Neurology following the patient Patient continued on Sinemet Psychotic disorder with Encephalopathy- improving Psychiatry has evaluated the patient indicates that she does not have the capacity make her own decisions. Hyperammonemia: lactulose 4 times daily. However patient has had increase in bowel movements with increase of lactulose, decreased to lactulose twice daily Continue rifaximin 550 mg twice daily, Continue monitor mental status We'll repeat ammonia level later today and if remains stable can anticipate possible discharge home MGUS: evaluated by hematology. Bone marrow biopsy performed . pathology with normocellular bone marrow. Hypokalemia, Hypo-magnesium: Resolved. potassium replacement to 20 ME daily. Continue monitor Mag-Ox 400 milligrams daily. Rhabdomyolysis: Resolved Thrombocytopenia and anemia. Stable. Likely secondary to chronic liver disease. No signs of bleeding. Hepatitis panel negative. DVT prophylaxis: Lovenox Discharge Planning Discharge planning per case management, physical therapy indicating that patient requires PT at rehabilitation or with home health care PT if can be arranged with a wheeled walker Jacek Marquez Feb 23, 2017 09:45
[2017-02-23 20:00] VITALS: BP 102/73; PULSE 114; RESP 18; TEMP 97.8; O2SAT 95
[2017-02-23] MEDS: ENOXAPARIN SODIUM 40 MG/0.4 ML SYRINGE SQ SCH (21:04)
[2017-02-24] MEDS: CARBIDOPA/LEVODOPA 10 MG/100 MG TAB PO SCH ×3 (01:04→17:22)
[2017-02-24 08:16] VITALS: BP 97/74; PULSE 100; RESP 18; TEMP 97.4; O2SAT 100
[2017-02-24] MEDS: MAGNESIUM OXIDE 400 MG TAB PO SCH (08:36)
[2017-02-24] MEDS: PANTOPRAZOLE SOD 40 MG DELAYED RELEASE TAB PO SCH (08:36)
[2017-02-24] MEDS: POTASSIUM CHLORIDE 20 MEQ CONTROLLED RELEASE TAB PO SCH (08:36)
[2017-02-24] MEDS: RIFAXIMIN 550 MG TAB PO SCH ×2 (08:36→20:10)
[2017-02-24] MEDS: LACTULOSE SYRUP 20 GM/30 ML CUP PO SCH ×2 (08:37→17:23)
[2017-02-24] MEDS ORDERED: WALKER WHEELS/F1 MIS (13:15)
[2017-02-24] MEDS ORDERED: LACTULOSE SYRUP 20 GM/30 ML CUP PO ONE (13:15)
--- NOTE | 2017-02-24 13:17 | HHI.PR ---
Objective Vitals Vital Signs Date Time Temp Pulse Resp B/P Pulse Ox O2 Delivery O2 Flow Rate FiO2 02/24/17 08:16 97.4 100 18 97/74 100 02/23/17 20:00 97.8 114 18 102/73 95 I/O 02/23/17 02/23/17 02/23/17 02/24/17 02/24/17 02/24/17 07:00 15:00 23:00 07:00 15:00 23:00 Intake Total 240 ml 240 ml Output Total 1 ml Balance 240 ml 239 ml Intake Oral 240 ml 240 ml Output Urine Total 1 ml # Voids 2 4 # Bowel Movements 0 0 Result Diagram: 02/23/1742902/23/17429 Objective Remarks GENERAL: Well-developed, well-nourished, in no acute distress. alert and orientated HEENT: Head is normocephalic without any lesions or masses noted. Facial features are symmetric. Eyes: Extraocular muscles are intact. Conjunctivae were clear. NECK: Supple without any masses. Trachea midline no deviation. CARDIAC: Regular rhythm, regular rate. S1/S2 are heard. No murmurs gallops or rubs. LUNGS: Clear to auscultation bilaterally. No wheeze, rhonchi or rales. No use of accessory muscles on inspiration or expiration. ABDOMEN: Soft, nontender. Nondistended. Bowel sounds heard in all 4 quadrants. No organomegaly or masses. Negative rebound, negative guarding EXTREMITIES: No edema, pulses are equal bilaterally. No cyanosis or clubbing NEUROLOGY: Mood and affect appear appropriate. Cranial nerves II through XII grossly intact. Moving all extremities, speech is clear Procedures Lumbar puncture bone marrow biopsy A/P Assessment and Plan Generalized weakness: Patient did undergo MRI studies which does show L4 to L5 focal severe canal stenosis. Neurosurgery evaluated patient and indicates no surgical intervention at this time. Spinal tap was traumatic, negative for cryptococcus. Continue PT/OT evaluations. Physical therapy recommending home with PT if can be arranged Rehab medicine consulted for EMG/NCV- done 02/03. Mild parkinsonism was noted on exam, Neurology following the patient Patient continued on Sinemet Psychotic disorder with Encephalopathy- improving Psychiatry has evaluated the patient indicates that she does not have the capacity make her own decisions. Hyperammonemia: lactulose 2 times daily. increased to lactulose three times daily Continue rifaximin 550 mg twice daily, Continue monitor mental status We'll repeat ammonia level later today and if remains stable can anticipate possible discharge home MGUS: evaluated by hematology. Bone marrow biopsy performed . pathology with normocellular bone marrow. Hypokalemia, Hypo-magnesium: Resolved. potassium replacement to 20 ME daily. Continue monitor Mag-Ox 400 milligrams daily. Rhabdomyolysis: Resolved Thrombocytopenia and anemia. Stable. Likely secondary to chronic liver disease. No signs of bleeding. Hepatitis panel negative. DVT prophylaxis: Lovenox Discharge Planning Discharge planning per case management, physical therapy indicating that patient requires PT at rehabilitation or with home health care PT if can be arranged with a wheeled walker Jacek Marquez Feb 24, 2017 13:17
--- NOTE | 2017-02-24 13:19 | HHI.FF ---
Face to Face Verification Diagnosis: (1) Weakness (2) Rhabdomyolysis (3) Liver disease Physical Therapy Order: Evaluate and Treat, Improve ambulation, Strength and gait training Home Health Nursing Order: Medical education Signs/symptoms of disease process Nursing assessment with vital signs I have seen patient Evelin Sigala on 02/24/17. My clinical findings support the need for the requested home health care services because: Deconditioned w/ increased weakness I certify that my clinical findings support that this patient is homebound because: Impaired cognitive ability/safety Unsteady gait/balance Jacek Marquez Feb 24, 2017 13:19
[2017-02-24] MEDS ORDERED: XIFA550T4 PO (13:21)
[2017-02-24] MEDS ORDERED: LACT10SO PO (13:21)
[2017-02-24] MEDS ORDERED: POTA20TA5 PO (13:21)
[2017-02-24] MEDS ORDERED: MAGN400T3 PO (13:21)
[2017-02-24] MEDS ORDERED: SINE10100 PO (13:21)
[2017-02-24 20:00] VITALS: BP 129/86; PULSE 112; RESP 16; TEMP 98.7; O2SAT 95
[2017-02-24] MEDS: ENOXAPARIN SODIUM 40 MG/0.4 ML SYRINGE SQ SCH (20:11)
[2017-02-25] MEDS: CARBIDOPA/LEVODOPA 10 MG/100 MG TAB PO SCH ×3 (00:52→16:17)
[2017-02-25 08:00] VITALS: BP 111/75; PULSE 108; RESP 16; TEMP 99.6; O2SAT 97
[2017-02-25] MEDS: LACTULOSE SYRUP 20 GM/30 ML CUP PO SCH ×2 (08:45→14:38)
[2017-02-25] MEDS: RIFAXIMIN 550 MG TAB PO SCH (08:45)
[2017-02-25] MEDS: MAGNESIUM OXIDE 400 MG TAB PO SCH (08:45)
[2017-02-25] MEDS: PANTOPRAZOLE SOD 40 MG DELAYED RELEASE TAB PO SCH (08:45)
[2017-02-25] MEDS: POTASSIUM CHLORIDE 20 MEQ CONTROLLED RELEASE TAB PO SCH (08:45)
[2017-02-25] MEDS ORDERED: LACT10SO PO (11:27)
--- NOTE | 2017-02-25 11:31 | HHI.DS ---
Discharge Summary Admission Date Jan 12, 2017 at 18:26 Discharge Date: Feb 25, 2017 Admitting Diagnosis AMS, Weakness, Liver DIsease (1) Weakness ICD Code: R53.1 (2) Rhabdomyolysis ICD Code: M62.82 (3) UTI (urinary tract infection) ICD Code: N39.0 (4) Hypokalemia ICD Code: E87.6 Procedures Lumbar puncture bone marrow biopsy Brief History - From Admission History taken from patient and ED physician. 61-year-old female with a history of asthma, hypertension (not on any medication ) and chronic pancreatitis presented to ED after being found at home on the ground by a consumer loan officer. Her brother from out of state was unable to reach her so he called the police. She states for the last 5 days she has been feeling week and unable to walk or eat. She has been scooting around on her butt the past 5 days because she has been unable to move her legs. She complains of weakness, abdominal pain,nausea and vomiting for the last 5 days, 5x a day, denies and red or black color to her vomit. She also is having loose stools 1-2 times a day. She denies any fever or chills. She feels her abdominal pain is the same feeling she gets when she has had pancreatitis in the past. She is also complaining of tenderness to bilateral lower extremities and pain to her mid back. Upon assessment patient has a congested cough and she states she has had this cough for the past 5 days. She states she only smokes 1-2 cigarettes a day. CBC/BMP: 02/23/17 0430 02/23/17 0430 Significant Findings Laboratory Tests Test 02/22/17 02/23/17 02/23/17 02/24/17 17:00 04:30 16:00 04:30 Random Glucose 118 MG/DL (74-106) Red Blood Count 3.12 MIL/MM3 (4.00-5.30) Hemoglobin 9.5 GM/DL (11.6-15.3) Hematocrit 28.3 % (35.0-46.0) Monocytes (%) (Auto) 12.3 % (0.0-8.0) Estimat Glomerular Filtration 82 ML/MIN (>89) Rate Ammonia 69 MCMOL/L 36 MCMOL/L 126 MCMOL/L (11-32) (11-32) (11-32) Test 02/24/17 02/24/17 02/25/17 10:10 15:10 08:00 Ammonia 126 MCMOL/L 90 MCMOL/L 86 MCMOL/L (11-32) (11-32) (11-32) Imaging Last Impressions Bone Biopsy CT 01/22/17 0600 Signed Impressions: Service Date/Time: Sunday, January 22, 2017 10:16 - CONCLUSION: 1. Uncomplicated CT guided bone marrow aspirate. 2. Uncomplicated CT guided bone marrow biopsy. Trae Dorantes MD Lumbar Puncture Fluoroscopy 01/14/17 0000 Signed Impressions: Service Date/Time: January 09:33 - CONCLUSION: Uncomplicated fluoroscopically guided lumbar puncture. Louis Metz MD Brain MRI 01/14/17 0000 Signed Impressions: Service Date/Time: January 10:04 - CONCLUSION: 1. Chronic ischemic small vessel vasculopathy. 2. No acute infarction. 3. No enhancing metastatic lesions are seen. Frank Johnson MD Thoracic Spine MRI 01/13/17 0000 Signed Impressions: Service Date/Time: Friday, January 13, 2017 11:59 - CONCLUSION: Negative MRI of the thoracic spine. There is no evidence for metastatic disease. Mauro Joel MD FACR Thoracic Spine CT 01/13/17 Signed Impressions: Service Date/Time: Friday, January 13, 2017 03:32 - CONCLUSION: 1. No acute findings. Mild degenerative disc disease. No canal stenosis. Dylon St MD Lumbar Spine MRI 01/13/17 0000 Signed Impressions: Service Date/Time: Friday, January 13, 2017 11:59 - CONCLUSION: 1. Radiographically significant spinal stenosis at L4-L5. 2. Minimal disc bulging to the right at L3-4. Mauro Joel MD FACR Lumbar Spine CT 01/13/17 0000 Signed Impressions: Service Date/Time: Friday, January 13, 2017 03:34 - CONCLUSION: 1. No acute fracture. 2. At L4-5 there is focal severe canal stenosis secondary to grade 1 anterolisthesis and advanced facet arthropathy. 3. Mild canal stenosis at L3- 4. Dylon St MD Head CT 01/13/17 Signed Impressions: Service Date/Time: Friday, January 13, 2017 03:28 - CONCLUSION: 1. No acute intracranial abnormalities. Cortical atrophy. Dylon St MD Chest X-Ray 01/13/17 Signed Impressions: Service Date/Time: Friday, January 13, 2017 03:40 - CONCLUSION: 1. No acute findings. Atherosclerotic aorta. Dylon St MD Cervical Spine MRI 01/13/17 Signed Impressions: Service Date/Time: Friday, January 13, 2017 11:59 - CONCLUSION: Degenerative changes as described above. There is no abnormal contrast enhancement identified. Mauro Joel MD FACR PE at Discharge GENERAL: Well-nourished, well-developed patient in apparent distress sleeping when I enter the room. SKIN: Warm and dry. HEAD: Atraumatic. Normocephalic. CARDIOVASCULAR: Regular rate and rhythm. RESPIRATORY: No accessory muscle use. Diminished but clear to auscultation. Breath sounds equal bilaterally. GASTROINTESTINAL: Normoactive bowel sounds. Abdomen soft, non-tender, nondistended. No hepatomegaly. NEUROLOGICAL: Awake and alert. Motor grossly within normal limits. Normal speech. PSYCHIATRIC: Appropriate mood and affect. Hospital Course 61-year-old female who recently presented to hospital because for 5 days that she had been feeling weak, unable to walk or eat. She was scooting herself around for 5 days because she cannot move her legs. Patient was brought to the hospital by ambulance was evaluated in emergency department. Patient was found to have profound weakness with mild rhabdomyolysis, urinary tract infection and patient was admitted for further evaluation and management. Patient did undergo management of rhabdomyolysis with IV fluids with improvement of her CPK level. Patient had workup done for profound weakness in the lower extremities with multiple studies to include CT scans and MRI scans of the brain, cervical spine, lumbar and thoracic spine. MRI lumbar spine did show radiological significant stenosis at L4-L5. Patient was evaluated by neurosurgery which indicates that they did review the MRI results with the patient which does not explain her symptoms. They indicated that they recommended nonsurgical management this time and referred continue management to neurology. Patient did undergo lumbar puncture evaluation. Studies do not indicate any acute abnormality. Neurology followed along and indicated that her weakness could be secondary to other etiologies to include MGUS, PROGRESSIVE CARE NURSE lesions and axonal neuropathy. Does not feel that lumbar stenosis contributed to her physical and lab findings. Indicated mild Parkinson's on exam the patient was started on Sinemet. Patient did have elevated ammonia level in which the previous documentation of liver disease with findings of fatty liver in the past. Patient was managed with lactulose and dose was continued to increase until she had 5 loose stools in one night. Dose was decreased and adjusted to bowel movements. Patient was started on rifaximin 550 mg twice daily. Patient is clinically improved and does appear to be clear of mind. Ammonia level was followed which remains stable. Patient was not responding to therapy with physical therapy and management as expected. Patient was transferred to [place] for extended care. While patient was in [place] patient continue with physical therapy until patient was cleared to be discharged home. Patient does have a niece at home with her keys that she can go home to. Case management was consulted for further walker, home health care if can be arranged per physical therapy notes. Will plan discharge once arrangements made by case management. Pt Condition on Discharge: Stable Discharge Disposition: Disch w/ Home Health Serv Discharge Time: > 30 minutes Discharge Instructions DIET: Follow Instructions for: As Tolerated, No Restrictions Activities you can perform: Regular-No Restrictions Activities to Avoid: Driving for 24 hrs Follow up Referrals: PCP Follow-up - 1 Week New Medications: Walker with Front Wheels (Walker with Front Wheels) 1 Mis Mis 1 EA .ROUTE DIRECTED #1 Ref 0 EA Carbidopa-Levodopa (Sinemet) 10-100 Mg Tab 1 TAB PO Q8H Parkinson's Days 30 TAB Lactulose Liq (Lactulose Liq) 10 Gm/15 Ml Soln 30 ML PO TID hyperammonemia Days 30 ML Magnesium Oxide (Magnesium Oxide) 241.3 Mg Tab 400 MG PO DAILY electrolyte replacement Days 30 TAB Potassium Chloride Microencaps (Potassium Chloride Microencaps) 20 Meq Tab 20 MEQ PO DAILY electrolyte replacement Days 30 TAB Rifaximin (Xifaxan) 550 Mg Tab 550 MG PO BID hyperammonemia Days 30 TAB Additional Information Written by Jacek Marquez PA-C, acting as scribe for Dr. Husain on 02/25/17 at 1100. The documentation accurately reflects the work and decisions performed face-to- face by Dr. Husain on 02/25/17 at 1100. This note was transcribed by julio c Marquez PA-C. I, Dr. Horacio Husain personally performed the history, physical exam, and medical decision making; and confirmed the accuracy of the information in the transcribed note. Authenticated by Dr. Horacio Husain on 02/25/17 at 19:18. Jacek Marquez Feb 25, 2017 11:31 Horacio Husain MD Feb 25, 2017 19:18
== END 2017-02-25 15:00 | disposition home health service (06) | DRG 557 ==
LOC: NEPC 16:03 → NEDA 18:26 → NEDH 22:39 → NEPFCDU 01-13 05:38 → N07B 01-15 18:11 → N07A 01-29 09:08 → PH5A 02-08 19:03
PROVIDERS: ADMIT Internal Medicine; ATTEND Internal Medicine
PROC: 009U3ZX Drainage of Spinal Canal, Percutaneous Approach, Diagnostic (ICD-10-PCS; principal; 2017-01-14)
PROC: 07DR3ZX Extraction of Iliac Bone Marrow, Percutaneous Approach, Diagnostic (ICD-10-PCS; 2017-01-22)
DX: M62.82 Rhabdomyolysis (principal); G93.41 Metabolic encephalopathy; G20 Parkinson's disease; D69.59 Other secondary thrombocytopenia; E72.20 Disorder of urea cycle metabolism, unspecified; K76.0 Fatty (change of) liver, not elsewhere classified; K86.1 Other chronic pancreatitis; N39.0 Urinary tract infection, site not specified; E83.42 Hypomagnesemia; E86.0 Dehydration; D47.2 Monoclonal gammopathy; I10 Essential (primary) hypertension; J45.909 Unspecified asthma, uncomplicated; D64.9 Anemia, unspecified; E87.6 Hypokalemia; E16.2 Hypoglycemia, unspecified; M48.06 Spinal stenosis, lumbar region; R15.9 Full incontinence of feces; F43.21 Adjustment disorder with depressed mood; F22 Delusional disorders; R26.2 Difficulty in walking, not elsewhere classified; D72.819 Decreased white blood cell count, unspecified; S50.811A Abrasion of right forearm, initial encounter; R00.0 Tachycardia, unspecified; R19.7 Diarrhea, unspecified; G62.9 Polyneuropathy, unspecified; F17.210 Nicotine dependence, cigarettes, uncomplicated; W18.30XA Fall on same level, unspecified, initial encounter; Y92.239 Unspecified place in hospital as the place of occurrence of the external cause; Z85.3 Personal history of malignant neoplasm of breast; Z90.13 Acquired absence of bilateral breasts and nipples; Z91.81 History of falling
CPT/HCPCS: 38221; 62270; 70450; 70553; 71010; 72128; 72131; 72156; 72157; 72158; 77003; 77012; 80048; 80053; 80069; 80307; 80320; 81001; 81050; 82085; 82140; 82232; 82550; 82552; 82607; 82747; 82784; 82945; 82948; 83540; 83550; 83615; 83690; 83735; 83883; 84100; 84156; 84157; 84165; 84166; 84443; 84466; 84484; 85025; 85097; 85610; 85652; 85730; 86038; 86039; 86140; 86335; 86403; 86592; 86705; 86803; 87070; 87205; 87340; 88305; 88311; 88313; 88341; 88342; 89051; 99152; 99153; 99284; A9579; C1830; G0364; J0744; J1650; J1885; J2060; J2250; J2405; J3010; J3475; J3480; J7030; Q0163

== ENCOUNTER 2017-05-07 12:45 | Emergency (ER) | payer OTHER ==
[~2017-05-07] VITALS: Ht 162.6 cm; Wt 60.0 kg
[~2017-05-07 12:45] MED LIST changes: +LACT10SO PO; -METO25 PO; -OXYC1SOL5 PO; +POTA20TA5 PO; +SINE10100 PO; +WALKER WHEELS/F1 MIS; +XIFA550T4 PO
[2017-05-07 12:50] VITALS: BP 117/72; PULSE 112; RESP 20; TEMP 97.7; O2SAT 99
[2017-05-07] MEDS ORDERED: CLON1 PO (13:15)
--- NOTE | 2017-05-07 13:43 | PD ---
HPI Chief Complaint: Medication Refill Request Time Seen by Provider: 13:02 Travel History International Travel<30 days: No Contact w/Intl Traveler<30days: No Traveled to known affect area: No History of Present Illness HPI 62-year-old female presents to the ED requesting medication refills. The patient was discharged from the hospital on February 24 and proffers 4 prescriptions that she was provided at that time. She states that they have and she needs to start taking the medications. She states that she was afraid to walk across the [place] lot alone to get the medications filled. She drove herself to the ED today. She has no other somatic complaints on presentation. PFSH Past Medical History Asthma: Yes Cancer: Yes (RIGHT BREAST) Cardiovascular Problems: Yes (PALPITATIONS) Chemotherapy: No COPD: No Diminished Hearing: No Endocrine: No Genitourinary: No Hypertension: Yes Musculoskeletal: No Neurologic: No Reproductive: Yes Respiratory: Yes Radiation Therapy: No Menopausal: Yes Miscarriage: 1 Ectopic : Yes (x2) Past Surgical History Gynecologic Surgery: Yes Mastectomy: Yes (RIGHT 1998) Pacemaker: No Thoracic Surgery: Yes (R MASTECTOMY) Other Surgery: Yes (RIGHT MASTECTOMY) Social History Alcohol Use: Yes (OCCASIONALLY) Tobacco Use: Yes (2 CIGS/DAILY) Substance Use: No Allergies-Medications (Allergen,Severity, Reaction): Coded Allergies: No Known Allergies (Unverified , 05/07/17) Reported Meds & Prescriptions Reported Meds & Active Scripts Active Klonopin (Clonazepam) 1 Mg Tab 1 Mg PO HS Lactulose Liq (Lactulose) 10 Gm/15 Ml Soln 30 Ml PO TID Titrate to 3 loose stools per day Xifaxan (Rifaximin) 550 Mg Tab 550 Mg PO BID 30 Days Potassium Chloride Microencaps 20 Meq Tab 20 Meq PO DAILY 30 Days Sinemet (Carbidopa/Levodopa) 10-100 Mg Tab 1 Tab PO Q8H 30 Days Walker with Front Wheels (Device) 1 Mis Mis 1 Ea .ROUTE DIRECTED Review of Systems Except as stated in HPI: all other systems reviewed are Neg Physical Exam Narrative GENERAL: Thin, frail white female in no acute distress. Disheveled, dried feces of the internal aspect of the right leg. PSYCHIATRIC: No delusional thought processes. No hallucinations. Denies SI or HI. A&O 4 SKIN: Focused skin assessment warm/dry. The patients hair is singed. She has superficial jackson of bilateral ears and left neck. There is a laceration of the right lower lip. There are several scabs of the bilateral upper extremities. Some localized erythema. HEAD: Normocephalic. EYES: No scleral icterus. No injection or drainage. PERRLA EOMI. NECK: Supple, trachea midline. No JVD or lymphadenopathy. CARDIOVASCULAR: Regular rate and rhythm without murmurs, gallops, or rubs. RESPIRATORY: Breath sounds clear and equal bilaterally. No accessory muscle use. GASTROINTESTINAL: Abdomen soft, non-tender, nondistended. Active bowel sounds. MUSCULOSKELETAL: No cyanosis, or edema. NEUROLOGICAL: Awake and alert. Cranial nerves II through XII intact. Motor and sensory grossly within normal limits. Five out of 5 muscle strength in all muscle groups. Normal speech. BACK: Nontender without obvious deformity. No CVA tenderness. Data Data Last Documented VS Vital Signs Date Time Temp Pulse Resp B/P Pulse Ox O2 Delivery O2 Flow Rate FiO2 05/07/17 13:49 20 05/07/17 12:50 97.7 112 117/72 99 Room Air MDM Medical Decision Making Medical Screen Exam Complete: Yes Emergency Medical Condition: Yes Differential Diagnosis Medication refill versus failure to thrive versus superficial burn versus early cellulitis versus multiple falls versus other Narrative Course 62-year-old female presents to the ED requesting medication refills. The patient was discharged from the hospital on February 24 and proffers 4 prescriptions that she was provided at that time. She states that they have and she needs to start taking the medications. She states that she was afraid to walk across the [employer] parking lot alone to get the medications filled. She drove herself to the ED today. She has no other somatic complaints on presentation. Vitals reviewed. On physical exam the patient has singed off the majority of her hair. There are superficial jackson of the bilateral ears as well as a laceration of the lower lip. She has several scabs in various stages of healing on the extremities. She is thin and frail appearing. However she is also alert and oriented 4. She refuses any attempt to treat her jackson or wounds. She denies SI or HI. I informed the patient that I'm unable to prescribe these medications since is no way to know if she is currently in homeostasis or ill. I can find no reason to Roger act her. I am concerned for her well-being however and I instructed the nurse to file a complaint with the adult protective services department. I requested that they do a well check on the patient. Patient is stable and discharged home. The discharge indicates that there was a prescription written for Diazepam by Dr. Winters. This is entered in error. No prescriptions were provided to the patient at discharge. Diagnosis Primary Impression: Failure to thrive in adult Referrals: [facility] Patient Instructions: General Instructions Additional Instructions: Rest, hydrate. Follow up with the [facility] as discussed. Return to the ED for any urgent or emergent medical condition. Scripts Clonazepam (Klonopin)1 Mg Tab1 Mg PO HS #30 TAB Ref 0 Prov:Aries Winters MD 05/07/17 Disposition: 01 DISCHARGE HOME Condition: Stable Sharri Alan May 07, 2017 13:43
--- NOTE | 2017-05-07 16:46 | PD ---
Data Data Last Documented VS Vital Signs Date Time Temp Pulse Resp B/P Pulse Ox O2 Delivery O2 Flow Rate FiO2 05/07/17 13:49 20 05/07/17 12:50 97.7 112 117/72 99 Room Air [facility] Supervised Visit with KAIN: Yes Narrative Course The history, exam, and medical decision-making in the associated midlevel provider note were completed with my assistance. I reviewed and agree with the findings presented. I attest that I had a [id number] encounter with the patient on the same day, and personally performed and documented my assessment and findings in the medical record. *My assessment and Findings: This is a 62-year-old female who presents to the emergency department requesting us to fill her prescriptions. Her prescriptions are from a month and a half ago when she was discharged from [facility]. She is disheveled with jackson on both sides of her face that are healing poorly and she appears unkempt. Nonetheless she is oriented, articulate , able to understand and answer questions appropriately and articulate her reasoning. She doesn't want to stay in the hospital, doesn't want any additional testing and wants to leave. She really just came here because she wanted her medications filled. I am concerned about the patient's well-being. We will discuss the patient with adult protective services and ask them to do a well visit at her home. Diagnosis Primary Impression: Failure to thrive in adult Referrals: [facility] Patient Instructions: General Instructions Departure Forms: Tests/Procedures Additional Instruction: Rest, hydrate. Follow up with the [facility] as discussed. Return to the ED for any urgent or emergent medical condition. Scripts Clonazepam (Klonopin)1 Mg Tab1 Mg PO HS #30 TAB Ref 0 Prov:Aries Winters MD 05/07/17 Disposition: 01 DISCHARGE HOME Condition: Stable Ginger Michaud MD May 07, 2017 16:46
== END 2017-05-07 14:12 | disposition home or self-care (01) ==
LOC: NEPD 12:45
DX: R62.7 Adult failure to thrive (principal); I10 Essential (primary) hypertension; Z72.0 Tobacco use; Z87.09 Personal history of other diseases of the respiratory system; Z86.79 Personal history of other diseases of the circulatory system; Z87.42 Personal history of other diseases of the female genital tract
CPT/HCPCS: 99281

== ENCOUNTER 2017-07-09 12:32 | Inpatient (IN) | payer OTHER ==
[~2017-07-09] VITALS: Ht 167.6 cm; Wt 51.9 kg
[~2017-07-09 12:32] MED LIST changes: +CLON1 PO
[2017-07-09 12:50] VITALS: BP 115/71; PULSE 117; RESP 20; TEMP 98.8; O2SAT 98
--- NOTE | 2017-07-09 12:52 | PD ---
HPI Chief Complaint: PSYCHIATRIC SYMPTOMS Time Seen by Provider: 12:51 Travel History International Travel<30 days: No Contact w/Intl Traveler<30days: No History of Present Illness HPI 62-year-old female brought in the EMS under the Roger act. Patient is confused, and disoriented with fecal matter on her legs and arms. She was brought in as she is obviously unable to care for herself. Patient denies current medical complaints other than vomiting for the past 2 weeks. She denies fever or chills. She denies pain. She is aware of her name and date of only. She appears extremely dehydrated but does seem to answer questions appropriately although inaccurately. Patient has no known drug allergies. PFSH Past Medical History Medical History: Unable to Obtain Asthma: Yes Cancer: Yes (RIGHT BREAST) Cardiovascular Problems: Yes (PALPITATIONS) Chemotherapy: No COPD: No Diabetes: No Diminished Hearing: No Endocrine: No Gastrointestinal Disorders: Yes (CHRONIC PANCREATITIS) Genitourinary: No Hypertension: Yes Musculoskeletal: No Neurologic: No Reproductive: Yes Respiratory: Yes Radiation Therapy: No Menopausal: Yes Miscarriage: 1 Ectopic : Yes (x2) Past Surgical History Gynecologic Surgery: Yes Mastectomy: Yes (RIGHT 1998) Pacemaker: No Thoracic Surgery: Yes (R MASTECTOMY) Other Surgery: Yes (RIGHT MASTECTOMY) Social History Alcohol Use: Yes (OCCASIONALLY) Tobacco Use: Yes (2 CIGS/DAILY) Substance Use: No Allergies-Medications (Allergen,Severity, Reaction): Coded Allergies: No Known Allergies (Unverified , 05/07/17) Reported Meds & Prescriptions Reported Meds & Active Scripts Active Klonopin (Clonazepam) 1 Mg Tab 1 Mg PO HS Lactulose Liq (Lactulose) 10 Gm/15 Ml Soln 30 Ml PO TID Titrate to 3 loose stools per day Xifaxan (Rifaximin) 550 Mg Tab 550 Mg PO BID 30 Days Potassium Chloride Microencaps 20 Meq Tab 20 Meq PO DAILY 30 Days Sinemet (Carbidopa/Levodopa) 10-100 Mg Tab 1 Tab PO Q8H 30 Days Walker with Front Wheels (Device) 1 Mis Mis 1 Ea .ROUTE DIRECTED Review of Systems ROS Limitations: Altered Mental Status Except as stated in HPI: all other systems reviewed are Neg General / Constitutional: No: Fever Eyes: No: Visual changes HENT: No: Headaches Cardiovascular: No: Chest Pain or Discomfort Respiratory: No: Shortness of Breath Gastrointestinal: No: Abdominal Pain Genitourinary: No: Dysuria Musculoskeletal: No: Pain Skin: No Rash Neurologic: No: Weakness Psychiatric: No: Depression Endocrine: No: Polydipsia Hematologic/Lymphatic: No: Easy Bruising Physical Exam Exam Limitations: Altered Mental Status Narrative GENERAL: Patient appears in no obvious distress. She is confused SKIN: Warm and dry. Normal color. Poor turgor with tenting. HEAD: Atraumatic. Normocephalic. EYES: Pupils equal and round. No scleral icterus. No injection or drainage. ENT: No nasal bleeding or discharge. Mucous membranes pink and dry. Pharynx is clear. Airway is patent. NECK: Trachea midline. Supple nontender. CARDIOVASCULAR: Regular rate and rhythm. No murmurs gallops or rubs. RESPIRATORY: No accessory muscle use. Clear to auscultation. Breath sounds equal bilaterally. GASTROINTESTINAL: Abdomen soft, non-tender, nondistended. Hepatic and splenic margins not palpable. MUSCULOSKELETAL: Extremities without clubbing, cyanosis, or edema. No obvious deformities. NEUROLOGICAL: Awake and alert. No obvious cranial nerve deficits. Motor grossly within normal limits. Five out of 5 muscle strength in the arms and legs. Normal speech. PSYCHIATRIC: Patient obviously confused and somewhat obtunded. Data Data Last Documented VS Vital Signs Date Time Temp Pulse Resp B/P (MAP) Pulse Ox O2 Delivery O2 Flow Rate FiO2 07/09/17 15:00 100 14 109/65 (80) 95 Room Air 07/09/17 12:50 98.8 Orders Orders Electrocardiogram (07/09/17 13:00) Ammonia (07/09/17 13:00) Complete Blood Count With Diff (07/09/17 13:00) Comprehensive Metabolic Panel (07/09/17 13:00) Creatine Kinase (Cpk) (07/09/17 13:00) Prothrombin Time / Inr (Pt) (07/09/17 13:00) Act Partial Throm Time (Ptt) (07/09/17 13:00) Troponin I (07/09/17 13:00) Thyroid Stimulating Hormone (07/09/17 13:00) Urinalysis - C+S If Indicated (07/09/17 13:00) Lactic Acid Sepsis Protocol (07/09/17 13:00) Chest, Single Ap (07/09/17 13:00) Ct Brain W/O Iv Contrast(Rout) (07/09/17 13:00) Blood Glucose (07/09/17 13:00) Ecg Monitoring (07/09/17 13:00) Iv Access Insert/Monitor (07/09/17 13:00) Oximetry (07/09/17 13:00) Sodium Chloride 0.9% Flush (Ns Flush) (07/09/17 13:00) Sodium Chlor 0.9% 1000 Ml Inj (Ns 1000 M (07/09/17 13:00) Drug Screen, Random Urine (07/09/17 13:00) Alcohol (Ethanol) (07/09/17 13:00) Tylenol (Acetaminophen) (07/09/17 13:00) Salicylates (Aspirin) (07/09/17 13:00) Blood Culture (07/09/17 ) Vascular Access Team Consult/P PRN (07/09/17 13:23) Vascular Poc Ultrasound (07/09/17 ) Psych Screen (07/09/17 13:29) Urine Culture (07/09/17 13:23) Ceftriaxone Inj (Rocephin Inj) (07/09/17 14:15) Ondansetron Inj (Zofran Inj) (07/09/17 14:15) Admit Order (Ed Use Only) (07/09/17 15:08) Admit To Inpatient (07/09/17 ) Vital Signs (Adult) Q4H (07/09/17 15:11) Activity Oob With Assistance (07/09/17 15:11) Mobile Electronics Installer / Telemetry .CONTINUOUS (07/09/17 15:11) Intake + Output LIAM.QSHIFT (07/09/17 15:11) Diet Regular Basic (07/09/17 Dinner) Ondansetron Inj (Zofran Inj) (07/09/17 15:15) Comprehensive Metabolic Panel (07/10/17 06:00) Complete Blood Count With Diff (07/10/17 06:00) Resp Oxygen Josh C Titrat 1-4 L (07/09/17 ) Scd Bilateral/Knee High LIAM.BID (07/09/17 15:11) Naloxone Inj (Narcan Inj) (07/09/17 15:15) Magnesium Hydroxide Liq (Milk Of Magnesi (07/09/17 15:15) Sennosides (Senokot) (07/09/17 15:15) Bisacodyl Supp (Dulcolax Supp) (07/09/17 15:15) Lactulose Liq (Lactulose Liq) (07/09/17 15:15) Inpatient Certification (07/09/17 ) Consult Psychiatry (07/09/17 ) Lactic Acid Sepsis Protocol (07/09/17 15:11) Ammonia (07/10/17 06:00) Ns + Kcl 20 Meq Inj (Ns + Kcl 20 Meq Inj (07/09/17 16:00) Ceftriaxone Inj (Rocephin Inj) (07/10/17 15:00) Labs Laboratory Tests Test 07/09/17 13:23 07/09/17 13:40 Urine Color YELLOW Urine Turbidity HAZY Urine pH 6.5 Urine Specific [place] 1.021 Urine Protein 30 mg/dL Urine Glucose (UA) NEG mg/dL Urine Ketones 80 mg/dL Urine Occult Blood SMALL Urine Nitrite NEG Urine Bilirubin NEG Urine Urobilinogen 4.0 MG/DL Urine Leukocyte Esterase MOD Urine RBC 5 /hpf Urine WBC 2 /hpf Urine Squamous Epithelial Cells 4 /hpf Urine Bacteria OCC /hpf Urine Hyaline Casts 9 /lpf Urine Yeast (Budding) OCC Microscopic Urinalysis Comment CATH-CULTURE IND Urine Opiates Screen NEG Urine Barbiturates Screen NEG Urine Amphetamines Screen NEG Urine Benzodiazepines Screen NEG Urine Cocaine Screen NEG Urine Cannabinoids Screen NEG White Blood Count 7.1 TH/MM3 Red Blood Count 3.73 MIL/MM3 Hemoglobin 11.9 GM/DL Hematocrit 35.5 % Mean Corpuscular Volume 95.1 FL Mean Corpuscular Hemoglobin 31.9 PG Mean Corpuscular Hemoglobin Concent 33.6 % Red Cell Distribution Width 17.4 % Platelet Count 111 TH/MM3 Mean Platelet Volume 9.6 FL Neutrophils (%) (Auto) 69.4 % Lymphocytes (%) (Auto) 19.2 % Monocytes (%) (Auto) 10.1 % Eosinophils (%) (Auto) 0.9 % Basophils (%) (Auto) 0.4 % Neutrophils # (Auto) 4.9 TH/MM3 Lymphocytes # (Auto) 1.4 TH/MM3 Monocytes # (Auto) 0.7 TH/MM3 Eosinophils # (Auto) 0.1 TH/MM3 Basophils # (Auto) 0.0 TH/MM3 CBC Comment DIFF FINAL Differential Comment Prothrombin Time 12.5 SEC Prothromb Time International Ratio 1.1 RATIO Activated Partial Thromboplast Time 25.7 SEC Blood Urea Nitrogen 33 MG/DL Creatinine 1.11 MG/DL Random Glucose 70 MG/DL Total Protein 8.2 GM/DL Albumin 2.9 GM/DL Calcium Level 8.3 MG/DL Alkaline Phosphatase 177 U/L Aspartate Amino Transf (AST/SGOT) 120 U/L Alanine Aminotransferase (ALT/SGPT) 28 U/L Total Bilirubin 1.6 MG/DL Sodium Level 131 MEQ/L Potassium Level 3.2 MEQ/L Chloride Level 88 MEQ/L Carbon Dioxide Level 26.0 MEQ/L Anion Gap 17 MEQ/L Estimat Glomerular Filtration Rate 50 ML/MIN Lactic Acid Level 2.9 mmol/L Ammonia 42 MCMOL/L Total Creatine Kinase 43 U/L Troponin I LESS THAN 0.02 NG/ML Thyroid Stimulating Hormone 3rd Gen 1.460 uIU/ML Salicylates Level LESS THAN 1.7 MG/DL Acetaminophen Level LESS THAN 2.0 MCG/ML Ethyl Alcohol Level 117 MG/DL [facility] Medical Decision Making Medical Screen Exam Complete: Yes Emergency Medical Condition: Yes Differential Diagnosis Altered mental status. Electrolyte imbalance. Dehydration. Possible increased ammonia level. Anemia. Psychiatric disorder. Narrative Course Patient appears confused but medically stable at time of exam. EKG is ordered showing sinus tachycardia with a rate of 111. Labs ordered including CBC, CMP, coagulation studies, lactic acid protocol, CPK , ammonia level, cardiac panel, serum alcohol level, Tylenol level, salicylate level, blood cultures 2, TSH and urinalysis and urine drug screen. Chest x-ray and CT of the brain are ordered. Patient is given 1000 mL normal saline bolus. CBC is unremarkable except for a low platelet count 111. Coagulation studies show PT of 12.5, INR 1.1. Lactic acid is 2.9, and ammonia level is 42. Urinalysis very suggestive of urinary tract infection, with 30 protein, 80 ketones, small occult blood, moderate leukocyte esterase with 5 RBCs per high- power field, 2 WBCs per high-power field, and occasional bacteria per high- powered field. Occasional yeast is also noted in the urine. This is a catheter obtain urine and culture is pending. Salicylates are less than 1.7 Patient is given 1000 mg Rocephin IV. CMP significant for sodium of 131, potassium 3.2, chloride of 88, BUN 33, creatinine 1.11, GFR estimated at 50, random glucose 70, calcium 8.3, total bilirubin 1.6, AST is 120, alkaline phosphatase 177, troponin is less than 0.02 , albumin is 2.9. TSH is normal. Serum alcohol is 117, acetaminophen is less than 2.0, urine drug screen is negative. Patient is given 20 mEq of potassium IV as well as second additional saline bolus 1000 mL's normal saline. Call was placed to the hospitalist for admission. 1510 hrs. patient was discussed with Dr. Curtis, and he agreed to admit the patient. CT scan of the head still pending. CT scan of the brain is normal. Diagnosis Primary Impression: Altered mental status, unspecified Qualified Codes: R41.0 - Disorientation, unspecified Additional Impressions: Dehydration Hypokalemia Elevated lactic acid level UTI (urinary tract infection) Qualified Codes: N30.00 - Acute cystitis without hematuria Admitting Information Admitting Physician Requests: Admit Condition: Stable Tres Loya Jul 09, 2017 12:52
[2017-07-09] MEDS ORDERED: SODIUM CHLORIDE 0.9% FLUSH 5 ML FLUSH IV FLUSH PRN (13:00)
[2017-07-09] MEDS ORDERED: SODIUM CHLOR 0.9% 1000 ML INJ 1,000 ML IV SCH (13:00)
[2017-07-09 13:40] LABS: BACTERIA, URINE OCC /hpf; BLOOD, URINE SMALL (NEG); GLUCOSE,URINE NEG (NEG); HYALINE CAST, URINE 9 /lpf (RARE); KETONE, URINE 80 mg/dL (NEG); NITRITE,URINE NEG (NEG); PH, URINE 6.5 (5.0-8.5); SQUAMOUS EPITHELIAL CELL URINE 4 /hpf (0-5); URINE COLOR YELLOW (YELLW/STRAW)
[2017-07-09 13:41] LABS: COMMENT (UR) CATH-CULTURE IND; CULTURE IF INDICATED CATH CULTURE IND
[2017-07-09 13:56] LABS: AUTOMATED NEUTROPHIL # 4.9 TH/MM3 (1.8-7.7); BASOPHIL % 0.4 % (0.0-2.0); EOSINOPHIL # 0.1 TH/MM3 (0-0.4); EOSINOPHIL % 0.9 % (0.0-4.0); HEMATOCRIT 35.5 % (35.0-46.0); HEMO FLAGS DIFF FINAL; LYMPH % 19.2 % (9.0-44.0); LYMPHOCYTE # 1.4 TH/MM3 (1.0-4.8); MEAN CELL VOLUME 95.1 FL (80.0-100.0); MEAN CORPUSCULAR HEMOGLOBIN 31.9 PG (27.0-34.0); MEAN CORPUSCULAR HGB CONC 33.6 % (32.0-36.0); MONO % 10.1 % (0.0-8.0); NEUT % 69.4 % (16.0-70.0); PLATELET COUNT 111 TH/MM3 (150-450); RED BLOOD COUNT 3.73 MIL/MM3 (4.00-5.30); RED CELL DISTRIBUTION WIDTH 17.4 % (11.6-17.2); WHITE BLOOD COUNT 7.1 TH/MM3 (4.0-11.0)
[2017-07-09 14:04] LABS: APTT (PATIENT) 25.7 SEC (24.3-30.1); INTERNATIONAL NORMALIZED RATIO 1.1 RATIO; PROTHROMBIN TIME - PATIENT 12.5 SEC (9.8-11.6)
[2017-07-09] MEDS ORDERED: ONDANSETRON HCL 4 MG/2 ML VIAL IV PUSH ONE (14:15)
[2017-07-09] MEDS ORDERED: cefTRIAXone INJ 1,000 MG in SODIUM CHLORIDE 0.9% INJ 100 ML IV ONE (14:15)
--- NOTE | 2017-07-09 14:21 | RADRPT ---
EXAM DATE/TIME: 07/09/2017 13:35 [facility] COMPARISON: CHEST SINGLE AP, January 13, 2017, 3:40. INDICATIONS : Short of breath, vomiting. MEDICAL HISTORY : Pancreatitis. Hypertension Carcinoma, breast. SURGICAL HISTORY : breast removed. ENCOUNTER: Initial ACUITY: 1 day PAIN SCORE: Non-responsive. LOCATION: Bilateral chest FINDINGS: Portable AP view of the chest demonstrates a normal-sized cardiac silhouette. No effusion, consolidat ion, or pneumothorax is visualized. The bones and soft tissues demonstrate no acute abnormality. EKG leads overlie the patient. CONCLUSION: No acute cardiopulmonary abnormality is identified. Trae Dorantes MD on July 09, 2017 at 14:19 Board Certified Radiologist. This report was verified electronically.
[2017-07-09 14:29] LABS: ACETAMINOPHEN LESS THAN 2.0 MCG/ML (10.0-30.0); ALCOHOL 117 MG/DL (0-5); ALKALINE PHOSPHATASE 177 U/L (45-117); ALT (GPT) 28 U/L (10-53); ANION GAP 17 MEQ/L (5-15); AST (GOT) 120 U/L (15-37); BLOOD UREA NITROGEN 33 MG/DL (7-18); CHLORIDE 88 MEQ/L (98-107); CREATINE KINASE 43 U/L (26-192); GLOMERULAR FILTRATION RATE 50 ML/MIN (>89); POTASSIUM 3.2 MEQ/L (3.5-5.1); SODIUM (NA) 131 MEQ/L (136-145); TOTAL BILIRUBIN ADULT 1.6 MG/DL (0.2-1.0)
[2017-07-09 15:00] VITALS: BP 109/65; PULSE 100; RESP 14; O2SAT 95
[2017-07-09] MEDS ORDERED: NALOXONE HCL 0.4 MG/ML AMP IV PRN (15:15)
[2017-07-09] MEDS ORDERED: SENNOSIDES 8.6 MG TAB PO PRN (15:15)
[2017-07-09] MEDS ORDERED: LACTULOSE SYRUP 20 GM/30 ML CUP PO PRN (15:15)
[2017-07-09] MEDS ORDERED: MAGNESIUM HYDROXIDE SUSP 30 ML CUP PO PRN (15:15)
[2017-07-09] MEDS ORDERED: BISACODYL 10 MG SUPP RECTAL PRN (15:15)
--- NOTE | 2017-07-09 15:21 | RADRPT ---
EXAM DATE/TIME: 07/09/2017 14:39 [facility] COMPARISON: CT BRAIN W/O CONTRAST, January 13, 2017, 3:28. INDICATIONS : Found on floor, unknown time down. RADIATION DOSE: 31.76 CTDIvol (mGy) MEDICAL HISTORY : Cardiovascular disease. Hypertension. Carcinoma, breast. SURGICAL HISTORY : Mastectomy, right. Cholecystectomy. ENCOUNTER: Initial ACUITY: 1 day PAIN SCALE: 1/10 LOCATION: cranial TECHNIQUE: Multiple contiguous axial images were obtained of the head. Using automated exposure control and adj ustment of the mA and/or kV according to patient size, radiation dose was kept as low as reasonably a chievable to obtain optimal diagnostic quality images. DICOM format image data is available electro nically for review and comparison. 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 The ventricles are normal for age. No evidence of midline shift, mass lesion, hemorrhage or acute infarction. No extra -axial fluid collections are seen. POSTERIOR FOSSA: The cerebellum and brainstem are intact. The 4th ventricle is midline. The cerebellopontine angle i s unremarkable. EXTRACRANIAL: The visualized portion of the orbits is intact. SKULL: The calvaria is intact. No evidence of skull fracture. CONCLUSION: No acute intracranial abnormality. Keron Delacruz Jr., MD on July 09, 2017 at 15:09 Board Certified Radiologist. This report was verified electronically.
[2017-07-09 15:35] VITALS: BP 115/70; PULSE 106; RESP 18; TEMP 97.8; O2SAT 94
[2017-07-09 15:46] LABS: LACTIC ACID GHOST NOT REPORTABLE
[2017-07-09] MEDS: NS + KCL 20 MEQ INJ 1,000 ML IV SCH (17:32)
[2017-07-09 18:40] VITALS: BP 114/62; PULSE 102; RESP 16; TEMP 97.9; O2SAT 95
--- NOTE | 2017-07-09 18:53 | HHI.HP ---
[facility] Service [facility] Primary Care Physician No Primary Care Physician Admission Diagnosis Alterered Mental Status/Dehydration/UTI Diagnoses: (1) Hyponatremia (2) Metabolic encephalopathy (3) UTI (urinary tract infection) (4) Elevated lactic acid level (5) Dehydration (6) Hypokalemia Chief Complaint: Altered mental status Travel History International Travel<30 Days: No Contact w/Intl Traveler <30 Da: No Traveled to Known Affected Are: No History of Present Illness The patient is a 62 year old female brought to the ER by police under Roger Act. Patient was found to be confused and covered in feces at home. She was unable to care for herself and was placed under Roger Act. She denies any complaints at this time. She states that she has "normal pains occasionally". Denies chest pain or dyspnea. Has had vomiting recently. Fell 2 weeks ago and has pain in her right wrist. Review of Systems ROS Limitations: Altered Mental Status Constitutional: DENIES: Fever, Chills, Night Sweats Eyes: DENIES: Blurred vision, Vision loss Ears, nose, mouth, throat: DENIES: Hearing loss Respiratory: DENIES: Cough, Wheezing, Sputum production, Shortness of breath Cardiovascular: DENIES: Chest pain, Palpitations, Dyspnea on Exertion, Lower Extremity Edema Gastrointestinal: COMPLAINS OF: Vomiting, DENIES: Abdominal pain, Constipation , Diarrhea, Nausea Genitourinary: DENIES: Urinary frequency, Urinary incontinence, Urgency, Hematuria, Dysuria, Nocturia Musculoskeletal: DENIES: Joint pain, Muscle aches Integumentary: DENIES: Pruritus, Rash Hematologic/lymphatic: DENIES: Bruising Neurologic: DENIES: Headache Past Family Social History Past Medical History History of breast cancer Chronic pancreatitis History of ectopic x 2 MGUS Hypertension Asthma GERD Past Surgical History Cholecystectomy 2016 Mastectomy Reported Medications Klonopin (Clonazepam) 1 Mg Tab 1 Mg PO HS Lactulose Liq (Lactulose) 10 Gm/15 Ml Soln 30 Ml PO TID Titrate to 3 loose stools per day Xifaxan (Rifaximin) 550 Mg Tab 550 Mg PO BID 30 Days Potassium Chloride Microencaps 20 Meq Tab 20 Meq PO DAILY 30 Days Sinemet (Carbidopa/Levodopa) 10-100 Mg Tab 1 Tab PO Q8H 30 Days Walker with Front Wheels (Device) 1 Mis Mis 1 Ea .ROUTE DIRECTED Allergies: Coded Allergies: No Known Allergies (Unverified , 05/07/17) Family History Mother had brain cancer, heart disease. Father had heart disease. Social History Denies alcohol or illicit drug use. Occasional cigarette smoking. Physical Exam Vital Signs Vital Signs Date Time Temp Pulse Resp B/P (MAP) Pulse Ox O2 Delivery O2 Flow Rate FiO2 07/09/17 15:35 97.8 106 18 115/70 (85) 94 Room Air 07/09/17 15:00 100 14 109/65 (80) 95 Room Air 07/09/17 12:50 98.8 117 20 115/71 (86) 98 Physical Exam Examined in the presence of the nurse. GENERAL: Well-nourished, well-developed female in no acute distress. Appears older than stated age. HEENT: Normocephalic, atraumatic. Extraocular movements intact. No scleral icterus. No injection or drainage. Oropharynx is clear. Mucous membranes are somewhat dry. CARDIOVASCULAR: Regular rate and rhythm without murmurs, gallops, or rubs. RESPIRATORY: Clear to auscultation. No wheezes, rales, or rhonchi. Breathing is non-labored. GASTROINTESTINAL: Abdomen soft, non-tender, nondistended. EXTREMITIES: No lower extremity edema. No calf tenderness. PSYCH: Alert and oriented x 3. SKIN: Contusion on left arm and left hand. Laboratory Laboratory Tests Test 07/09/17 13:23 07/09/17 13:40 07/09/17 16:20 Urine Color YELLOW Urine Turbidity HAZY Urine pH 6.5 Urine Specific [place] 1.021 Urine Protein 30 Urine Glucose (UA) NEG Urine Ketones 80 Urine Occult Blood SMALL Urine Nitrite NEG Urine Bilirubin NEG Urine Urobilinogen 4.0 Urine Leukocyte Esterase MOD Urine RBC 5 Urine WBC 2 Urine Squamous Epithelial Cells 4 Urine Bacteria OCC Urine Hyaline Casts 9 Urine Yeast (Budding) OCC Microscopic Urinalysis Comment CATH-CULTURE IND Urine Opiates Screen NEG Urine Barbiturates Screen NEG Urine Amphetamines Screen NEG Urine Benzodiazepines Screen NEG Urine Cocaine Screen NEG Urine Cannabinoids Screen NEG White Blood Count 7.1 Red Blood Count 3.73 Hemoglobin 11.9 Hematocrit 35.5 Mean Corpuscular Volume 95.1 Mean Corpuscular Hemoglobin 31.9 Mean Corpuscular Hemoglobin Concent 33.6 Red Cell Distribution Width 17.4 Platelet Count 111 Mean Platelet Volume 9.6 Neutrophils (%) (Auto) 69.4 Lymphocytes (%) (Auto) 19.2 Monocytes (%) (Auto) 10.1 Eosinophils (%) (Auto) 0.9 Basophils (%) (Auto) 0.4 Neutrophils # (Auto) 4.9 Lymphocytes # (Auto) 1.4 Monocytes # (Auto) 0.7 Eosinophils # (Auto) 0.1 Basophils # (Auto) 0.0 CBC Comment DIFF FINAL Differential Comment Prothrombin Time 12.5 Prothromb Time International Ratio 1.1 Activated Partial Thromboplast Time 25.7 Blood Urea Nitrogen 33 Creatinine 1.11 Random Glucose 70 Total Protein 8.2 Albumin 2.9 Calcium Level 8.3 Alkaline Phosphatase 177 Aspartate Amino Transf (AST/SGOT) 120 Alanine Aminotransferase (ALT/SGPT) 28 Total Bilirubin 1.6 Sodium Level 131 Potassium Level 3.2 Chloride Level 88 Carbon Dioxide Level 26.0 Anion Gap 17 Estimat Glomerular Filtration Rate 50 Lactic Acid Level 2.9 2.5 Ammonia 42 Total Creatine Kinase 43 Troponin I LESS THAN 0.02 Thyroid Stimulating Hormone 3rd Gen 1.460 Salicylates Level LESS THAN 1.7 Acetaminophen Level LESS THAN 2.0 Ethyl Alcohol Level 117 Date/Time Source Procedure Growth Status 07/09/17 13:40 Blood Peripheral Aerobic Blood Culture Pending Received 07/09/17 13:40 Blood Peripheral Anaerobic Blood Culture Pending Received 07/09/17 13:23 Urine Catheterized Urine Urine Culture Pending Received Result Diagram: 07/09/17 1340 07/09/17 1340 Imaging Last Impressions Head CT 07/09/17 1300 Signed Impressions: Service Date/Time: Sunday, July 09, 2017 14:39 - CONCLUSION: No acute intracranial abnormality. Keron Delacruz Jr., MD Chest X-Ray 07/09/17 1300 Signed Impressions: Service Date/Time: Sunday, July 09, 2017 13:35 - CONCLUSION: No acute cardiopulmonary abnormality is identified. MD Mia Saul VTE Risk Assessment Caprini VTE Risk Assessment: Mod/High Risk (score >= 2) Caprini Risk Assessment Model Point Value = 1 Point Value = 2 Point Value = 3 Point Value = 5 Age 41-60 Minor surgery BMI > 25 kg/m2 Swollen legs Varicose veins or History of unexplained or recurrent spontaneous Oral contraceptives or hormone replacement Sepsis (< 1 month) Serious lung disease, including pneumonia (< 1 month) Abnormal pulmonary function Acute myocardial infarction Congestive heart failure (< 1 month) History of inflammatory bowel disease Medical patient at bed rest Age 61-74 Arthroscopic surgery Major open surgery (> 45 min) Laparoscopic surgery (> 45 min) Malignancy Confined to bed (> 72 hours) Immobilizing plaster cast Central venous access Age >= 75 History of VTE Family history of VTE Factor V Leiden Prothrombin [id number] Lupus anticoagulant Anticardiolipin antibodies Elevated serum homocysteine Heparin-induced thrombocytopenia Other congenital or acquired thrombophilia Stroke (< 1 month) Elective arthroplasty Hip, pelvis, or leg fracture Acute spinal cord injury (< 1 month) Prophylaxis Regimen Total Risk Factor Score Risk Level Prophylaxis Regimen 0-1 Low Early ambulation 2 Moderate Order ONE of the following: *Sequential Compression Device (SCD) *Heparin 5000 units SQ BID 3-4 Higher Order ONE of the following medications: *Heparin 5000 units SQ TID *Enoxaparin/Lovenox 40 mg SQ daily (WT < 150 kg, CrCl > 30 mL/min) *Enoxaparin/Lovenox 30 mg SQ daily (WT < 150 kg, CrCl > 10-29 mL/min) *Enoxaparin/Lovenox 30 mg SQ BID (WT < 150 kg, CrCl > 30 mL/min) AND/OR *Sequential Compression Device (SCD) 5 or more Highest Order ONE of the following medications: *Heparin 5000 units SQ TID (Preferred with Epidurals) *Enoxaparin/Lovenox 40 mg SQ daily (WT < 150 kg, CrCl > 30 mL/min) *Enoxaparin/Lovenox 30 mg SQ daily (WT < 150 kg, CrCl > 10-29 mL/min) *Enoxaparin/Lovenox 30 mg SQ BID (WT < 150 kg, CrCl > 30 mL/min) AND *Sequential Compression Device (SCD) Assessment and Plan Assessment and Plan 1. Metabolic encephalopathy: Mental status is improving. Likely secondary to dehydration, UTI. Continue IV fluids, antibiotics. 2. UTI: Urine culture is pending. Continue Rocephin. 3. Dehydration: Continue IV fluids. 4. Hyponatremia: IV fluids. 5. Hypokalemia: Supplement potassium. 6. Elevated serum lactic acid: Trending down. 7. DVT prophylaxis: Heparin. 8. Kana Act: Psychiatry consult is pending. 1:1 sitter. 9. Hyperammonemia: Serum ammonia is less than on previous hospitalization (JanuaryFebruary 2017). Continue lactulose, Rifaximin. Problem Qualifiers (1) UTI (urinary tract infection): Qualified Codes: N30.00 - Acute cystitis without hematuria Jacek Curtis MD Jul 09, 2017 18:52
[2017-07-09 21:00] VITALS: PULSE 113
[2017-07-09] MEDS: CARBIDOPA/LEVODOPA 10 MG/100 MG TAB PO SCH (21:16)
[2017-07-09] MEDS: RIFAXIMIN 550 MG TAB PO SCH (21:16)
[2017-07-09] MEDS: HEPARIN SODIUM - SQ 10,000 UNITS/ML VIAL SQ SCH (21:17)
[2017-07-09] MEDS: ONDANSETRON HCL 4 MG/2 ML VIAL IVP PRN (21:21)
[2017-07-09] MEDS: POTASSIUM CHLORIDE 20 MEQ CONTROLLED RELEASE TAB PO SCH (21:23)
[2017-07-10] VITALS (9 sets, daily range): BP systolic 95–125; BP diastolic 55–75; PULSE 91–105; RESP 16–20; TEMP 96.9–98.6; O2SAT 91–97
[2017-07-10] MEDS: NS + KCL 20 MEQ INJ 1,000 ML IV SCH ×3 (03:32→22:00)
[2017-07-10] MEDS: CARBIDOPA/LEVODOPA 10 MG/100 MG TAB PO SCH ×3 (06:12→21:15)
[2017-07-10 08:06] LABS: AUTOMATED NEUTROPHIL # 2.2 TH/MM3 (1.8-7.7); BASOPHIL % 0.8 % (0.0-2.0); EOSINOPHIL # 0.1 TH/MM3 (0-0.4); EOSINOPHIL % 2.5 % (0.0-4.0); HEMATOCRIT 28.9 % (35.0-46.0); LYMPH % 19.8 % (9.0-44.0); LYMPHOCYTE # 0.7 TH/MM3 (1.0-4.8); MEAN CELL VOLUME 94.8 FL (80.0-100.0); MEAN CORPUSCULAR HEMOGLOBIN 32.2 PG (27.0-34.0); MEAN CORPUSCULAR HGB CONC 33.9 % (32.0-36.0); MONO % 11.4 % (0.0-8.0); NEUT % 65.5 % (16.0-70.0); PLATELET COUNT 60 TH/MM3 (150-450); RED BLOOD COUNT 3.05 MIL/MM3 (4.00-5.30); RED CELL DISTRIBUTION WIDTH 16.7 % (11.6-17.2); WHITE BLOOD COUNT 3.4 TH/MM3 (4.0-11.0)
[2017-07-10 08:20] LABS: HEMO FLAGS AUTO DIFF
[2017-07-10] MEDS: RIFAXIMIN 550 MG TAB PO SCH ×2 (08:32→21:14)
[2017-07-10] MEDS: LACTULOSE SYRUP 20 GM/30 ML CUP PO SCH ×3 (08:33→18:00)
[2017-07-10] MEDS: POTASSIUM CHLORIDE 20 MEQ CONTROLLED RELEASE TAB PO SCH (08:33)
[2017-07-10] MEDS: HEPARIN SODIUM - SQ 10,000 UNITS/ML VIAL SQ SCH ×2 (08:33→21:15)
[2017-07-10 08:37] LABS: ALKALINE PHOSPHATASE 143 U/L (45-117); ALT (GPT) 10 U/L (10-53); ANION GAP 10 MEQ/L (5-15); AST (GOT) 79 U/L (15-37); BICARBONATE 29.4 MEQ/L (21.0-32.0); BLOOD UREA NITROGEN 19 MG/DL (7-18); CHLORIDE 95 MEQ/L (98-107); GLOMERULAR FILTRATION RATE 66 ML/MIN (>89); SODIUM (NA) 134 MEQ/L (136-145); TOTAL BILIRUBIN ADULT 1.3 MG/DL (0.2-1.0)
[2017-07-10 08:43] LABS: POTASSIUM 2.8 MEQ/L (3.5-5.1)
[2017-07-10 09:12] LABS: PLATELET ESTIMATE SMEAR LOW (NORMAL); PLATELET MORPHOLOGY NORMAL (NORMAL); SCAN/DIFF AUTO DIFF CONFIRMED
--- NOTE | 2017-07-10 09:42 | HHI.PR ---
Objective Vitals Vital Signs Date Time Temp Pulse Resp B/P (MAP) Pulse Ox O2 Delivery O2 Flow Rate FiO2 07/10/17 07:34 98.3 100 18 100/62 (75) 91 07/10/17 04:00 98.6 94 18 100/62 (75) 91 07/10/17 03:29 92 07/10/17 00:00 96.9 105 18 97/55 (69) 93 07/09/17 21:00 113 07/09/17 18:40 97.9 102 16 114/62 (79) 95 07/09/17 18:00 07/09/17 15:35 97.8 106 18 115/70 (85) 94 Room Air 07/09/17 15:00 100 14 109/65 (80) 95 Room Air 07/09/17 12:50 98.8 117 20 115/71 (86) 98 I/O 07/09/17 07/09/17 07/09/17 07/10/17 07/10/17 07/10/17 07:00 15:00 23:00 07:00 15:00 23:00 Intake Total 1200 ml 1256 ml Balance 1200 ml 1256 ml Intake IV Total 1200 ml 1256 ml Result Diagram: 07/10/17 0751 07/10/17 0751 A/P Problem List: (1) Hyponatremia ICD Code: E87.1 - Hypo-osmolality and hyponatremia (2) Metabolic encephalopathy ICD Code: G93.41 - Metabolic encephalopathy (3) UTI (urinary tract infection) ICD Code: N39.0 - Urinary tract infection, site not specified Status: Resolved (4) Elevated lactic acid level ICD Code: R79.89 - Other specified abnormal findings of blood chemistry Status: Acute (5) Dehydration ICD Code: E86.0 - Dehydration Status: Acute (6) Hypokalemia ICD Code: E87.6 - Hypokalemia Status: Resolved Assessment and Plan 1. Metabolic encephalopathy: Mental status is improving. Likely secondary to dehydration, UTI. Continue IV fluids, antibiotics. 2. UTI: Urine culture is pending. Continue Rocephin. Blood culture growing gram positive rods. Repeat blood culture. 3. Dehydration: Continue IV fluids. 4. Hyponatremia: IV fluids. 5. Hypokalemia: Still low. Supplement potassium. 6. Elevated serum lactic acid: Improved. 7. DVT prophylaxis: Heparin. 8. Kana Act: Psychiatry consult is pending. 1:1 sitter. 9. Hyperammonemia: Serum ammonia is increased today. Continue lactulose, Rifaximin. Problem Qualifiers (1) UTI (urinary tract infection): Qualified Codes: N30.00 - Acute cystitis without hematuria Jacek Curtis MD Jul 10, 2017 09:42
[2017-07-10] MEDS: POTASSIUM CHLOR 20 MEQ PREMIX 100 ML IV SCH ×2 (10:55→12:49)
--- NOTE | 2017-07-10 12:05 | PD.PSY.CON ---
Provisional Diagnosis Admission Date Jul 09, 2017 at 15:10 [place] I. Delirium History of Present Illness Service Psychiatry Consult Requested By Attending physician Reason for Consult Roger act Primary Care Physician No Primary Care Physician HPI 62-year-old female brought in under a Roger act due to inability to care for herself. Patient was covered in fecal matter. She was largely confused, disoriented and unable to answer most questions appropriately. She was found to be very dehydrated. According to records reviewed, patient's medical condition has improved. At this time, the patient was interviewed by this physician and found to be alert, oriented to person, place and situation. She is not perfectly oriented to time. She is calm, pleasant and cooperative. She denies any suicidal or homicidal ideation, plan or intent. This physician is uncertain as to whether the patient has dementia. However, the patient does not have a behavioral problem or psychosis. Review of Systems Except as stated in HPI: all other systems reviewed are Neg Past Family Social History Coded Allergies: No Known Allergies (Unverified , 05/07/17) Active Scripts Clonazepam (Klonopin) 1 Mg Tab, 1 MG PO HS, #30 TAB 0 Refills Prov:Aries Winters MD 05/07/17 Lactulose Liq (Lactulose Liq) 10 Gm/15 Ml Soln, 30 ML PO TID for hyperammonemia , #1000 ML Titrate to 3 loose stools per day Prov:Horacio Husain MD 02/25/17 Rifaximin (Xifaxan) 550 Mg Tab, 550 MG PO BID for hyperammonemia for 30 Days, TAB Prov:Jacek Marquez 02/24/17 Potassium Chloride Microencaps (Potassium Chloride Microencaps) 20 Meq Tab, 20 MEQ PO DAILY for electrolyte replacement for 30 Days, TAB Prov:Jacek Marquez 02/24/17 Carbidopa-Levodopa (Sinemet) 10-100 Mg Tab, 1 TAB PO Q8H for Parkinson's for 30 Days, TAB Prov:Jacek Marquez 02/24/17 Walker with Front Wheels (Walker with Front Wheels) 1 Mis Mis, 1 EA .ROUTE DIRECTED, #1 EA 0 Refills Prov:Jacek Marquez 02/24/17 Current Medications Medications (Trade) Dose Ordered Sig/Garett Route Start Time Stop Time Status Last Admin (NS Flush) 2 ml UNSCH PRN IV FLUSH 07/09/17 13:00 (Zofran Inj) 4 mg Q6H PRN IVP 07/09/17 15:15 07/09/17 21:21 (Narcan Inj) 0.4 mg UNSCH PRN IV 07/09/17 15:15 (Milk Of Magnesia Liq) 30 ml Q12H PRN PO 07/09/17 15:15 (Senokot) 17.2 mg Q12H PRN PO 07/09/17 15:15 (Dulcolax Supp) 10 mg DAILY PRN RECTAL 07/09/17 15:15 (Lactulose Liq) 30 ml DAILY PRN PO 07/09/17 15:15 Potassium Chloride/Sodium Chloride 1,000 ml @ 100 mls/hr Q10H IV 07/09/17 16:00 07/10/17 03:32 Ceftriaxone Sodium 1000 mg/ Sodium Chloride 100 ml @ 200 mls/hr Q24H IV 07/10/17 15:00 07/09/17 17:32 (Heparin Inj) 5,000 units Q12HR SQ 07/09/17 21:00 07/10/17 08:33 (Sinemet 10-100 Mg) 1 tab Q8HR PO 07/09/17 22:00 07/10/17 06:12 (Lactulose Liq) 30 ml TID PO 07/10/17 09:00 07/10/17 08:33 (KCl) 20 meq DAILY PO 07/09/17 20:00 07/10/17 08:33 (Xifaxan) 550 mg BID PO 07/09/17 21:00 07/10/17 08:32 Potassium Chloride 100 ml @ 50 mls/hr Q2H IV 07/10/17 10:00 07/10/17 13:59 07/10/17 10:55 Family History Denied for major mental illness Social History Lives alone. Unemployed. Minimal to no family support. Denies history of alcohol or drug abuse. Patient's Strengths (min. 2) Resilient and has access to healthcare Physical Exam Vital Signs Vital Signs Date Time Temp Pulse Resp B/P (MAP) Pulse Ox O2 Delivery O2 Flow Rate FiO2 07/10/17 07:34 98.3 100 18 100/62 (75) 91 07/09/17 15:35 Room Air I/O 07/10/17 07/10/17 07/11/17 08:00 16:00 00:00 Intake Total 1256 ml Balance 1256 ml Lab Results Test 07/09/17 13:23 07/09/17 13:40 07/09/17 16:20 07/10/17 07:51 Urine Color YELLOW Urine Turbidity HAZY Urine pH 6.5 Urine Specific Advance 1.021 Urine Protein 30 mg/dL Urine Glucose (UA) NEG mg/dL Urine Ketones 80 mg/dL Urine Occult Blood SMALL Urine Nitrite NEG Urine Bilirubin NEG Urine Urobilinogen 4.0 MG/DL Urine Leukocyte Esterase MOD Urine RBC 5 /hpf Urine WBC 2 /hpf Urine Squamous Epithelial Cells 4 /hpf Urine Bacteria OCC /hpf Urine Hyaline Casts 9 /lpf Urine Yeast (Budding) OCC Microscopic Urinalysis Comment CATH-CULTURE IND Urine Opiates Screen NEG Urine Barbiturates Screen NEG Urine Amphetamines Screen NEG Urine Benzodiazepines Screen NEG Urine Cocaine Screen NEG Urine Cannabinoids Screen NEG White Blood Count 7.1 TH/MM3 3.4 TH/MM3 Red Blood Count 3.73 MIL/MM3 3.05 MIL/MM3 Hemoglobin 11.9 GM/DL 9.8 GM/DL Hematocrit 35.5 % 28.9 % Mean Corpuscular Volume 95.1 FL 94.8 FL Mean Corpuscular Hemoglobin 31.9 PG 32.2 PG Mean Corpuscular Hemoglobin Concent 33.6 % 33.9 % Red Cell Distribution Width 17.4 % 16.7 % Platelet Count 111 TH/MM3 60 TH/MM3 Mean Platelet Volume 9.6 FL 9.4 FL Neutrophils (%) (Auto) 69.4 % 65.5 % Lymphocytes (%) (Auto) 19.2 % 19.8 % Monocytes (%) (Auto) 10.1 % 11.4 % Eosinophils (%) (Auto) 0.9 % 2.5 % Basophils (%) (Auto) 0.4 % 0.8 % Neutrophils # (Auto) 4.9 TH/MM3 2.2 TH/MM3 Lymphocytes # (Auto) 1.4 TH/MM3 0.7 TH/MM3 Monocytes # (Auto) 0.7 TH/MM3 0.4 TH/MM3 Eosinophils # (Auto) 0.1 TH/MM3 0.1 TH/MM3 Basophils # (Auto) 0.0 TH/MM3 0.0 TH/MM3 CBC Comment DIFF FINAL AUTO DIFF Differential Comment AUTO DIFF CONFIRMED Prothrombin Time 12.5 SEC Prothromb Time International Ratio 1.1 RATIO Activated Partial Thromboplast Time 25.7 SEC Blood Urea Nitrogen 33 MG/DL 19 MG/DL Creatinine 1.11 MG/DL 0.87 MG/DL Random Glucose 70 MG/DL 109 MG/DL Total Protein 8.2 GM/DL 6.2 GM/DL Albumin 2.9 GM/DL 2.3 GM/DL Calcium Level 8.3 MG/DL 7.5 MG/DL Alkaline Phosphatase 177 U/L 143 U/L Aspartate Amino Transf (AST/SGOT) 120 U/L 79 U/L Alanine Aminotransferase (ALT/SGPT) 28 U/L 10 U/L Total Bilirubin 1.6 MG/DL 1.3 MG/DL Sodium Level 131 MEQ/L 134 MEQ/L Potassium Level 3.2 MEQ/L 2.8 MEQ/L Chloride Level 88 MEQ/L 95 MEQ/L Carbon Dioxide Level 26.0 MEQ/L 29.4 MEQ/L Anion Gap 17 MEQ/L 10 MEQ/L Estimat Glomerular Filtration Rate 50 ML/MIN 66 ML/MIN Lactic Acid Level 2.9 mmol/L 2.5 mmol/L 2.0 mmol/L Ammonia 42 MCMOL/L 104 MCMOL/L Total Creatine Kinase 43 U/L Troponin I LESS THAN 0.02 NG/ML Thyroid Stimulating Hormone 3rd Gen 1.460 uIU/ML Salicylates Level LESS THAN 1.7 MG/DL Acetaminophen Level LESS THAN 2.0 MCG/ML Ethyl Alcohol Level 117 MG/DL Platelet Estimate LOW Platelet Morphology Comment NORMAL Basophilic Stippling FAINT Date/Time Source Procedure Growth Status 07/09/17 13:40 Blood Peripheral Aerobic Blood Culture - Preliminary NO GROWTH IN 1 DAY Resulted 07/09/17 13:40 Blood Peripheral Anaerobic Blood Culture - Preliminary NO GROWTH IN 1 DAY Resulted 07/09/17 13:23 Urine Catheterized Urine Urine Culture - Preliminary 10-50,000 CFU/ML MIXED JUANITA... Resulted Mental Status Examination Speech: Unremarkable Orientation: Person, Place, Situation Memory: Impaired (describe) (improving) Thought Process: Organized, Goal Directed Thought Content: Unremarkable Hallucination Type: None Attention and Concentration: Easily Distracted Suicidal Ideation: No Previous Suicide Attempts: No Homicidal Ideation: No Previous Homicide Attempts: No Insight: Fair Judgment: Unrealistic Affect: Good Mood: Appropriate Motor Activity: Normal gait Assessment & Plan Problem List: (1) Delirium secondary to multiple medical problems ICD Codes: F05 - Delirium due to known physiological condition Status: Acute Assessment & Plan Estimated LOS: days. Patient may continue to be unable to care for herself. Recommend neurology consult to assess for Parkinson's, Alzheimer's dementia, etc. Recommended an occupational therapy consult to determine patient's functionality. Do not recommend psychotropic medicines at this time as patient is not suffering from a mood disorder, psychotic disorder, etc. Believe the patient does have delirium but may also have underlying dementia process. Patient may be unable to live at home alone and would therefore become a placement issue. However psychiatry has nothing to offer at this time. Aries Winters MD Jul 10, 2017 12:05
[2017-07-10] MEDS ORDERED: cefTRIAXone INJ 1,000 MG in SODIUM CHLORIDE 0.9% INJ 100 ML IV SCH ×5 (15:00→15:30)
[2017-07-10] MEDS: cefTRIAXone INJ 1,000 MG in SODIUM CHLORIDE 0.9% INJ 100 ML IV SCH (18:07)
--- NOTE | 2017-07-10 18:41 | EKG ---
Date Performed: 07/09/2017 Time Performed: 13:35:31 PTAGE: 62 years EKG: SINUS TACHYCARDIA ABNORMAL RHYTHM ECG Compared to prior tracing no significant change DOCTOR: Rigoberto Ferrara Interpretating Date/Time 07/10/2017 18:39:13
[2017-07-10] MEDS: ONDANSETRON HCL 4 MG/2 ML VIAL IVP PRN (21:15)
--- NOTE | 2017-07-10 23:41 | MB ---
cc: YVETTE ROCHE MD DATE OF CONSULTATION 07/10/17 REASON FOR CONSULTATION Altered mental status. HISTORY OF PRESENT ILLNESS Ms. Sigala is a 62-year-old female brought to the [facility] Emergency Room by police under Roger Act. As per medical records review she was found to be confused and covered with feces at home and she was unable to care for herself and was placed under Roger Act. During the encounter the patient states that, "My brain is normal." She denies any complaint of headache , double vision, blurred vision, dizzy spells, weakness of an extremity, history of seizures, convulsions, family history of stroke or seizures. REVIEW OF SYSTEMS 12-point review of systems is negative except for what is stated in the HPI. PAST MEDICAL HISTORY Breast cancer, chronic pancreatitis, ectopic , MGUS, hypertension, asthma, gastroesophageal reflux disease. PAST SURGICAL VICTIM Cholecystectomy and mastectomy. MEDICATIONS 1. Klonopin. 2. Lactulose. 3. Rifaximin. 4. Potassium. 5. Sinemet 10/100 milligrams three times. ALLERGIES No known allergies. FAMILY HISTORY Mother with brain cancer and heart disease. Father with heart disease. SOCIAL HISTORY Denies alcohol or illicit drug use. Occasionally he smokes cigarettes. PHYSICAL EXAMINATION GENERAL: Awake, alert, anxious, not in distress. HEENT: Atraumatic, normocephalic. Intact hearing and intact vision. CARDIOVASCULAR: Regular rate and rhythm. RESPIRATORY: Clear to auscultation. No wheezes. GASTROINTESTINAL: Abdomen soft, nontender. EXTREMITIES: No edema. No cyanosis, no deformities. NEUROLOGICAL: Alert, oriented to time, person and place. June 2017, [facility]. No dysarthria. No dysphasia. Intact naming. Intact repetition. Cranial nerves II-XII are grossly intact. Limited facial expression. No diplopia. No nystagmus. Bilateral upper extremity, right greater than the left , mild rigidity. No tremor. Bilateral lower extremity normal tone, 5/5 bilateral throughout. Sensation intact bilateral, symmetrical. [id number] is intact bilateral and symmetrical. Sensation to light touch and temperature is intact upper and lower extremity. PSYCHOLOGICAL: Intact mood and behavior. No hallucinations. LABORATORY DATA WBC 3.4, hemoglobin 9.8, platelets 60, sodium 134, potassium 2.8, chloride 95, anion gap 29, BUN 19, creatinine 0.87, lactic acid 2.5, calcium 7.5, total bilirubin 1.3, AST 79, alkaline phosphatase 143, total protein 6.2, INR 1.1. DIAGNOSTIC IMAGING - Head CT scan without contrast old lacunar infarction in the central julita. No acute intracranial abnormality. DIAGNOSTIC IMPRESSION 1. Encephalopathy, resolved Likely etiology is secondary to metabolic/electrolyte disturbance/dehydration, hyponatremia, hypokalemia. 2. Extrapyramidal features, ? Parkinsonism. 3. Hypertension. 4. A less likely etiology is a seizure, given the encephalopathy with loss of bowel control with history of breast cancer, questionable for metastases even though however, head CT scan was negative for any lesion. PLAN 1. Neuro checks q. 4 hourly. 2. MRI brain with and without contrast. 3. EEG. 4. Fall precautions. 5. PT/OT recommendations are appreciated. 6. Sinemet 10 milligrams/100 milligrams three times daily. 7. Continue supportive medical therapy, replenish of electrolytes. 8. Psychiatry consult is appreciated. 9. A Sitter, the patient is Roger Acted. Thank you for the opportunity to participate in the care of your patient. MD EDGAR Hidalgo/DB /10:54 PM /11:14 PM VASILIY
[2017-07-11] VITALS (9 sets, daily range): BP systolic 101–129; BP diastolic 68–86; PULSE 86–108; RESP 16–20; TEMP 97.1–98.5; O2SAT 92–97
[2017-07-11] MEDS: NS + KCL 20 MEQ INJ 1,000 ML IV SCH ×2 (05:28→18:14)
[2017-07-11] MEDS: CARBIDOPA/LEVODOPA 10 MG/100 MG TAB PO SCH ×3 (05:28→21:53)
[2017-07-11 07:44] LABS: AUTOMATED NEUTROPHIL # 3.1 TH/MM3 (1.8-7.7); BASOPHIL % 0.5 % (0.0-2.0); EOSINOPHIL # 0.2 TH/MM3 (0-0.4); EOSINOPHIL % 3.5 % (0.0-4.0); HEMATOCRIT 32.9 % (35.0-46.0); LYMPH % 18.7 % (9.0-44.0); LYMPHOCYTE # 0.9 TH/MM3 (1.0-4.8); MEAN CELL VOLUME 97.1 FL (80.0-100.0); MEAN CORPUSCULAR HEMOGLOBIN 32.2 PG (27.0-34.0); MEAN CORPUSCULAR HGB CONC 33.2 % (32.0-36.0); MONO % 13.1 % (0.0-8.0); NEUT % 64.2 % (16.0-70.0); PLATELET COUNT 58 TH/MM3 (150-450); RED BLOOD COUNT 3.39 MIL/MM3 (4.00-5.30); RED CELL DISTRIBUTION WIDTH 16.9 % (11.6-17.2); WHITE BLOOD COUNT 4.9 TH/MM3 (4.0-11.0)
[2017-07-11 07:46] LABS: HEMO FLAGS AUTO DIFF
[2017-07-11 08:20] LABS: ALKALINE PHOSPHATASE 154 U/L (45-117); ALT (GPT) LESS THAN 6 U/L (10-53); ANION GAP 10 MEQ/L (5-15); AST (GOT) 73 U/L (15-37); BICARBONATE 24.7 MEQ/L (21.0-32.0); BLOOD UREA NITROGEN 7 MG/DL (7-18); CHLORIDE 100 MEQ/L (98-107); GLOMERULAR FILTRATION RATE 101 ML/MIN (>89); POTASSIUM 3.7 MEQ/L (3.5-5.1); SODIUM (NA) 135 MEQ/L (136-145); TOTAL BILIRUBIN ADULT 1.1 MG/DL (0.2-1.0)
[2017-07-11] MEDS ORDERED: GADODIAMIDE PF 287 MG/ML 10 ML VIAL (for RAD MRI) IV PUSH ONE (08:35)
[2017-07-11 08:50] LABS: PLATELET ESTIMATE SMEAR LOW (NORMAL); PLATELET MORPHOLOGY NORMAL (NORMAL); SCAN/DIFF AUTO DIFF CONFIRMED
--- NOTE | 2017-07-11 09:10 | RADRPT ---
EXAM DATE/TIME: 07/11/2017 08:14 [place] COMPARISON: MRI BRAIN W & W/O CONTRAST, January 14, 2017, 10:04. INDICATIONS : Seizures. CONTRAST: 10 cc Omniscan (gadodiamide) IV MEDICAL HISTORY : Carcinoma, breast. Hypertension. Pancreatitis. SURGICAL HISTORY : Mastectomy, right. ENCOUNTER: Initial ACUITY: 1 day PAIN SCORE: 0/10 LOCATION: cranial TECHNIQUE: Multiplanar, multisequence MRI of the brain was performed both prior to and following the administration of paramagnetic contrast. FINDINGS: CEREBRUM: The ventricles are normal for age. No evidence of midline shift, mass lesion, hemorrha ge or acute infarction. No extraaxial fluid collections are seen. The pituitary gland and suprasell ar cistern are normal in configuration. WHITE MATTER: Stable bilateral patchy foci of increased T2 signal identified within the periventr icular white matter. POSTERIOR FOSSA: The cerebellum and brainstem are intact. The 4th ventricle is midline. There is a stable central hypoechoic region within the julita consistent with old infarct or prominent perivasc ular space.The cerebellopontine angle is unremarkable. The cerebellar tonsils are normal in position . DIFFUSION IMAGING: No focal areas of restricted diffusion are seen. No evidence of acute infarct ion. EXTRACRANIAL: The visualized portions of the orbits and paranasal sinuses are unremarkable. POST-CONTRAST: No abnormal areas of parenchymal or dural enhancement. No evidence of blood-brain barrier breakdown. A the postcontrast images demonstrate a area of signal void identified within the superior sagittal sinus from the level of the temporal lobe extending superiorly along the falx. CONCLUSION: #1. Signal void identified within the superior sagittal sinus which was not visualized on prior contr ast-enhanced MRI. 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 There is no adjacent ed bradly within the brain and this may represent an area of flow artifact. Consider further evaluation wit h MRV. 2. No evidence of metastatic disease within the brain. Fatuma López MD on July 11, 2017 at 9:02 Board Certified Radiologist. This report was verified electronically.
--- NOTE | 2017-07-11 09:34 | HHI.PR ---
Subjective Remarks Follow up encephalopathy, dehydration. Patient states that she feels better today. Per nursing, she has been more oriented. No chest pain, dyspnea. Objective Vitals Vital Signs Date Time Temp Pulse Resp B/P (MAP) Pulse Ox O2 Delivery O2 Flow Rate FiO2 07/11/17 07:30 97.1 101 20 124/81 (95) 94 07/11/17 04:00 98.1 108 20 118/83 (95) 97 07/11/17 00:00 97.8 101 20 101/68 (79) 92 07/11/17 00:00 97.8 07/10/17 21:00 91 07/10/17 20:00 97.0 92 20 114/75 (88) 97 07/10/17 17:00 98.1 96 16 95/67 (76) 92 07/10/17 12:01 98.0 92 16 125/65 (85) 92 I/O 07/10/17 07/10/17 07/10/17 07/11/17 07/11/17 07/11/17 07:00 15:00 23:00 07:00 15:00 23:00 Intake Total 1256 ml 440 ml 580 ml 1688 ml Balance 1256 ml 440 ml 580 ml 1688 ml Intake Oral 340 ml 480 ml 200 ml IV Total 1256 ml 100 ml 100 ml 1488 ml # Voids 2 4 5 # Bowel Movements 1 1 2 Result Diagram: 07/11/17 0728 07/11/17 0728 Imaging Last Impressions Brain MRI 07/11/17 0000 Signed Impressions: Service Date/Time: Tuesday, July 11, 2017 08:14 - CONCLUSION: #1. Signal void identified within the superior sagittal sinus which was not visualized on prior contrast-enhanced MRI. 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 There is no adjacent edema within the brain and this may represent an area of flow artifact. Consider further evaluation with MRV. 2. No evidence of metastatic disease within the brain. Fatuma López MD Head CT 07/09/17 1300 Signed Impressions: Service Date/Time: Sunday, July 09, 2017 14:39 - CONCLUSION: No acute intracranial abnormality. Keron Delacruz Jr., MD Chest X-Ray 07/09/17 1300 Signed Impressions: Service Date/Time: Sunday, July 09, 2017 13:35 - CONCLUSION: No acute cardiopulmonary abnormality is identified. Trae Dorantes MD Objective Remarks General: No acute distress. Heart: Regular rate and rhythm. No murmur. Lungs: Clear to auscultation bilaterally. No wheezes, rales, or rhonchi. Breathing is nonlabored. Abdomen: Soft, nontender, nondistended. Extremities: No lower extremity edema. Psych: Alert, answers questions appropriately. More oriented today. Procedures None Urinary Catheter: No Vascular Central Line Catheter: No A/P Problem List: (1) Metabolic encephalopathy ICD Code: G93.41 - Metabolic encephalopathy (2) Hyponatremia ICD Code: E87.1 - Hypo-osmolality and hyponatremia (3) UTI (urinary tract infection) ICD Code: N39.0 - Urinary tract infection, site not specified Status: Resolved (4) Elevated lactic acid level ICD Code: R79.89 - Other specified abnormal findings of blood chemistry Status: Acute (5) Dehydration ICD Code: E86.0 - Dehydration Status: Acute (6) Hypokalemia ICD Code: E87.6 - Hypokalemia Status: Resolved Assessment and Plan 1. Metabolic encephalopathy: Mental status continues to improve. Likely secondary to dehydration, UTI. Continue IV fluids, antibiotics. 2. UTI: Urine culture grew mixed jacey. Continue Rocephin. Blood culture growing gram positive rods. Repeat blood culture pending. 3. Dehydration: Continue IV fluids. 4. Hyponatremia: IV fluids. 5. Hypokalemia: Still low. Supplement potassium. 6. Elevated serum lactic acid: Improved. 7. DVT prophylaxis: Heparin. 8. Roger Act: Appreciate psychiatry recommendations. 1:1 sitter. 9. Hyperammonemia: Serum ammonia is better today. Continue lactulose, Rifaximin. 10. Questionable Parkinson's: Appreciate neurology recommendations. MRI of the brain shows possible superior sagittal sinus thrombosis versus artifact. Problem Qualifiers (1) UTI (urinary tract infection): Qualified Codes: N30.00 - Acute cystitis without hematuria Jacek Curtis MD Jul 11, 2017 09:34
[2017-07-11] MEDS: RIFAXIMIN 550 MG TAB PO SCH ×2 (09:53→21:53)
[2017-07-11] MEDS: LACTULOSE SYRUP 20 GM/30 ML CUP PO SCH ×3 (09:53→18:27)
[2017-07-11] MEDS: POTASSIUM CHLORIDE 20 MEQ CONTROLLED RELEASE TAB PO SCH (09:53)
[2017-07-11] MEDS: HEPARIN SODIUM - SQ 10,000 UNITS/ML VIAL SQ SCH ×2 (09:53→21:54)
[2017-07-11] MEDS: MAGNESIUM SULFATE 1 GM PREMIX 100 ML IV SCH ×2 (09:55→11:57)
--- NOTE | 2017-07-11 17:32 | HHI.PR ---
Review/Management Diagnosis 1. Encephalopathy, resolved Likely etiology is secondary to metabolic/electrolyte disturbance/dehydration, hyponatremia, hypokalemia. 2. Extrapyramidal features, ? Parkinsonism. 3. Hypertension. 4. A less likely etiology is a seizure, given the encephalopathy with loss of bowel control with history of breast cancer, questionable for metastases even though however, head CT scan was negative for any lesion. Plan - Neuro checks q. 4 hourly. - MRV head - Fall precautions. - PT/OT recommendations are appreciated. - Sinemet 10 milligrams/100 milligrams three times daily. - Continue supportive medical therapy, replenish of electrolytes. - Psychiatry consult is appreciated. - A Sitter, the patient is Roger Acted. Diagnosis/Plan: Subjective Subjective Comments No acute events reported No headache MRI brain suspicious by radiology report of sinus thrombosis EEG pending Active Medications Current Medications Medications (Trade) Dose Ordered Sig/Garett Route Start Time Stop Time Status Last Admin (NS Flush) 2 ml UNSCH PRN IV FLUSH 07/09/17 13:00 (Zofran Inj) 4 mg Q6H PRN IVP 07/09/17 15:15 07/10/17 21:15 (Narcan Inj) 0.4 mg UNSCH PRN IV 07/09/17 15:15 (Milk Of Magnesia Liq) 30 ml Q12H PRN PO 07/09/17 15:15 (Senokot) 17.2 mg Q12H PRN PO 07/09/17 15:15 (Dulcolax Supp) 10 mg DAILY PRN RECTAL 07/09/17 15:15 (Lactulose Liq) 30 ml DAILY PRN PO 07/09/17 15:15 Potassium Chloride/Sodium Chloride 1,000 ml @ 100 mls/hr Q10H IV 07/09/17 16:00 07/11/17 05:28 (Heparin Inj) 5,000 units Q12HR SQ 07/09/17 21:00 07/11/17 09:53 (Sinemet 10-100 Mg) 1 tab Q8HR PO 07/09/17 22:00 07/11/17 13:57 (Lactulose Liq) 30 ml TID PO 07/10/17 09:00 07/11/17 13:57 (KCl) 20 meq DAILY PO 07/09/17 20:00 07/11/17 09:53 (Xifaxan) 550 mg BID PO 07/09/17 21:00 07/11/17 09:53 Ceftriaxone Sodium 1000 mg/ Sodium Chloride 100 ml @ 200 mls/hr Q24H IV 07/10/17 17:00 07/10/17 18:07 (Ventolin Hfa Inh) 2 puff Q4H PRN INH 07/11/17 14:45 Allergies Allergies Coded Allergies No Known Allergies (Unverified05/07/17) Review of Systems All other ROS: ROS reviewed as documented in chart Exam I&O / VS 07/11/17 07/11/17 07/12/17 15:00 23:00 07:00 Intake Total 867 ml Balance 867 ml Intake Oral 270 ml IV Total 597 ml # Voids 4 # Bowel Movements 1 Vital Signs Date Time Temp Pulse Resp B/P (MAP) Pulse Ox O2 Delivery O2 Flow Rate FiO2 07/11/17 15:35 98.3 105 17 116/77 (90) 96 07/11/17 15:35 90 07/11/17 11:38 100 07/11/17 11:20 98.5 99 18 122/75 (91) 97 07/11/17 07:45 104 07/11/17 07:30 97.1 101 20 124/81 (95) 94 07/11/17 04:00 98.1 108 20 118/83 (95) 97 07/11/17 00:00 97.8 101 20 101/68 (79) 92 07/11/17 00:00 97.8 07/10/17 21:00 91 07/10/17 20:00 97.0 92 20 114/75 (88) 97 Exam Comments GENERAL: Awake, alert, anxious, not in distress. HEENT: Atraumatic, normocephalic. Intact hearing and intact vision. CARDIOVASCULAR: Regular rate and rhythm. RESPIRATORY: Clear to auscultation. No wheezes. GASTROINTESTINAL: Abdomen soft, nontender. EXTREMITIES: No edema. No cyanosis, no deformities. NEUROLOGICAL: Alert, oriented to time, person and place. No dysarthria. No dysphasia. Intact naming. Intact repetition. Cranial nerves II-XII are grossly intact. Limited facial expression. No diplopia. No nystagmus. Bilateral upper extremity, right greater than the left, mild rigidity. No tremor. Bilateral lower extremity normal tone, 5/5 bilateral throughout. Sensation intact bilateral, symmetrical. Uupskm-gx-ibgw is intact bilateral and symmetrical. Sensation to light touch and temperature is intact upper and lower extremity. PSYCHOLOGICAL: Intact mood and behavior. No hallucinations. Objective Radiology Results Last 72 hours Impressions Head/Brain Mag Res Venography 07/11/17 0000 Signed Impressions: Service Date/Time: Tuesday, July 11, 2017 17:39 - CONCLUSION: No evidence of cerebral sinus thrombosis. Sammy Villa MD Brain MRI 07/11/17 0000 Signed Impressions: Service Date/Time: Tuesday, July 11, 2017 08:14 - CONCLUSION: #1. Signal void identified within the superior sagittal sinus which was not visualized on prior contrast-enhanced MRI. 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 There is no adjacent edema within the brain and this may represent an area of flow artifact. Consider further evaluation with MRV. 2. No evidence of metastatic disease within the brain. Fatuma López MD Head CT 07/09/17 1300 Signed Impressions: Service Date/Time: Sunday, July 09, 2017 14:39 - CONCLUSION: No acute intracranial abnormality. Keron Delacruz Jr., MD Chest X-Ray 07/09/17 1300 Signed Impressions: Service Date/Time: Sunday, July 09, 2017 13:35 - CONCLUSION: No acute cardiopulmonary abnormality is identified. Trae Dorantes MD Last 72 hours Impressions Head/Brain Mag Res Venography 07/11/17 0000 Signed Impressions: Service Date/Time: Tuesday, July 11, 2017 17:39 - CONCLUSION: No evidence of cerebral sinus thrombosis. Sammy Villa MD Brain MRI 07/11/17 0000 Signed Impressions: Service Date/Time: Tuesday, July 11, 2017 08:14 - CONCLUSION: #1. Signal void identified within the superior sagittal sinus which was not visualized on prior contrast-enhanced MRI. 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 There is no adjacent edema within the brain and this may represent an area of flow artifact. Consider further evaluation with MRV. 2. No evidence of metastatic disease within the brain. Fatuma López MD Head CT 07/09/17 1300 Signed Impressions: Service Date/Time: Sunday, July 09, 2017 14:39 - CONCLUSION: No acute intracranial abnormality. Keron Delacruz Jr., MD Chest X-Ray 07/09/17 1300 Signed Impressions: Service Date/Time: Sunday, July 09, 2017 13:35 - CONCLUSION: No acute cardiopulmonary abnormality is identified. Trae Dorantes MD Micro and Labs Laboratory Tests Test 07/11/17 07:28 White Blood Count 4.9 Red Blood Count 3.39 Hemoglobin 10.9 Hematocrit 32.9 Mean Corpuscular Volume 97.1 Mean Corpuscular Hemoglobin 32.2 Mean Corpuscular Hemoglobin Concent 33.2 Red Cell Distribution Width 16.9 Platelet Count 58 Mean Platelet Volume 9.9 Neutrophils (%) (Auto) 64.2 Lymphocytes (%) (Auto) 18.7 Monocytes (%) (Auto) 13.1 Eosinophils (%) (Auto) 3.5 Basophils (%) (Auto) 0.5 Neutrophils # (Auto) 3.1 Lymphocytes # (Auto) 0.9 Monocytes # (Auto) 0.6 Eosinophils # (Auto) 0.2 Basophils # (Auto) 0.0 CBC Comment AUTO DIFF Differential Comment AUTO DIFF CONFIRMED Platelet Estimate LOW Platelet Morphology Comment NORMAL Blood Urea Nitrogen 7 Creatinine 0.60 Random Glucose 108 Total Protein 6.6 Albumin 2.2 Calcium Level 7.5 Magnesium Level 1.0 Alkaline Phosphatase 154 Aspartate Amino Transf (AST/SGOT) 73 Alanine Aminotransferase (ALT/SGPT) LESS THAN 6 Total Bilirubin 1.1 Sodium Level 135 Potassium Level 3.7 Chloride Level 100 Carbon Dioxide Level 24.7 Anion Gap 10 Estimat Glomerular Filtration Rate 101 Ammonia 49 Date/Time Source Procedure Growth Status 07/10/17 11:36 Blood Peripheral Aerobic Blood Culture - Preliminary NO GROWTH IN 1 DAY Resulted 07/10/17 11:36 Blood Peripheral Anaerobic Blood Culture - Preliminary NO GROWTH IN 1 DAY Resulted 07/09/17 13:23 Urine Catheterized Urine Urine Culture - Final 10-50,000 CFU/ML MIXED JUANITA... Complete Terry Sol MD Jul 11, 2017 17:32
[2017-07-11] MEDS: cefTRIAXone INJ 1,000 MG in SODIUM CHLORIDE 0.9% INJ 100 ML IV SCH (18:14)
[2017-07-11] MEDS: ONDANSETRON HCL 4 MG/2 ML VIAL IVP PRN (18:17)
--- NOTE | 2017-07-11 18:54 | RADRPT ---
EXAM DATE/TIME: 07/11/2017 17:39 COMPARISON: No previous studies available for comparison. INDICATIONS : Thrombosis. CONTRAST: 20 cc Omniscan (gadodiamide) IV MEDICAL HISTORY : Pancreatitis. Carcinoma, breast. Hypertension. SURGICAL HISTORY : Cholecystectomy. Mastectomy, right. ENCOUNTER: Initial ACUITY: 1 day PAIN SCORE: 4/10 LOCATION: Cranial FINDINGS: There is no evidence of cerebral sinus thrombosis. The superior sagittal sinus, sigmoid sinuses, tra nsverse sinuses and torcular Herophili are patent without thrombus. CONCLUSION: No evidence of cerebral sinus thrombosis. Sammy Villa MD on July 11, 2017 at 18:40 Board Certified Radiologist. This report was verified electronically.
[2017-07-11] MEDS ORDERED: GADODIAMIDE PF 287 MG/ML 20 ML VIAL (for RAD MRI) IVCONTRAST ONE (19:56)
[2017-07-12] VITALS (12 sets, daily range): BP systolic 105–123; BP diastolic 63–75; PULSE 91–101; RESP 17–20; TEMP 96.5–99.8; O2SAT 97–98
[2017-07-12] MEDS: ONDANSETRON HCL 4 MG/2 ML VIAL IVP PRN (03:14)
[2017-07-12] MEDS: NS + KCL 20 MEQ INJ 1,000 ML IV SCH ×3 (04:00→19:28)
[2017-07-12] MEDS: CARBIDOPA/LEVODOPA 10 MG/100 MG TAB PO SCH ×3 (06:41→20:23)
--- NOTE | 2017-07-12 09:27 | HHI.PR ---
Subjective Remarks Follow up encephalopathy, dehydration. Patient states that she feels a little better today. Still feels very weak. States that she was scared about the MRI findings. Objective Vitals Vital Signs Date Time Temp Pulse Resp B/P (MAP) Pulse Ox O2 Delivery O2 Flow Rate FiO2 07/12/17 04:02 101 07/12/17 04:00 97.3 91 18 119/70 (86) 98 07/12/17 00:09 96 07/12/17 00:00 96.5 97 17 118/73 (88) 98 07/11/17 20:11 86 07/11/17 20:00 98.0 102 16 129/86 (100) 95 07/11/17 15:35 98.3 105 17 116/77 (90) 96 07/11/17 15:35 90 07/11/17 11:38 100 07/11/17 11:20 98.5 99 18 122/75 (91) 97 I/O 07/11/17 07/11/17 07/11/17 07/12/17 07/12/17 07/12/17 07:00 15:00 23:00 07:00 15:00 23:00 Intake Total 1688 ml 867 ml 240 ml Output Total 1500 ml Balance 1688 ml 867 ml -1260 ml Intake Oral 200 ml 270 ml 240 ml IV Total 1488 ml 597 ml Output Urine Total 1500 ml # Voids 5 4 1 # Bowel Movements 2 1 1 5 Result Diagram: 07/11/17 0728 07/11/17 0728 Imaging Last Impressions Head/Brain Mag Res Venography 07/11/17 0000 Signed Impressions: Service Date/Time: Tuesday, July 11, 2017 17:39 - CONCLUSION: No evidence of cerebral sinus thrombosis. Sammy Villa MD Brain MRI 07/11/17 0000 Signed Impressions: Service Date/Time: Tuesday, July 11, 2017 08:14 - CONCLUSION: #1. Signal void identified within the superior sagittal sinus which was not visualized on prior contrast-enhanced MRI. 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 There is no adjacent edema within the brain and this may represent an area of flow artifact. Consider further evaluation with MRV. 2. No evidence of metastatic disease within the brain. Fatuma López MD Head CT 07/09/17 1300 Signed Impressions: Service Date/Time: Sunday, July 09, 2017 14:39 - CONCLUSION: No acute intracranial abnormality. Keron Delcaruz Jr., MD Chest X-Ray 07/09/17 1300 Signed Impressions: Service Date/Time: Sunday, July 09, 2017 13:35 - CONCLUSION: No acute cardiopulmonary abnormality is identified. Trae Dorantes MD Objective Remarks General: No acute distress. Heart: Regular rate and rhythm. No murmur. Lungs: Clear to auscultation bilaterally. No wheezes, rales, or rhonchi. Breathing is nonlabored. Abdomen: Soft, nontender, nondistended. Extremities: No lower extremity edema. Psych: Alert, answers questions appropriately. Oriented to person, place. Procedures None Urinary Catheter: No Vascular Central Line Catheter: No A/P Problem List: (1) Metabolic encephalopathy ICD Code: G93.41 - Metabolic encephalopathy (2) Hyponatremia ICD Code: E87.1 - Hypo-osmolality and hyponatremia (3) UTI (urinary tract infection) ICD Code: N39.0 - Urinary tract infection, site not specified Status: Resolved (4) Elevated lactic acid level ICD Code: R79.89 - Other specified abnormal findings of blood chemistry Status: Acute (5) Dehydration ICD Code: E86.0 - Dehydration Status: Acute (6) Hypokalemia ICD Code: E87.6 - Hypokalemia Status: Resolved Assessment and Plan 1. Metabolic encephalopathy: Mental status continues to improve. Likely secondary to dehydration, UTI. Continue IV fluids, antibiotics. 2. UTI: Urine culture grew mixed jacey. Continue Rocephin. Blood culture growing gram positive rods. Repeat blood culture is negative so far. 3. Dehydration: Continue IV fluids. 4. Hyponatremia: IV fluids. 5. Hypokalemia: Labs are pending today. 6. Elevated serum lactic acid: Improved. 7. DVT prophylaxis: Heparin. 8. Roger Act: Appreciate psychiatry recommendations. Roger Act lifted. Sitter discontinued. 9. Hyperammonemia: Continue lactulose, Rifaximin. 10. Questionable Parkinson's: Appreciate neurology recommendations. MRI of the brain shows possible superior sagittal sinus thrombosis versus artifact. MRV is negative. Discharge Planning Will need SNF/rehab. Case management to assist with discharge planning. Problem Qualifiers (1) UTI (urinary tract infection): Qualified Codes: N30.00 - Acute cystitis without hematuria Jacek Curtis MD Jul 12, 2017 09:27
[2017-07-12] MEDS: POTASSIUM CHLORIDE 20 MEQ CONTROLLED RELEASE TAB PO SCH (09:40)
[2017-07-12] MEDS: HEPARIN SODIUM - SQ 10,000 UNITS/ML VIAL SQ SCH ×2 (09:40→20:23)
[2017-07-12] MEDS: RIFAXIMIN 550 MG TAB PO SCH ×2 (09:40→20:23)
[2017-07-12] MEDS: LACTULOSE SYRUP 20 GM/30 ML CUP PO SCH ×3 (09:40→19:39)
[2017-07-12] MEDS: ALBUTEROL SULFATE 90 MCG/ACT HFA 18 GM INHALER INH PRN (12:17)
[2017-07-12 13:28] LABS: BASOPHIL % 0.7 % (0.0-2.0); EOSINOPHIL # 0.1 TH/MM3 (0-0.4); EOSINOPHIL % 2.2 % (0.0-4.0); HEMATOCRIT 33.8 % (35.0-46.0); LYMPH % 18.8 % (9.0-44.0); LYMPHOCYTE # 1.2 TH/MM3 (1.0-4.8); MEAN CELL VOLUME 97.3 FL (80.0-100.0); MEAN CORPUSCULAR HGB CONC 32.8 % (32.0-36.0); MONO % 14.3 % (0.0-8.0); PLATELET COUNT 94 TH/MM3 (150-450); RED BLOOD COUNT 3.48 MIL/MM3 (4.00-5.30); RED CELL DISTRIBUTION WIDTH 17.6 % (11.6-17.2); WHITE BLOOD COUNT 6.3 TH/MM3 (4.0-11.0)
[2017-07-12 13:36] LABS: HEMO FLAGS AUTO DIFF
[2017-07-12 13:42] LABS: ALT (GPT) 16 U/L (10-53); ANION GAP 11 MEQ/L (5-15); AST (GOT) 70 U/L (15-37); BICARBONATE 24.1 MEQ/L (21.0-32.0); BLOOD UREA NITROGEN 3 MG/DL (7-18); CHLORIDE 100 MEQ/L (98-107); GLOMERULAR FILTRATION RATE 88 ML/MIN (>89); MAGNESIUM 1.3 MG/DL (1.5-2.5); POTASSIUM 3.8 MEQ/L (3.5-5.1); SODIUM (NA) 135 MEQ/L (136-145)
[2017-07-12 13:45] LABS: ALKALINE PHOSPHATASE 146 U/L (45-117); TOTAL BILIRUBIN ADULT 0.9 MG/DL (0.2-1.0)
[2017-07-12 14:36] LABS: BANDS 11 % (0-6); BASOPHILS 1 % (0-2); CORRECTED NUCLEATED RBC 2 /100 WBC (0-0); EOSINOPHILS 4 % (0-4); METAMYELOCYTES 1 % (0-1); NEUTROPHIL # MANUAL DIFF 4.8 TH/MM3 (1.8-7.7); POLYS (SEG NEUTROPHILS) 64 % (16-70); WBC DIFF SAMPLE 100
[2017-07-12 14:37] LABS: PLATELET ESTIMATE SMEAR LOW (NORMAL); PLATELET MORPHOLOGY NORMAL (NORMAL); SCAN/DIFF FINAL DIFF MANUAL
[2017-07-12] MEDS: cefTRIAXone INJ 1,000 MG in SODIUM CHLORIDE 0.9% INJ 100 ML IV SCH (19:39)
--- NOTE | 2017-07-12 21:59 | MG ---
cc: YVETTE SOL MD Lab No: Date: 07/12/2017 Age: Sex: F Race: DATE OF 1955 HISTORY The patient under Roger act, found confused, covered with feces, unable to care for herself. Elevated ethanol level, breast cancer, pancreatitis, hypertension, asthma, gastroesophageal reflux disease. MEDICATIONS 1. Sinemet. 2. Potassium. 3. Magnesium sulfate. DESCRIPTION The background activity is 8-9 Hz alpha located posteriorly, attenuates to eye- opening bilateral and symmetrical. Superimposed by excess beta activity. There is T3 electrode artifact during the recording. There is excessive muscle and movement artifact. Photic stimulation did not elicit a driving response. Hyperventilation was not done. INTERPRETATION This is a normal EEG. Excess beta activity is a nonspecific finding that may be related to medication adverse effects like benzos or barbiturates. There are no electrographic seizures, ictal activity or epileptiform discharges noted during the recording. Clinical correlation is recommended. Yvette Sol MD RGO/KK /7:00 PM /9:48 PM [facility]
[2017-07-12] MEDS ORDERED: oxyCODONE/ACETAMINOPHEN 5 MG/325 MG TAB PO ONE (23:15)
[2017-07-13] VITALS (7 sets, daily range): BP systolic 107–133; BP diastolic 69–86; PULSE 86–101; RESP 16–20; TEMP 97.7–98.9; O2SAT 97–98
[2017-07-13] MEDS: CARBIDOPA/LEVODOPA 10 MG/100 MG TAB PO SCH ×3 (05:11→21:02)
[2017-07-13] MEDS: NS + KCL 20 MEQ INJ 1,000 ML IV SCH ×2 (06:44→17:19)
[2017-07-13] MEDS: RIFAXIMIN 550 MG TAB PO SCH ×2 (07:52→19:54)
[2017-07-13] MEDS: POTASSIUM CHLORIDE 20 MEQ CONTROLLED RELEASE TAB PO SCH (07:52)
[2017-07-13] MEDS: LACTULOSE SYRUP 20 GM/30 ML CUP PO SCH ×3 (07:53→17:18)
[2017-07-13] MEDS: HEPARIN SODIUM - SQ 10,000 UNITS/ML VIAL SQ SCH ×2 (07:53→19:54)
[2017-07-13] MEDS: ALBUTEROL SULFATE 90 MCG/ACT HFA 18 GM INHALER INH PRN ×2 (07:58→23:22)
[2017-07-13 08:46] LABS: AUTOMATED NEUTROPHIL # 3.4 TH/MM3 (1.8-7.7); BASOPHIL % 0.7 % (0.0-2.0); EOSINOPHIL # 0.2 TH/MM3 (0-0.4); EOSINOPHIL % 3.1 % (0.0-4.0); HEMATOCRIT 35.5 % (35.0-46.0); HEMO FLAGS DIFF FINAL; LYMPH % 20.9 % (9.0-44.0); LYMPHOCYTE # 1.2 TH/MM3 (1.0-4.8); MEAN CELL VOLUME 97.7 FL (80.0-100.0); MEAN CORPUSCULAR HEMOGLOBIN 31.6 PG (27.0-34.0); MEAN CORPUSCULAR HGB CONC 32.3 % (32.0-36.0); MONO % 13.4 % (0.0-8.0); NEUT % 61.9 % (16.0-70.0); PLATELET COUNT 103 TH/MM3 (150-450); RED BLOOD COUNT 3.64 MIL/MM3 (4.00-5.30); RED CELL DISTRIBUTION WIDTH 17.5 % (11.6-17.2); WHITE BLOOD COUNT 5.5 TH/MM3 (4.0-11.0)
--- NOTE | 2017-07-13 08:57 | HHI.PR ---
Review/Management Diagnosis 1. Encephalopathy, resolved Likely etiology is secondary to metabolic/electrolyte disturbance/dehydration, hyponatremia, hypokalemia. 2. Extrapyramidal features, ? Parkinsonism. 3. Hypertension. Plan - Neuro checks q. 4 hourly. - Negative imaging of the brain - Fall precautions. - PT/OT recommendations are appreciated. - Sinemet 10 milligrams/100 milligrams three times daily. - Continue supportive medical therapy, replenish electrolytes. - Psychiatry consult is appreciated. - No need for further neurologic work up at this time - Follow up with outpatient neurology - Please call for questions Diagnosis/Plan: Subjective Subjective Comments No acute events reported No worsening symptoms or new neurologic complaints MRV brain is unremarkable EEG study is unremarkable for an ictal activity Active Medications Current Medications Medications (Trade) Dose Ordered Sig/Garett Route Start Time Stop Time Status Last Admin (NS Flush) 2 ml UNSCH PRN IV FLUSH 07/09/17 13:00 (Zofran Inj) 4 mg Q6H PRN IVP 07/09/17 15:15 07/12/17 03:14 (Narcan Inj) 0.4 mg UNSCH PRN IV 07/09/17 15:15 (Milk Of Magnesia Liq) 30 ml Q12H PRN PO 07/09/17 15:15 (Senokot) 17.2 mg Q12H PRN PO 07/09/17 15:15 (Dulcolax Supp) 10 mg DAILY PRN RECTAL 07/09/17 15:15 (Lactulose Liq) 30 ml DAILY PRN PO 07/09/17 15:15 Potassium Chloride/Sodium Chloride 1,000 ml @ 100 mls/hr Q10H IV 07/09/17 16:00 07/13/17 06:44 (Heparin Inj) 5,000 units Q12HR SQ 07/09/17 21:00 07/13/17 07:53 (Sinemet 10-100 Mg) 1 tab Q8HR PO 07/09/17 22:00 07/13/17 05:11 (Lactulose Liq) 30 ml TID PO 07/10/17 09:00 07/13/17 07:53 (KCl) 20 meq DAILY PO 07/09/17 20:00 07/13/17 07:52 (Xifaxan) 550 mg BID PO 07/09/17 21:00 07/13/17 07:52 Ceftriaxone Sodium 1000 mg/ Sodium Chloride 100 ml @ 200 mls/hr Q24H IV 07/10/17 17:00 07/12/17 19:39 (Ventolin Hfa Inh) 2 puff Q4H PRN INH 07/11/17 14:45 07/13/17 07:58 Allergies Allergies Coded Allergies No Known Allergies (Unverified05/07/17) Review of Systems All other ROS: ROS reviewed as documented in chart Exam I&O / VS 07/13/17 07/13/17 07/14/17 15:00 23:00 07:00 # Voids 1 Vital Signs Date Time Temp Pulse Resp B/P (MAP) Pulse Ox O2 Delivery O2 Flow Rate FiO2 07/13/17 08:00 97.7 97 16 132/86 (101) 97 07/13/17 04:00 97.8 94 16 119/73 (88) 98 07/13/17 04:00 94 07/13/17 00:06 98.9 96 16 107/71 (83) 97 07/13/17 00:00 88 07/12/17 20:53 99.3 93 18 105/63 (77) 98 07/12/17 20:00 93 07/12/17 16:00 98.8 94 20 118/74 (89) 97 07/12/17 12:00 95 07/12/17 11:45 99.8 95 20 112/70 (84) 98 Exam Comments GENERAL: Awake, alert, anxious, not in distress. HEENT: Atraumatic, normocephalic. Intact hearing and intact vision. CARDIOVASCULAR: Regular rate and rhythm. RESPIRATORY: Clear to auscultation. No wheezes. GASTROINTESTINAL: Abdomen soft, nontender. EXTREMITIES: No edema. No cyanosis, no deformities. NEUROLOGICAL: Alert, oriented to time, person and place. No dysarthria. No dysphasia. Intact naming. Intact repetition. Cranial nerves II-XII are grossly intact. Limited facial expression. No diplopia. No nystagmus. Bilateral upper extremity, right greater than the left, mild rigidity. No tremor. Bilateral lower extremity normal tone, 5/5 bilateral throughout. Sensation intact bilateral, symmetrical. Gvtlrt-xa-rvaw is intact bilateral and symmetrical. Sensation to light touch and temperature is intact upper and lower extremity. PSYCHOLOGICAL: Intact mood and behavior. No hallucinations. Objective Micro and Labs Laboratory Tests Test 07/12/17 13:00 07/13/17 08:26 White Blood Count 6.3 5.5 Red Blood Count 3.48 3.64 Hemoglobin 11.1 11.5 Hematocrit 33.8 35.5 Mean Corpuscular Volume 97.3 97.7 Mean Corpuscular Hemoglobin 32.0 31.6 Mean Corpuscular Hemoglobin Concent 32.8 32.3 Red Cell Distribution Width 17.6 17.5 Platelet Count 94 103 Mean Platelet Volume 10.4 9.4 Neutrophils (%) (Auto) 64.0 61.9 Lymphocytes (%) (Auto) 18.8 20.9 Monocytes (%) (Auto) 14.3 13.4 Eosinophils (%) (Auto) 2.2 3.1 Basophils (%) (Auto) 0.7 0.7 Neutrophils # (Auto) 4.0 3.4 Lymphocytes # (Auto) 1.2 1.2 Monocytes # (Auto) 0.9 0.7 Eosinophils # (Auto) 0.1 0.2 Basophils # (Auto) 0.0 0.0 CBC Comment AUTO DIFF DIFF FINAL Differential Total Cells Counted 100 Neutrophils % (Manual) 64 Band Neutrophils % 11 Lymphocytes % 12 Monocytes % 7 Eosinophils % 4 Basophils % 1 Neutrophils # (Manual) 4.8 Metamyelocytes 1 Nucleated Red Blood Cells 2 Differential Comment FINAL DIFF MANUAL Platelet Estimate LOW Platelet Morphology Comment NORMAL Blood Urea Nitrogen 3 Creatinine 0.68 Random Glucose 92 Total Protein 6.9 Albumin 2.1 Calcium Level 8.0 Magnesium Level 1.3 Alkaline Phosphatase 146 Aspartate Amino Transf (AST/SGOT) 70 Alanine Aminotransferase (ALT/SGPT) 16 Total Bilirubin 0.9 Sodium Level 135 Potassium Level 3.8 Chloride Level 100 Carbon Dioxide Level 24.1 Anion Gap 11 Estimat Glomerular Filtration Rate 88 Ammonia 62 Date/Time Source Procedure Growth Status 07/10/17 11:36 Blood Peripheral Aerobic Blood Culture - Preliminary NO GROWTH IN 2 DAYS Resulted 07/10/17 11:36 Blood Peripheral Anaerobic Blood Culture - Preliminary NO GROWTH IN 2 DAYS Resulted 07/09/17 13:23 Urine Catheterized Urine Urine Culture - Final 10-50,000 CFU/ML MIXED JUANITA... Complete Terry Sol MD Jul 13, 2017 08:57
[2017-07-13 09:08] LABS: BICARBONATE 24.4 MEQ/L (21.0-32.0); POTASSIUM 4.2 MEQ/L (3.5-5.1)
--- NOTE | 2017-07-13 10:16 | HHI.PR ---
Subjective Remarks Follow up weakness. Patient states that she is starting to feel a little stronger. No pain today. Objective Vitals Vital Signs Date Time Temp Pulse Resp B/P (MAP) Pulse Ox O2 Delivery O2 Flow Rate FiO2 07/13/17 08:00 97.7 97 16 132/86 (101) 97 07/13/17 04:00 97.8 94 16 119/73 (88) 98 07/13/17 04:00 94 07/13/17 00:06 98.9 96 16 107/71 (83) 97 07/13/17 00:00 88 07/12/17 20:53 99.3 93 18 105/63 (77) 98 07/12/17 20:00 93 07/12/17 16:00 98.8 94 20 118/74 (89) 97 07/12/17 12:00 95 07/12/17 11:45 99.8 95 20 112/70 (84) 98 I/O 07/12/17 07/12/17 07/12/17 07/13/17 07/13/17 07/13/17 07:00 15:00 23:00 07:00 15:00 23:00 Intake Total 240 ml 2000 ml 724 ml Output Total 1500 ml Balance -1260 ml 2000 ml 724 ml Intake Oral 240 ml 480 ml IV Total 2000 ml 244 ml Output Urine Total 1500 ml # Voids 5 1 2 1 # Bowel Movements 5 2 1 Result Diagram: 07/13/17 0826 07/13/17 0826 Imaging Last Impressions Head/Brain Mag Res Venography 07/11/17 0000 Signed Impressions: Service Date/Time: Tuesday, July 11, 2017 17:39 - CONCLUSION: No evidence of cerebral sinus thrombosis. Sammy Villa MD Brain MRI 07/11/17 0000 Signed Impressions: Service Date/Time: Tuesday, July 11, 2017 08:14 - CONCLUSION: #1. Signal void identified within the superior sagittal sinus which was not visualized on prior contrast-enhanced MRI. 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 There is no adjacent edema within the brain and this may represent an area of flow artifact. Consider further evaluation with MRV. 2. No evidence of metastatic disease within the brain. Fatuma López MD Head CT 07/09/17 1300 Signed Impressions: Service Date/Time: Sunday, July 09, 2017 14:39 - CONCLUSION: No acute intracranial abnormality. Keron Delacruz Jr., MD Chest X-Ray 07/09/17 1300 Signed Impressions: Service Date/Time: Sunday, July 09, 2017 13:35 - CONCLUSION: No acute cardiopulmonary abnormality is identified. Trae Dorantes MD Objective Remarks General: No acute distress. Heart: Regular rate and rhythm. No murmur. Lungs: Clear to auscultation bilaterally. No wheezes, rales, or rhonchi. Breathing is nonlabored. Abdomen: Soft, nontender, nondistended. Extremities: No lower extremity edema. Psych: Alert, answers questions appropriately. Oriented to person, place. Procedures None Urinary Catheter: No Vascular Central Line Catheter: No A/P Problem List: (1) Metabolic encephalopathy ICD Code: G93.41 - Metabolic encephalopathy (2) Hyponatremia ICD Code: E87.1 - Hypo-osmolality and hyponatremia (3) UTI (urinary tract infection) ICD Code: N39.0 - Urinary tract infection, site not specified Status: Resolved (4) Elevated lactic acid level ICD Code: R79.89 - Other specified abnormal findings of blood chemistry Status: Acute (5) Dehydration ICD Code: E86.0 - Dehydration Status: Acute (6) Hypokalemia ICD Code: E87.6 - Hypokalemia Status: Resolved Assessment and Plan 1. Metabolic encephalopathy: Mental status continues to improve. Likely secondary to dehydration, UTI. Continue IV fluids, antibiotics. 2. UTI: Urine culture grew mixed jacey. Continue Rocephin. Blood culture growing gram positive rods (?contaminant). Repeat blood culture is negative so far. 3. Dehydration: Continue IV fluids. 4. Hyponatremia: IV fluids. 5. Hypokalemia: Labs are pending today. 6. Elevated serum lactic acid: Improved. 7. DVT prophylaxis: Heparin. 8. Roger Act: Appreciate psychiatry recommendations. Roger Act lifted. Sitter discontinued. 9. Hyperammonemia: Continue lactulose, Rifaximin. 10. Questionable Parkinson's: Appreciate neurology recommendations. MRI of the brain shows possible superior sagittal sinus thrombosis versus artifact. MRV is negative. Clear for discharge by neurology. Discharge Planning Will need SNF/rehab. Case management to assist with discharge planning. Possible discharge tomorrow. Problem Qualifiers (1) UTI (urinary tract infection): Qualified Codes: N30.00 - Acute cystitis without hematuria Jacek Curtis MD Jul 13, 2017 10:16
[2017-07-13] MEDS: oxyCODONE/ACETAMINOPHEN 5 MG/325 MG TAB PO PRN ×2 (14:46→21:02)
[2017-07-13] MEDS: cefTRIAXone INJ 1,000 MG in SODIUM CHLORIDE 0.9% INJ 100 ML IV SCH (17:18)
[2017-07-14] VITALS: BP 100/64; PULSE 83; PULSE 85; RESP 18; TEMP 98.2; O2SAT 98
[2017-07-14] MEDS: NS + KCL 20 MEQ INJ 1,000 ML IV SCH (03:45)
[2017-07-14 04:00] VITALS: PULSE 87
[2017-07-14 04:22] VITALS: BP 101/67; PULSE 80; RESP 18; TEMP 98.6; O2SAT 99
[2017-07-14] MEDS: CARBIDOPA/LEVODOPA 10 MG/100 MG TAB PO SCH ×2 (05:05→12:16)
[2017-07-14 08:00] VITALS: BP 120/71; PULSE 88; RESP 16; TEMP 97.4; O2SAT 98
[2017-07-14] MEDS: LACTULOSE SYRUP 20 GM/30 ML CUP PO SCH ×2 (08:19→12:15)
[2017-07-14] MEDS: RIFAXIMIN 550 MG TAB PO SCH (08:19)
[2017-07-14] MEDS: oxyCODONE/ACETAMINOPHEN 5 MG/325 MG TAB PO PRN (08:19)
[2017-07-14] MEDS: POTASSIUM CHLORIDE 20 MEQ CONTROLLED RELEASE TAB PO SCH (08:19)
[2017-07-14] MEDS: HEPARIN SODIUM - SQ 10,000 UNITS/ML VIAL SQ SCH (08:20)
[2017-07-14] MEDS: ALBUTEROL SULFATE 90 MCG/ACT HFA 18 GM INHALER INH PRN (08:20)
[2017-07-14] MEDS ORDERED: CLON1 PO (08:48)
[2017-07-14] MEDS ORDERED: OXYC1TAB63 PO (08:48)
--- NOTE | 2017-07-14 08:49 | HHI.DCPOC ---
Discharge Care Plan Diagnosis: (1) Metabolic encephalopathy (2) Dehydration (3) Hypokalemia (4) Hyponatremia (5) Weakness (6) Parkinsonism Goals to Promote Your Health * To prevent worsening of your condition and complications * To maintain your health at the optimal level Directions to Meet Your Goals Take your medications as prescribed Follow your dietary instruction Follow activity as directed Keep your appointments as scheduled Take your immunizations and boosters as scheduled If your symptoms worsen call your PCP, if no PCP go to Urgent Care Center or Emergency Room Smoking is Dangerous to Your Health. Avoid second hand smoke Call the 24-hour hour crisis hotline for domestic abuse at Jacek Curtis MD Jul 14, 2017 08:49
--- NOTE | 2017-07-14 08:51 | HHI.DS ---
Discharge Summary Admission Date Jul 09, 2017 at 15:10 Discharge Date: Jul 14, 2017 Admitting Diagnosis [facility] Mental Status/Dehydration/UTI (1) Metabolic encephalopathy ICD Code: G93.41 - Metabolic encephalopathy (2) Hyponatremia ICD Code: E87.1 - Hypo-osmolality and hyponatremia (3) UTI (urinary tract infection) ICD Code: N39.0 - Urinary tract infection, site not specified Status: Resolved (4) Elevated lactic acid level ICD Code: R79.89 - Other specified abnormal findings of blood chemistry Status: Acute (5) Dehydration ICD Code: E86.0 - Dehydration Status: Acute (6) Hypokalemia ICD Code: E87.6 - Hypokalemia Status: Resolved Procedures None Brief History - From Admission The patient is a 62 year old female brought to the ER by police under [place] Act. Patient was found to be confused and covered in feces at home. She was unable to care for herself and was placed under Roger Act. She denies any complaints at this time. She states that she has "normal pains occasionally". Denies chest pain or dyspnea. Has had vomiting recently. Fell 2 weeks ago and has pain in her right wrist. CBC/BMP: 07/13/17 0826 07/13/17 0826 Significant Findings Laboratory Tests Test 07/12/17 13:00 07/13/17 08:26 Red Blood Count 3.48 MIL/MM3 (4.00-5.30) 3.64 MIL/MM3 (4.00-5.30) Hemoglobin 11.1 GM/DL (11.6-15.3) 11.5 GM/DL (11.6-15.3) Hematocrit 33.8 % (35.0-46.0) Red Cell Distribution Width 17.6 % (11.6-17.2) 17.5 % (11.6-17.2) Platelet Count 94 TH/MM3 (150-450) 103 TH/MM3 (150-450) Monocytes (%) (Auto) 14.3 % (0.0-8.0) 13.4 % (0.0-8.0) Band Neutrophils % 11 % (0-6) Nucleated Red Blood Cells 2 /100 WBC (0-0) Platelet Estimate LOW (NORMAL) Blood Urea Nitrogen 3 MG/DL (7-18) 4 MG/DL (7-18) Albumin 2.1 GM/DL (3.4-5.0) Calcium Level 8.0 MG/DL (8.5-10.1) 8.0 MG/DL (8.5-10.1) Magnesium Level 1.3 MG/DL (1.5-2.5) Alkaline Phosphatase 146 U/L (45-117) Aspartate Amino Transf (AST/SGOT) 70 U/L (15-37) Sodium Level 135 MEQ/L (136-145) 132 MEQ/L (136-145) Estimat Glomerular Filtration Rate 88 ML/MIN (>89) Ammonia 62 MCMOL/L (11-32) 46 MCMOL/L (11-32) Imaging Last Impressions Head/Brain Mag Res Venography 07/11/17 0000 Signed Impressions: Service Date/Time: Tuesday, July 11, 2017 17:39 - CONCLUSION: No evidence of cerebral sinus thrombosis. Sammy Villa MD Brain MRI 07/11/17 0000 Signed Impressions: Service Date/Time: Tuesday, July 11, 2017 08:14 - CONCLUSION: #1. Signal void identified within the superior sagittal sinus which was not visualized on prior contrast-enhanced MRI. 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 There is no adjacent edema within the brain and this may represent an area of flow artifact. Consider further evaluation with MRV. 2. No evidence of metastatic disease within the brain. Fatuma López MD Head CT 07/09/17 1300 Signed Impressions: Service Date/Time: Sunday, July 09, 2017 14:39 - CONCLUSION: No acute intracranial abnormality. Keron Delacruz Jr., MD Chest X-Ray 07/09/17 1300 Signed Impressions: Service Date/Time: Sunday, July 09, 2017 13:35 - CONCLUSION: No acute cardiopulmonary abnormality is identified. Trae Droantes MD PE at Discharge General: No acute distress. Heart: Regular rate and rhythm. No murmur. Lungs: Clear to auscultation bilaterally. No wheezes, rales, or rhonchi. Breathing is nonlabored. Abdomen: Soft, nontender, nondistended. Extremities: No lower extremity edema. Psych: Alert, answers questions appropriately. Oriented to person, place. Pt update on day of discharge The patient has no specific complaints today. Pain is well controlled with Percocet. Denies dyspnea. Still weak, but improving. Hospital Course The patient was admitted under [place] Act for encephalopathy, UTI, dehydration. She was given IV fluids and antibiotics. Psychiatry was consulted and lifted the Roger Act. Patient's mental status improved. Neurology was consulted. PT/OT evals were done. Recommendations were made for SNF/rehab at discharge. After further workup, including MRI/MRV, patient was cleared for discharge by neurology. Case management assisted in arranging SNF placement at discharge for rehab. Pt Condition on Discharge: Stable Discharge Disposition: Discharge to SNF Discharge Time: > 30 minutes Discharge Instructions DIET: Follow Instructions for: As Tolerated, No Restrictions Activities you can perform: Regular-No Restrictions Follow up Referrals: Neurology - 2 Weeks with Terry Sol MD PCP Follow-up - 1 Week New Medications: Oxycodone-Acetaminophen (Oxycodone-Acetaminophen) 5-325 mg Tab 1 TAB PO Q6H PRN for PAIN SCALE 4 TO 10, #10 TAB 0 Refills Continued Medications: Carbidopa-Levodopa (Sinemet) 10-100 Mg Tab 1 TAB PO Q8H for Parkinson's for 30 Days, TAB Clonazepam (Klonopin) 1 Mg Tab 1 MG PO HS for Insomnia, #3 TAB 0 Refills (This prescription has been renewed) Lactulose Liq (Lactulose Liq) 10 Gm/15 Ml Soln 30 ML PO TID for hyperammonemia, #1000 ML Titrate to 3 loose stools per day Potassium Chloride Microencaps (Potassium Chloride Microencaps) 20 Meq Tab 20 MEQ PO DAILY for electrolyte replacement for 30 Days, TAB Rifaximin (Xifaxan) 550 Mg Tab 550 MG PO BID for hyperammonemia for 30 Days, TAB Walker with Front Wheels (Walker with Front Wheels) 1 Mis Mis 1 EA .ROUTE DIRECTED, #1 EA 0 Refills Jacek Curtis MD Jul 14, 2017 08:51
[2017-07-14 10:48] LABS: AUTOMATED NEUTROPHIL # 2.8 TH/MM3 (1.8-7.7); BASOPHIL % 0.8 % (0.0-2.0); EOSINOPHIL # 0.1 TH/MM3 (0-0.4); EOSINOPHIL % 2.5 % (0.0-4.0); HEMATOCRIT 34.1 % (35.0-46.0); HEMO FLAGS DIFF FINAL; LYMPH % 18.8 % (9.0-44.0); LYMPHOCYTE # 0.9 TH/MM3 (1.0-4.8); MEAN CELL VOLUME 98.5 FL (80.0-100.0); MEAN CORPUSCULAR HEMOGLOBIN 31.4 PG (27.0-34.0); MEAN CORPUSCULAR HGB CONC 31.9 % (32.0-36.0); MONO % 18.8 % (0.0-8.0); NEUT % 59.1 % (16.0-70.0); PLATELET COUNT 133 TH/MM3 (150-450); RED BLOOD COUNT 3.46 MIL/MM3 (4.00-5.30); RED CELL DISTRIBUTION WIDTH 17.5 % (11.6-17.2); WHITE BLOOD COUNT 4.7 TH/MM3 (4.0-11.0)
[2017-07-14 11:00] LABS: ANION GAP 10 MEQ/L (5-15); AST (GOT) 62 U/L (15-37); BICARBONATE 23.3 MEQ/L (21.0-32.0); BLOOD UREA NITROGEN 2 MG/DL (7-18); CHLORIDE 99 MEQ/L (98-107); GLOMERULAR FILTRATION RATE 86 ML/MIN (>89); MAGNESIUM 1.1 MG/DL (1.5-2.5); POTASSIUM 4.2 MEQ/L (3.5-5.1); SODIUM (NA) 132 MEQ/L (136-145)
[2017-07-14 11:02] LABS: ALT (GPT) 10 U/L (10-53)
[2017-07-14 11:03] LABS: ALKALINE PHOSPHATASE 159 U/L (45-117); TOTAL BILIRUBIN ADULT 0.9 MG/DL (0.2-1.0)
[2017-07-14 12:00] VITALS: BP 128/77; PULSE 87; RESP 16; TEMP 97.5; O2SAT 95
== END 2017-07-14 12:48 | DRG 640 ==
LOC: NEPC 12:32 → NEDA 15:10 → HOCB 18:17
PROVIDERS: ADMIT Family Medicine; ATTEND Family Medicine
DX: E86.0 Dehydration (principal); G93.41 Metabolic encephalopathy; E72.20 Disorder of urea cycle metabolism, unspecified; N39.0 Urinary tract infection, site not specified; G20 Parkinson's disease; E87.1 Hypo-osmolality and hyponatremia; R74.0 Nonspecific elevation of levels of transaminase and lactic acid dehydrogenase [LDH]; E87.6 Hypokalemia; Z91.81 History of falling; M25.531 Pain in right wrist; Z85.3 Personal history of malignant neoplasm of breast; I10 Essential (primary) hypertension; Z72.0 Tobacco use
CPT/HCPCS: 70450; 70546; 70553; 71010; 76937; 80048; 80053; 80307; 81001; 82140; 82550; 83605; 83735; 84443; 84484; 85007; 85025; 85027; 85610; 85730; 87040; 87077; 87086; 87205; 93005; 95819; 96365; 96375; A9579; J0696; J1644; J2405; J3475; J3480; J7030

== ENCOUNTER 2017-11-24 16:15 | Emergency (ER) | payer OTHER ==
[~2017-11-24] VITALS: Ht 167.6 cm; Wt 54.5 kg
[~2017-11-24 16:15] MED LIST changes: +OXYC1TAB63 PO
--- NOTE | 2017-11-24 18:16 | PD ---
HPI Chief Complaint: intoxication Time Seen by Provider: 18:11 Travel History International Travel<30 days: No Contact w/Intl Traveler<30days: No History of Present Illness HPI 62 year-old woman, presents to the ED for apparent intoxication. Report from EMS was that she was at the [facility]. She has no medical complaints. Law enforcement apparently was given a [place] act her, but then left the scene after EMS loading the patient on the stretcher. She states she wants to go home. Denies any recent illness or injury. I'll provide much additional history. History Past Medical History Narrative Medical Obtained from outpatient records: History of breast cancer Chronic pancreatitis History of ectopic x 2 MGUS Hypertension Asthma GERD Menopausal: Yes Social History Alcohol Use: Yes (OCCASIONALLY) Tobacco Use: Yes (2 CIGS/DAILY) Allergies-Medications (Allergen,Severity, Reaction): Coded Allergies: No Known Allergies (Unverified , 05/07/17) Reported Meds & Prescriptions Reported Meds & Active Scripts Active Oxycodone-Acetaminophen 5-325 mg Tab 1 Tab PO Q6H PRN Klonopin (Clonazepam) 1 Mg Tab 1 Mg PO HS Lactulose Liq (Lactulose) 10 Gm/15 Ml Soln 30 Ml PO TID Titrate to 3 loose stools per day Xifaxan (Rifaximin) 550 Mg Tab 550 Mg PO BID 30 Days Potassium Chloride Microencaps 20 Meq Tab 20 Meq PO DAILY 30 Days Sinemet (Carbidopa/Levodopa) 10-100 Mg Tab 1 Tab PO Q8H 30 Days Walker with Front Wheels (Device) 1 Mis Mis 1 Ea .ROUTE DIRECTED Review of Systems ROS Limitations: Clinical Condition Physical Exam Narrative GENERAL: 62 year-old woman, appears intoxicated, minimally confused. Her car is a lot of redirection. SKIN: Focused skin assessment warm/dry. HEAD: No evidence of trauma. EYES: Pupils equal and round. No scleral icterus. No injection or drainage. ENT: No nasal bleeding or discharge. Mucous membranes pink and moist. NECK: Trachea midline. No JVD. CARDIOVASCULAR: Regular rate and rhythm. No murmur appreciated. RESPIRATORY: No accessory muscle use. Clear to auscultation. Breath sounds equal bilaterally. GASTROINTESTINAL: Abdomen soft, non-tender, nondistended. Hepatic and splenic margins not palpable. MUSCULOSKELETAL: No obvious deformities. Decreased muscle bulk. NEUROLOGICAL: Awake and alert. Moves all extremities. Walks unassisted albeit a little bit unsteady. Requires a lot of redirection to stay on task. MDM Medical Decision Making Medical Screen Exam Complete: Yes Emergency Medical Condition: Yes Differential Diagnosis Intoxication, occult trauma, encephalopathy, other Narrative Course Medical decision-making 62 year-old woman presents to the ED intoxicated, no medical complaints. We'll discharge when sober. Diagnosis Primary Impression: Alcohol intoxication Additional Instructions: Avoid excessive alcohol use. Follow-up your primary doctor in the next 2-4 days. Return to the emergency department for any new or worsening symptoms. Disposition: 01 DISCHARGE HOME Condition: Stable Alex Blanc MD Nov 24, 2017 18:16
[2017-11-24 18:30] VITALS: BP 140/76; PULSE 97; RESP 16; TEMP 98.6; O2SAT 99
[2017-11-24] MEDS ORDERED: HALOPERIDOL LACTATE 5 MG/ML AMP IM ONE (18:30)
[2017-11-25 01:45] VITALS: BP 140/62; PULSE 95; RESP 15; TEMP 98.8; O2SAT 94
[2017-11-25 04:41] VITALS: BP 116/65; PULSE 81; RESP 16; TEMP 97.7; O2SAT 97
[2017-11-25 07:52] VITALS: BP 134/75; PULSE 111; RESP 16; O2SAT 91
[2017-11-25] MEDS ORDERED: PANTOPRAZOLE INJ 80 MG in SODIUM CHLORIDE 0.9% INJ 35 ML IV ONE (08:21)
[2017-11-25] MEDS ORDERED: PANTOPRAZOLE INJ 80 MG in SODIUM CHLORIDE 0.9% INJ 100 ML IV SCH (08:21)
[2017-11-25] MEDS ORDERED: SODIUM CHLOR 0.9% 1000 ML INJ 1,000 ML IV SCH (08:21)
[2017-11-25] MEDS ORDERED: SODIUM CHLORIDE 0.9% FLUSH 10 ML FLUSH IVF PRN (08:30)
--- NOTE | 2017-11-25 08:31 | PD ---
Physical Exam Date Seen by Provider: Nov 25, 2017 Narrative Care was assumed at 7 AM. The patient had been brought to us via [facility] for intoxication. She had no complaints. The plan last night was to hold her until this morning when we could consult case management. However, the patient just had a dark stool which is Hemoccult positive. The patient denies any abdominal pain. She denies vomiting. Her only complaint is some mild right knee pain sustained when she "tripped and fell." She believes that she was brought to the hospital for evaluation of the knee injury. The patient gives a history of pancreatitis. She has had a previous cholecystectomy. She states that she drinks occasionally. GENERAL: Disheveled woman who appears older than her stated age of 62. SKIN: warm/dry. Thin-appearing skin with bruises in various stages of healing. HEAD: Normocephalic. Atraumatic. EYES: Pupils equal and round. No scleral icterus. No injection or drainage. ENT: No nasal bleeding or discharge. Mucous membranes pink and moist. NECK: Trachea midline. Full range of motion without pain.. CARDIOVASCULAR: Regular rate and rhythm. Heart sounds are normal. RESPIRATORY: No accessory muscle use. Clear to auscultation. Breath sounds equal bilaterally. GASTROINTESTINAL: Abdomen soft. Nontender. Bowel sounds present. Nondistended. MUSCULOSKELETAL: No obvious deformities. She has a bruise on the right knee but no swelling. Full range of motion of the knee. She is able to ambulate. NEUROLOGICAL: Awake and alert. No obvious cranial nerve deficits. Motor grossly within normal limits. Normal speech. PSYCHIATRIC: Appropriate mood and affect; insight and judgment normal. Data Data Last Documented VS Vital Signs Date Time Temp Pulse Resp B/P (MAP) Pulse Ox O2 Delivery O2 Flow Rate FiO2 11/25/17 09:26 100 16 150/82 (104) 97 Room Air 11/25/17 04:41 97.7 Orders Orders Haloperidol Inj (Haldol Inj) (11/24/17 18:30) Complete Blood Count With Diff (11/25/17 08:21) Comprehensive Metabolic Panel (11/25/17 08:21) Ammonia (11/25/17 08:21) Prothrombin Time / Inr (Pt) (11/25/17 08:21) Act Partial Throm Time (Ptt) (11/25/17 08:21) Alcohol (Ethanol) (11/25/17 08:21) Urinalysis - C+S If Indicated (11/25/17 08:21) Type And Screen (11/25/17 08:21) Ecg Monitoring (11/25/17 08:21) Iv Access Insert/Monitor (11/25/17 08:21) Oximetry (11/25/17 08:21) Sodium Chlor 0.9% 1000 Ml Inj (Ns 1000 M (11/25/17 08:21) Sodium Chloride 0.9% Flush (Ns Flush) (11/25/17 08:30) Sodium Chloride 0.9... W/Pantoprazole In (11/25/17 08:21) Sodium Chloride 0.9... W/Pantoprazole In (11/25/17 08:21) Ct Abd/Pel W Iv Contrast(Rout) (11/25/17 08:21) Ondansetron Inj (Zofran Inj) (11/25/17 09:15) Iohexol 350 Inj (Omnipaque 350 Inj) (11/25/17 10:19) Alcohol Withdrawal Asmt-Ciwa ONCE (11/25/17 10:35) Flumazenil Inj (Romazicon Inj) (11/25/17 10:45) Lorazepam (Ativan) (11/25/17 10:45) Lorazepam Inj (Ativan Inj) (11/25/17 10:45) Lorazepam (Ativan) (11/25/17 10:45) Lorazepam Inj (Ativan Inj) (11/25/17 10:45) Lorazepam Inj (Ativan Inj) (11/25/17 10:45) Lorazepam Inj (Ativan Inj) (11/25/17 10:45) Labs Laboratory Tests Test 11/25/17 08:51 White Blood Count 6.6 TH/MM3 Red Blood Count 4.30 MIL/MM3 Hemoglobin 13.1 GM/DL Hematocrit 39.7 % Mean Corpuscular Volume 92.3 FL Mean Corpuscular Hemoglobin 30.5 PG Mean Corpuscular Hemoglobin Concent 33.0 % Red Cell Distribution Width 13.5 % Platelet Count 184 TH/MM3 Mean Platelet Volume 8.4 FL Neutrophils (%) (Auto) 66.2 % Lymphocytes (%) (Auto) 20.1 % Monocytes (%) (Auto) 12.0 % Eosinophils (%) (Auto) 0.3 % Basophils (%) (Auto) 1.4 % Neutrophils # (Auto) 4.4 TH/MM3 Lymphocytes # (Auto) 1.3 TH/MM3 Monocytes # (Auto) 0.8 TH/MM3 Eosinophils # (Auto) 0.0 TH/MM3 Basophils # (Auto) 0.1 TH/MM3 CBC Comment DIFF FINAL Differential Comment Prothrombin Time 11.8 SEC Prothromb Time International Ratio 1.2 RATIO Activated Partial Thromboplast Time 27.9 SEC Blood Urea Nitrogen 18 MG/DL Creatinine 0.67 MG/DL Random Glucose 79 MG/DL Total Protein 7.8 GM/DL Albumin 3.2 GM/DL Calcium Level 9.0 MG/DL Alkaline Phosphatase 103 U/L Aspartate Amino Transf (AST/SGOT) 57 U/L Alanine Aminotransferase (ALT/SGPT) 28 U/L Total Bilirubin 1.0 MG/DL Sodium Level 134 MEQ/L Potassium Level 4.2 MEQ/L Chloride Level 99 MEQ/L Carbon Dioxide Level 22.2 MEQ/L Anion Gap 13 MEQ/L Estimat Glomerular Filtration Rate 89 ML/MIN Ammonia 25 MCMOL/L Ethyl Alcohol Level 14 MG/DL MDM Supervised Visit with AKIN: No Differential Diagnosis Differential diagnosis includes but is not limited to hemorrhoid, diverticulitis , cancer, coagulopathy Narrative Course This patient was brought to us last night to "sleep it off" after being found intoxicated at a local hotel. The patient believes that she is here for evaluation of the knee injury. She was kept here overnight so that she could be seen by case management this morning. However, before she could be seen by case management, she had a stool which was Hemoccult positive. I have initiated a workup for further evaluation of GI bleeding. She will be given some IV fluids and IV Protonix. CBC & BMP Diagram 11/25/17 08:51 Total Protein 7.8, Albumin 3.2 L, Calcium Level 9.0, Alkaline Phosphatase 103, Aspartate Amino Transf (AST/SGOT) 57 H, Alanine Aminotransferase (ALT/SGPT) 28, Total Bilirubin 1.0 Ammonia level is 25 Alcohol level drawn approximately 16 hours after presentation was 14. Coags are normal. Last Impressions Abdomen/Pelvis CT 11/25/17 0821 Signed Impressions: Service Date/Time: November 10:05 - CONCLUSION: 1. Unremarkable bowel gas pattern. No oral contrast was given. 2. Status post interval cholecystectomy. 3. New small benign cystic structure along the anterior right lobe of the liver. 4. Mild to moderate hepatic steatosis. Sukhjinder Traylor MD This patient does not meet inpatient criteria. She will be discharged home. The case sealer is speaking with the patient regarding her disposition. Diagnosis Primary Impression: Alcohol intoxication Qualified Codes: F10.920 - Alcohol use, unspecified with intoxication, uncomplicated Additional Impression: GI bleed Qualified Codes: K92.2 - Gastrointestinal hemorrhage, unspecified Patient Instructions: Alcohol Intoxication (DC), General Instructions Additional Instruction: Avoid excessive alcohol use. Follow-up your primary doctor in the next 2-4 days. Return to the emergency department for any new or worsening symptoms. Scripts Unable to Obtain Active Prescriptions or Reported Meds Disposition: 01 DISCHARGE HOME Condition: Stable Sierra Werner MD Nov 25, 2017 08:31
[2017-11-25 08:56] VITALS: O2SAT 97
[2017-11-25 09:01] LABS: AUTOMATED NEUTROPHIL # 4.4 TH/MM3 (1.8-7.7); BASOPHIL # 0.1 TH/MM3 (0-0.2); BASOPHIL % 1.4 % (0.0-2.0); EOSINOPHIL % 0.3 % (0.0-4.0); HEMATOCRIT 39.7 % (35.0-46.0); HEMOGLOBIN 13.1 GM/DL (11.6-15.3); LYMPH % 20.1 % (9.0-44.0); LYMPHOCYTE # 1.3 TH/MM3 (1.0-4.8); MEAN CELL VOLUME 92.3 FL (80.0-100.0); MEAN CORPUSCULAR HEMOGLOBIN 30.5 PG (27.0-34.0); MEAN PLATELET VOLUME 8.4 FL (7.0-11.0); MONOCYTE # 0.8 TH/MM3 (0-0.9); NEUT % 66.2 % (16.0-70.0); PLATELET COUNT 184 TH/MM3 (150-450); RED CELL DISTRIBUTION WIDTH 13.5 % (11.6-17.2); WHITE BLOOD COUNT 6.6 TH/MM3 (4.0-11.0)
[2017-11-25] MEDS ORDERED: ONDANSETRON HCL 4 MG/2 ML VIAL IV PUSH ONE (09:15)
[2017-11-25 09:24] LABS: INTERNATIONAL NORMALIZED RATIO 1.2 RATIO; PROTHROMBIN TIME - PATIENT 11.8 SEC (9.8-11.6)
[2017-11-25 09:26] VITALS: BP 150/82; PULSE 100; RESP 16; O2SAT 97
[2017-11-25 09:47] LABS: ALT (GPT) 28 U/L (10-53)
[2017-11-25 09:51] LABS: ALKALINE PHOSPHATASE 103 U/L (45-117); TOTAL PROTEIN 7.8 GM/DL (6.4-8.2)
[2017-11-25 09:58] LABS: ALBUMIN 3.2 GM/DL (3.4-5.0); AST (GOT) 57 U/L (15-37); BICARBONATE 22.2 MEQ/L (21.0-32.0); BLOOD UREA NITROGEN 18 MG/DL (7-18); CHLORIDE 99 MEQ/L (98-107); CREATININE 0.67 MG/DL (0.50-1.00); GLOMERULAR FILTRATION RATE 89 ML/MIN (>89); GLUCOSE,RANDOM 79 MG/DL (74-106); SODIUM (NA) 134 MEQ/L (136-145)
[2017-11-25] MEDS ORDERED: IOHEXOL 350 MG/ML 10 ML VIAL (for RAD DIAG) IVCONTRAST ONE (10:19)
--- NOTE | 2017-11-25 10:32 | RADRPT ---
EXAM DATE/TIME: 11/25/2017 10:05 [facility] COMPARISON: CT ABDOMEN & PELVIS W/O CONTRAST, July 31, 2016, 5:15. INDICATIONS : Lower abdominal pain. Blood in stool. IV CONTRAST: 85 cc Omnipaque 350 (iohexol) IV ORAL CONTRAST: No oral contrast ingested. RADIATION DOSE: 5.29 CTDIvol (mGy) MEDICAL HISTORY : Carcinoma, breast. Pancreatitis. Hypertension.Asthma. SURGICAL HISTORY : Mastectomy, right. Cholecystectomy. ENCOUNTER: Initial ACUITY: 1 day PAIN SCALE: 2/10 LOCATION: Bilateral lower quadrant TECHNIQUE: Volumetric scanning of the abdomen and pelvis was performed. Using automated exposure control and ad justment of the mA and/or kV according to patient size, radiation dose was kept as low as reasonably achievable to obtain optimal diagnostic quality images. DICOM format image data is available electro nically for review and comparison. FINDINGS: LOWER LUNGS: The visualized lower lungs are clear. LIVER: Homogeneous density with a small benign appearing cystic structure now noted along the anterior right lobe of the liver. This measures 1.8 x 0.9 cm. There is mild hepatic steatosis. The patient is statu s post cholecystectomy. There is no dilation of the biliary tree. No calcified gallstones. SPLEEN: Normal size without lesion. PANCREAS: Within normal limits. KIDNEYS: Normal in size and shape. There is no mass, stone or hydronephrosis. ADRENAL GLANDS: Within normal limits. VASCULAR: There is no aortic aneurysm. BOWEL/MESENTERY: No oral contrast was given as requested limiting sensitivity. The stomach, small bowel, and colon dem onstrate no acute abnormality. There is no free intraperitoneal air or fluid. ABDOMINAL WALL: Within normal limits. RETROPERITONEUM: There is no lymphadenopathy. BLADDER: No wall thickening or mass. REPRODUCTIVE: Within normal limits. INGUINAL: There is no lymphadenopathy or hernia. MUSCULOSKELETAL: Within normal limits for patient age. CONCLUSION: 1. Unremarkable bowel gas pattern. No oral contrast was given. 2. Status post interval cholecystectomy. 3. New small benign cystic structure along the anterior right lobe of the liver. 4. Mild to moderate hepatic steatosis. Sukhjinder Traylor MD on November 25, 2017 at 10:21 Board Certified Radiologist. This report was verified electronically.
[2017-11-25] MEDS ORDERED: FLUMAZENIL 0.5 MG/5 ML VIAL IV PUSH PRN (10:45)
[2017-11-25] MEDS ORDERED: LORazepam 2 MG TAB PO PRN (10:45)
[2017-11-25] MEDS ORDERED: LORazepam 2 MG/ML VIAL IV PUSH PRN ×4 (10:45)
[2017-11-25] MEDS ORDERED: LORazepam 1 MG TAB PO PRN (10:45)
== END 2017-11-25 11:37 | disposition home or self-care (01) ==
LOC: PHED 16:15
DX: F10.920 Alcohol use, unspecified with intoxication, uncomplicated (principal); F17.210 Nicotine dependence, cigarettes, uncomplicated; K92.2 Gastrointestinal hemorrhage, unspecified; K76.0 Fatty (change of) liver, not elsewhere classified; Y90.0 Blood alcohol level of less than 20 mg/100 ml; Z79.899 Other long term (current) drug therapy
CPT/HCPCS: 74177; 80053; 80307; 82140; 85025; 85610; 85730; 86850; 86900; 86901; 96365; 96372; 96376; 99285; C9113; J1630; J2405; J7030; Q9967